=== PATIENT | female | born 1945 | race Caucasian/White ===

== ENCOUNTER 2019-05-04 02:19 | Emergency (ER) | payer MEDICARE, SELFPAY ==
[2019-05-04 02:27] VITALS: BP 152/107; PULSE 109; RESP 20; TEMP 37.1; O2SAT 100
[2019-05-04 02:34] VITALS: PULSE 120; RESP 15
--- NOTE | 2019-05-04 02:38 | ED.GENADULT ---
HPI - General Adult General Chief complaint: Unspecified Stated complaint: keep getting shocked on the top of my body Time Seen by Provider: 05/04/19 02:35 Source: patient and RN notes reviewed Mode of arrival: ambulatory Limitations: no limitations History of Present Illness HPI narrative: Pt is a 74 y/o female who presents to the ED with c/o worsening shakiness starting 3 days ago. She notes that she was recently placed on a new medication(reglan) for her acid reflux 4 days ago. Pt states that she has had shakiness in her neck and bilateral arms for the past 3 days. She notes that laying down aggravates her symptoms, and states that she has almost fallen several times while walking due to her symptoms. Pt describes her shaking as jerking. She also reports intermittent dizziness, but denies any fever or chills. Pt notes that she has a Hx of DM, but states that her BS has been running low recently. complaint: Shakiness Onset (ago): day(s) (3) Location: neck and upper extremity (bilateral arms) Exacerbating factors: other (laying down) Associated symptoms: other (dizziness) Related Data Home Medications Medication Instructions Recorded Confirmed amitriptyline 05/04/19 Allergies Allergy/AdvReac Type Severity Reaction Status Date / Time aspirin Allergy Unknown Verified 08/08/10 09:45 NSAIDS (Non-Steroidal Allergy Unknown X Verified 07/31/17 10:52 Anti-Inflamma NKFA Allergy Unknown Uncoded 09/07/02 15:18 Review of Systems Review of Systems: All systems reviewed & are unremarkable except as noted in HPI and below Constitutional: Constitutional: Denies chills, Denies fever(s) and Reports other (shakiness in neck and bilateral arms) Neurologic: Reports dizziness PMFSH Past Medical History Medical History Arthritis CHF (congestive heart failure) Diabetes Gallbladder disease Gastric ulcer GERD (gastroesophageal reflux disease) HTN (hypertension) Kidney tumor (benign) Pneumonia Sleep apnea Squamous cell carcinoma Surgical History Surgical History H/O squamous cell carcinoma excision History of kidney surgery removal of benign tumor Hx of appendectomy Hx of cholecystectomy Hx of fusion of cervical spine Hx of hysterectomy Hx of repair of rotator cuff bilateral shoulders Family History Family History Sibling Hypertension Father Family history of chronic obstructive pulmonary disease Mother Acute myocardial infarction Other Diabetes mellitus Social History Social History Smoking status: Never smoker Alcohol intake: current Gender identity (if verbalized by the patient): Female Comments PCP is Dr. Mann. Exam Const: General: healthy appearing and no acute distress Nutritional Appearance: well nourished Resp: Effort & Inspection: normal respiratory effort Auscultation: clear to auscultation bilaterally Cardio: Rate: regular rate Rhythm: regular rhythm Heart sounds: no murmurs GI: GI Palp: Yes Soft to palpation and No Tenderness to palpation present (GI) Auscultation: normal bowel sounds Back/Spine/Pelvis: Back: other (Full ROM) Skin: General skin exam: normal color, dry skin and other (warm) Neuro: General: patient oriented x3 (alert) Speech: normal speech Motor exam (neuro): Tremors during motor activity present (resting) and Other motor observations present (normal coordination) Extrem: General: full ROM Psych: Mental Status: mental status grossly normal Affect: normal affect Course Vital Signs Vital signs: Vital Signs Temperature 37.1 C 05/04/19 02:27 Pulse Rate 109 H 05/04/19 02:27 Respiratory Rate 20 05/04/19 02:27 Blood Pressure 152/107 H 05/04/19 02:27 Pulse Oximetry 100 05/04/19 02:27 Temperature 37.1 C 02
[2019-05-04 03:13] LABS: Basophils Percent Auto 0.2 % (0.2-1.2); Eosinophils Absolute Auto 0.1 K/mm3 (0-0.3); Eosinophils Percent Auto 1.5 % (0-4.4); Hematocrit 35.6 % (37.0-47.0); Hemoglobin 11.7 g/dL (12.0-15.0); Immature Granulocyte Absolute 0.01 K/mm3 (0.00-0.031); Immature Granulocyte Percent A 0.2 % (0-0.5); Lymphocytes Absolute Auto 0.76 K/mm3 (0.9-3.2); Lymphocytes Percent Auto 16.8 % (18.3-44.2); Mean Corpuscular HGB Conc 32.9 g/dl (32-36); Mean Corpuscular Hemoglobin 31.2 pg (26-34); Mean Corpuscular Volume 94.9 fl (80-100); Monocytes Absolute Auto 0.5 K/mm3 (0.1-0.6); Monocytes Percent Auto 10.4 % (2.6-8.5); Neutrophils Absolute Auto 3.2 K/mm3 (1.3-6.7); Neutrophils Percent Auto 70.9 % (45.5-73.1); Platelet Count Result 159 k/mm3 (150-375); Red Blood Count 3.75 M/mm3 (4.2-5.4); Red Cell Distribution Width 13.2 % (11.5-14.5); White Blood Count 4.5 K/mm3 (4.5-10.0)
[2019-05-04 03:31] LABS: Blood Urea Nitrogen 20 mg/dL (7-17); Calcium 9.2 mg/dL (8.4-10.2); Carbon Dioxide 27 mmol/L (22-30); Chloride 94 mmol/L (98-107); Estimated Glomerular Filt Rate 49; Glucose 122 mg/dL (65-105); Potassium 4.6 mmol/L (3.4-5.0); Sodium 136 mmol/L (137-145)
[2019-05-04 03:56] LABS: Add Urine Microscopic? YES; Appearance Urine Clear (Clear); Bilirubin Urine Negative (Negative); Blood Urine Negative (Negative); Color Urine Yellow (Yellow); Glucose Urine UA Negative (Negative); Ketones Urine Negative (Negative); Leukocyte Esterase Ur Trace LEU/UL (Negative); Mucus Urine Rare /lpf; Nitrate Urine Negative (Negative); Protein Urine Negative (Negative); Specific Grav Ur 1.021 (1.001-1.035); Squamous Epithelial Cell Urine Few /hpf (Few); Urobilinogen Urine Negative mg/dL (<2.0); WBC Urine 21-30 /hpf
[2019-05-04 04:20] VITALS: BP 121/57; PULSE 77; RESP 12; O2SAT 95
== END 2019-05-04 04:20 | disposition home or self-care (01) ==
PROVIDERS: Emergency Provider Emergency Medicine; PCP Family Medicine Adolescent Medicine
DX: R20.2 Paresthesia of skin (principal); T50.995A Adverse effect of other drugs, medicaments and biological substances, initial encounter; M19.90 Unspecified osteoarthritis, unspecified site; I11.0 Hypertensive heart disease with heart failure; I50.9 Heart failure, unspecified; K21.9 Gastro-esophageal reflux disease without esophagitis; G47.30 Sleep apnea, unspecified; E11.9 Type 2 diabetes mellitus without complications; R82.998 Other abnormal findings in urine
CPT/HCPCS: 36415; 80048; 81001; 83735; 85025; 87077; 87086; 87088; 87186; 96374; 96376; 99284; J1200

== ENCOUNTER 2020-03-19 20:23 | Emergency (ER) | payer MEDICARE, SELFPAY ==
[2020-03-19] VITALS (7 sets, daily range): BP systolic 120–142; BP diastolic 58–89; PULSE 61–104; RESP 13–24; TEMP 36.1–36.7; O2SAT 98–100
--- NOTE | 2020-03-19 20:46 | ECG_ITS ---
Measurements Intervals [place] Rate: 78 P: 53 DE: 154 QRS: -21 QRSD: 85 T: 71 QT: 381 QTc: 434 Interpretive Statements SINUS RHYTHM DELAYED PRECORDIAL R/S TRANSITION BORDERLINE ST-T WAVE ABNORMALITY- HIGH LATERAL LEADS BASELINE ARTIFACT- I, II, III, AVR, AVL, AVF, V1-V5 BORDERLINE ECG Electronically Signed On 03-20-2020 7:09:05 INNOVATION ANALYST by Marcel Centeno D.O.
[2020-03-19 20:58] LABS: Basophils Percent Auto 0.5 % (0.2-1.2); Eosinophils Percent Auto 0.8 % (0-4.4); Hematocrit 34.8 % (37.0-47.0); Hemoglobin 11.4 g/dL (12.0-15.0); Immature Granulocyte Absolute 0.02 K/mm3 (0.00-0.031); Immature Granulocyte Percent A 0.5 % (0-0.5); Lymphocytes Absolute Auto 2.03 K/mm3 (0.9-3.2); Lymphocytes Percent Auto 55.8 % (18.3-44.2); Mean Corpuscular HGB Conc 32.8 g/dl (32-36); Mean Corpuscular Hemoglobin 31.3 pg (26-34); Mean Corpuscular Volume 95.6 fl (80-100); Mean Platelet Volume 10.1 fl (7.4-10.4); Monocytes Absolute Auto 0.4 K/mm3 (0.1-0.6); Monocytes Percent Auto 10.4 % (2.6-8.5); Neutrophils Absolute Auto 1.2 K/mm3 (1.3-6.7); Platelet Count Result 202 k/mm3 (150-375); Red Blood Count 3.64 M/mm3 (4.2-5.4); Red Cell Distribution Width 15.1 % (11.5-14.5); White Blood Count 3.6 K/mm3 (4.5-10.0)
[2020-03-19 21:11] LABS: Alanine Aminotransferase 37 U/L (4-35); Albumin Level 3.8 g/dL (3.5-5.1); Alkaline Phosphatase 233 U/L (38-126); Anion Gap 8 mmol/L (8-16); Aspartate Amino Transferase 68 U/L (14-36); Bilirubin,Total 0.7 mg/dL (0.2-1.3); Blood Urea Nitrogen 17 mg/dL (7-17); Calcium 9.1 mg/dL (8.4-10.2); Carbon Dioxide 26 mmol/L (22-30); Chloride 102 mmol/L (98-107); Estimated CRCL calculation 41 ml/min; Estimated Glomerular Filt Rate 55; Glucose 118 mg/dL (65-105); Potassium 3.6 mmol/L (3.4-5.0); Sodium 136 mmol/L (137-145)
[2020-03-19 22:48] LABS: Troponin I < 0.012 ng/mL (0.000-0.034)
[2020-03-19] MEDS: MECLIZINE HCL 25 MG TABLET PO (22:54)
[2020-03-19] MEDS: SODIUM CHLORIDE 0.9% IV 1,000 ML 999 ML IV CONT (22:56)
[2020-03-19] MEDS: diazePAM INJ (*CRX) 10 MG/2 ML SYRINGE 5 MG IV PUSH (22:58)
[2020-03-19 23:09] LABS: Add Urine Microscopic? NO; Appearance Urine Clear (Clear); Bilirubin Urine Negative (Negative); Blood Urine Negative (Negative); Color Urine Yellow (Yellow); Glucose Urine UA Negative (Negative); Ketones Urine Negative (Negative); Leukocyte Esterase Ur Negative LEU/UL (Negative); Nitrate Urine Negative (Negative); Protein Urine Negative (Negative); Specific Grav Ur 1.013 (1.001-1.035); Urobilinogen Urine Negative mg/dL (<2.0)
--- NOTE | 2020-03-19 23:34 | PC.NURSE ---
Patient care transferred to MERCEDEZ Arenas.
--- NOTE | 2020-03-19 23:45 | ED.GENADULT ---
HPI - General Adult General Chief complaint: Dizziness Stated complaint: Dizziness Time Seen by Provider: 03/19/20 21:51 History of Present Illness HPI narrative: Patient is a 74-year-old female presents emerged part with chief complaint of dizziness. Patient reports she has history of vertigo reports today she felt lightheaded whenever she stood up but also felt as though the room was spinning. Patient states she took her Antivert without relief and stated that she tried to rest and then took another dose. Patient states that there was still feeling symptomatic and was not improved by anything states it was worse whenever she would turn her head and when she would stand up. The patient denies vomiting does report that she has history of nausea with it particular whenever she is having the rotational symptoms. The patient denies chest pain denies shortness of breath denies abdominal pain. Related Data Home Medications Medication Instructions Recorded Confirmed amitriptyline 05/04/19 Allergies Allergy/AdvReac Type Severity Reaction Status Date / Time aspirin Allergy Unknown Other Verified 03/19/20 20:51 NSAIDS (Non-Steroidal Allergy Unknown Other Verified 03/19/20 20:51 Anti-Inflamma Review of Systems Review of Systems: Narrative: A 10 system review of systems was completed on the patient and is negative except for what is stated in the HPI. Nursing and ancillary documentation was reviewed. [facility] Past Medical History Medical History (Updated 03/19/20 @ 23:52 by Francisco Aceves MD) Arthritis CHF (congestive heart failure) Diabetes Gallbladder disease Gastric ulcer GERD (gastroesophageal reflux disease) HTN (hypertension) Kidney tumor (benign) Pneumonia Sleep apnea Squamous cell carcinoma Surgical History Surgical History H/O squamous cell carcinoma excision History of kidney surgery removal of benign tumor Hx of appendectomy Hx of cholecystectomy Hx of fusion of cervical spine Hx of hysterectomy Hx of repair of rotator cuff bilateral shoulders Family History Family History Sibling Hypertension Father Family history of chronic obstructive pulmonary disease Mother Acute myocardial infarction Other Diabetes mellitus Social History Social History Smoking status: Never smoker Alcohol intake: current Gender identity (if verbalized by the patient): Female Exam Narrative: Exam Narrative: GENERAL: Well-appearing, well-nourished, and in no acute distress. HEAD: Normocephalic, atraumatic. EYES: PERRLA and EOMI. ENT: Nares clear, no rhinorrhea or epistaxis. Mucous membranes moist. NECK: Supple. CHEST: Clear to auscultation. No respiratory distress. HEART: Regular rate and rhythm. No murmur heard. Normal peripheral pulses. ABDOMEN: Soft, nontender, nondistended, normal active bowel sounds. EXTREMITIES: Normal range of motion. No edema. SKIN: Warm, dry, no rash. NEURO: No focal deficits. Alert and oriented x3. PSYCH: Normal mood and affect. Course Course Emergency Course: Patient received IV Valium in the emergency department as well as p.o. Antivert and fluids. The patient is feeling much better at this time and the patient will be discharged home. Vital Signs Vital signs: Vital Signs Temperature 36.1 C L 03/19/20 20:26 Pulse Rate 78 03/19/20 20:26 Respiratory Rate 14 03/19/20 20:26 Blood Pressure 142/71 H 03/19/20 20:26 Pulse Oximetry 100 03/19/20 20:26 Temperature 36.3 C L 03/19/20 22:59 Pulse Rate 61 03/19/20 22:59 Respiratory Rate 13 03/19/20 22:59 Blood Pressure 123/62 03/19/20 22:59 Pulse Oximetry 98 03/19/20 22:59 Medical Decision Making Vital Signs Vital Signs: Vital Signs Temperature 36.1 C L 03/19/20 20:26 Pulse Rate 78
[2020-03-20 00:13] VITALS: BP 124/68; PULSE 68; RESP 18; O2SAT 100
== END 2020-03-20 00:14 | disposition home or self-care (01) ==
PROVIDERS: Emergency Medicine; Emergency Provider Emergency Medicine; PCP Family Medicine Adolescent Medicine
DX: R42 Dizziness and giddiness (principal); M19.90 Unspecified osteoarthritis, unspecified site; I50.9 Heart failure, unspecified; K21.9 Gastro-esophageal reflux disease without esophagitis; I11.0 Hypertensive heart disease with heart failure; G47.30 Sleep apnea, unspecified; Z85.828 Personal history of other malignant neoplasm of skin; R94.31 Abnormal electrocardiogram [ECG] [EKG]
CPT/HCPCS: 36415; 80053; 81003; 84484; 85025; 93005; 96361; 96374; 99284; A9270; J3360; J7030

== ENCOUNTER 2020-04-11 17:47 | Emergency (ER) | payer MEDICARE, SELFPAY ==
[2020-04-11] VITALS (27 sets, daily range): BP systolic 97–124; BP diastolic 47–60; PULSE 67–80; RESP 16–30; TEMP 36.3; O2SAT 88–100
--- NOTE | ~2020-04-11 | XR_ITS ---
XR chest 2V DATE: 04/11/2020 18:43 INDICATION: Left chest pain TECHNIQUE: PA and lateral views COMPARISON: 04/18/2017 two-view chest 04/19/2017 CT pulmonary scan FINDINGS: Normal heart size. No hilar or mediastinal enlargement. No pulmonary infiltrate or consolid ation, pleural effusion or pulmonary vascular congestion or pneumothorax. Minimal bilateral apical capping. Postoperative changes at the right upper quadrant consistent with cholecystectomy. IMPRESSION: No active cardiopulmonary disease Reviewed, dictated and finalized at location A. RAM CONTROL ANALYST
--- NOTE | ~2020-04-11 | NM_ITS ---
NM pulmonary perfusion DATE: 04/11/2020 22:42 INDICATION: Chest pain TECHNIQUE: 8 standard perfusion views following intravenous injection of 3.68 mCi 99m technetium MAA. COMPARISON: 04/11/2020 PA and lateral chest FINDINGS: There is normal distribution of the MAA particles throughout both lungs without any segment al or lobar perfusion abnormalities. IMPRESSION: Negative pulmonary perfusion scan; no evidence of clinically significant pulmonary emboli Reviewed, dictated and finalized at Location A. Reviewed, dictated and finalized at location A. CHER LARD IMPRESSION: Negative pulmonary perfusion scan; no evidence of clinically signif icant pulmonary emboli
--- NOTE | 2020-04-11 17:48 | ECG_ITS ---
Measurements Intervals [place] Rate: 80 P: 57 MS: 160 QRS: -8 QRSD: 85 T: 101 QT: 384 QTc: 444 Interpretive Statements SINUS RHYTHM BORDERLINE ST-T WAVE ABNORMALITY- ANT/HIGH LAT LEADS BORDERLINE ECG Electronically Signed On 04-11-2020 19:21:20 [employer] ROUTEMAN by Marcel Centeno D.O.
[2020-04-11 18:04] LABS: Basophils Percent Auto 0.1 % (0.2-1.2); Eosinophils Absolute Auto 0.1 K/mm3 (0-0.3); Eosinophils Percent Auto 0.8 % (0-4.4); Hematocrit 26.6 % (37.0-47.0); Hemoglobin 8.7 g/dL (12.0-15.0); Immature Granulocyte Absolute 0.02 K/mm3 (0.00-0.031); Immature Granulocyte Percent A 0.3 % (0-0.5); Lymphocytes Absolute Auto 1.48 K/mm3 (0.9-3.2); Mean Corpuscular HGB Conc 32.7 g/dl (32-36); Mean Corpuscular Hemoglobin 30.9 pg (26-34); Mean Corpuscular Volume 94.3 fl (80-100); Mean Platelet Volume 9.7 fl (7.4-10.4); Monocytes Absolute Auto 0.4 K/mm3 (0.1-0.6); Monocytes Percent Auto 5.8 % (2.6-8.5); Neutrophils Absolute Auto 5.1 K/mm3 (1.3-6.7); Platelet Count Result 200 k/mm3 (150-375); Red Blood Count 2.82 M/mm3 (4.2-5.4); Red Cell Distribution Width 14.8 % (11.5-14.5); White Blood Count 7.1 K/mm3 (4.5-10.0)
[2020-04-11 18:14] LABS: Prothrombin Time 13.5 Seconds (11.1-14.7)
[2020-04-11 18:15] LABS: Partial Thromboplastin Time 33.8 SECONDS (22.3-36.8)
[2020-04-11 18:18] LABS: Anion Gap 10 mmol/L (8-16); Blood Urea Nitrogen 32 mg/dL (7-17); Carbon Dioxide 26 mmol/L (22-30); Chloride 97 mmol/L (98-107); Estimated CRCL calculation 19 ml/min; Estimated Glomerular Filt Rate 26; Glucose 175 mg/dL (65-105); Potassium 3.8 mmol/L (3.4-5.0); Sodium 133 mmol/L (137-145)
[2020-04-11 18:30] LABS: Troponin I < 0.012 ng/mL (0.000-0.034)
--- NOTE | 2020-04-11 19:33 | ED.GENADULT ---
HPI - General Adult General Chief complaint: Chest Pain Stated complaint: chest pain Time Seen by Provider: 04/11/20 18:20 Source: patient History of Present Illness HPI narrative: Patient is a 74 y/o female complaining of left sided chest pain starting about 1:00 PM. She states that her pain is sharp and rates it as 9/10. She states that her pain stopped around 2:00 PM about recurred at 5:00 PM. There is no pain radiation. She has no SOB, cough or fever. Related Data Home Medications Medication Instructions Recorded Confirmed amitriptyline 05/04/19 Allergies Allergy/AdvReac Type Severity Reaction Status Date / Time aspirin Allergy Unknown Other Verified 03/19/20 20:51 NSAIDS (Non-Steroidal Allergy Unknown Other Verified 03/19/20 20:51 Anti-Inflamma Review of Systems Constitutional: Constitutional: Denies chills, Denies fever(s), Denies headache(s) and Denies weakness Eyes: Eyes: Denies blurry vision ENT: Denies headache(s) and Denies neck pain Cardiovascular: Cardiovascular: Reports chest pain and Denies dyspnea Respiratory: Respiratory: Denies cough and Denies dyspnea Gastrointestinal: Gastrointestinal: Denies abdominal pain, Denies diarrhea, Denies nausea and Denies vomiting Genitourinary: Genitourinary: Denies hematuria and Denies dysuria Musculoskeletal: Musculoskeletal: Denies back pain and Denies neck pain Neurologic: Denies headache(s) and Denies weakness [facility] Past Medical History Medical History (Updated 04/12/20 @ 01:09 by Paola Uriostegui MD) Arthritis CHF (congestive heart failure) Diabetes Gallbladder disease Gastric ulcer GERD (gastroesophageal reflux disease) HTN (hypertension) Kidney tumor (benign) Pneumonia Sleep apnea Squamous cell carcinoma Surgical History Surgical History H/O squamous cell carcinoma excision History of kidney surgery removal of benign tumor Hx of appendectomy Hx of cholecystectomy Hx of fusion of cervical spine Hx of hysterectomy Hx of repair of rotator cuff bilateral shoulders Family History Family History Sibling Hypertension Father Family history of chronic obstructive pulmonary disease Mother Acute myocardial infarction Other Diabetes mellitus Social History Social History Smoking status: Never smoker Alcohol intake: current Gender identity (if verbalized by the patient): Female Exam Const: General: no acute distress and well developed Orientation/consciousness: oriented to person, oriented to place, oriented to time and patient oriented x3 HENMT: Head: normocephalic Ears: external ears normal General nose exam: Normal external nose present Eyes: General: appearance normal, both eyes and all related structures Conjunctivae: conjunctivae normal Neck: Neck: normal visual inspection and full ROM Chest: Chest palpation & inspection: normal inspection of the chest and no tenderness Resp: Effort & Inspection: normal respiratory effort Auscultation: clear to auscultation bilaterally Cardio: Rate: regular rate Rhythm: regular rhythm GI: GI Palp: No abdominal tenderness and Yes Soft to palpation Skin: General skin exam: normal color and turgor normal Neuro: General: oriented to person, oriented to place, oriented to time and patient oriented x3 Cognition (Neuro): normal cognition Extrem: General: normal to inspection, full ROM and no pedal edema Psych: Appearance: grossly normal Mental Status: mental status grossly normal Affect: normal affect Course Vital Signs Vital signs: Vital Signs Temperature 36.3 C L 04/11/20 17:54 Pulse Rate 80 04/11/20 17:54 Respiratory Rate 16 04/11/20 17:54 Blood Pressure 124/47 L 04/11/20 17:54 Pulse Oximetry 96 04/11/20 17:54 Temperature 36.3 C L 04/11/20 17:54 Pulse Rate 73 04/12/20 00:05
[2020-04-11] MEDS: CYCLOBENZAPRINE HCL 10 MG TABLET PO (20:00)
[2020-04-11 20:08] LABS: D Dimer 1.28 ug/mL (<0.48)
--- NOTE | 2020-04-11 20:37 | PC.NURSE ---
received report from Jelena RN and Rony RN. patient here with CP. waiting for 2nd trop due at 2029. patient resting on stretcher. on radiographer cardiac catheterization. states that medication given for chest pain did not help at all . wants more medication. family member in room.
--- NOTE | 2020-04-11 21:15 | PC.NURSE ---
patient back on stretcher after ambulating to restroom. ultram given for continued chest pain. patient aware we are waiting for result of 2nd trop level. family member in room. call light in reach.
[2020-04-11 21:19] LABS: Troponin I < 0.012 ng/mL (0.000-0.034)
[2020-04-11] MEDS: traMADol HCL (*CRX) 50 MG TABLET PO (21:24)
--- NOTE | 2020-04-11 21:26 | PC.NURSE ---
ordered CT chest for PE. spoke with tech ed teacher. patient's GFR is 26. Dr. Uriostegui aware. will change to VQ scan. will ask record filing clerk to call for tech.
--- NOTE | 2020-04-11 22:54 | PC.NURSE ---
all tests resulted. waiting for further orders from provider vs disposition.
[2020-04-12 00:05] VITALS: PULSE 73; RESP 16
[2020-04-12 00:26] LABS: Troponin I < 0.012 ng/mL (0.000-0.034)
== END 2020-04-12 00:58 | disposition home or self-care (01) ==
PROVIDERS: Emergency Provider Emergency Medicine; Family Provider Family Medicine Adolescent Medicine; PCP Family Medicine Adolescent Medicine
DX: R07.9 Chest pain, unspecified (principal); E11.22 Type 2 diabetes mellitus with diabetic chronic kidney disease; I13.0 Hypertensive heart and chronic kidney disease with heart failure and stage 1 through stage 4 chronic kidney disease, or unspecified chronic kidney disease; N18.9 Chronic kidney disease, unspecified; I50.9 Heart failure, unspecified; G47.30 Sleep apnea, unspecified; Z98.1 Arthrodesis status; Z85.828 Personal history of other malignant neoplasm of skin; M19.90 Unspecified osteoarthritis, unspecified site
CPT/HCPCS: 36415; 71046; 78580; 80048; 84484; 85025; 85380; 85610; 85730; 93005; 99284; A9270; A9540

== ENCOUNTER 2021-06-04 14:18 | Outpatient (CLI) | payer MEDICARE, SELFPAY ==
--- NOTE | ~2021-06-04 | CT_ITS ---
EXAMINATION: CT brain & sinus wo con DATE: 06/04/2021 14:39 INDICATION: Recent onset of right-sided headache TECHNIQUE: Computed tomography (CT) of the brain and sinuses was performed without intravenous contra st. The dose-length product was 681.00 mGy-cm. Automated exposure control and iterative reconstructio n technique were employed. COMPARISON: No prior studies for comparison. FINDINGS: Brain parenchymal volume is normal for age. There are scattered mild periventricular and moffett bcortical white matter changes, most likely related to small vessel ischemic disease (microangiopathy ). There is intracranial atherosclerosis. No acute intracranial hemorrhage, infarction, mass or mass effect. No ventriculomegaly or midline shift. No depressed skull fractures. Mastoids are pneumatized. Paranasal sinuses are pneumatized without mucosal thickening or air-fluid level. No significant nasa l septal deviation. Ostiomeatal units are patent. IMPRESSION: 1. No acute abnormality of the brain. 2: No significant paranasal sinus disease. 3: Chronic age-related findings. Reviewed, dictated and finalized at location A.
== END 2021-06-04 14:19 | disposition home or self-care (01) ==
PROVIDERS: PCP Family Medicine Adolescent Medicine; Visit Provider Family Medicine Adolescent Medicine
DX: R51.9 Headache, unspecified (principal)
CPT/HCPCS: 70450; 70486

== ENCOUNTER 2021-11-23 14:26 | Emergency (ER) | payer MEDICARE, SELFPAY ==
--- NOTE | ~2021-11-23 | XR_ITS ---
EXAMINATION: [id number] DATE: 11/23/2021 14:49 INDICATION: Right rib pain post lots of cough TECHNIQUE: A frontal inspiratory view of the chest and 2 views of the right ribs were obtained. COMPARISON: 04/11/2020 FINDINGS: No rib fractures identified. The lungs are clear with no focal airspace opacities, pulmonary edema, p leural effusion or pneumothorax. Cardiomediastinal silhouette is normal. Cholecystectomy clips in rig ht upper quadrant. Additional surgical clips more posteriorly in the right upper quadrant likely rela madhuri to prior partial right nephrectomy. IMPRESSION: 1. No rib fracture or acute cardiopulmonary disease. Reviewed, dictated and finalized at location A.
[2021-11-23 14:35] VITALS: BP 135/58; PULSE 69; RESP 18; TEMP 36.3; O2SAT 100
--- NOTE | 2021-11-23 14:35 | ED.GENADULT ---
HPI - General Adult General Chief complaint: Upper Respiratory Infection Stated complaint: Bilateral Side and Back Pain History of Present Illness HPI narrative: 76 y/o female. PMHx Hypothyroid, HTN, Dyslipidemia, CHF, DM II, CKD, OA. Presents to local [facility] today with acute complaints of bilateral lower rib pain, in the setting of recent URI and cough. Client describes a 'sharp' and intermittent lower chest wall and rib pain, worse with quick movement or cough. She tells me that she had a URI 2 weeks ago, with continued cough prior to manifestation onset. Denies falls or acute chest wall trauma. No rash or lesions. Denies dyspnea, palpitations, edema. No dizziness, weakness, diaphoresis, N/V. She reports to now feel 'much better' in regard to her URI. However, has had continued dry cough, further irritating her chest wall. She is without additional acute c/o upon PE. Related Data Home Medications Medication Instructions Recorded Confirmed isosorbide mononitrate 30 mg 30 mg PO DAILY 03/19/21 11/23/21 tablet,extended release 24 hr ondansetron 4 mg disintegrating 4 mg PO Q8H 03/19/21 11/23/21 tablet ranolazine 500 mg tablet,extended 500 mg PO Q12H 03/19/21 11/23/21 release,12 hr sulindac 200 mg tablet 200 mg PO BID 03/19/21 11/23/21 Allergies Allergy/AdvReac Type Severity Reaction Status Date / Time aspirin Allergy Unknown Other Verified 11/23/21 14:43 NSAIDS (Non-Steroidal Allergy Unknown Other Verified 11/23/21 14:43 Anti-Inflamma lisinopril AdvReac Intermediate Cough Verified 11/23/21 14:43 metformin AdvReac Mild diarrhea Verified 11/23/21 14:43 propranolol AdvReac Mild Unknown Verified 11/23/21 14:43 metoclopramide AdvReac Unknown UNknown Verified 11/23/21 14:43 Review of Systems Review of Systems: CONSTITUTIONAL: Denies fever, chills, sweats. EYES: Denies visual changes, redness, discharge. ENT: Denies rhinorrhea, congestion, sore throat, otalgia. CARDIOVASCULAR: Chest wall pain w/cough. Denies palpitations, edema. RESPIRATORY: Denies dyspnea, wheezing. + cough. GASTROINTESTINAL: Denies abdominal pain, nausea, vomiting, diarrhea. GENITOURINARY: Denies dysuria, hematuria, abnormal discharge SKIN: Denies rash or itching. MUSCULOSKELETAL: Denies acute back pain, joint pain, or myalgia. NEUROLOGIC: Denies numbness, or focal weakness. No dizziness. PSYCHIATRIC: Denies anxiety or depression. [facility] Past Medical History Medical History Arthritis CHF (congestive heart failure) Diabetes Gastric ulcer GERD (gastroesophageal reflux disease) HTN (hypertension) Kidney tumor (benign) Pneumonia Sleep apnea Squamous cell carcinoma Surgical History Surgical History H/O squamous cell carcinoma excision History of hysterectomy with bilateral oophorectomy 1992 History of kidney surgery removal of benign tumor Hx of appendectomy Hx of cholecystectomy 2002 Hx of fusion of cervical spine Hx of repair of rotator cuff bilateral shoulders Family History Family History Sibling Hypertension Father Family history of chronic obstructive pulmonary disease Mother Acute myocardial infarction Other Diabetes mellitus Social History Social History Smoking status: Never smoker Alcohol intake: never Substance use: never Substance use type: does not use Gender identity (if verbalized by the patient): Female Sexual Orientation (if Verbalized by the Patient): Straight or Heterosexual Spiritual care concerns: No Agree to blood products: Yes Exam Narrative: GENERAL: This is a well-nourished, well-developed adult, in no apparent distress. HEAD: normocephalic. EYES: Sclera clear/white. EARS: External ears normal. NOSE: Externa
== END 2021-11-23 15:22 | disposition home or self-care (01) ==
PROVIDERS: Emergency Provider Nurse Practitioner Adult Health; PCP Family Medicine Adolescent Medicine
DX: M94.0 Chondrocostal junction syndrome [Tietze] (principal); R05.9 Cough, unspecified; E03.9 Hypothyroidism, unspecified; I50.9 Heart failure, unspecified; E11.22 Type 2 diabetes mellitus with diabetic chronic kidney disease; N18.9 Chronic kidney disease, unspecified; I13.0 Hypertensive heart and chronic kidney disease with heart failure and stage 1 through stage 4 chronic kidney disease, or unspecified chronic kidney disease
CPT/HCPCS: 71101; 99213; G0463

== ENCOUNTER 2022-08-21 13:56 | Outpatient (CLI) | payer MEDICARE, SELFPAY ==
[2022-08-21 14:18] LABS: Basophils Percent Auto 0.5 % (0.2-1.2); Eosinophils Absolute Auto 0.1 K/mm3 (0-0.3); Eosinophils Percent Auto 2.2 % (0-4.4); Hematocrit 32.7 % (37.0-47.0); Hemoglobin 10.8 g/dL (12.0-15.0); Immature Granulocyte Absolute 0.02 K/mm3 (0.00-0.031); Immature Granulocyte Percent A 0.5 % (0-0.5); Lymphocytes Absolute Auto 1.77 K/mm3 (0.9-3.2); Lymphocytes Percent Auto 42.8 % (18.3-44.2); Mean Corpuscular Hemoglobin 30.9 pg (26-34); Mean Corpuscular Volume 93.4 fl (80-100); Monocytes Absolute Auto 0.4 K/mm3 (0.1-0.6); Monocytes Percent Auto 9.4 % (2.6-8.5); Neutrophils Absolute Auto 1.9 K/mm3 (1.3-6.7); Neutrophils Percent Auto 44.6 % (45.5-73.1); Platelet Count Result 174 k/mm3 (150-375); Red Cell Distribution Width 14.9 % (11.5-14.5); White Blood Count 4.1 K/mm3 (4.5-10.0)
[2022-08-21 16:25] LABS: Iron 82 ug/dL (37-170)
[2022-08-21 16:33] LABS: Alanine Aminotransferase 24 U/L (6-35); Albumin Level 4.4 g/dL (3.5-5.1); Alkaline Phosphatase 113 U/L (38-126); Anion Gap 8 mmol/L (8-16); Aspartate Amino Transferase 34 U/L (14-36); Bilirubin,Total 0.6 mg/dL (0.2-1.3); Blood Urea Nitrogen 23 mg/dL (7-17); Calcium 9.1 mg/dL (8.4-10.2); Carbon Dioxide 30 mmol/L (22-30); Chloride 99 mmol/L (98-107); Estimated Glomerular Filt Rate 40; Glucose 96 mg/dL (65-110); Lactate Dehydrogenase 135 U/L (120-246); Potassium 3.9 mmol/L (3.4-5.0); Sodium 137 mmol/L (137-145)
[2022-08-21 16:34] LABS: Percent Iron Saturation 17 % (20-50)
[2022-08-21 17:44] LABS: Folic Acid 12.8 ng/mL (2.76->20)
[2022-08-25 02:49] LABS: Methylmalonic Acid 531 nmol/L (87-318)
== END 2022-08-21 13:57 | disposition home or self-care (01) ==
LOC: ANHLAB 14:06
PROVIDERS: PCP Family Medicine Adolescent Medicine; Visit Provider Internal Medicine Hematology & Oncology
DX: D61.818 Other pancytopenia (principal); D64.9 Anemia, unspecified
CPT/HCPCS: 36415; 80053; 82607; 82728; 82746; 83540; 83550; 83615; 83921; 85025; 86038; 86039

== ENCOUNTER 2022-08-28 09:30 | Outpatient (CLI) | payer MEDICARE, SELFPAY ==
--- NOTE | ~2022-08-28 | US_ITS ---
US abdomen complete EXAMINATION: US Abdomen Complete INDICATION: Pancytopenia PROCEDURE: Realtime High Resolution abdomen ultrasound. COMPARISON: No prior studies for comparison FINDINGS: Gallbladder is surgically absent. Common bile duct measures 4 mm. Liver echotexture within normal limits without focal mass. Pancreas within normal limits. Pancreati c tail is obscured by bowel gas. Spleen is unremarkeable. Renal echotexture is within normal limits bilaterally without hydronephrosis, contour deforming mass or renal stone. Right kidney measures 9.7 cm. Left kidney measures 8.6 cm. Visualized aspects of the aorta and IVC are within normal limits. Portal vein is patent. IMPRESSION: 1: Normal abdominal ultrasound. Reviewed, dictated and finalized at location L.
== END 2022-08-28 09:31 | disposition home or self-care (01) ==
LOC: ANHIMG 17:56
PROVIDERS: PCP Family Medicine Adolescent Medicine; Visit Provider Internal Medicine Hematology & Oncology
DX: D61.818 Other pancytopenia (principal)
CPT/HCPCS: 36415; 76700; 80053; 82607; 82728; 82746; 83540; 83550; 83615; 83921; 85025

== ENCOUNTER 2022-08-28 09:45 | Outpatient (CLI) | payer MEDICARE, SELFPAY ==
[2022-08-29 12:31] LABS: Basophils Percent Auto 0.5 % (0.2-1.2); Eosinophils Absolute Auto 0.1 K/mm3 (0-0.3); Eosinophils Percent Auto 3.3 % (0-4.4); Hematocrit 35.9 % (37.0-47.0); Hemoglobin 12.1 g/dL (12.0-15.0); Immature Granulocyte Absolute 0.01 K/mm3 (0.00-0.031); Immature Granulocyte Percent A 0.2 % (0-0.5); Lymphocytes Absolute Auto 1.78 K/mm3 (0.9-3.2); Lymphocytes Percent Auto 42.1 % (18.3-44.2); Mean Corpuscular HGB Conc 33.7 g/dl (32-36); Mean Corpuscular Hemoglobin 31.3 pg (26-34); Mean Corpuscular Volume 92.8 fl (80-100); Mean Platelet Volume 10.1 fl (7.4-10.4); Monocytes Absolute Auto 0.4 K/mm3 (0.1-0.6); Monocytes Percent Auto 8.3 % (2.6-8.5); Neutrophils Absolute Auto 1.9 K/mm3 (1.3-6.7); Neutrophils Percent Auto 45.6 % (45.5-73.1); Platelet Count Result 208 k/mm3 (150-375); Red Blood Count 3.87 M/mm3 (4.2-5.4); Red Cell Distribution Width 14.4 % (11.5-14.5); White Blood Count 4.2 K/mm3 (4.5-10.0)
[2022-08-29 21:40] LABS: Iron 83 ug/dL (37-170)
[2022-08-29 21:49] LABS: Percent Iron Saturation 16 % (20-50)
[2022-08-29 21:54] LABS: Alanine Aminotransferase 25 U/L (6-35); Albumin Level 4.7 g/dL (3.5-5.1); Alkaline Phosphatase 121 U/L (38-126); Anion Gap 10 mmol/L (8-16); Aspartate Amino Transferase 36 U/L (14-36); Bilirubin,Total 0.5 mg/dL (0.2-1.3); Blood Urea Nitrogen 25 mg/dL (7-17); Calcium 9.7 mg/dL (8.4-10.2); Carbon Dioxide 26 mmol/L (22-30); Chloride 103 mmol/L (98-107); Estimated Glomerular Filt Rate 31; Glucose 96 mg/dL (65-110); Lactate Dehydrogenase 136 U/L (120-246); Potassium 4.9 mmol/L (3.4-5.0); Sodium 139 mmol/L (137-145)
[2022-08-29 23:03] LABS: Folic Acid 18.9 ng/mL (2.76->20)
[2022-09-02 07:18] LABS: Methylmalonic Acid 448 nmol/L (87-318)
== END 2022-08-28 09:46 | disposition home or self-care (01) ==
LOC: ANHLAB 08-29 11:05
PROVIDERS: PCP Family Medicine Adolescent Medicine; Visit Provider Internal Medicine Hematology & Oncology
DX: D61.818 Other pancytopenia (principal); I12.9 Hypertensive chronic kidney disease with stage 1 through stage 4 chronic kidney disease, or unspecified chronic kidney disease; N18.31 Chronic kidney disease, stage 3a; E11.22 Type 2 diabetes mellitus with diabetic chronic kidney disease
CPT/HCPCS: 36415; 80053; 82607; 82728; 82746; 83540; 83550; 83615; 83921; 85025

== ENCOUNTER 2022-11-29 01:16 | Day surgery (SDC) | payer MEDICARE, SELFPAY ==
[2022-11-25 12:02] VITALS: BMI 28.2
--- NOTE | 2022-11-28 15:48 | PM.HPGS ---
History of Present Illness History of Present Illness Consent: Risks, benefits, and alternatives have been discussed and questions answered. Patient agrees to proceed with procedure. Chief complaint: epigastric pain Narrative: Anuja Prasad is a 77 year old female with hx of chronic anemia (managed by Dr. Nguyen), ROSA (on CPAP), CAD, thrombocytopenia, CHF, DM, gastric ulcer, HTN, CKD, vertigo, GERD (on lansoprazole BID and famotidine BID) referred for evaluation of epigastric pain times one year. the pain comes on suddenly and only last for a few seconds and then resolves. Pain is so severe it can take her breath away. She can not identify any triggers that make her symptoms worse. Around June she developed intermittent nausea in the am. Pepcid BID was added to PPI regimen and nausea improved for several months. For the 6 weeks she develop tenderness in bilateral upper abdomen that is progressively getting worse. pain radiates down to her belly button. Pain is worse appr 10 minutes after eating regardless of what she eats. She reports occasional intermittent nausea, belching and gas. Pain radiates across upper abdomen with generalized tenderness to the touch, in it becomes worse if she rolls over. if she turns to her side she has pain primarily at the end of the rib cage laterally on the right side. she is nauseated cold all the time but has lost no weight.? Review of Systems Review of Systems: All systems reviewed & are unremarkable except as noted in HPI and below PMFSH Past Medical History Medical History Arthritis CHF (congestive heart failure) CKD (chronic kidney disease) Diabetes Gastric ulcer GERD (gastroesophageal reflux disease) HTN (hypertension) Kidney tumor (benign) Pneumonia Sleep apnea Squamous cell carcinoma Surgical History Surgical History H/O squamous cell carcinoma excision History of ERCP History of hysterectomy with bilateral oophorectomy 1992 History of kidney surgery removal of benign tumor Hx of appendectomy Hx of cholecystectomy 2002 Hx of fusion of cervical spine Hx of repair of rotator cuff bilateral shoulders Family History Family History Sibling Hypertension Father Family history of chronic obstructive pulmonary disease Mother Acute myocardial infarction Other Diabetes mellitus Social History Social History Smoking status: Never smoker Alcohol intake: never Substance use: never Substance use type: does not use Lack of Transportation: No Lack of Food: Never True Current Housing: I Have Housing Concerned About Future Housing: No Difficulty Paying Gas/Electric Bills: No Difficulty Paying for Meds: No Currently Unemployed: No Education: Trade/Vocational Certificate Living arrangements: with family Occupation/Education: retired Gender identity (if verbalized by the patient): Female Sexual Orientation (if Verbalized by the Patient): Straight or Heterosexual Spiritual care concerns: No Agree to blood products: Yes Meds Home Medications and Allergies Home Medications Medication Instructions Recorded Confirmed Type isosorbide mononitrate 30 mg 30 mg PO DAILY 03/19/21 11/29/22 History tablet,extended release 24 hr ranolazine 500 mg tablet,extended 500 mg PO Q12H 03/19/21 11/29/22 History release,12 hr bumetanide 1 mg tablet 1 mg PO DAILY #90 tabs 03/22/21 11/29/22 Rx fluticasone propionate 110 2 puff inhalation Q12H #36 grams 03/22/21 11/29/22 Rx mcg/actuation HFA aerosol inhaler (Flovent HFA) potassium chloride 10 mEq See Rx Instructions .Route 08/06/21 11/29/22 Rx tablet,extended release(part/cryst) .COMPLEX #100 tabs meclizine 25 mg tablet See Rx Instructions .Route 11/15/21 11/29/22 Rx .COMPLEX #30 ta
--- NOTE | 2022-11-29 08:01 | WPDANESEPPF ---
Anes - Initial Pre Proc Eval Procedure: Operation Date: 11/29/22 10:00 Proposed Procedures p Esophagogastroduodenoscopy - Andriy Akhtar MD Date/Time: 11/29/22 08:01 Surgeon: Andriy Akhtar MD Pre Op Diagnosis: epigastric pain Patient Data Age: 77 Gender: F Height: 1.57 m Weight: 70 kg Allergies Allergy/AdvReac Type Severity Reaction Status Date / Time metformin AdvReac Mild diarrhea Verified 11/29/22 08:59 propranolol AdvReac Mild Unknown Verified 11/29/22 08:59 metoclopramide AdvReac Unknown UNknown Verified 11/29/22 08:59 NSAIDS (Non-Steroidal AdvReac Unknown Other Verified 11/29/22 08:59 Anti-Inflamma Home Medications Medication Instructions Recorded Confirmed Type isosorbide mononitrate 30 mg 30 mg PO DAILY 03/19/21 11/29/22 History tablet,extended release 24 hr ranolazine 500 mg tablet,extended 500 mg PO Q12H 03/19/21 11/29/22 History release,12 hr bumetanide 1 mg tablet 1 mg PO DAILY #90 tabs 03/22/21 11/29/22 Rx fluticasone propionate 110 2 puff inhalation Q12H #36 grams 03/22/21 11/29/22 Rx mcg/actuation HFA aerosol inhaler (Flovent HFA) potassium chloride 10 mEq See Rx Instructions .Route 08/06/21 11/29/22 Rx tablet,extended release(part/cryst) .COMPLEX #100 tabs meclizine 25 mg tablet See Rx Instructions .Route 11/15/21 11/29/22 Rx .COMPLEX #30 tabs atorvastatin 20 mg tablet See Rx Instructions .Route 04/07/22 11/29/22 Rx .COMPLEX #100 tabs lansoprazole 30 mg capsule,delayed See Rx Instructions .Route 04/07/22 11/29/22 Rx release .COMPLEX #200 caps levothyroxine 25 mcg tablet See Rx Instructions .Route 04/07/22 11/29/22 Rx .COMPLEX #100 tabs metoprolol succinate 50 mg See Rx Instructions .Route 04/07/22 11/25/22 Rx tablet,extended release 24 hr .COMPLEX #100 tabs aspirin 81 mg tablet,delayed 81 mg PO DAILY 05/30/22 11/29/22 History release acyclovir 400 mg tablet 400 mg PO TID #15 tabs 07/09/22 11/29/22 Rx pioglitazone 30 mg tablet See Rx Instructions .Route 07/19/22 11/29/22 Rx .COMPLEX #100 tabs famotidine 40 mg tablet 40 mg PO BID #180 tabs 09/06/22 11/29/22 Rx ferrous sulfate 325 mg (65 mg 325 mg PO DAILY 10/31/22 11/29/22 History iron) tablet (Feosol) losartan 25 mg tablet 25 mg PO DAILY 10/31/22 11/29/22 History vitamin B complex (B 1 tablet PO DAILY 10/31/22 11/29/22 History Complex-Vitamin B12 tablet) diazepam 2 mg tablet 4 mg PO BID #360 tabs 11/04/22 11/29/22 Rx trazodone 100 mg tablet See Rx Instructions .Route 11/06/22 11/29/22 Rx .COMPLEX #135 tabs ropinirole 0.5 mg tablet 0.5 mg PO QHS #100 tabs 12/02/22 Rx Patient hx anesthesia problems: none Family hx anesthesia problems: none Results Review: All pre-operative results and documents have been reviewed as part of the pre-operative evaluation. [facility] Past Medical History Medical History Arthritis CHF (congestive heart failure) CKD (chronic kidney disease) Diabetes Gastric ulcer GERD (gastroesophageal reflux disease) HTN (hypertension) Kidney tumor (benign) Pneumonia Sleep apnea Squamous cell carcinoma Surgical History Surgical History H/O squamous cell carcinoma excision History of ERCP History of hysterectomy with bilateral oophorectomy 1992 History of kidney surgery removal of benign tumor Hx of appendectomy Hx of cholecystectomy 2002 Hx of fusion of cervical spine Hx of repair of rotator cuff bilateral shoulders Family History Family History Sibling Hypertension Father Family history of chronic obstructive pulmonary disease Mother Acute myocardial infarction Other Diabetes mellitus Social History Social History Smoking status: Never smoker Alcohol intake: never Substance use: never Substance use type: does no
[2022-11-29 09:01] VITALS: BP 150/63; PULSE 61; RESP 20; TEMP 36.1; O2SAT 100; BMI 27.9
[2022-11-29] MEDS: LACTATED RINGERS 1,000 ML 150 ML IV CONT (09:16)
[2022-11-29 09:18] LABS: Glucose Point of Care 93 mg/dl (65-105)
[2022-11-29 10:11] VITALS: BP 127/60; PULSE 62; RESP 19; O2SAT 99
[2022-11-29 10:21] VITALS: BP 126/60; PULSE 60; RESP 19; O2SAT 99
[2022-11-29 10:31] VITALS: BP 142/61; PULSE 60; RESP 20; O2SAT 99
== END 2022-11-29 10:33 | disposition home or self-care (01) ==
PROVIDERS: PCP Family Medicine Adolescent Medicine; Visit Provider Internal Medicine Gastroenterology
PROC: 0DJ08ZZ Inspection of Upper Intestinal Tract, Via Natural or Artificial Opening Endoscopic (ICD-10-PCS; CPT 43235; principal; 2022-11-29 10:00)
DX: K29.70 Gastritis, unspecified, without bleeding (principal); K21.9 Gastro-esophageal reflux disease without esophagitis; K31.89 Other diseases of stomach and duodenum; D64.9 Anemia, unspecified; I25.10 Atherosclerotic heart disease of native coronary artery without angina pectoris; I13.0 Hypertensive heart and chronic kidney disease with heart failure and stage 1 through stage 4 chronic kidney disease, or unspecified chronic kidney disease; I50.9 Heart failure, unspecified; E11.22 Type 2 diabetes mellitus with diabetic chronic kidney disease; N18.9 Chronic kidney disease, unspecified; G47.33 Obstructive sleep apnea (adult) (pediatric); D69.6 Thrombocytopenia, unspecified; Z98.1 Arthrodesis status; Z79.51 Long term (current) use of inhaled steroids; Z79.82 Long term (current) use of aspirin; Z79.84 Long term (current) use of oral hypoglycemic drugs
CPT/HCPCS: 43239; 82948; 88305; J2704; J7120

== ENCOUNTER 2022-12-02 09:48 | Outpatient (CLI) | payer MEDICARE, SELFPAY ==
[2022-12-02 10:03] LABS: Basophils Percent Auto 0.3 % (0.2-1.2); Eosinophils Absolute Auto 0.1 K/mm3 (0-0.3); Eosinophils Percent Auto 1.7 % (0-4.4); Hematocrit 35.1 % (37.0-47.0); Hemoglobin 11.6 g/dL (12.0-15.0); Lymphocytes Absolute Auto 1.62 K/mm3 (0.9-3.2); Lymphocytes Percent Auto 46.3 % (18.3-44.2); Mean Corpuscular Volume 96.7 fl (80-100); Monocytes Absolute Auto 0.3 K/mm3 (0.1-0.6); Neutrophils Absolute Auto 1.5 K/mm3 (1.3-6.7); Neutrophils Percent Auto 43.7 % (45.5-73.1); Platelet Count Result 147 k/mm3 (150-375); Red Blood Count 3.63 M/mm3 (4.2-5.4); Red Cell Distribution Width 14.1 % (11.5-14.5); White Blood Count 3.5 K/mm3 (4.5-10.0)
[2022-12-02 12:13] LABS: Iron 91 ug/dL (37-170)
[2022-12-02 12:14] LABS: Anion Gap 8 mmol/L (8-16); Blood Urea Nitrogen 27 mg/dL (7-17); Calcium 9.4 mg/dL (8.4-10.2); Carbon Dioxide 27 mmol/L (22-30); Chloride 103 mmol/L (98-107); Estimated Glomerular Filt Rate 34; Glucose 167 mg/dL (65-110); Potassium 4.8 mmol/L (3.4-5.0); Sodium 138 mmol/L (137-145)
[2022-12-02 12:22] LABS: Percent Iron Saturation 20 % (20-50)
[2022-12-02 13:21] LABS: Folic Acid > 20.0 ng/mL (2.76->20); Vitamin B12 > 1000.0 pg/mL (239-931)
[2022-12-06 09:08] LABS: Methylmalonic Acid 295 nmol/L (87-318)
== END 2022-12-02 09:49 | disposition home or self-care (01) ==
PROVIDERS: PCP Family Medicine Adolescent Medicine; Visit Provider Internal Medicine Hematology & Oncology
DX: D61.818 Other pancytopenia (principal); D64.9 Anemia, unspecified
CPT/HCPCS: 36415; 80048; 82607; 82728; 82746; 83540; 83550; 83921; 85025

== ENCOUNTER 2023-04-08 12:29 | Outpatient (CLI) | payer MEDICARE, SELFPAY ==
[2023-04-08 12:43] LABS: Basophils Percent Auto 0.3 % (0.2-1.2); Eosinophils Absolute Auto 0.1 K/mm3 (0-0.3); Eosinophils Percent Auto 1.4 % (0-4.4); Hematocrit 34.3 % (37.0-47.0); Hemoglobin 11.2 g/dL (12.0-15.0); Immature Granulocyte Absolute 0.01 K/mm3 (0.00-0.031); Immature Granulocyte Percent A 0.3 % (0-0.5); Lymphocytes Absolute Auto 1.68 K/mm3 (0.9-3.2); Lymphocytes Percent Auto 46.4 % (18.3-44.2); Mean Corpuscular HGB Conc 32.7 g/dl (32-36); Mean Corpuscular Hemoglobin 31.9 pg (26-34); Mean Corpuscular Volume 97.7 fl (80-100); Mean Platelet Volume 9.4 fl (7.4-10.4); Monocytes Absolute Auto 0.3 K/mm3 (0.1-0.6); Monocytes Percent Auto 8.6 % (2.6-8.5); Neutrophils Absolute Auto 1.6 K/mm3 (1.3-6.7); Platelet Count Result 146 k/mm3 (150-375); Red Blood Count 3.51 M/mm3 (4.2-5.4); White Blood Count 3.6 K/mm3 (4.5-10.0)
[2023-04-08 16:32] LABS: Iron 97 ug/dL (37-170)
[2023-04-08 16:34] LABS: Anion Gap 10 mmol/L (8-16); Blood Urea Nitrogen 37 mg/dL (7-17); Calcium 9.3 mg/dL (8.4-10.2); Carbon Dioxide 28 mmol/L (22-30); Chloride 99 mmol/L (98-107); Estimated Glomerular Filt Rate 34; Glucose 121 mg/dL (65-110); Potassium 4.1 mmol/L (3.4-5.0); Sodium 137 mmol/L (137-145)
[2023-04-08 16:45] LABS: Percent Iron Saturation 23 % (20-50)
[2023-04-08 17:54] LABS: Folic Acid 10.9 ng/mL (2.76->20)
== END 2023-04-08 12:30 | disposition home or self-care (01) ==
PROVIDERS: PCP Family Medicine Adolescent Medicine; Visit Provider Internal Medicine Hematology & Oncology
DX: D61.818 Other pancytopenia (principal); D64.9 Anemia, unspecified
CPT/HCPCS: 36415; 80048; 82607; 82728; 82746; 83540; 83550; 85025

== ENCOUNTER 2023-10-20 08:56 | Outpatient (CLI) | payer MEDICARE, SELFPAY ==
[2023-10-20 09:15] LABS: Basophils Percent Auto 0.3 % (0.2-1.2); Eosinophils Absolute Auto 0.1 K/mm3 (0-0.3); Eosinophils Percent Auto 3.6 % (0-4.4); Hemoglobin 12.3 g/dL (12.0-15.0); Immature Granulocyte Absolute 0.02 K/mm3 (0.00-0.031); Immature Granulocyte Percent A 0.6 % (0-0.5); Lymphocytes Absolute Auto 1.61 K/mm3 (0.9-3.2); Lymphocytes Percent Auto 48.2 % (18.3-44.2); Mean Corpuscular HGB Conc 33.2 g/dl (32-36); Mean Corpuscular Volume 96.4 fl (80-100); Mean Platelet Volume 9.1 fl (7.4-10.4); Monocytes Absolute Auto 0.3 K/mm3 (0.1-0.6); Neutrophils Absolute Auto 1.3 K/mm3 (1.3-6.7); Neutrophils Percent Auto 38.3 % (45.5-73.1); Platelet Count Result 140 k/mm3 (150-375); Red Blood Count 3.84 M/mm3 (4.2-5.4); Red Cell Distribution Width 14.1 % (11.5-14.5); White Blood Count 3.3 K/mm3 (4.5-10.0)
[2023-10-20 10:39] LABS: Anion Gap 11 mmol/L (4-12); Blood Urea Nitrogen 28 mg/dL (7-17); Calcium 9.5 mg/dL (8.4-10.2); Carbon Dioxide 32 mmol/L (22-30); Chloride 98 mmol/L (98-107); Estimated Glomerular Filt Rate 27; Glucose 107 mg/dL (65-110); Potassium 4.4 mmol/L (3.4-5.0); Sodium 141 mmol/L (137-145)
[2023-10-20 11:32] LABS: Vitamin B12 > 1000.0 pg/mL (239-931)
[2023-10-20 11:57] LABS: Folic Acid 12.9 ng/mL (2.76->20)
[2023-10-20 12:52] LABS: Iron 127 ug/dL (37-170)
[2023-10-20 13:02] LABS: Percent Iron Saturation 29 % (20-50)
== END 2023-10-20 08:57 | disposition home or self-care (01) ==
LOC: ANHLAB 09:00
PROVIDERS: PCP Family Medicine Adolescent Medicine; Visit Provider Internal Medicine Hematology & Oncology
DX: D64.9 Anemia, unspecified (principal)
CPT/HCPCS: 36415; 80048; 82607; 82728; 82746; 83540; 83550; 85025

== ENCOUNTER 2024-04-14 09:07 | Outpatient (CLI) | payer MEDICARE, SELFPAY ==
[2024-04-14 09:20] LABS: Basophils Percent Auto 0.3 % (0.2-1.2); Eosinophils Absolute Auto 0.1 K/mm3 (0-0.3); Eosinophils Percent Auto 2.6 % (0-4.4); Hematocrit 35.4 % (37.0-47.0); Hemoglobin 11.6 g/dL (12.0-15.0); Immature Granulocyte Absolute 0.01 K/mm3 (0.00-0.031); Immature Granulocyte Percent A 0.3 % (0-0.5); Lymphocytes Absolute Auto 1.65 K/mm3 (0.9-3.2); Lymphocytes Percent Auto 47.1 % (18.3-44.2); Mean Corpuscular HGB Conc 32.8 g/dl (32-36); Mean Corpuscular Hemoglobin 31.5 pg (26-34); Mean Corpuscular Volume 96.2 fl (80-100); Mean Platelet Volume 9.4 fl (7.4-10.4); Monocytes Absolute Auto 0.3 K/mm3 (0.1-0.6); Monocytes Percent Auto 9.1 % (2.6-8.5); Neutrophils Absolute Auto 1.4 K/mm3 (1.3-6.7); Neutrophils Percent Auto 40.6 % (45.5-73.1); Platelet Count Result 128 k/mm3 (150-375); Red Blood Count 3.68 M/mm3 (4.2-5.4); Red Cell Distribution Width 14.6 % (11.5-14.5); White Blood Count 3.5 K/mm3 (4.5-10.0)
--- OUTSIDE RECORDS SUMMARY | 2024-04-14 09:35 | XMS_ITS | Referral Summary ---
Author Organization [facility] Address [address] [place] [address] Care Team Providers Care Production Planning Manager Name Role Phone Odell Mann MD Primary Care Provider + Source Comments [facility],non-owned Affiliates and Associated Physician Practices is amultiple site organization consisting of ambulatory clinics and hospital sitesin [place] and [place]. This disclosure is being madepursuant to the Care Everywhere program and may not contain all information available regarding this patient. Last updated 17.[facility] Allergies No known active allergies Medications * Be aware that medications may not be up to date on this document. Alwaysverify current medications with the patient. Medication Sig Dispensed Refills Start Date End Date Status atorvastatin (Lipitor) 20 MG tablet Take 20 mg by mouth once daily Active baclofen (Lioresal) 10 MG tablet Take 10 mg by mouth 2 times daily 06/05/2021 Active benzonatate (Tessalon) 100 MG capsule Take 100 mg by mouth 3 times daily as needed for cough 11/23/2021 Active bumetanide (Bumex) 1 MG tablet bumetanide 1 mg tablet take 1 tablet by mouth once daily Active Cholecalciferol 1.25 MG (10488 UT) Take 50,000 Units by mouth once daily Active cholestyramine light (Questran Light) 4 GM/DOSE powder Take 4 g by mouth 2 times daily Active vitamin B-12 (Cyanocobalamin) 500 MCG tablet Active famotidine (Pepcid) 20 MG tablet Take 20 mg by mouth 2 times daily Active Flovent HFA 110 MCG/ACT inhaler 09/25/2021 Active fexofenadine (Jennifer) 180 MG tablet Take 180 mg by mouth as needed Active isosorbide mononitrate CR 24hr (Imdur) 30 MG tablet isosorbide mononitrate ER 30 mg tablet,extended release 24 hr take 1 tablet by mouth once daily Active lansoprazole (Prevacid) 30 MG capsule 11/28/2021 Active levothyroxine (Synthroid) 25 MCG tablet 11/28/2021 Active losartan (Cozaar) 50 MG tablet 04/02/2021 Active losartan (Cozaar) 100 MG tablet 11/28/2021 Active meclizine (Antivert) 25 MG tablet TAKE 1 TABLET BY MOUTH 4 TIMES DAILY NEEDED FOR DIZZINESS 11/15/2021 Active metoprolol succinate XL 24hr (Toprol XL) 50 MG tablet 11/28/2021 Active multivitamins (One A Day) capsule Take 1 capsule by mouth once daily Active nitroGLYCERIN (Nitrostat) 0.4 MG tablet nitroglycerin 0.4 mg sublingual tablet DISSOLVE ONE TABLET UNDER THE TONGUE EVERY 5 MINUTES NEEDED FOR CHEST PAIN. DO NOT EXCEED A TOTAL OF 3 DOSES IN 15 MINUTES NOW Active pioglitazone (Actos) 30 MG tablet pioglitazone 30 mg tablet Active pioglitazone (Actos) 15 MG tablet 03/22/2021 Active pantoprazole EC (Protonix) 40 MG tablet pantoprazole 40 mg tablet,delayed release Active potassium chloride ER (Micro-K) 10 MEQ capsule potassium chloride ER 10 mEq capsule,extended release TAKE 1 CAPSULE BY MOUTH TWICE DAILY Active predniSONE (Deltasone) 10 MG tablet TAKE 6 TABLETS BY MOUTH ONCE DAILY FOR 4 DAYS, THEN 4 TABS ONCE DAILY FOR 4 DAYS, THEN 2 TABS ONCE DAILY FOR 4 DAYS, THEN 1 TAB ONCE DAILY FOR 4 DAYS 11/29/2021 Active ranolazine ER 12hr (Ranexa) 500 MG tablet 03/22/2021 Active rOPINIRole (Requip) 0.5 MG tablet 12/20/2021 Active sulindac (Clinoril) 200 MG tablet Take 1 tablet by mouth 2 times daily Active traMADol (Ultram) 50 MG tablet TAKE 1 TO 2 TABLETS BY MOUTH 4 TIMES DAILY NEEDED FOR PAIN 10/29/2021 Active traZODone (Desyrel) 100 MG tablet 10/22/2021 Active vitamin E (Tocopheryl) 100 UNIT capsule Take 100 Units by mouth once daily Active losartan (Cozaar) 100 MG tablet losartan 100 mg tablet TAKE 1 TABLET BY MOUTH ONCE DAILY Active diclofenac sodium (Voltaren) 1 % gel Apply 4 (four) g to affected area 4 times daily 100 g 5 01/17/2022 Active Immunizations Name Administration Dates Next Due FLU VACCINE TRI IIV3 SPLIT PF IM (FLUVIRIN) 11/15 Pneumococcal Pcv13 Conj 06/22/2019 Social History Tobacco Use Types Packs/Day Years Used Date Smoking Tobacco: Former Smokeless Tobacco: Never Comments:50 years ago Alcohol Use Standard Drinks/Week Comments Not Currently 0 (1 standard drink = 0.6 oz pur e alcohol) PHQ-2 Answer Date Recorded PHQ2 TOTAL SCORE 0 01/03/2022 Sex and Gender Information Value Date Recorded Sex Assigned at Not on file Gender Identity Not on file Sexual Orientation Not on file Last Filed Vital Signs Vital Sign Reading Time Taken Comments Blood Pressure 124/74 01/03/2022 9:56 AM CDT Pulse - - Temperature 36.8 ??C (98.3 ??F) 01/03/2022 9:56 AM CD T Respiratory Rate - - Oxygen Saturation - - Inhaled Oxygen Concentration - - Weight 77.1 kg (170 lb) 01/03/2022 9:56 AM CDT Height 157.5 cm (5' 2 ) 01/03/2022 9:56 AM CDT Body Mass Index 31.09 01/03/2022 9:56 AM CDT Plan of Treatment Not on file Care Teams Production Planning Manager Relationship Specialty Start Date End Date Odell Mann MD [address] [place] [id number] PCP - General Family Medicine 01/03/22
--- OUTSIDE RECORDS SUMMARY | 2024-04-14 09:35 | XMS_ITS | Patient Health Record ---
Author Organization [facility] Address [address] [place] [address] Care Team Providers Care Operating Room Surgical Technologist Name Role Phone Mackenzie YOO, Odell Primary Care Provider Delphine abhishek DUNHAM COUNTER PERSON, CARROL Unavailable REASON FOR REFERRAL No Information PLAN OF TREATMENT Pending Test Test Name Order Date Endoscopic Retrograde Cholangiopancreato graphy (ERCP) 12/30/2019 Insurance Providers Payer Name Payer Address Payer Phone Subscriber Number Group Number Insured Name Patient Relationship to Insured Coverage Start Date Coverage End Date AARP-Medic are Complete [address] [address] [place] [address] [id number] Anuja Salas Self - patient is the insured
--- OUTSIDE RECORDS SUMMARY | 2024-04-14 09:35 | XMS_ITS | Encounter Summary ---
Author Organization [facility] Address [address] [place] [address] Care Team Providers Care Wafer Polisher Name Role Phone Odell Mann MD Primary Care Provider [phone] Encounter Details Date Type Department Care Team (Late Contact Info) Description 04/13/2024 External Device Data [facility] ABSTRACTION Provider, Abstract NO ADDRESS ON FILE Social History Tobacco Use Types Packs/Day Years Used Date Smoking Tobacco: Never Alcohol Use Standard Drinks/Week Comments Yes 0 (1 standard drink = 0.6 oz pur e alcohol) rare Comments Unknown Sex and Gender Information Value Date Recorded Sex Assigned at Not on file Legal Sex Female 3:21 PM CDT Gender Identity Not on file Sexual Orientation Not on file Occupation Industry Job Start Date Job End Date Not on file Not on file Not on file Not on file documented as of this encounter Plan of Treatment Upcoming Encounters Date Type Department Care Team (Late Contact Info) Description 04/29/2024 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
--- OUTSIDE RECORDS SUMMARY | 2024-04-14 09:35 | XMS_ITS | Encounter Summary ---
Author Organization [facility] Care Team Providers Care Accounting Director Name Role Phone Odell Mann MD Primary Care Prov ider Howard Herbert MD Unavailable [phone] Encounter Details Date Type Department Care Team (Latest Contact Info) Description 02/27/2016 Orders Only [facility] CLINCON[facility] ProviderJulio Cesar MD [address] [place] [id number] Social History Tobacco Use Types Packs/Day Years Used Date Smoking Tobacco: Never Assessed Comments Unknown Sex and Gender Information Value Date Recorded Sex Assigned at Not on file Legal Sex Female 4:21 PM OTOLARYNGOLOGY SURGEON Gender Identity Not on file Sexual Orientation Not on file documented as of this encounter Plan of Treatment Not on file documented as of this encounter Procedures Procedure Name Priority Date/Time Associated Diagnosis Comments PROCEDURE - RESULT 02/19/2016 12 :00 AM OTOLARYNGOLOGY SURGEON documented in this encounter Results * PROCEDURE - RESULT (02/19/2016 12:00 AM OTOLARYNGOLOGY SURGEON) Narrative 02/19/2016 12:00 AM OTOLARYNGOLOGY SURGEON Ordered by an unspecified provider. us Historical Provider Final Res ult documented in this encounter Visit Diagnoses Not on filedocumented in this encounter Care Teams Accounting Director Relationship Specialty Start Date End Date Odell Mann MD PCP - General 06/14/18 Howard Herbert MD Referring Physician Cardiology 04/15/19 documented as of this encounter
--- OUTSIDE RECORDS SUMMARY | 2024-04-14 09:35 | XMS_ITS | Encounter Summary ---
Author Organization [facility] Address [address] [place] [address] Care Team Providers Care Line Welder Name Role Phone Odell Mann MD Primary Care Provider [phone] Encounter Details Date Type Department Care Team [...] (Late Contact Info) Description 04/29/2024 11:00 AM SUEDING MACHINE OPERATOR Office Visit [facility] Oncology and Hematology - [place] [address] [facility] [address] [place] [address] Ruben Nguyen MD [address] [facility] [address] [place] [address] documented as of this encounter Visit Diagnoses Not on filedocumented in this encounter Care Teams Line Welder Relationship Specialty Start Date End Date Odell Mann MD [address] [address] PCP - General Family Practice 12/24/18 documented as of this encounter
--- OUTSIDE RECORDS SUMMARY | 2024-04-14 09:35 | XMS_ITS | Clinical Summary ---
Author Organization [facility] at the [facility] Address [address] [place] [address] Care Team Providers Care Frame Pulley Mortising Machine Operator Name Role Phone Odell Mann MD Primary Care Prov ider Howard Herbert MD Unavailable [phone] Allergies No known active allergies Medications fexofenadine (JEFF) 180 mg tablet Take 1 tablet (180 mg total) by mouth as needed Active metoprolol XL (TOPROL-XL) 50 mg 24 hr tablet Take 1 tablet (50 mg total) by mouth daily 0 Active aspirin 81 mg enteric coated tablet Take 1 tablet (81 mg total) by mouth daily Do not take for 10 days 0 Active multivitamin capsule Take 1 capsule by mouth daily Active rOPINIRole (REQUIP) 0.5 mg tablet TAKE 1 TABLET BY MOUTH AT NIGHT 30 tablet 3 2 Active lansoprazole (PREVACID) 30 mg capsule Take 1 capsule (30 mg total) by mouth every 12 hours Active levothyroxine (SYNTHROID) 25 mcg tablet Take 1 tablet (25 mcg total) by mouth daily 2 Active traZODone (DESYREL) 100 mg tablet Take 1 tablet (100 mg total) by mouth nightly 3 Active diazePAM (VALIUM) 2 mg tablet Take 1 tablet (2 mg total) by mouth nightly as needed 3 Active fluticasone propionate (FLONASE) 50 mcg/actuation nasal spray as needed Active Jardiance 25 mg tablet Take 1 tablet (25 mg total) by mouth daily 4 Active atorvastatin (LIPITOR) 40 mg tablet Take 1 tablet (40 mg total) by mouth nightly 90 tablet 3 4 Active potassium chloride ER 20 mEq CR tablet TAKE 1 TABLET BY MOUTH 3 TIMES DAILY 300 tablet 2 4 Active bumetanide (BUMEX) 1 mg tablet TAKE 1 TABLET BY MOUTH TWICE DAILY 200 tablet 2 4 Active losartan (COZAAR) 25 mg tablet TAKE 1 TABLET BY MOUTH DAILY 100 tablet 2 4 Active ranolazine ER (RANEXA) 500 mg 12 hr tablet TAKE 1 TABLET BY MOUTH TWICE DAILY 200 tablet 2 4 Active isosorbide mononitrate ER (IMDUR) 30 mg 24 hr tablet TAKE 1 TABLET BY MOUTH DAILY 100 tablet 2 4 Active magnesium oxide (MAG-OX) 400 mg (241.3 mg elemental magnesium) tablet Take 1 tablet by mouth once daily 90 tablet 5 Active magnesium oxide (MAG-OX) 400 mg (241.3 mg elemental magnesium) tablet Take 1 tablet by mouth once daily 90 tablet 4 025 Discontinued Active Problems Problem Noted Date Diagnosed Date Mixed hyperlipidemia 10/15/2023 Arthritis of carpometacarpal (CMC) joint of righ t thumb 09/05/2023 Trigger index finger of left hand 09/05/2023 Hand arthritis 09/05/2023 Coronary artery disease invo lving duckwater coronary artery of [place] heart without angina pectoris 06/02/2023 Chronic heart failure with p reserved ejection fraction (CMS/HCC) 06/02/2023 Intraventricular conduction delay 06/02/2023 Essential hypertension 06/02/2023 Pulmonary hypertension 06/02/2023 Obstructive sleep apnea 08/23/2020 Psychophysiological insomnia 08/23/2020 Parasomnia 08/23/2020 Anxiety 08/23/2020 Essential hypertension 08/23/2020 Diffusion capacity of lung (dl), decreased 08/23 Nonsmoker 08/23/2020 Teeth grinding 08/23/2020 Moderate malnutrition (CMS/HCC) 01/18/2020 Abdominal pain 01/12/2020 Overview (01/18/2020): Added automatically from request for surgery [id number] CRD (chronic renal disease), stage III 0 Benign hypertensive kidney d isease with chronic kidney disease stage I through stage IV, or unspecified(403.10) 04/15/2019 Type 2 DM with CKD and hypertension 04/15/2019 Trigger middle finger of right hand 04/12/2019 Intervertebral disc disorder s with radiculopathy, lumbosacral region 02/23/2019 Vertigo, benign paroxysmal 10/14/2018 Ascites 01/20/2018 Elevated serum creatinine 01/20/2018 CKD (chronic kidney disease) stage 3, GFR 30-59 ml/min 01/20/2018 Trigger middle finger of right hand 07/09/2017 Unilateral primary osteoarth ritis of first carpometacarpal joint, unspecified hand 01/22/2016 Hand pain 01/22/2016 History of cardiac cath 08/31/2015 Encounters Date Type Department Care Team Description 02/16/2024 Telephone [facility] Nephrology at [address] [place] [address] Mavis Aguilar 02/03/2024 Telephone [facility] Nephrology at [address] [place] [address] Derrek Ling MD from Last 3 Months Immunizations Name Administration Dates Next Due Influenza, Trivalent, Preservative Free, Intramu scular 11/30/2014 Pneumococcal Conjugate PCV 13 06/22/2019 Surgical History Surgery Date Site/Laterality Comments HYSTERECTOMY 03/17/1983 - 03/16/1984 ROTATOR CUFF REPAIR APPENDECTOMY 03/17/1959 - 03/16/1960 CHOLECYSTECTOMY COLONOSCOPY UPPER GASTROINTESTINAL ENDOSCOPY Medical History Medical History Date Comments GERD (gastroesophageal reflux disease) Diabetes mellitus (HCC) Hypothyroidism Hypertension Dyslipidemia Sciatica Abdominal pain Nausea Chronic constipation Chronic diarrhea CHF (congestive heart failure) (CMS/HCC) (HCC) Type 2 diabetes mellitus (HCC) CKD (chronic kidney disease), stage III (HCC) stage 2 Renal insufficiency Arthritis Family History Medical History Relation Name Comments Diabetes Father Jg buchanan Hypertension Father Jg buchanan Heart attack Mother Bobbi Hypertension Mother Bobbi Relation Name Status Comments Father Jg buchanan Mother Bobbi Social History Tobacco Use Types Packs/Day Years Used Date Smoking Tobacco: Never Cigarettes Smokeless Tobacco: Never Tobacco Cessation:Counseling Given: Not Answered Alcohol Use Standard Drinks/Week Comments Yes 0 (1 standard drink = 0.6 oz pur e alcohol) rarely AUDIT-C Answer Date Recorded Q1: How often do you have a drink containing alc ohol? Monthly or less 08/13/2023 Average Number of Drinks Not on file 024 Frequency of Binge Drinking Not on file 07/16 Personal Safety Answer Date Recorded Getting School Help Needed Not on file 03/02 Comments No Sex and Gender Information Value Date Recorded Sex Assigned at Not on file Legal Sex Female 4:21 PM FACILITY ENGINEER Gender Identity Not on file Sexual Orientation Not on file Obstetrics History Last Filed Vital Signs Vital Sign Reading Time Taken Comments Blood Pressure 120/60 10/15/2023 10:34 AM CDT Pulse 53 10/15/2023 10:34 AM CDT Temperature 36.3 ??C (97.3 ??F) 08/13/2023 1:21 PM CD T Respiratory Rate 18 08/23/2020 9:55 AM CDT Oxygen Saturation 99% 10/15/2023 10:34 AM CDT Inhaled Oxygen Concentration - - Weight 75.8 kg (167 lb) 10/15/2023 10:34 AM CDT Height 157.5 cm (5' 2 ) 10/15/2023 10:34 AM CDT Body Mass Index 30.54 10/15/2023 10:34 AM CDT Plan of Treatment Health Maintenance Due Date Last Done Comments Albumin Creatinine Ratio, Urine 1945 Depression Screening 1945 Hepatitis C Screening 1945 Dilated Eye Exam 1945 Foot Exam 1945 DTaP/Tdap/Td Vaccine (1 - Tdap) 1958 Hepatitis B Screening 1965 Zoster Vaccine (1 of 2) 1997 Well Visit 65+ 2012 Osteoporosis Screening-Bone Density Scan 04/29/2014 04/29/2012, 04/29/2012 Hemoglobin A1C 01/03/2017 07/04/2016, 04/17, 02/09/2014 Pneumococcal vaccine 65+ (2 of 2 - PPSV23 or PCV20) 08/17/2019 06/22/2019 eGFR 01/17/2021 01/18/2020 Fall Risk Assessment 01/18/2021 01/19/2020 Influenza Vaccine (#1) 2023 11/30/2014 Lipid Panel 10/09/2024 10/10/2023, 03/0 11/2022, 05/04/2021, Additional history exists Breast Cancer Screening-Mammogram Discontinued 09/25/2022, 10/22/2019, 06/20/2017, Additional history exists Medical Devices Explanted Type Area Conductor And Engineer Device Identifier Shelf Expiration Date Model / Serial / Lot TMS Inc 6572 Quiroz Flexi-Stent 7fr 5cm Small Pigtail Flexible .035in Stent - [id number] Implanted:Qty : 1 on 01/17/2020 by Ludwig Crespo MD at [facility] Explanted:Qty : 1 on 01/19/2020 by Ludwig Crespo MD at [facility] Stent N/A: Pancreas TMS Inc 10/14/2024 [id number] / / [id number] Conmed Fatuma [id number] [place] Viabil 10mm 8.5fr 6cm 200cm Fully Covered Self Expand Pull - [id number] - [id number] Implanted:Qty : 1 on 01/17/2020 by Ludwig Crespo MD at [facility] Explanted:Qty : 1 on 01/19/2020 by Ludwig Crespo MD at [facility] Stent N/A: Bile Duct Conmed Fatuma 08/23/2022 [id number] / [id number] / Procedures Procedure Name Priority Date/Time Associated Diagnosis Comments IRON PROFILE W/ IBC Routine 02/03/2024 2 :19 PM FACILITY ENGINEER Stage 3a chronic kidney disease (HCC) Anemia in stage 3a chronic kidney disease (HCC) BASIC METABOLIC PANEL Routine 02/03/2024 2:18 PM FACILITY ENGINEER Stage 3a chronic kidney disease (HCC) Anemia in stage 3a chronic kidney disease (HCC) HEMOGLOBIN AND HEMATOCRIT Routine 02/03/2024 2:16 PM FACILITY ENGINEER Stage 3a chronic kidney disease (HCC) Anemia in stage 3a chronic kidney disease (HCC) EGFR Routine 01/18/2020 9:31 AM FACILITY ENGINEER DIAGNOSTIC MAMMOGRAM BILATERAL W KULDIP Routine 06/20/2017 8:48 AM CDT HEMOGLOBIN A1C Routine 07/04/2016 7:42 AM CDT DEXA AXIAL SKELETON BONE DENSITY 1 OR MORE SITES Routine 04/29/2012 12:20 PM FACILITY ENGINEER from Last 3 Months or Most Recently Relevant to Health Maintenance Results * [place] profile w/ IBC (02/03/2024 2:19 PM FACILITY ENGINEER) Blood us Derrek Ling MD LAB BLOOD ORDERABLES Final Re sult Performing Organization Address [facility] de Phone Number EXTERNAL LAB * Basic metabolic panel (02/03/2024 2:18 PM FACILITY ENGINEER) Blood Derrek Ling MD LAB BLOOD ORDERABLES Final Re sult Performing Organization Address [facility] de Phone Number EXTERNAL LAB * Hemoglobin and hematocrit (02/03/2024 2:16 PM FACILITY ENGINEER) Blood Derrek Ling MD LAB BLOOD ORDERABLES Final Re sult Performing Organization Address [facility] de Phone Number EXTERNAL LAB * eGFR (01/18/2020 9:31 AM FACILITY ENGINEER) Pathologist [facility] [place] eGFR 47 mL/min/1.7 3 m2 [facility] Comment: Interpretive Data Reference Interval Normal ?>/= 90 mL/min/1.73m2 Mildly decreased* ? 60 - 89 mL/min/1.73m2 Mildly to moderately decreased ?45 - 59 mL/min/1.73m2 Moderately to severely decreased ??30 - 44 mL/min/1.73m2 Severely decreased ?15 - 29 mL/min/1.73m2 Kidney Failure ?< 15 ??mL/min/1.73m2 *Relative to young adult level If -[place] multiply value by 1.16. Estimated glomerular filtration rate is determined by the CKD-EPI equation recommended by the National Kidney Foundation (KDIGO 2012 Clinical Practice Guideline for the Evaluation and Management of Chronic Kidney Disease. Kidney Intnl Suppl Mar 2012;3:1). The CKD-EPI equation should not be used for patients with unstable renal function and has not been validated in children and those over 70. Current interpretive data was last reviewed 2016. Blood specimen (specimen) 01/18/2020 9:31 AM FACILITY ENGINEER 01/18/2020 9:54 AM FACILITY ENGINEER us Ludwig Crespo MD LAB BLOOD ORDERABLES Final Result Performing Organization Address City/State/[facility] Co de Phone Number [facility] [address] [place] [address] * Diagnostic Mammogram Bilateral W Kuldip (06/20/2017 8:48 AM CDT) Anatomical Region Laterality Modality Breast Bilateral Mammography 06/20/2017 8:48 AM CDT Impressions 06/20/2017 10:37 AM CDT BI-RAD 2 ??BENIGN No evidence of malignancy. ??No abnormality to explain the bilateral pain. ??Base any further evaluation on clinical examination. A 1 year screening mammogram is recommended. ?? The patient was notified of the results and provided with a hand out on breast pain. ?? Electronically signed by: Dr. Pasquale Ang M.D. nh/:06/20/2017 10:36:27 ?? Bench Worker Hollow Handle: Amelia DUBON (R)(M), [facility] letter sent: Normal Exam Abnormal History ?? Reading location: [facility] BI-RADS: 2 Benign [EOD] Narrative 06/20/2017 10:37 AM CDT - MG BILATERAL DIGITAL DIAGNOSTIC MAMMOGRAM 3D/2D WITH MEDIOLATERAL OBLIQUE CRANIOCAUDAL: 06/20/2017 The study was acquired using full field digital technology and interpreted from soft copy. ?? 2D digital mammographic views, as well as 3D digital tomosynthesis were performed in the CC and MLO projections. CLINICAL: 72-year-old woman presents for evaluation of bilateral focal pain in the right axilla and superior left breast. ?? COMPARISONS: Comparison is made to exams dated: ??2014 mammogram and 04/29/2012 mammogram - [facility]. ?? BREAST TISSUE: There are scattered areas of fibroglandular density. ?? MAMMOGRAPHIC FINDINGS: Radiopaque BBs were placed over the site of pain in the right axilla and superior left breast. ??There is no mammographic abnormality at either site. ??Targeted ultrasound will be performed. ?? There has been no suspicious change. ??There is a stable benign mass in the lateral right breast. ??There is no new mass, suspicious calcification or architectural distortion in either breast. ULTRASOUND FINDINGS: Targeted right axillary ultrasound at the site of pain at 11 o'clock 12 cm from the nipple demonstrated normal tissue, inclusive of a normal axillary lymph node. ?? Targeted left breast ultrasound at the site of pain at 12:30 o'clock 11 cm from the nipple demonstrated normal-appearing tissue. Procedure Note Provider, MD Julio Cesar - 08/01/2020 - MG BILATERAL DIGITAL DIAGNOSTIC MAMMOGRAM 3D/2D WITH MEDIOLATERAL OBLIQUE CRANIOCAUDAL: 06/20/2017 The study was acquired using full field digital technology and interpretedfrom soft copy. 2D digital mammographic views, as well as 3D digital tomosynthesis were performed in the CC and MLO projections. CLINICAL: 72-year-old woman presents for evaluation of bilateral focalpain in the right axilla and superior left breast. COMPARISONS: Comparison is made to exams dated: 2014 mammogram and 04/29/2012 mammogram - [facility]. BREAST TISSUE: There are scattered areas of fibroglandular density. MAMMOGRAPHIC FINDINGS: Radiopaque BBs were placed over the site of pain in the right axilla and superior left breast. There is no mammographic abnormality at either site. Targeted ultrasound will be performed. There has been no suspicious change. There is a stable benign mass in the lateral right breast. There is no new mass, suspicious calcification or architectural distortion in either breast. ULTRASOUND FINDINGS: Targeted right axillary ultrasound at the site of pain at 11 o'clock 12 cm from the nipple demonstrated normal tissue, inclusiveof a normal axillary lymph node. Targeted left breast ultrasound at the site of pain at 12:30 o'clock 11 cmfrom the nipple demonstrated normal-appearing tissue. IMPRESSION: BI-RAD 2 BENIGN No evidence of malignancy. No abnormality to explain the bilateral pain.Base any further evaluation on clinical examination. A 1 year screening mammogram is recommended. The patient was notified of the results and provided with a hand out onbreast pain. Electronically signed by: Dr. Pasquale Ang M.D. nh/:06/20/2017 10:36:27 Bench Worker Hollow Handle: Amelia Pat RT (R)(Sharon), [facility] letter sent: Normal Exam Abnormal History Reading location: [facility] BI-RADS: 2 Benign [EOD] us Nico Andre MD IMG MAMMO PROCEDURES Final Result * (ABNORMAL) Hemoglobin A1c (07/04/2016 7:42 AM CDT) Hemoglobin A1c % 6.9(H) 4.8 - 5.9 % 07/04/2016 1:15 PM CDT [facility] HISTORICAL RESULTS Comment: [place] Diabetes Association recommends that the goal of therapy should be an A1C hemoglobin of <7%. Reevaluate the treatment regimen in patients with an A1C >8%. 07/04/2016 7:42 AM CDT 07/04/2016 10:05 AM CDT us Odell Mann MD LAB BLOOD ORDERABL ES Final Result [facility] HISTORICAL RESULTS * Dexa Axial Skeleton Bone Density 1 or 2 Site (04/29/2012 12:20 PM FACILITY ENGINEER) Anatomical Region Laterality Modality Body N/A Radiographic Adeline ging 04/29/2012 12:2 0 PM FACILITY ENGINEER Impressions 04/29/2012 2:31 PM FACILITY ENGINEER ?? Normal bone density. THIS IS AN ELECTRONICALLY VERIFIED REPORT 04/29/2012 2:26 PM: ??Sierra Warren M.D. Sierra Warren M.D. KL:saravanan 02:26 PM 02:26 PM [EOD] Narrative 04/29/2012 2:31 PM FACILITY ENGINEER EXAMINATION: Bone Density Study (DEXA) HISTORY: ??Post menopausal woman with clinical concern for low bone mineral density. COMPARISON: ??No prior DEXA. TECHNIQUE: Dual-energy X-ray absorptiometry of the lumbar spine and total left hip were performed. FINDINGS: Lumbar spine (from L1 through L4): The bone mineral density is 1.097 gm / cm sq. ?? The T score is 0.5. The percentage of young normal mean is 105%. Total Left Hip: The bone mineral density is 0.939 gm / cm sq. The T score is 0. The percentage of young normal mean is 100%. Procedure Note Provider, MD Julio Cesar - 08/01/2020 EXAMINATION: Bone Density Study (DEXA) HISTORY: Post menopausal woman with clinical concern for low bone mineral density. COMPARISON: No prior DEXA. TECHNIQUE: Dual-energy X-ray absorptiometry of the lumbar spine and totalleft hip were performed. FINDINGS: Lumbar spine (from L1 through L4): The bone mineral density is 1.097 gm / cm sq. The T score is 0.5. The percentage of young normal mean is 105%. Total Left Hip: The bone mineral density is 0.939 gm / cm sq. The T score is 0. The percentage of young normal mean is 100%. IMPRESSION: Normal bone density. THIS IS AN ELECTRONICALLY VERIFIED REPORT 04/29/2012 2:26 PM: Sierra Warren M.D. Sierra Warren M.D. KL:saravanan 02:26 PM 02:26 PM [EOD] Nico Andre MD IMG DXA PROCEDURES Final R esult from Last 3 Months or Most Recently Relevant to Health Maintenance Insurance MEDICARE SOLUTIONS MEDICARE SOLUTIONS Advance Directives For more information, please contact: [phone] * Full Code (Latest Code Status on File) Date Activated Date Inactivated Comments 01/17/2020 1:24 PM 01/19/2020 6:58 PM Care Teams Frame Pulley Mortising Machine Operator Relationship Specialty Start Date End Date Odell Mann MD PCP - General 06/14/18 Howard Herbert MD Referring Physician Cardiology 04/15/19
--- OUTSIDE RECORDS SUMMARY | 2024-04-14 09:35 | XMS_ITS | Encounter Summary ---
Author Organization [facility] Address [address] [place] [address]. [place] [address] [place] [address] Care Team Providers Care Hydraulic Jack Mechanic Name Role Phone Odell Mann MD Primary Care Provider [phone] Encounter Details Date Type Department Care Team (Late st Contact Info) Description 11/08/2019 Prep for Procedure [facility] [address] [place] [address] Christy Wang MD [address] [facility] [address] [place] [address] Social History Tobacco Use Types Packs/Day Years Used Date Smoking Tobacco: Never Smokeless Tobacco: Never Alcohol Use Standard Drinks/Week Comments No 0 (1 standard drink = 0.6 oz pur e alcohol) AUDIT-C Answer Date Recorded Frequency of Alcohol Consumption Never 09/06/2018 Average Number of Drinks Not on file 019 Frequency of Binge Drinking Not on file 08/16 Comments No Sex and Gender Information Value Date Recorded Sex Assigned at Not on file Legal Sex Female 7:45 PM CDT Gender Identity Not on file Sexual Orientation Not on file COVID-19 Exposure Response Date Recorded In the last month, have you been in contact with someone who was confirmed or suspected to have Coronavirus / COVID-19? No / Unsure 11/08/2019 3:04 PM CDT documented as of this encounter Plan of Treatment Not on file documented as of this encounter Results * PRE-SURGICAL/PRE-PROCEDURE CORONAVIRUS (COVID 19) (11/09/2019 7:43 AM CDT) CORONAVIRUS SARS COV 2 PCR (RESP) NOT DETECTED NOT DETECTED 11/10/2019 7:[address] [facility] Comment: A Not Detected (negative) test result for this test means that SARS- CoV-2 RNA was not present in the specimen above the limit of detection. A negative result does not rule out the possibility of COVID-19 and should not be used as the sole basis for treatment or patient management decisions. ??If COVID-19 is still suspected, based on exposure history together with other clinical findings, re-testing should be considered in consultation with public health authorities. Laboratory test results should always be considered in the context of clinical observations and epidemiological data in making a final diagnosis and patient management decisions. Please review the Fact Sheets and FDA authorized labeling available for health care providers and patients using the following websites: https://www.[employer]/home/Covid-19/HCP/NAAT/fact-sheet2 https://www.[employer]/home/Covid-19/Patients/NAAT/ fact-sheet2 This test has been authorized by the FDA under an Emergency Use Authorization (EUA) for use by authorized laboratories. Due to the current public health emergency, [facility] is receiving a high volume of samples from a wide variety of swabs and media for COVID-19 testing. In order to serve patients during this public health crisis, samples from appropriate clinical sources are being tested. Negative test results derived from specimens received in non-commercially manufactured viral collection and transport media, or in media and sample collection kits not yet authorized by FDA for COVID-19 testing should be cautiously evaluated and the patient potentially subjected to extra precautions such as additional clinical monitoring, including collection of an additional specimen. Methodology: ??Nucleic Acid Amplification Test (NAAT) includes PCR or TMA Additional information about COVID-19 can be found at the [facility] website: www.[email or web address]/Covid19. Test performed at [facility] [address] ??[id number] Director: LINDSEY FISHMAN DO,MPH NASOPHARYNGEAL SWAB / Unknown 11/09/2019 7:43 AM CDT us W Dagoberto Wang MD MICROBIOLOGY - GENERAL ORDERABLES Final Result [facility] [address] [place], [place] [address] documented in this encounter Visit Diagnoses Diagnosis Pre-op testing- Primary Preoperative examination, unspecified documented in this encounter Additional Health Concerns Infection Onset Date Last Indicated Resolved Time COVID-19 Rule Out 11/09/2019 11/09/2019 11/10/2019 7:05 PM CDT COVID-19 Rule Out 11/23/2019 11/23/2019 11/25/2019 2:26 AM CDT documented as of this encounter Care Teams Hydraulic Jack Mechanic Relationship Specialty Start Date End Date Odell Mann MD [address] [address] PCP - General FAMILY PRACTICE 09/06/18 documented as of this encounter
--- OUTSIDE RECORDS SUMMARY | 2024-04-14 09:35 | XMS_ITS | Encounter Summary ---
Author Organization [facility] Facility Care Team Providers Care Cigar Packing Examiner Name Role Phone Odell Mann MD Primary Care Prov ider Howard Herbert MD Unavailable [phone] Encounter Details Date Type Department Care Team (Latest Contact Info) Description 01/25/2016 Orders Only [facility] CLINCONV ProviderJulio Cesar MD [address] [place] [address] Social History Tobacco Use Types Packs/Day Years Used Date Smoking Tobacco: Never Assessed Comments Unknown Sex and Gender Information Value Date Recorded Sex Assigned at Not on file Legal Sex Female 4:21 PM KETTLE GIRL Gender Identity Not on file Sexual Orientation Not on file documented as of this encounter Plan of Treatment Not on file documented as of this encounter Procedures Procedure Name Priority Date/Time Associated Diagnosis Comments PROCEDURE - RESULT 01/25/2016 12 :00 AM KETTLE GIRL documented in this encounter Results * PROCEDURE - RESULT (01/25/2016 12:00 AM KETTLE GIRL) Narrative 01/25/2016 12:00 AM KETTLE GIRL Ordered by an unspecified provider. us Historical Provider Final Res ult documented in this encounter Visit Diagnoses Not on filedocumented in this encounter Care Teams Cigar Packing Examiner Relationship Specialty Start Date End Date Odell Mann MD PCP - General 06/14/18 Howard Herbert MD Referring Physician Cardiology 04/15/19 documented as of this encounter
--- OUTSIDE RECORDS SUMMARY | 2024-04-14 09:35 | XMS_ITS | Encounter Summary ---
Author Organization [facility] System Address [address] [place] [address]. [place] [address] [place] [address] Care Team Providers Care Route Driver Salesperson Name Role Phone Odell Mann MD Primary Care Provider [phone] Encounter Details Date Type Department Care Team (Late st Contact Info) Description 11/19/2019 Prep for Procedure [facility] [address] [place] [address] Christy Wang MD [address] [facility] [address] [place] [address] Social History Tobacco Use Types [...] have Coronavirus / COVID-19? No / Unsure 11/19/2019 2:58 PM CDT documented as of this encounter Plan of Treatment Not on file documented as of this encounter Visit Diagnoses Diagnosis Pre-op testing- Primary Preoperative examination, unspecified documented in this encounter Additional Health Concerns Infection Onset Date Last Indicated Resolved Time COVID-19 Rule Out 11/23/2019 11/23/2019 11/25/2019 2:26 AM CDT documented as of this encounter Care Teams Route Driver Salesperson Relationship Specialty Start Date End Date Odell Mann MD [address] [address] PCP - General FAMILY PRACTICE 09/06/18 documented as of this encounter
--- OUTSIDE RECORDS SUMMARY | 2024-04-14 09:35 | XMS_ITS | Encounter Summary ---
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 Historical Provider Final Res ult * CARDIOLOGY REPORT (08/31/2015 12:00 AM CDT) Anatomical Region Laterality Modality Other Narrative 08/31/2015 12:00 AM CDT Ordered by an unspecified provider. Historical Provider [facility] CARDIAC SERVICES PROCE DURES Final Result * CARDIOLOGY REPORT (08/31/2015 12:00 AM CDT) Anatomical Region Laterality Modality Other Narrative 08/31/2015 12:00 AM CDT Ordered by an unspecified provider. [facility] Provider CV CARDIAC SERVICES PROCE DURES Final Result * CARDIOLOGY REPORT (08/31/2015 12:00 AM CDT) Anatomical Region Laterality Modality Other Narrative 08/31/2015 12:00 AM CDT Ordered by an unspecified provider. [facility] Provider CV CARDIAC SERVICES PROCE DURES Final Result documented in this encounter Visit Diagnoses Not on filedocumented in this encounter Care Teams Copy Center Associate Relationship Specialty Start Date End Date Odell Mann MD PCP - General 06/14/18 Howard Herbert MD Referring Physician Cardiology 04/15/19 documented as of this encounter
--- OUTSIDE RECORDS SUMMARY | 2024-04-14 09:35 | XMS_ITS | Patient Health Summary ---
Author Organization [facility] Address [address] [place] [address] Care Team Providers Care Benzol Operator Name Role Phone Odell Mann MD Primary Care Provider + Note from [facility],non-owned Affiliates and Associated Physician Practices is amultiple site organization consisting of ambulatory clinics and hospital sitesin [place], [place], [place]. This disclosure is being madepursuant to the Care Everywhere program and may not contain all information available regarding this patient. Last updated 17.[facility] Allergies No known active allergies Medications * Be aware that medications may not be up to date on this document. Alwaysverify current medications with the patient. * atorvastatin (Lipitor) 20 MG tablet Take 20 mg by mouth once daily * baclofen (Lioresal) 10 MG tablet(Started 06/05/2021) Take 10 mg by mouth 2 times daily * benzonatate (Tessalon) 100 MG capsule(Started 11/23/2021) Take 100 mg by mouth 3 times daily as needed for cough * bumetanide (Bumex) 1 MG tablet bumetanide 1 mg tablet take 1 tablet by mouth once daily * Cholecalciferol 1.25 MG (01755 UT) Take 50,000 Units by mouth once daily * cholestyramine light (Questran Light) 4 GM/DOSE powder Take 4 g by mouth 2 times daily * vitamin B-12 (Cyanocobalamin) 500 MCG tablet * famotidine (Pepcid) 20 MG tablet Take 20 mg by mouth 2 times daily * Flovent HFA 110 MCG/ACT inhaler(Started 09/25/2021) * fexofenadine (Jennifer) 180 MG tablet Take 180 mg by mouth as needed * isosorbide mononitrate CR 24hr (Imdur) 30 MG tablet isosorbide mononitrate ER 30 mg tablet,extended release 24 hr take 1 tablet by mouth once daily * lansoprazole (Prevacid) 30 MG capsule(Started 11/28/2021) * levothyroxine (Synthroid) 25 MCG tablet(Started 11/28/2021) * losartan (Cozaar) 50 MG tablet(Started 04/02/2021) * losartan (Cozaar) 100 MG tablet(Started 11/28/2021) * meclizine (Antivert) 25 MG tablet(Started 11/15/2021) TAKE 1 TABLET BY MOUTH 4 TIMES DAILY NEEDED FOR DIZZINESS * metoprolol succinate XL 24hr (Toprol XL) 50 MG tablet(Started 11/28/2021) * multivitamins (One A Day) capsule Take 1 capsule by mouth once daily * nitroGLYCERIN (Nitrostat) 0.4 MG tablet nitroglycerin 0.4 mg sublingual tablet DISSOLVE ONE TABLET UNDER THE TONGUE EVERY 5 MINUTES NEEDED FOR CHEST PAIN. DO NOT EXCEED A TOTAL OF 3 DOSES IN 15 MINUTES NOW * pioglitazone (Actos) 30 MG tablet pioglitazone 30 mg tablet * pioglitazone (Actos) 15 MG tablet(Started 03/22/2021) * pantoprazole EC (Protonix) 40 MG tablet pantoprazole 40 mg tablet,delayed release * potassium chloride ER (Micro-K) 10 MEQ capsule potassium chloride ER 10 mEq capsule,extended release TAKE 1 CAPSULE BY MOUTH TWICE DAILY * predniSONE (Deltasone) 10 MG tablet(Started 11/29/2021) TAKE 6 TABLETS BY MOUTH ONCE DAILY FOR 4 DAYS, THEN 4 TABS ONCE DAILY FOR 4 DAYS, THEN 2 TABS ONCE DAILY FOR 4 DAYS, THEN 1 TAB ONCE DAILY FOR 4 DAYS * ranolazine ER 12hr (Ranexa) 500 MG tablet(Started 03/22/2021) * rOPINIRole (Requip) 0.5 MG tablet(Started 12/20/2021) * sulindac (Clinoril) 200 MG tablet Take 1 tablet by mouth 2 times daily * traMADol (Ultram) 50 MG tablet(Started 10/29/2021) TAKE 1 TO 2 TABLETS BY MOUTH 4 TIMES DAILY NEEDED FOR PAIN * traZODone (Desyrel) 100 MG tablet(Started 10/22/2021) * vitamin E (Tocopheryl) 100 UNIT capsule Take 100 Units by mouth once daily * losartan (Cozaar) 100 MG tablet losartan 100 mg tablet TAKE 1 TABLET BY MOUTH ONCE DAILY * diclofenac sodium (Voltaren) 1 % gel(Started 01/17/2022) Apply 4 (four) g to affected area 4 times daily 5 refills by 01/17/2023 Immunizations * FLU VACCINE TRI IIV3 SPLIT PF IM (FLUVIRIN)(Given 11/30/2014) * Pneumococcal Pcv13 Conj(Given 06/22/2019) Social History Tobacco Use Types Packs/Day Years [...] Mass Index 31.09 01/03/2022 9:56 AM CDT Procedures * EYE EXAM(Performed 01/17/2022) * EYE EXAM(Performed 01/04/2022) * BURDEN/SERVICES EXECUTIVE (TEGAN) ANTIBODY IGG(Performed 01/03/2022) Performed for GENA positive * SS-A (SJOGREN'S) 52+60 ANTIBODIES(Performed 01/03/2022) Performed for GENA positive * TSH REFLEX FREE T4(Performed 01/03/2022) Performed for GENA positive * CK BLOOD(Performed 01/03/2022) Performed for GENA positive * ALDOLASE(Performed 01/03/2022) Performed for GENA positive * RHEUMATOID FACTOR BLOOD QUANTITATIVE(Performed 01/03/2022) Performed for GENA positive * CYCLIC CITRULLINATED PEPTIDE(CCP) AB IGG(Performed 01/03/2022) Performed for GENA positive * CENTROMERE ANTIBODY(Performed 01/03/2022) Performed for GENA positive * SS-B (SJOGREN'S) ANTIBODY(Performed 01/03/2022) Performed for GENA positive * RNA POLYMERASE III ANTIBODY IGG(Performed 01/03/2022) Performed for GENA positive * SCLERODERMA 70 (SCL) ANTIBODY(Performed 01/03/2022) Performed for GENA positive * BURDEN (SM) ANTIBODY TEGAN(Performed 01/03/2022) Performed for GENA positive * DNA ANTIBODY DOUBLE STRANDED(Performed 01/03/2022) Performed for GENA positive * GENA BLOOD SCREEN W/REFLEX TITER(Performed 01/03/2022) Performed for GENA positive * COMPREHENSIVE METABOLIC PANEL(Performed 01/03/2022) Performed for GENA positive * ERYTHROCYTE SEDIMENTATION RATE(Performed 01/03/2022) Performed for GENA positive * C-REACTIVE PROTEIN(Performed 01/03/2022) Performed for GENA positive * CBC W AUTO DIFFERENTIAL(Performed 01/03/2022) Performed for GENA positive * XR FOOT RIGHT 3VW OR MORE(Performed 01/03/2022) Performed for GENA positive * XR FOOT LEFT 3VW OR MORE(Performed 01/03/2022) Performed for GENA positive * XR ANKLE RIGHT 2VW(Performed 01/03/2022) Performed for GENA positive * XR ANKLE LEFT 2VW(Performed 01/03/2022) Performed for GENA positive * XR LUMBAR SPINE 2 OR 3VW(Performed 01/03/2022) Performed for GENA positive * XR HIP RIGHT 2VW OR MORE(Performed 01/03/2022) Performed for GENA positive * XR HIP LEFT 2VW OR MORE(Performed 01/03/2022) Performed for GENA positive * XR KNEE RIGHT 3VW(Performed 01/03/2022) Performed for GENA positive * XR KNEE LEFT 3VW(Performed 01/03/2022) Performed for GENA positive * XR HAND LEFT 3VW OR MORE(Performed 01/03/2022) Performed for GENA positive * XR HAND RIGHT 3VW OR MORE(Performed 01/03/2022) Performed for GENA positive Results * EYE EXAM (01/17/2022) Anatomical Region Laterality Modality Other Narrative 01/17/2022 Ordered by an unspecified provider. Scanned Document SCANNING ONLY * EYE EXAM (01/04/2022) Anatomical Region Laterality Modality Other Narrative 01/04/2022 Ordered by an unspecified provider. Scanned Document SCANNING ONLY * SS-A (SJOGREN'S) 52+60 ANTIBODIES (01/03/2022 12:21 PM CDT) SS-A 52 Antibody 0 0 - 40 AU/mL 01/05/2022 2:24 PM CDT [facility] ([facility]) Comment: INTERPRETIVE INFORMATION: SSA-52 (Ro52) (TEGAN) Antibody, IgG ??29 AU/mL or Less ............. Negative ??30 - 40 AU/mL ................ Equivocal ??41 AU/mL or Greater .......... Positive SSA-52 (Ro52) and/or SSA-60 (Ro60) antibodies are associated with a diagnosis of Sjogren syndrome, systemic lupus erythematosus (SLE), and systemic sclerosis. SSA-52 antibody overlaps significantly with the major SSc-related antibodies. SSA-52 (Ro52) antibody occurs frequently in patients with inflammatory myopathies, often in the presence of interstitial lung disease. SS-A 60 Antibody 0 0 - 40 AU/mL 01/05/2022 2:24 PM CDT [facility] ([facility]) Comment: REFERENCE INTERVAL: SSA-60 (Ro60) (TEGAN) Antibody, IgG ??29 AU/mL or Less ............. Negative ??30 - 40 AU/mL ................ Equivocal ??41 AU/mL or Greater .......... Positive Performed By: [employer] [address] [place] [id number] [employer]: James Stephenson MD, PhD Blood BLOOD SPECIMEN / Unknown Lab Venipuncture / Unknown 01/03/2022 12:21 PM CDT 01/03/2022 12:35 PM CDT Forrest Puenet MD LAB - CHEMISTRY DEANN RAM [facility] [employer] [facility]) [address] * BURDEN/SERVICES EXECUTIVE (TEGAN) ANTIBODY IGG (01/03/2022 12:21 PM CDT) [facility] Burden/SERVICES EXECUTIVE (TEGAN) Antibody IgG 3 0 - 19 Units 01/05/2022 2:37 PM CDT [facility] ([facility]) Comment: INTERPRETIVE INFORMATION: Burden/SERVICES EXECUTIVE (TEGAN) Antibody, IgG ??19 Units or Less ............. Negative ??20 to 39 Units ............... Weak Positive ??40 to 80 Units ............... Moderate Positive ??81 Units or greater .......... Strong Positive Burden/SERVICES EXECUTIVE antibodies are frequently seen in patients with mixed connective tissue disease (MCTD) and are also associated with other systemic autoimmune rheumatic diseases (SARDs) such as systemic lupus erythematosus (SLE), systemic sclerosis, and myositis. Antibodies targeting the Burden/SERVICES EXECUTIVE antigenic complex also recognize Burden antigens, therefore, the Burden antibody response must be considered when interpreting these results. Performed By: [employer] [address] [place] [address] [employer]: James Stephenson MD, PhD Blood BLOOD SPECIMEN / Unknown Lab Venipuncture / Unknown 01/03/2022 12:21 PM CDT 01/03/2022 12:35 PM CDT Forrest Puente MD LAB - CHEMISTRY DEANN RAM [facility] [employer] [facility]) [address] * RNA POLYMERASE III ANTIBODY IGG (01/03/2022 12:21 PM CDT) [facility] RNA Polymerase 3 Antibody IgG 3 0 - 19 Units 01/06/2022 11:34 PM CDT [facility] ([facility]) Comment: INTERPRETIVE INFORMATION: RNA Polymerase III Antibody, IgG ??19 Units or less ......Negative ??20 - 39 Units .........Weak Positive ??40 - 80 Units .........Moderate Positive ??81 Units or greater ...Strong Positive The presence of RNA polymerase III IgG antibody, when considered in conjunction with other laboratory and clinical findings, is an aid in the diagnosis of systemic sclerosis (SSc) with increased incidence of skin involvement and renal crisis with the diffuse cutaneous form of SSc. RNA polymerase III IgG antibody occur in about 11-23 percent of SSc patients, and typically in the absence of anti-centromere and anti-Scl-70 antibodies. A negative result indicates no detectable IgG antibodies to the dominant antigen of RNA polymerase III and does not rule out the possibility of SSc. False-positive results may also occur due to non-specific binding of immune complexes. Strong clinical correlation is recommended. If clinical suspicion remains, consider additional testing for other antibodies associated with SSc, including centromere, Scl-70, U3-SERVICES EXECUTIVE, PM/Scl, or Th/To. Performed By: [employer] [address] [place] [address] [employer]: James Stephenson MD, PhD Blood BLOOD SPECIMEN / Unknown Lab Venipuncture / Unknown 01/03/2022 12:21 PM CDT 01/03/2022 12:36 PM CDT Forrest Puente MD LAB - SEROLOGY ORDER XIMENA [facility]) [address] [place] [address], [facility] * TSH REFLEX FREE T4 (01/03/2022 12:21 PM CDT) [facility] TSH 1.930 0.350 - 4.940 uIU/mL 01/03/2022 1:41 PM CDT [facility] Blood BLOOD SPECIMEN / Unknown Lab Venipuncture / Unknown 01/03/2022 12:21 PM CDT 01/03/2022 12:47 PM CDT Forrest Puente MD LAB - CHEMISTRY DEANN RAM Performing Organization Address City/[facility]/ZIP Co de Phone Number [address] [address], [facility] [phone] * BURDEN (SM) ANTIBODY TEGAN (01/03/2022 12:21 PM CDT) Burden (TEGAN) Antibody 0 0 - 40 AU/mL 01/05/2022 2:24 PM CDT [facility] ([facility]) Comment: INTERPRETIVE INFORMATION: Burden (TEGAN) Antibody, IgG ??29 AU/mL or Less ............. Negative ??30 - 40 AU/mL ................ Equivocal ??41 AU/mL or Greater .......... Positive Burden antibody is highly specific (greater than 90 percent) for systemic lupus erythematosus (SLE) but only occurs in 30-35 percent of SLE cases. The presence of antibodies to Burden has variable associations with SLE clinical manifestations. Performed By: [employer] [address] [place] [address] [employer]: James Stephenson MD, PhD Blood BLOOD SPECIMEN / Unknown Lab Venipuncture / Unknown 01/03/2022 12:21 PM CDT 01/03/2022 12:35 PM CDT Forrest Puente MD LAB - CHEMISTRY DEANN RAM Performing Organization Address City/[facility]/ZIP Co de Phone Number [facility]) [address] * RHEUMATOID FACTOR BLOOD QUANTITATIVE (01/03/2022 12:21 PM CDT) Pathologist [facility] Rheumatoid Factor <15 <30 IU/mL 01/03/2022 1:09 PM CDT [facility] Rheumatoid Factor Screen Negative Negative 01/03/2022 1:09 PM CDT [facility] Blood BLOOD SPECIMEN / Unknown Lab Venipuncture / Unknown 01/03/2022 12:21 PM CDT 01/03/2022 12:36 PM CDT Forrest Puente MD LAB - CHEMISTRY DEANN RAM [address] [address], [facility] [phone] * C-REACTIVE PROTEIN (01/03/2022 12:21 PM CDT) C-Reactive Protein <0.5 <=0.5 mg/dL 01/03/2022 1:09 PM CDT [facility] Blood BLOOD SPECIMEN / Unknown Lab Venipuncture / Unknown 01/03/2022 12:21 PM CDT 01/03/2022 12:36 PM CDT Forrest Puente MD LAB - CHEMISTRY DEANN RAM Performing Organization Address [facility]/ZIP Co de Phone Number [address] [address], [facility] [phone] * GENA BLOOD SCREEN W/REFLEX TITER (01/03/2022 12:21 PM CDT) GENA IgG None Detected None Detected 01/05/2022 8:22 AM CDT [facility] ([facility]) Comment: If suspicion of connective tissue disease is strong and GENA EIA is negative, consider testing for GENA by IFA ([id number]). INTERPRETIVE INFORMATION: Anti-Nuclear Antibodies (GENA), IgG by LEE Antinuclear Antibodies (GENA), IgG by LEE: GENA specimens are screened using enzyme-linked immunosorbent assay (LEE) methodology. All LEE results reported as Detected are further tested by indirect fluorescent assay (IFA) using HEp-2 substrate with an IgG-specific conjugate. The GENA LEE screen is designed to detect antibodies against dsDNA, histones, SS-A (Ro), SS-B (La), Burden, Burden/SERVICES EXECUTIVE, Scl-70, Andie-1, centromeric proteins, other antigens extracted from the HEp-2 cell nucleus. GENA LEE assays have been reported to have lower sensitivities than GENA IFA for systemic autoimmune rheumatic diseases (SARD). Negative results do not necessarily rule out SARD. Performed By: [employer] [address] [place] [id number] [employer]: James Stephenson MD, PhD Blood BLOOD SPECIMEN / Unknown Lab Venipuncture / Unknown 01/03/2022 12:21 PM CDT 01/03/2022 12:36 PM CDT Forrest Puente MD LAB - CHEMISTRY DEANN RAM [facility] Organization Address City/State/ZIP Co de Phone Number [facility] [employer] [facility]) [address] [place] [address] * CENTROMERE ANTIBODY (01/03/2022 12:21 PM CDT) Pathologist [facility] Centromere Antibody 0 0 - 40 AU/mL 01/08/2022 2:42 PM CDT [facility] ([facility]) Comment: INTERPRETIVE INFORMATION: Centromere Ab, IgG ??29 AU/mL or Less ............. Negative ??30 - 40 AU/mL ................ Equivocal ??41 AU/mL or Greater .......... Positive When detected by this multiplex bead assay, the presence of centromere antibodies is mainly associated with CREST syndrome, a variant of systemic sclerosis (SSc). These antibodies target the centromere B, a dominant antigen of the centromeric complex associated with the centromere pattern observed in antinuclear antibody (GENA) testing by IFA. Centromere antibodies may also be seen in a varying percentage of patients with other autoimmune diseases, including diffuse cutaneous SSc, Raynaud syndrome, interstitial pulmonary fibrosis, autoimmune liver disease, systemic lupus erythematosus (SLE) and rheumatoid arthritis (RA). A negative result indicates no detectable IgG antibodies to centromere B. If the result is negative but clinical suspicion for SSc is strong, consider testing for GENA by IFA along with other antibodies associated with SSc, including Scl-70, U3-SERVICES EXECUTIVE, PM/Scl, or Th/To. Performed By: [employer] [address] [place] [address] [employer]: James Stephenson MD, PhD Blood BLOOD SPECIMEN / Unknown Lab Venipuncture / Unknown 01/03/2022 12:21 PM CDT 01/03/2022 12:36 PM CDT Forrest Puente MD LAB - CHEMISTRY DEANN RAM Performing Organization Address [facility]/ZIP Co de Phone Number [facility] [employer] [facility]) [address] * SS-B (SJOGREN'S) ANTIBODY (01/03/2022 12:21 PM CDT) SS-B Antibody 0 0 - 40 AU/mL 01/05/2022 2:[address] [facility] [employer] ([facility]) Comment: INTERPRETIVE INFORMATION: SSB (La) (TEGAN) Ab, IgG ??29 AU/mL or Less ............. Negative ??30 - 40 AU/mL ................ Equivocal ??41 AU/mL or Greater .......... Positive SSB (La) antibody is seen in 50-60% of Sjogren syndrome cases and is specific if it is the only TEGAN antibody present. 15-25% of patients with systemic lupus erythematosus (SLE) and 5-10% of patients with progressive systemic sclerosis (PSS) also have this antibody. Performed By: [employer] [address] [place] [address] [employer]: James Stephenson MD, PhD Blood BLOOD SPECIMEN / Unknown Lab Venipuncture / Unknown 01/03/2022 12:21 PM CDT 01/03/2022 12:36 PM CDT Forrest Puente MD LAB - CHEMISTRY DEANN RAM Performing Organization Address City/[facility]/ZIP Co de Phone Number [facility] [employer] [facility]) [address] * SCLERODERMA 70 (SCL) ANTIBODY (01/03/2022 12:21 PM CDT) SCL-70 Antibody 0 0 - 40 AU/mL 01/05/2022 2:[address] [facility] [employer] ([facility]) Comment: INTERPRETIVE INFORMATION: Scleroderma (Scl-70) (TEGAN) Ab, IgG ??29 AU/mL or Less ............. Negative ??30 - 40 AU/mL ................ Equivocal ??41 AU/mL or Greater .......... Positive The presence of Scl-70 antibodies (also referred to as topoisomerase I, vlad-I or MADHAVI) is considered diagnostic for systemic sclerosis (SSc). Scl-70 antibodies alone are detected in about 20 percent of SSc patients and are associated with the diffuse form of the disease, which may include specific organ involvement and poor prognosis. Scl-70 antibodies have also been reported in a varying percentage of patients with systemic lupus erythematosus (SLE). Scl-70 (vlad-1) is a DNA binding protein and anti-DNA/DNA complexes in the sera of SLE patients may bind to vlad-I, leading to a false-positive result. The presence of Scl-70 antibody in sera may also be due to contamination of recombinant Scl-70 with DNA derived from cellular material used in immunoassays. Strong clinical correlation is recommended if both Scl-70 and dsDNA antibodies are detected. Negative results do not necessarily rule out the presence of SSc. If clinical suspicion remains, consider further testing for centromere, RNA polymerase III and U3-SERVICES EXECUTIVE, PM/Scl, or Th/To antibodies. Performed By: [employer] [address] [place] [address] [employer]: James Stephenson MD, PhD Blood BLOOD SPECIMEN / Unknown Lab Venipuncture / Unknown 01/03/2022 12:21 PM CDT 01/03/2022 12:35 PM CDT Forrest Puente MD LAB - CHEMISTRY DEANN RAM [facility]) [address] [place] [address], [facility] * DNA ANTIBODY DOUBLE STRANDED (01/03/2022 12:21 PM CDT) [facility] dsDNA Antibody 2 0 - 24 IU 01/05/2022 4:[address] [facility] [employer] ([facility]) Comment: INTERPRETIVE INFORMATION: Double-Stranded DNA (dsDNA) Ab IgG LEE ??24 IU or less........Negative ??25-30 IU.............Borderline Positive ??30-60 IU.............Low Positive ??60-200 IU............Positive ??201 IU or greater....Strong Positive Positivity for anti-double stranded DNA (anti-dsDNA) IgG antibody is a diagnostic criterion of systemic lupus erythematosus (SLE). Specimens are initially screened by enzyme-linked immunosorbent assay (LEE). If ordered as reflex ([id number]), positive LEE results (>24 IU) will be reflexed to a highly specific IFA titer (Crithidia luciliae indirect fluorescent test [RACHAEL]) for confirmation. Some patients with early or inactive SLE may be positive for anti-dsDNA IgG by LEE but negative by RACHAEL. If the patient is negative by RACHAEL but positive by LEE and clinical suspicion remains, consider antinuclear antibody (GENA) testing by IFA. Additional information and recommendations for testing may be found at [email or web address].[email or web address]/[email or web address]-[email or web address]-[email or web address]. Performed By: [employer] [address] [place] [address] [employer]: James Stephenson MD, PhD Blood BLOOD SPECIMEN / Unknown Lab Venipuncture / Unknown 01/03/2022 12:21 PM CDT 01/03/2022 12:36 PM CDT Forrset Puente MD LAB - HEMATOLOGY ORD ERABLES [facility] [employer] [facility]) [address] [place] [address], [facility] * ALDOLASE (01/03/2022 12:21 PM CDT) [facility] Aldolase 3.2 1.2 - 7.6 U/L 01/05/2022 3:[address] [facility] [employer] ([facility]) Comment: REFERENCE INTERVAL: Aldolase Access complete set of age- and/or gender-specific reference intervals for this test in the [facility] Laboratory Test Directory (Biottery). Performed By: [employer] [address] [place] [address] [employer]: James Stephenson MD, PhD Blood BLOOD SPECIMEN / Unknown Lab Venipuncture / Unknown 01/03/2022 12:21 PM CDT 01/03/2022 12:35 PM CDT Forrest Puente MD LAB - CHEMISTRY DEANN RAM [facility] ([facility]) [address] * CYCLIC CITRULLINATED PEPTIDE(CCP) AB IGG (01/03/2022 12:21 PM CDT) Pathologist [facility] CCP Antibody IgG <0.5 <5.0 U/mL 01/03/2022 1:36 PM CDT [facility] Blood BLOOD SPECIMEN / Unknown Lab Venipuncture / Unknown 01/03/2022 12:21 PM CDT 01/03/2022 12:36 PM CDT Forrest Puente MD LAB - CHEMISTRY DEANN RAM Performing Organization Address [facility]/ZIP Co de Phone Number [address] [address], [facility] [phone] * ERYTHROCYTE SEDIMENTATION RATE (01/03/2022 12:21 PM CDT) [facility] Erythrocyte Sedimentation Rate Westergren 25 0 - 30 MM/HR 01/03/2022 1:48 PM CDT [facility] Blood BLOOD SPECIMEN / Unknown Lab Venipuncture / Unknown 01/03/2022 12:21 PM CDT 01/03/2022 12:47 PM CDT Forrest Puente MD LAB - HEMATOLOGY ORD HEIDY Performing Organization Address City/[facility]/ZIP Co de Phone Number [address] [address], [facility] [phone] * (ABNORMAL) CBC WITH DIFFERENTIAL (01/03/2022 12:21 PM CDT) Pathologist [facility] WBC 3.8 3.5 - 10.5 10? 3 /uL 01/03/2022 1:10 PM CDT [facility] RBC 3.71(L) 3.80 - 5.20 10? 6 /uL 01/03/2022 1:10 PM [facility] Hemoglobin 11.2(L) 12.0 - 15.6 g/dL 01/03/2022 1:10 PM [facility] Hematocrit 34.3(L) 35.0 - 45.0 % 01/03/2022 1:10 PM [facility] MCV 92.5 80.7 - 98.3 fL 01/03/2022 1:10 PM [facility] MCH 30.2 26.7 - 34.0 pg 01/03/2022 1:10 PM [facility] MCHC 32.7 30.8 - 35.9 g/dL 01/03/2022 1:10 PM [facility] Platelet Count 190 150 - 400 10? 3 /uL 01/03/2022 1:10 PM [facility] RDW-SD 48.4 36.0 - 50.0 fL 01/03/2022 1:10 PM [facility] RDW-CV 14.3 11.2 - 14.8 % 01/03/2022 1:10 PM [facility] MPV 9.9 9.4 - 12.9 fL 01/03/2022 1:10 PM [facility] nRBC Absolute 0.00 0 10? 3 /uL 01/03/2022 1:10 PM [facility] nRBC Auto 0.0 0 /100 WBC 01/03/2022 1:10 PM [facility] Neutrophils % 45.2 35.0 - 70.0 % 01/03/2022 1:10 PM [facility] Lymphocytes % 44.6(H) 20.0 - 43.0 % 01/03/2022 1:10 PM [facility] Monocytes % 7.8 5.0 - 13.0 % 01/03/2022 1:10 PM [facility] Eosinophils % 1.8 0.0 - 6.0 % 01/03/2022 1:10 PM [facility] Basophil % 0.3 0.0 - 2.0 % 01/03/2022 1:10 PM [facility] Neutrophils Absolute 1.73 1.60 - 7.00 10? 3 /uL 01/03/2022 1:10 PM CDT [facility] Lymphocyte Absolute 1.71 1.10 - 3.90 10? 3 /uL 01/03/2022 1:10 PM CDT [facility] Monocytes Absolute 0.30 0.26 - 1.07 10? 3 /uL 01/03/2022 1:10 PM CDT [facility] Eosinophils Absolute 0.07 0.00 - 0.47 10? 3 /uL 01/03/2022 1:10 PM T [facility] Basophils Absolute 0.01 0.00 - 0.08 10? 3 /uL 01/03/2022 1:10 PM [facility] Immature Granulocytes % 0.3 0.0 - 1.0 % 01/03/2022 1:10 PM CDT [facility] Immature Granulocytes Absolute 0.01 01/03/2022 1:10 PM [facility] Blood BLOOD SPECIMEN / Unknown Lab Venipuncture / Unknown 01/03/2022 12:21 PM CDT 01/03/2022 12:47 PM CDT Forrest Puente MD LAB - HEMATOLOGY ORD ERABLES [facility] [address] [place] [address], [facility] [phone] * (ABNORMAL) COMPREHENSIVE METABOLIC PANEL (01/03/2022 12:21 PM CDT) BUN 14 7 - 26 mg/dL 01/03/2022 1:37 PM [facility] Creatinine 1.06(H) 0.56 - 0.96 mg/dL 01/03/2022 1:37 PM T [facility] Sodium 141 136 - 145 mmol/L 01/03/2022 1:37 PM [facility] Potassium 3.7 3.5 - 4.5 mmol/L 01/03/2022 1:37 PM [facility] Chloride 106 98 - 107 mmol/L 01/03/2022 1:37 PM T [facility] CO2 24 22 - 29 mmol/L 01/03/2022 1:37 PM [facility] Glucose 105 70 - 115 mg/dL 01/03/2022 1:37 PM [facility] Calcium 9.6 8.4 - 10.2 mg/dL 01/03/2022 1:37 PM [facility] Protein Total 7.4 6.0 - 8.3 g/dL 01/03/2022 1:37 PM [facility] Albumin 3.6 3.4 - 5.0 g/dL 01/03/2022 1:37 PM [facility] Bilirubin Total 0.5 0.2 - 1.2 mg/dL 01/03/2022 1:37 PM [facility] Alkaline Phosphatase 76 40 - 150 U/L 01/03/2022 1:37 PM [facility] ALT 17 5 - 55 U/L 01/03/2022 1:37 PM [facility] AST 21 5 - 34 U/L 01/03/2022 1:37 PM [facility] Anion Gap 15 8 - 18 01/03/2022 1:37 PM [facility] BUN/Creatinine Ratio 13 7 - 23 01/03/2022 1:37 PM [facility] Osmolality Calculated 293 270 - 300 mOsm/kg 01/03/2022 1:37 PM [facility] Albumin/Globulin Ratio 0.9(L) 1.1 - 2.3 01/03/2022 1:37 PM [facility] eGFR by CKD-EPI 55(L) >=90 mL/min/1.7 3 m2 01/03/2022 1:37 PM [facility] Blood BLOOD SPECIMEN / Unknown Lab Venipuncture / Unknown 01/03/2022 12:21 PM CDT 01/03/2022 12:47 PM T Forrest Puente MD LAB - CHEMISTRY DEANN RAM [facility] Organization Address City/State/ZIP Co de Phone Number [facility] [address] [place] [address], [facility] [phone] * CK BLOOD (01/03/2022 12:21 PM CDT) CK Total 80 30 - 200 U/L 01/03/2022 1:37 PM CDT [facility] Blood BLOOD SPECIMEN / Unknown Lab Venipuncture / Unknown 01/03/2022 12:21 PM CDT 01/03/2022 12:47 PM CDT Forrest Puente MD LAB - CHEMISTRY DEANN RAM [facility] Organization Address City/State/[facility] Co de Phone Number [facility] [address] [place] [address], [facility] [phone] * XR KNEE RIGHT 3VW (01/03/2022 12:14 PM CDT) Anatomical Region Laterality Modality Lower Extremity Radiographic Adeline ging 01/03/2022 1:37 PM CDT Impressions 01/03/2022 2:52 PM CDT 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 Left hand: Osteoarthritis of the interphalangeal joints. Status post trapeziectomy. Right foot: Cyst versus erosion at the head of the first metatarsal medially. Erosion at the first proximal phalanx medially near the IP joint. Left foot: Cyst versus erosion at the head of the first metatarsal medially. Knees: Mild joint space narrowing without other findings of arthritis. Hips: No evidence of arthritis. Ankles: No evidence of arthritis. Report dictated by Kobe Parker DO ([employer]). I, Margi Cotton MD have personally reviewed and interpreted this examination/study. > Interpreting Provider: Margi Cotton MD on 01/03/2022 2:52 PM Narrative 01/03/2022 2:52 PM CDT PROCEDURE: ??XR HIP RIGHT 2VW OR MORE, XR FOOT RIGHT 3VW OR MORE, XR FOOT LEFT 3VW OR MORE, XR ANKLE RIGHT 2VW, XR ANKLE LEFT 2VW, XR LUMBAR SPINE 2 OR 3VW, XR HIP LEFT 2VW OR MORE, XR KNEE RIGHT 3VW, XR KNEE LEFT 3VW, XR HAND LEFT 3VW OR MORE, XR HAND RIGHT 3VW OR MORE, DATE/TIME OF EXAM: 01/03/2022 12:16 PM, LOCATION ??[facility] INDICATION: R76.8: GENA positive ADDITIONAL CLINICAL INFORMATION: Ordering Provider Reason For Exam: ??Please evaluate for signs of inflammatory arthropathy. COMPARISON: None. FINDINGS: Right hip: No acute fracture. The joint spaces are maintained. No osseous erosions. Bone density is normal. Left hip: No acute fracture. The joint spaces are maintained. No osseous erosions. Bone density is normal. Right knee: No acute fracture. Mild narrowing of the medial and lateral compartments, more evident on the lateral view, without other findings of arthritis. No osseous erosions. Bone density is normal. No joint effusion. Left knee: No acute fracture. Mild narrowing of the medial and lateral compartments, more evident on the lateral view, without other findings of arthritis. No osseous erosions. Bone density is normal. No joint effusion. Right ankle: No acute fracture. The joint spaces are maintained. No osseous erosions. Bone density is normal. There is soft tissue swelling. Left ankle: No acute fracture. The joint spaces are maintained. No osseous erosions. Bone density is normal. There is soft tissue swelling. Right foot: No acute fracture. Mild degenerative change is seen at the first MTP joint. Lucency at the medial aspect of the first metatarsal head medially may be degenerative cyst versus erosion. A periarticular erosion is noted in the first digit proximal phalanx along the medial aspect of the interphalangeal joint. The bone density is normal. Left foot: No acute fracture. Lucency at the head of the first metatarsal medially may represent cyst or erosion. Bone density is normal. Right hand: No acute fracture. Mild/moderate interphalangeal degenerative change most prominent at the first interphalangeal and second distal interphalangeal joints; the second DIP joint has the appearance of erosive osteoarthritis. Degenerative changes are seen at the triscaphe joint. Bone density is decreased. Left hand: A suture anchor is noted in the base of the first metacarpal. The trapezium has been surgically removed. No acute fracture. Moderate degenerative change of the interphalangeal joints most prominent in the first interphalangeal and second distal interphalangeal joints. Bone density is decreased. Procedure Note Margi Cotton MD - 01/03/2022 PROCEDURE: XR HIP RIGHT 2VW OR MORE, XR FOOT RIGHT 3VW OR MORE, XR FOOT LEFT 3VW OR MORE, XR ANKLE RIGHT 2VW, XR ANKLE LEFT 2VW, XR LUMBAR SPINE2 OR 3VW, XR HIP LEFT 2VW OR MORE, XR KNEE RIGHT 3VW, XR KNEE LEFT 3VW, XR HAND LEFT 3VW OR MORE, XR HAND RIGHT 3VW OR MORE, DATE/TIME OF EXAM: 01/03/2022 12:16 PM, LOCATION [facility] INDICATION: R76.8: GENA positive ADDITIONAL CLINICAL INFORMATION: Ordering Provider Reason For Exam: Please evaluate for signs of inflammatory arthropathy. COMPARISON: None. FINDINGS: Right hip: No acute fracture. The joint spaces are maintained. No osseous erosions. Bone density is normal. Left hip: No acute fracture. The joint spaces are maintained. No osseous erosions. Bone density is normal. Right knee: No acute fracture. Mild narrowing of the medial and lateralcompartments, more evident on the lateral view, without other findings of arthritis.No osseous erosions. Bone density is normal. No joint effusion. Left knee: No acute fracture. Mild narrowing of the medial and lateralcompartments, more evident on the lateral view, without other findings of arthritis.No osseous erosions. Bone density is normal. No joint effusion. Right ankle: No acute fracture. The joint spaces are maintained. No osseous erosions. Bone density is normal. There is soft tissue swelling. Left ankle: No acute fracture. The joint spaces are maintained. No osseous erosions. Bone density is normal. There is soft tissue swelling. Right foot: No acute fracture. Mild degenerative change is seen at the first MTPjoint. Lucency at the medial aspect of the first metatarsal head medially maybe degenerative cyst versus erosion. A periarticular erosion is noted inthe first digit proximal phalanx along the medial aspect of theinterphalangeal joint. The bone density is normal. Left foot: No acute fracture. Lucency at the head of the first metatarsal mediallymay represent cyst or erosion. Bone density is normal. Right hand: No acute fracture. Mild/moderate interphalangeal degenerative changemost prominent at the first interphalangeal and second distal interphalangeal joints; the second DIP joint has the appearance of erosiveosteoarthritis. Degenerative changes are seen at the triscaphe joint. Bone density is decreased. Left hand: A suture anchor is noted in the base of the first metacarpal. Thetrapezium has been surgically removed. No acute fracture. Moderate degenerative change of the interphalangeal joints most prominent in the first interphalangeal and second distal interphalangeal joints. Bone density is decreased. 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 Left hand: Osteoarthritis of the interphalangeal joints. Status post trapeziectomy. Right foot: Cyst versus erosion at the head of the first metatarsal medially. Erosion at the first proximal phalanx medially near the IPjoint. Left foot: Cyst versus erosion at the head of the first metatarsal medially. Knees: Mild joint space narrowing without other findings of arthritis. Hips: No evidence of arthritis. Ankles: No evidence of arthritis. Report dictated by Kobe Parker DO ([employer]). Margi Rodrigues MD have personally reviewed and interpreted this examination/study. 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 Left hand: Osteoarthritis of the interphalangeal joints. Status post trapeziectomy. Right foot: Cyst versus erosion at the head of the first metatarsal medially. Erosion at the first proximal phalanx medially near the IP joint. Left foot: Cyst versus erosion at the head of the first metatarsal medially. Knees: Mild joint space narrowing without other findings of arthritis. Hips: No evidence of arthritis. Ankles: No evidence of arthritis. Report dictated by Kobe Parker DO ([employer]). Margi Rodrigues MD have personally reviewed and interpreted this examination/study. > Interpreting Provider: Margi Cotton MD on 01/03/2022 2:52 PM Narrative 01/03/2022 2:52 PM CDT PROCEDURE: ??XR HIP RIGHT 2VW OR MORE, XR FOOT RIGHT 3VW OR MORE, XR FOOT LEFT 3VW OR MORE, XR ANKLE RIGHT 2VW, XR ANKLE LEFT 2VW, XR LUMBAR SPINE 2 OR 3VW, XR HIP LEFT 2VW OR MORE, XR KNEE RIGHT 3VW, XR KNEE LEFT 3VW, XR HAND LEFT 3VW OR MORE, XR HAND RIGHT 3VW OR MORE, DATE/TIME OF EXAM: 01/03/2022 12:16 PM, LOCATION ??[facility] INDICATION: R76.8: GENA positive ADDITIONAL CLINICAL INFORMATION: Ordering Provider Reason For Exam: ??Please evaluate for signs of inflammatory arthropathy. COMPARISON: None. FINDINGS: Right hip: No acute fracture. The joint spaces are maintained. No osseous erosions. Bone density is normal. Left hip: No acute fracture. The joint spaces are maintained. No osseous erosions. Bone density is normal. Right knee: No acute fracture. Mild narrowing of the medial and lateral compartments, more evident on the lateral view, without other findings of arthritis. No osseous erosions. Bone density is normal. No joint effusion. Left knee: No acute fracture. Mild narrowing of the medial and lateral compartments, more evident on the lateral view, without other findings of arthritis. No osseous erosions. Bone density is normal. No joint effusion. Right ankle: No acute fracture. The joint spaces are maintained. No osseous erosions. Bone density is normal. There is soft tissue swelling. Left ankle: No acute fracture. The joint spaces are maintained. No osseous erosions. Bone density is normal. There is soft tissue swelling. Right foot: No acute fracture. Mild degenerative change is seen at the first MTP joint. Lucency at the medial aspect of the first metatarsal head medially may be degenerative cyst versus erosion. A periarticular erosion is noted in the first digit proximal phalanx along the medial aspect of the interphalangeal joint. The bone density is normal. Left foot: No acute fracture. Lucency at the head of the first metatarsal medially may represent cyst or erosion. Bone density is normal. Right hand: No acute fracture. Mild/moderate interphalangeal degenerative change most prominent at the first interphalangeal and second distal interphalangeal joints; the second DIP joint has the appearance of erosive osteoarthritis. Degenerative changes are seen at the triscaphe joint. Bone density is decreased. Left hand: A suture anchor is noted in the base of the first metacarpal. The trapezium has been surgically removed. No acute fracture. Moderate degenerative change of the interphalangeal joints most prominent in the first interphalangeal and second distal interphalangeal joints. Bone density is decreased. Procedure Note Margi Cotton MD - 01/03/2022 PROCEDURE: XR HIP RIGHT 2VW OR MORE, XR FOOT RIGHT 3VW OR MORE, XR FOOT LEFT 3VW OR MORE, XR ANKLE RIGHT 2VW, XR ANKLE LEFT 2VW, XR LUMBAR SPINE2 OR 3VW, XR HIP LEFT 2VW OR MORE, XR KNEE RIGHT 3VW, XR KNEE LEFT 3VW, XR HAND LEFT 3VW OR MORE, XR HAND RIGHT 3VW OR MORE, DATE/TIME OF EXAM: 01/03/2022 12:16 PM, LOCATION [facility] INDICATION: R76.8: GENA positive ADDITIONAL CLINICAL INFORMATION: Ordering Provider Reason For Exam: Please evaluate for signs of inflammatory arthropathy. COMPARISON: None. FINDINGS: Right hip: No acute fracture. The joint spaces are maintained. No osseous erosions. Bone density is normal. Left hip: No acute fracture. The joint spaces are maintained. No osseous erosions. Bone density is normal. Right knee: No acute fracture. Mild narrowing of the medial and lateralcompartments, more evident on the lateral view, without other findings of arthritis.No osseous erosions. Bone density is normal. No joint effusion. Left knee: No acute fracture. Mild narrowing of the medial and lateralcompartments, more evident on the lateral view, without other findings of arthritis.No osseous erosions. Bone density is normal. No joint effusion. Right ankle: No acute fracture. The joint spaces are maintained. No osseous erosions. Bone density is normal. There is soft tissue swelling. Left ankle: No acute fracture. The joint spaces are maintained. No osseous erosions. Bone density is normal. There is soft tissue swelling. Right foot: No acute fracture. Mild degenerative change is seen at the first MTPjoint. Lucency at the medial aspect of the first metatarsal head medially maybe degenerative cyst versus erosion. A periarticular erosion is noted inthe first digit proximal phalanx along the medial aspect of theinterphalangeal joint. The bone density is normal. Left foot: No acute fracture. Lucency at the head of the first metatarsal mediallymay represent cyst or erosion. Bone density is normal. Right hand: No acute fracture. Mild/moderate interphalangeal degenerative changemost prominent at the first interphalangeal and second distal interphalangeal joints; the second DIP joint has the appearance of erosiveosteoarthritis. Degenerative changes are seen at the triscaphe joint. Bone density is decreased. Left hand: A suture anchor is noted in the base of the first metacarpal. Thetrapezium has been surgically removed. No acute fracture. Moderate degenerative change of the interphalangeal joints most prominent in the first interphalangeal and second distal interphalangeal joints. Bone density is decreased. 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 Left hand: Osteoarthritis of the interphalangeal joints. Status post trapeziectomy. Right foot: Cyst versus erosion at the head of the first metatarsal medially. Erosion at the first proximal phalanx medially near the IPjoint. Left foot: Cyst versus erosion at the head of the first metatarsal medially. Knees: Mild joint space narrowing without other findings of arthritis. Hips: No evidence of arthritis. Ankles: No evidence of arthritis. Report dictated by Kobe Parker DO ([employer]). I, Margi Cotton MD have personally reviewed and interpreted this examination/study. 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 Left hand: Osteoarthritis of the interphalangeal joints. Status post trapeziectomy. Right foot: Cyst versus erosion at the head of the first metatarsal medially. Erosion at the first proximal phalanx medially near the IP joint. Left foot: Cyst versus erosion at the head of the first metatarsal medially. Knees: Mild joint space narrowing without other findings of arthritis. Hips: No evidence of arthritis. Ankles: No evidence of arthritis. Report dictated by Kobe Parker DO ([employer]). I, Margi Cotton MD have personally reviewed and interpreted this examination/study. > Interpreting Provider: Margi Cotton MD on 01/03/2022 2:52 PM Narrative 01/03/2022 2:52 PM CDT PROCEDURE: ??XR HIP RIGHT 2VW OR MORE, XR FOOT RIGHT 3VW OR MORE, XR FOOT LEFT 3VW OR MORE, XR ANKLE RIGHT 2VW, XR ANKLE LEFT 2VW, XR LUMBAR SPINE 2 OR 3VW, XR HIP LEFT 2VW OR MORE, XR KNEE RIGHT 3VW, XR KNEE LEFT 3VW, XR HAND LEFT 3VW OR MORE, XR HAND RIGHT 3VW OR MORE, DATE/TIME OF EXAM: 01/03/2022 12:16 PM, LOCATION ??[facility] INDICATION: R76.8: GENA positive ADDITIONAL CLINICAL INFORMATION: Ordering Provider Reason For Exam: ??Please evaluate for signs of inflammatory arthropathy. COMPARISON: None. FINDINGS: Right hip: No acute fracture. The joint spaces are maintained. No osseous erosions. Bone density is normal. Left hip: No acute fracture. The joint spaces are maintained. No osseous erosions. Bone density is normal. Right knee: No acute fracture. Mild narrowing of the medial and lateral compartments, more evident on the lateral view, without other findings of arthritis. No osseous erosions. Bone density is normal. No joint effusion. Left knee: No acute fracture. Mild narrowing of the medial and lateral compartments, more evident on the lateral view, without other findings of arthritis. No osseous erosions. Bone density is normal. No joint effusion. Right ankle: No acute fracture. The joint spaces are maintained. No osseous erosions. Bone density is normal. There is soft tissue swelling. Left ankle: No acute fracture. The joint spaces are maintained. No osseous erosions. Bone density is normal. There is soft tissue swelling. Right foot: No acute fracture. Mild degenerative change is seen at the first MTP joint. Lucency at the medial aspect of the first metatarsal head medially may be degenerative cyst versus erosion. A periarticular erosion is noted in the first digit proximal phalanx along the medial aspect of the interphalangeal joint. The bone density is normal. Left foot: No acute fracture. Lucency at the head of the first metatarsal medially may represent cyst or erosion. Bone density is normal. Right hand: No acute fracture. Mild/moderate interphalangeal degenerative change most prominent at the first interphalangeal and second distal interphalangeal joints; the second DIP joint has the appearance of erosive osteoarthritis. Degenerative changes are seen at the triscaphe joint. Bone density is decreased. Left hand: A suture anchor is noted in the base of the first metacarpal. The trapezium has been surgically removed. No acute fracture. Moderate degenerative change of the interphalangeal joints most prominent in the first interphalangeal and second distal interphalangeal joints. Bone density is decreased. Procedure Note Margi Cotton MD - 01/03/2022 PROCEDURE: XR HIP RIGHT 2VW OR MORE, XR FOOT RIGHT 3VW OR MORE, XR FOOT LEFT 3VW OR MORE, XR ANKLE RIGHT 2VW, XR ANKLE LEFT 2VW, XR LUMBAR SPINE2 OR 3VW, XR HIP LEFT 2VW OR MORE, XR KNEE RIGHT 3VW, XR KNEE LEFT 3VW, XR HAND LEFT 3VW OR MORE, XR HAND RIGHT 3VW OR MORE, DATE/TIME OF EXAM: 01/03/2022 12:16 PM, LOCATION [facility] INDICATION: R76.8: GENA positive ADDITIONAL CLINICAL INFORMATION: Ordering Provider Reason For Exam: Please evaluate for signs of inflammatory arthropathy. COMPARISON: None. FINDINGS: Right hip: No acute fracture. The joint spaces are maintained. No osseous erosions. Bone density is normal. Left hip: No acute fracture. The joint spaces are maintained. No osseous erosions. Bone density is normal. Right knee: No acute fracture. Mild narrowing of the medial and lateralcompartments, more evident on the lateral view, without other findings of arthritis.No osseous erosions. Bone density is normal. No joint effusion. Left knee: No acute fracture. Mild narrowing of the medial and lateralcompartments, more evident on the lateral view, without other findings of arthritis.No osseous erosions. Bone density is normal. No joint effusion. Right ankle: No acute fracture. The joint spaces are maintained. No osseous erosions. Bone density is normal. There is soft tissue swelling. Left ankle: No acute fracture. The joint spaces are maintained. No osseous erosions. Bone density is normal. There is soft tissue swelling. Right foot: No acute fracture. Mild degenerative change is seen at the first MTPjoint. Lucency at the medial aspect of the first metatarsal head medially maybe degenerative cyst versus erosion. A periarticular erosion is noted inthe first digit proximal phalanx along the medial aspect of theinterphalangeal joint. The bone density is normal. Left foot: No acute fracture. Lucency at the head of the first metatarsal mediallymay represent cyst or erosion. Bone density is normal. Right hand: No acute fracture. Mild/moderate interphalangeal degenerative changemost prominent at the first interphalangeal and second distal interphalangeal joints; the second DIP joint has the appearance of erosiveosteoarthritis. Degenerative changes are seen at the triscaphe joint. Bone density is decreased. Left hand: A suture anchor is noted in the base of the first metacarpal. Thetrapezium has been surgically removed. No acute fracture. Moderate degenerative change of the interphalangeal joints most prominent in the first interphalangeal and second distal interphalangeal joints. Bone density is decreased. 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 Left hand: Osteoarthritis of the interphalangeal joints. Status post trapeziectomy. Right foot: Cyst versus erosion at the head of the first metatarsal medially. Erosion at the first proximal phalanx medially near the IPjoint. Left foot: Cyst versus erosion at the head of the first metatarsal medially. Knees: Mild joint space narrowing without other findings of arthritis. Hips: No evidence of arthritis. Ankles: No evidence of arthritis. Report dictated by Kobe Parker DO ([employer]). Margi Rodrigues MD have personally reviewed and interpreted this examination/study. 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 Left hand: Osteoarthritis of the interphalangeal joints. Status post trapeziectomy. Right foot: Cyst versus erosion at the head of the first metatarsal medially. Erosion at the first proximal phalanx medially near the IP joint. Left foot: Cyst versus erosion at the head of the first metatarsal medially. Knees: Mild joint space narrowing without other findings of arthritis. Hips: No evidence of arthritis. Ankles: No evidence of arthritis. Report dictated by Kobe Parker DO ([employer]). I, Margi Cotton MD have personally reviewed and interpreted this examination/study. > Interpreting Provider: Margi Cotton MD on 01/03/2022 2:52 PM Narrative 01/03/2022 2:52 PM CDT PROCEDURE: ??XR HIP RIGHT 2VW OR MORE, XR FOOT RIGHT 3VW OR MORE, XR FOOT LEFT 3VW OR MORE, XR ANKLE RIGHT 2VW, XR ANKLE LEFT 2VW, XR LUMBAR SPINE 2 OR 3VW, XR HIP LEFT 2VW OR MORE, XR KNEE RIGHT 3VW, XR KNEE LEFT 3VW, XR HAND LEFT 3VW OR MORE, XR HAND RIGHT 3VW OR MORE, DATE/TIME OF EXAM: 01/03/2022 12:16 PM, LOCATION ??[facility] INDICATION: R76.8: GENA positive ADDITIONAL CLINICAL INFORMATION: Ordering Provider Reason For Exam: ??Please evaluate for signs of inflammatory arthropathy. COMPARISON: None. FINDINGS: Right hip: No acute fracture. The joint spaces are maintained. No osseous erosions. Bone density is normal. Left hip: No acute fracture. The joint spaces are maintained. No osseous erosions. Bone density is normal. Right knee: No acute fracture. Mild narrowing of the medial and lateral compartments, more evident on the lateral view, without other findings of arthritis. No osseous erosions. Bone density is normal. No joint effusion. Left knee: No acute fracture. Mild narrowing of the medial and lateral compartments, more evident on the lateral view, without other findings of arthritis. No osseous erosions. Bone density is normal. No joint effusion. Right ankle: No acute fracture. The joint spaces are maintained. No osseous erosions. Bone density is normal. There is soft tissue swelling. Left ankle: No acute fracture. The joint spaces are maintained. No osseous erosions. Bone density is normal. There is soft tissue swelling. Right foot: No acute fracture. Mild degenerative change is seen at the first MTP joint. Lucency at the medial aspect of the first metatarsal head medially may be degenerative cyst versus erosion. A periarticular erosion is noted in the first digit proximal phalanx along the medial aspect of the interphalangeal joint. The bone density is normal. Left foot: No acute fracture. Lucency at the head of the first metatarsal medially may represent cyst or erosion. Bone density is normal. Right hand: No acute fracture. Mild/moderate interphalangeal degenerative change most prominent at the first interphalangeal and second distal interphalangeal joints; the second DIP joint has the appearance of erosive osteoarthritis. Degenerative changes are seen at the triscaphe joint. Bone density is decreased. Left hand: A suture anchor is noted in the base of the first metacarpal. The trapezium has been surgically removed. No acute fracture. Moderate degenerative change of the interphalangeal joints most prominent in the first interphalangeal and second distal interphalangeal joints. Bone density is decreased. Procedure Note Margi Cotton MD - 01/03/2022 PROCEDURE: XR HIP RIGHT 2VW OR MORE, XR FOOT RIGHT 3VW OR MORE, XR FOOT LEFT 3VW OR MORE, XR ANKLE RIGHT 2VW, XR ANKLE LEFT 2VW, XR LUMBAR SPINE2 OR 3VW, XR HIP LEFT 2VW OR MORE, XR KNEE RIGHT 3VW, XR KNEE LEFT 3VW, XR HAND LEFT 3VW OR MORE, XR HAND RIGHT 3VW OR MORE, DATE/TIME OF EXAM: 01/03/2022 12:16 PM, LOCATION [facility] INDICATION: R76.8: GENA positive ADDITIONAL CLINICAL INFORMATION: Ordering Provider Reason For Exam: Please evaluate for signs of inflammatory arthropathy. COMPARISON: None. FINDINGS: Right hip: No acute fracture. The joint spaces are maintained. No osseous erosions. Bone density is normal. Left hip: No acute fracture. The joint spaces are maintained. No osseous erosions. Bone density is normal. Right knee: No acute fracture. Mild narrowing of the medial and lateralcompartments, more evident on the lateral view, without other findings of arthritis.No osseous erosions. Bone density is normal. No joint effusion. Left knee: No acute fracture. Mild narrowing of the medial and lateralcompartments, more evident on the lateral view, without other findings of arthritis.No osseous erosions. Bone density is normal. No joint effusion. Right ankle: No acute fracture. The joint spaces are maintained. No osseous erosions. Bone density is normal. There is soft tissue swelling. Left ankle: No acute fracture. The joint spaces are maintained. No osseous erosions. Bone density is normal. There is soft tissue swelling. Right foot: No acute fracture. Mild degenerative change is seen at the first MTPjoint. Lucency at the medial aspect of the first metatarsal head medially maybe degenerative cyst versus erosion. A periarticular erosion is noted inthe first digit proximal phalanx along the medial aspect of theinterphalangeal joint. The bone density is normal. Left foot: No acute fracture. Lucency at the head of the first metatarsal mediallymay represent cyst or erosion. Bone density is normal. Right hand: No acute fracture. Mild/moderate interphalangeal degenerative changemost prominent at the first interphalangeal and second distal interphalangeal joints; the second DIP joint has the appearance of erosiveosteoarthritis. Degenerative changes are seen at the triscaphe joint. Bone density is decreased. Left hand: A suture anchor is noted in the base of the first metacarpal. Thetrapezium has been surgically removed. No acute fracture. Moderate degenerative change of the interphalangeal joints most prominent in the first interphalangeal and second distal interphalangeal joints. Bone density is decreased. 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 Left hand: Osteoarthritis of the interphalangeal joints. Status post trapeziectomy. Right foot: Cyst versus erosion at the head of the first metatarsal medially. Erosion at the first proximal phalanx medially near the IPjoint. Left foot: Cyst versus erosion at the head of the first metatarsal medially. Knees: Mild joint space narrowing without other findings of arthritis. Hips: No evidence of arthritis. Ankles: No evidence of arthritis. Report dictated by Kobe Parker DO ([employer]). Margi Rodrigues MD have personally reviewed and interpreted this examination/study. 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 Left hand: Osteoarthritis of the interphalangeal joints. Status post trapeziectomy. Right foot: Cyst versus erosion at the head of the first metatarsal medially. Erosion at the first proximal phalanx medially near the IP joint. Left foot: Cyst versus erosion at the head of the first metatarsal medially. Knees: Mild joint space narrowing without other findings of arthritis. Hips: No evidence of arthritis. Ankles: No evidence of arthritis. Report dictated by Kobe Parker DO ([employer]). Margi Rodrigues MD have personally reviewed and interpreted this examination/study. > Interpreting Provider: Margi Cotton MD on 01/03/2022 2:52 PM Narrative 01/03/2022 2:52 PM CDT PROCEDURE: ??XR HIP RIGHT 2VW OR MORE, XR FOOT RIGHT 3VW OR MORE, XR FOOT LEFT 3VW OR MORE, XR ANKLE RIGHT 2VW, XR ANKLE LEFT 2VW, XR LUMBAR SPINE 2 OR 3VW, XR HIP LEFT 2VW OR MORE, XR KNEE RIGHT 3VW, XR KNEE LEFT 3VW, XR HAND LEFT 3VW OR MORE, XR HAND RIGHT 3VW OR MORE, DATE/TIME OF EXAM: 01/03/2022 12:16 PM, LOCATION ??[facility] INDICATION: R76.8: GENA positive ADDITIONAL CLINICAL INFORMATION: Ordering Provider Reason For Exam: ??Please evaluate for signs of inflammatory arthropathy. COMPARISON: None. FINDINGS: Right hip: No acute fracture. The joint spaces are maintained. No osseous erosions. Bone density is normal. Left hip: No acute fracture. The joint spaces are maintained. No osseous erosions. Bone density is normal. Right knee: No acute fracture. Mild narrowing of the medial and lateral compartments, more evident on the lateral view, without other findings of arthritis. No osseous erosions. Bone density is normal. No joint effusion. Left knee: No acute fracture. Mild narrowing of the medial and lateral compartments, more evident on the lateral view, without other findings of arthritis. No osseous erosions. Bone density is normal. No joint effusion. Right ankle: No acute fracture. The joint spaces are maintained. No osseous erosions. Bone density is normal. There is soft tissue swelling. Left ankle: No acute fracture. The joint spaces are maintained. No osseous erosions. Bone density is normal. There is soft tissue swelling. Right foot: No acute fracture. Mild degenerative change is seen at the first MTP joint. Lucency at the medial aspect of the first metatarsal head medially may be degenerative cyst versus erosion. A periarticular erosion is noted in the first digit proximal phalanx along the medial aspect of the interphalangeal joint. The bone density is normal. Left foot: No acute fracture. Lucency at the head of the first metatarsal medially may represent cyst or erosion. Bone density is normal. Right hand: No acute fracture. Mild/moderate interphalangeal degenerative change most prominent at the first interphalangeal and second distal interphalangeal joints; the second DIP joint has the appearance of erosive osteoarthritis. Degenerative changes are seen at the triscaphe joint. Bone density is decreased. Left hand: A suture anchor is noted in the base of the first metacarpal. The trapezium has been surgically removed. No acute fracture. Moderate degenerative change of the interphalangeal joints most prominent in the first interphalangeal and second distal interphalangeal joints. Bone density is decreased. Procedure Note Margi Cotton MD - 01/03/2022 PROCEDURE: XR HIP RIGHT 2VW OR MORE, XR FOOT RIGHT 3VW OR MORE, XR FOOT LEFT 3VW OR MORE, XR ANKLE RIGHT 2VW, XR ANKLE LEFT 2VW, XR LUMBAR SPINE2 OR 3VW, XR HIP LEFT 2VW OR MORE, XR KNEE RIGHT 3VW, XR KNEE LEFT 3VW, XR HAND LEFT 3VW OR MORE, XR HAND RIGHT 3VW OR MORE, DATE/TIME OF EXAM: 01/03/2022 12:16 PM, LOCATION [facility] INDICATION: R76.8: GENA positive ADDITIONAL CLINICAL INFORMATION: Ordering Provider Reason For Exam: Please evaluate for signs of inflammatory arthropathy. COMPARISON: None. FINDINGS: Right hip: No acute fracture. The joint spaces are maintained. No osseous erosions. Bone density is normal. Left hip: No acute fracture. The joint spaces are maintained. No osseous erosions. Bone density is normal. Right knee: No acute fracture. Mild narrowing of the medial and lateralcompartments, more evident on the lateral view, without other findings of arthritis.No osseous erosions. Bone density is normal. No joint effusion. Left knee: No acute fracture. Mild narrowing of the medial and lateralcompartments, more evident on the lateral view, without other findings of arthritis.No osseous erosions. Bone density is normal. No joint effusion. Right ankle: No acute fracture. The joint spaces are maintained. No osseous erosions. Bone density is normal. There is soft tissue swelling. Left ankle: No acute fracture. The joint spaces are maintained. No osseous erosions. Bone density is normal. There is soft tissue swelling. Right foot: No acute fracture. Mild degenerative change is seen at the first MTPjoint. Lucency at the medial aspect of the first metatarsal head medially maybe degenerative cyst versus erosion. A periarticular erosion is noted inthe first digit proximal phalanx along the medial aspect of theinterphalangeal joint. The bone density is normal. Left foot: No acute fracture. Lucency at the head of the first metatarsal mediallymay represent cyst or erosion. Bone density is normal. Right hand: No acute fracture. Mild/moderate interphalangeal degenerative changemost prominent at the first interphalangeal and second distal interphalangeal joints; the second DIP joint has the appearance of erosiveosteoarthritis. Degenerative changes are seen at the triscaphe joint. Bone density is decreased. Left hand: A suture anchor is noted in the base of the first metacarpal. Thetrapezium has been surgically removed. No acute fracture. Moderate degenerative change of the interphalangeal joints most prominent in the first interphalangeal and second distal interphalangeal joints. Bone density is decreased. 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 Left hand: Osteoarthritis of the interphalangeal joints. Status post trapeziectomy. Right foot: Cyst versus erosion at the head of the first metatarsal medially. Erosion at the first proximal phalanx medially near the IPjoint. Left foot: Cyst versus erosion at the head of the first metatarsal medially. Knees: Mild joint space narrowing without other findings of arthritis. Hips: No evidence of arthritis. Ankles: No evidence of arthritis. Report dictated by Kobe Parker DO ([employer]). I, Margi Cotton MD have personally reviewed and interpreted this examination/study. 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 Left hand: Osteoarthritis of the interphalangeal joints. Status post trapeziectomy. Right foot: Cyst versus erosion at the head of the first metatarsal medially. Erosion at the first proximal phalanx medially near the IP joint. Left foot: Cyst versus erosion at the head of the first metatarsal medially. Knees: Mild joint space narrowing without other findings of arthritis. Hips: No evidence of arthritis. Ankles: No evidence of arthritis. Report dictated by Kobe Parker DO ([employer]). I, Margi Cotton MD have personally reviewed and interpreted this examination/study. > Interpreting Provider: Margi Cotton MD on 01/03/2022 2:52 PM Narrative 01/03/2022 2:52 PM CDT PROCEDURE: ??XR HIP RIGHT 2VW OR MORE, XR FOOT RIGHT 3VW OR MORE, XR FOOT LEFT 3VW OR MORE, XR ANKLE RIGHT 2VW, XR ANKLE LEFT 2VW, XR LUMBAR SPINE 2 OR 3VW, XR HIP LEFT 2VW OR MORE, XR KNEE RIGHT 3VW, XR KNEE LEFT 3VW, XR HAND LEFT 3VW OR MORE, XR HAND RIGHT 3VW OR MORE, DATE/TIME OF EXAM: 01/03/2022 12:16 PM, LOCATION ??[facility] INDICATION: R76.8: GENA positive ADDITIONAL CLINICAL INFORMATION: Ordering Provider Reason For Exam: ??Please evaluate for signs of inflammatory arthropathy. COMPARISON: None. FINDINGS: Right hip: No acute fracture. The joint spaces are maintained. No osseous erosions. Bone density is normal. Left hip: No acute fracture. The joint spaces are maintained. No osseous erosions. Bone density is normal. Right knee: No acute fracture. Mild narrowing of the medial and lateral compartments, more evident on the lateral view, without other findings of arthritis. No osseous erosions. Bone density is normal. No joint effusion. Left knee: No acute fracture. Mild narrowing of the medial and lateral compartments, more evident on the lateral view, without other findings of arthritis. No osseous erosions. Bone density is normal. No joint effusion. Right ankle: No acute fracture. The joint spaces are maintained. No osseous erosions. Bone density is normal. There is soft tissue swelling. Left ankle: No acute fracture. The joint spaces are maintained. No osseous erosions. Bone density is normal. There is soft tissue swelling. Right foot: No acute fracture. Mild degenerative change is seen at the first MTP joint. Lucency at the medial aspect of the first metatarsal head medially may be degenerative cyst versus erosion. A periarticular erosion is noted in the first digit proximal phalanx along the medial aspect of the interphalangeal joint. The bone density is normal. Left foot: No acute fracture. Lucency at the head of the first metatarsal medially may represent cyst or erosion. Bone density is normal. Right hand: No acute fracture. Mild/moderate interphalangeal degenerative change most prominent at the first interphalangeal and second distal interphalangeal joints; the second DIP joint has the appearance of erosive osteoarthritis. Degenerative changes are seen at the triscaphe joint. Bone density is decreased. Left hand: A suture anchor is noted in the base of the first metacarpal. The trapezium has been surgically removed. No acute fracture. Moderate degenerative change of the interphalangeal joints most prominent in the first interphalangeal and second distal interphalangeal joints. Bone density is decreased. Procedure Note Margi Cotton MD - 01/03/2022 PROCEDURE: XR HIP RIGHT 2VW OR MORE, XR FOOT RIGHT 3VW OR MORE, XR FOOT LEFT 3VW OR MORE, XR ANKLE RIGHT 2VW, XR ANKLE LEFT 2VW, XR LUMBAR SPINE2 OR 3VW, XR HIP LEFT 2VW OR MORE, XR KNEE RIGHT 3VW, XR KNEE LEFT 3VW, XR HAND LEFT 3VW OR MORE, XR HAND RIGHT 3VW OR MORE, DATE/TIME OF EXAM: 01/03/2022 12:16 PM, LOCATION [facility] INDICATION: R76.8: GENA positive ADDITIONAL CLINICAL INFORMATION: Ordering Provider Reason For Exam: Please evaluate for signs of inflammatory arthropathy. COMPARISON: None. FINDINGS: Right hip: No acute fracture. The joint spaces are maintained. No osseous erosions. Bone density is normal. Left hip: No acute fracture. The joint spaces are maintained. No osseous erosions. Bone density is normal. Right knee: No acute fracture. Mild narrowing of the medial and lateralcompartments, more evident on the lateral view, without other findings of arthritis.No osseous erosions. Bone density is normal. No joint effusion. Left knee: No acute fracture. Mild narrowing of the medial and lateralcompartments, more evident on the lateral view, without other findings of arthritis.No osseous erosions. Bone density is normal. No joint effusion. Right ankle: No acute fracture. The joint spaces are maintained. No osseous erosions. Bone density is normal. There is soft tissue swelling. Left ankle: No acute fracture. The joint spaces are maintained. No osseous erosions. Bone density is normal. There is soft tissue swelling. Right foot: No acute fracture. Mild degenerative change is seen at the first MTPjoint. Lucency at the medial aspect of the first metatarsal head medially maybe degenerative cyst versus erosion. A periarticular erosion is noted inthe first digit proximal phalanx along the medial aspect of theinterphalangeal joint. The bone density is normal. Left foot: No acute fracture. Lucency at the head of the first metatarsal mediallymay represent cyst or erosion. Bone density is normal. Right hand: No acute fracture. Mild/moderate interphalangeal degenerative changemost prominent at the first interphalangeal and second distal interphalangeal joints; the second DIP joint has the appearance of erosiveosteoarthritis. Degenerative changes are seen at the triscaphe joint. Bone density is decreased. Left hand: A suture anchor is noted in the base of the first metacarpal. Thetrapezium has been surgically removed. No acute fracture. Moderate degenerative change of the interphalangeal joints most prominent in the first interphalangeal and second distal interphalangeal joints. Bone density is decreased. 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 Left hand: Osteoarthritis of the interphalangeal joints. Status post trapeziectomy. Right foot: Cyst versus erosion at the head of the first metatarsal medially. Erosion at the first proximal phalanx medially near the IPjoint. Left foot: Cyst versus erosion at the head of the first metatarsal medially. Knees: Mild joint space narrowing without other findings of arthritis. Hips: No evidence of arthritis. Ankles: No evidence of arthritis. Report dictated by Kobe Parker DO ([employer]). I, Margi Cotton MD have personally reviewed and interpreted this examination/study. 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 Left hand: Osteoarthritis of the interphalangeal joints. Status post trapeziectomy. Right foot: Cyst versus erosion at the head of the first metatarsal medially. Erosion at the first proximal phalanx medially near the IP joint. Left foot: Cyst versus erosion at the head of the first metatarsal medially. Knees: Mild joint space narrowing without other findings of arthritis. Hips: No evidence of arthritis. Ankles: No evidence of arthritis. Report dictated by Kobe Parker DO ([employer]). I, Margi Cotton MD have personally reviewed and interpreted this examination/study. > Interpreting Provider: Margi Cotton MD on 01/03/2022 2:52 PM Narrative 01/03/2022 2:52 PM CDT PROCEDURE: ??XR HIP RIGHT 2VW OR MORE, XR FOOT RIGHT 3VW OR MORE, XR FOOT LEFT 3VW OR MORE, XR ANKLE RIGHT 2VW, XR ANKLE LEFT 2VW, XR LUMBAR SPINE 2 OR 3VW, XR HIP LEFT 2VW OR MORE, XR KNEE RIGHT 3VW, XR KNEE LEFT 3VW, XR HAND LEFT 3VW OR MORE, XR HAND RIGHT 3VW OR MORE, DATE/TIME OF EXAM: 01/03/2022 12:16 PM, LOCATION ??[facility] INDICATION: R76.8: GENA positive ADDITIONAL CLINICAL INFORMATION: Ordering Provider Reason For Exam: ??Please evaluate for signs of inflammatory arthropathy. COMPARISON: None. FINDINGS: Right hip: No acute fracture. The joint spaces are maintained. No osseous erosions. Bone density is normal. Left hip: No acute fracture. The joint spaces are maintained. No osseous erosions. Bone density is normal. Right knee: No acute fracture. Mild narrowing of the medial and lateral compartments, more evident on the lateral view, without other findings of arthritis. No osseous erosions. Bone density is normal. No joint effusion. Left knee: No acute fracture. Mild narrowing of the medial and lateral compartments, more evident on the lateral view, without other findings of arthritis. No osseous erosions. Bone density is normal. No joint effusion. Right ankle: No acute fracture. The joint spaces are maintained. No osseous erosions. Bone density is normal. There is soft tissue swelling. Left ankle: No acute fracture. The joint spaces are maintained. No osseous erosions. Bone density is normal. There is soft tissue swelling. Right foot: No acute fracture. Mild degenerative change is seen at the first MTP joint. Lucency at the medial aspect of the first metatarsal head medially may be degenerative cyst versus erosion. A periarticular erosion is noted in the first digit proximal phalanx along the medial aspect of the interphalangeal joint. The bone density is normal. Left foot: No acute fracture. Lucency at the head of the first metatarsal medially may represent cyst or erosion. Bone density is normal. Right hand: No acute fracture. Mild/moderate interphalangeal degenerative change most prominent at the first interphalangeal and second distal interphalangeal joints; the second DIP joint has the appearance of erosive osteoarthritis. Degenerative changes are seen at the triscaphe joint. Bone density is decreased. Left hand: A suture anchor is noted in the base of the first metacarpal. The trapezium has been surgically removed. No acute fracture. Moderate degenerative change of the interphalangeal joints most prominent in the first interphalangeal and second distal interphalangeal joints. Bone density is decreased. Procedure Note Margi Cotton MD - 01/03/2022 PROCEDURE: XR HIP RIGHT 2VW OR MORE, XR FOOT RIGHT 3VW OR MORE, XR FOOT LEFT 3VW OR MORE, XR ANKLE RIGHT 2VW, XR ANKLE LEFT 2VW, XR LUMBAR SPINE2 OR 3VW, XR HIP LEFT 2VW OR MORE, XR KNEE RIGHT 3VW, XR KNEE LEFT 3VW, XR HAND LEFT 3VW OR MORE, XR HAND RIGHT 3VW OR MORE, DATE/TIME OF EXAM: 01/03/2022 12:16 PM, LOCATION [facility] INDICATION: R76.8: GENA positive ADDITIONAL CLINICAL INFORMATION: Ordering Provider Reason For Exam: Please evaluate for signs of inflammatory arthropathy. COMPARISON: None. FINDINGS: Right hip: No acute fracture. The joint spaces are maintained. No osseous erosions. Bone density is normal. Left hip: No acute fracture. The joint spaces are maintained. No osseous erosions. Bone density is normal. Right knee: No acute fracture. Mild narrowing of the medial and lateralcompartments, more evident on the lateral view, without other findings of arthritis.No osseous erosions. Bone density is normal. No joint effusion. Left knee: No acute fracture. Mild narrowing of the medial and lateralcompartments, more evident on the lateral view, without other findings of arthritis.No osseous erosions. Bone density is normal. No joint effusion. Right ankle: No acute fracture. The joint spaces are maintained. No osseous erosions. Bone density is normal. There is soft tissue swelling. Left ankle: No acute fracture. The joint spaces are maintained. No osseous erosions. Bone density is normal. There is soft tissue swelling. Right foot: No acute fracture. Mild degenerative change is seen at the first MTPjoint. Lucency at the medial aspect of the first metatarsal head medially maybe degenerative cyst versus erosion. A periarticular erosion is noted inthe first digit proximal phalanx along the medial aspect of theinterphalangeal joint. The bone density is normal. Left foot: No acute fracture. Lucency at the head of the first metatarsal mediallymay represent cyst or erosion. Bone density is normal. Right hand: No acute fracture. Mild/moderate interphalangeal degenerative changemost prominent at the first interphalangeal and second distal interphalangeal joints; the second DIP joint has the appearance of erosiveosteoarthritis. Degenerative changes are seen at the triscaphe joint. Bone density is decreased. Left hand: A suture anchor is noted in the base of the first metacarpal. Thetrapezium has been surgically removed. No acute fracture. Moderate degenerative change of the interphalangeal joints most prominent in the first interphalangeal and second distal interphalangeal joints. Bone density is decreased. 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 Left hand: Osteoarthritis of the interphalangeal joints. Status post trapeziectomy. Right foot: Cyst versus erosion at the head of the first metatarsal medially. Erosion at the first proximal phalanx medially near the IPjoint. Left foot: Cyst versus erosion at the head of the first metatarsal medially. Knees: Mild joint space narrowing without other findings of arthritis. Hips: No evidence of arthritis. Ankles: No evidence of arthritis. Report dictated by Kobe Parker DO ([employer]). Margi Rodrigues MD have personally reviewed and interpreted this examination/study. 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 Left hand: Osteoarthritis of the interphalangeal joints. Status post trapeziectomy. Right foot: Cyst versus erosion at the head of the first metatarsal medially. Erosion at the first proximal phalanx medially near the IP joint. Left foot: Cyst versus erosion at the head of the first metatarsal medially. Knees: Mild joint space narrowing without other findings of arthritis. Hips: No evidence of arthritis. Ankles: No evidence of arthritis. Report dictated by Kobe Parker DO ([employer]). Margi Rodrigues MD have personally reviewed and interpreted this examination/study. > Interpreting Provider: Margi Cotton MD on 01/03/2022 2:52 PM Narrative 01/03/2022 2:52 PM CDT PROCEDURE: ??XR HIP RIGHT 2VW OR MORE, XR FOOT RIGHT 3VW OR MORE, XR FOOT LEFT 3VW OR MORE, XR ANKLE RIGHT 2VW, XR ANKLE LEFT 2VW, XR LUMBAR SPINE 2 OR 3VW, XR HIP LEFT 2VW OR MORE, XR KNEE RIGHT 3VW, XR KNEE LEFT 3VW, XR HAND LEFT 3VW OR MORE, XR HAND RIGHT 3VW OR MORE, DATE/TIME OF EXAM: 01/03/2022 12:16 PM, LOCATION ??[facility] INDICATION: R76.8: GENA positive ADDITIONAL CLINICAL INFORMATION: Ordering Provider Reason For Exam: ??Please evaluate for signs of inflammatory arthropathy. COMPARISON: None. FINDINGS: Right hip: No acute fracture. The joint spaces are maintained. No osseous erosions. Bone density is normal. Left hip: No acute fracture. The joint spaces are maintained. No osseous erosions. Bone density is normal. Right knee: No acute fracture. Mild narrowing of the medial and lateral compartments, more evident on the lateral view, without other findings of arthritis. No osseous erosions. Bone density is normal. No joint effusion. Left knee: No acute fracture. Mild narrowing of the medial and lateral compartments, more evident on the lateral view, without other findings of arthritis. No osseous erosions. Bone density is normal. No joint effusion. Right ankle: No acute fracture. The joint spaces are maintained. No osseous erosions. Bone density is normal. There is soft tissue swelling. Left ankle: No acute fracture. The joint spaces are maintained. No osseous erosions. Bone density is normal. There is soft tissue swelling. Right foot: No acute fracture. Mild degenerative change is seen at the first MTP joint. Lucency at the medial aspect of the first metatarsal head medially may be degenerative cyst versus erosion. A periarticular erosion is noted in the first digit proximal phalanx along the medial aspect of the interphalangeal joint. The bone density is normal. Left foot: No acute fracture. Lucency at the head of the first metatarsal medially may represent cyst or erosion. Bone density is normal. Right hand: No acute fracture. Mild/moderate interphalangeal degenerative change most prominent at the first interphalangeal and second distal interphalangeal joints; the second DIP joint has the appearance of erosive osteoarthritis. Degenerative changes are seen at the triscaphe joint. Bone density is decreased. Left hand: A suture anchor is noted in the base of the first metacarpal. The trapezium has been surgically removed. No acute fracture. Moderate degenerative change of the interphalangeal joints most prominent in the first interphalangeal and second distal interphalangeal joints. Bone density is decreased. Procedure Note Margi Cotton MD - 01/03/2022 PROCEDURE: XR HIP RIGHT 2VW OR MORE, XR FOOT RIGHT 3VW OR MORE, XR FOOT LEFT 3VW OR MORE, XR ANKLE RIGHT 2VW, XR ANKLE LEFT 2VW, XR LUMBAR SPINE2 OR 3VW, XR HIP LEFT 2VW OR MORE, XR KNEE RIGHT 3VW, XR KNEE LEFT 3VW, XR HAND LEFT 3VW OR MORE, XR HAND RIGHT 3VW OR MORE, DATE/TIME OF EXAM: 01/03/2022 12:16 PM, LOCATION [facility] INDICATION: R76.8: GENA positive ADDITIONAL CLINICAL INFORMATION: Ordering Provider Reason For Exam: Please evaluate for signs of inflammatory arthropathy. COMPARISON: None. FINDINGS: Right hip: No acute fracture. The joint spaces are maintained. No osseous erosions. Bone density is normal. Left hip: No acute fracture. The joint spaces are maintained. No osseous erosions. Bone density is normal. Right knee: No acute fracture. Mild narrowing of the medial and lateralcompartments, more evident on the lateral view, without other findings of arthritis.No osseous erosions. Bone density is normal. No joint effusion. Left knee: No acute fracture. Mild narrowing of the medial and lateralcompartments, more evident on the lateral view, without other findings of arthritis.No osseous erosions. Bone density is normal. No joint effusion. Right ankle: No acute fracture. The joint spaces are maintained. No osseous erosions. Bone density is normal. There is soft tissue swelling. Left ankle: No acute fracture. The joint spaces are maintained. No osseous erosions. Bone density is normal. There is soft tissue swelling. Right foot: No acute fracture. Mild degenerative change is seen at the first MTPjoint. Lucency at the medial aspect of the first metatarsal head medially maybe degenerative cyst versus erosion. A periarticular erosion is noted inthe first digit proximal phalanx along the medial aspect of theinterphalangeal joint. The bone density is normal. Left foot: No acute fracture. Lucency at the head of the first metatarsal mediallymay represent cyst or erosion. Bone density is normal. Right hand: No acute fracture. Mild/moderate interphalangeal degenerative changemost prominent at the first interphalangeal and second distal interphalangeal joints; the second DIP joint has the appearance of erosiveosteoarthritis. Degenerative changes are seen at the triscaphe joint. Bone density is decreased. Left hand: A suture anchor is noted in the base of the first metacarpal. Thetrapezium has been surgically removed. No acute fracture. Moderate degenerative change of the interphalangeal joints most prominent in the first interphalangeal and second distal interphalangeal joints. Bone density is decreased. 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 Left hand: Osteoarthritis of the interphalangeal joints. Status post trapeziectomy. Right foot: Cyst versus erosion at the head of the first metatarsal medially. Erosion at the first proximal phalanx medially near the IPjoint. Left foot: Cyst versus erosion at the head of the first metatarsal medially. Knees: Mild joint space narrowing without other findings of arthritis. Hips: No evidence of arthritis. Ankles: No evidence of arthritis. Report dictated by Kobe Parker DO ([employer]). Margi Rodrigues MD have personally reviewed and interpreted this examination/study. 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 Left hand: Osteoarthritis of the interphalangeal joints. Status post trapeziectomy. Right foot: Cyst versus erosion at the head of the first metatarsal medially. Erosion at the first proximal phalanx medially near the IP joint. Left foot: Cyst versus erosion at the head of the first metatarsal medially. Knees: Mild joint space narrowing without other findings of arthritis. Hips: No evidence of arthritis. Ankles: No evidence of arthritis. Report dictated by Kobe Parker DO ([employer]). Margi Rodrigues MD have personally reviewed and interpreted this examination/study. > Interpreting Provider: Margi Cotton MD on 01/03/2022 2:52 PM Narrative 01/03/2022 2:52 PM CDT PROCEDURE: ??XR HIP RIGHT 2VW OR MORE, XR FOOT RIGHT 3VW OR MORE, XR FOOT LEFT 3VW OR MORE, XR ANKLE RIGHT 2VW, XR ANKLE LEFT 2VW, XR LUMBAR SPINE 2 OR 3VW, XR HIP LEFT 2VW OR MORE, XR KNEE RIGHT 3VW, XR KNEE LEFT 3VW, XR HAND LEFT 3VW OR MORE, XR HAND RIGHT 3VW OR MORE, DATE/TIME OF EXAM: 01/03/2022 12:16 PM, LOCATION ??[facility] INDICATION: [id number]: GENA positive ADDITIONAL CLINICAL INFORMATION: Ordering Provider Reason For Exam: ??Please evaluate for signs of inflammatory arthropathy. COMPARISON: None. FINDINGS: Right hip: No acute fracture. The joint spaces are maintained. No osseous erosions. Bone density is normal. Left hip: No acute fracture. The joint spaces are maintained. No osseous erosions. Bone density is normal. Right knee: No acute fracture. Mild narrowing of the medial and lateral compartments, more evident on the lateral view, without other findings of arthritis. No osseous erosions. Bone density is normal. No joint effusion. Left knee: No acute fracture. Mild narrowing of the medial and lateral compartments, more evident on the lateral view, without other findings of arthritis. No osseous erosions. Bone density is normal. No joint effusion. Right ankle: No acute fracture. The joint spaces are maintained. No osseous erosions. Bone density is normal. There is soft tissue swelling. Left ankle: No acute fracture. The joint spaces are maintained. No osseous erosions. Bone density is normal. There is soft tissue swelling. Right foot: No acute fracture. Mild degenerative change is seen at the first MTP joint. Lucency at the medial aspect of the first metatarsal head medially may be degenerative cyst versus erosion. A periarticular erosion is noted in the first digit proximal phalanx along the medial aspect of the interphalangeal joint. The bone density is normal. Left foot: No acute fracture. Lucency at the head of the first metatarsal medially may represent cyst or erosion. Bone density is normal. Right hand: No acute fracture. Mild/moderate interphalangeal degenerative change most prominent at the first interphalangeal and second distal interphalangeal joints; the second DIP joint has the appearance of erosive osteoarthritis. Degenerative changes are seen at the triscaphe joint. Bone density is decreased. Left hand: A suture anchor is noted in the base of the first metacarpal. The trapezium has been surgically removed. No acute fracture. Moderate degenerative change of the interphalangeal joints most prominent in the first interphalangeal and second distal interphalangeal joints. Bone density is decreased. Procedure Note Margi Cotton MD - 01/03/2022 PROCEDURE: XR HIP RIGHT 2VW OR MORE, XR FOOT RIGHT 3VW OR MORE, XR FOOT LEFT 3VW OR MORE, XR ANKLE RIGHT 2VW, XR ANKLE LEFT 2VW, XR LUMBAR SPINE2 OR 3VW, XR HIP LEFT 2VW OR MORE, XR KNEE RIGHT 3VW, XR KNEE LEFT 3VW, XR HAND LEFT 3VW OR MORE, XR HAND RIGHT 3VW OR MORE, DATE/TIME OF EXAM: 01/03/2022 12:16 PM, LOCATION [facility] INDICATION: [id number]: GENA positive ADDITIONAL CLINICAL INFORMATION: Ordering Provider Reason For Exam: Please evaluate for signs of inflammatory arthropathy. COMPARISON: None. FINDINGS: Right hip: No acute fracture. The joint spaces are maintained. No osseous erosions. Bone density is normal. Left hip: No acute fracture. The joint spaces are maintained. No osseous erosions. Bone density is normal. Right knee: No acute fracture. Mild narrowing of the medial and lateralcompartments, more evident on the lateral view, without other findings of arthritis.No osseous erosions. Bone density is normal. No joint effusion. Left knee: No acute fracture. Mild narrowing of the medial and lateralcompartments, more evident on the lateral view, without other findings of arthritis.No osseous erosions. Bone density is normal. No joint effusion. Right ankle: No acute fracture. The joint spaces are maintained. No osseous erosions. Bone density is normal. There is soft tissue swelling. Left ankle: No acute fracture. The joint spaces are maintained. No osseous erosions. Bone density is normal. There is soft tissue swelling. Right foot: No acute fracture. Mild degenerative change is seen at the first MTPjoint. Lucency at the medial aspect of the first metatarsal head medially maybe degenerative cyst versus erosion. A periarticular erosion is noted inthe first digit proximal phalanx along the medial aspect of theinterphalangeal joint. The bone density is normal. Left foot: No acute fracture. Lucency at the head of the first metatarsal mediallymay represent cyst or erosion. Bone density is normal. Right hand: No acute fracture. Mild/moderate interphalangeal degenerative changemost prominent at the first interphalangeal and second distal interphalangeal joints; the second DIP joint has the appearance of erosiveosteoarthritis. Degenerative changes are seen at the triscaphe joint. Bone density is decreased. Left hand: A suture anchor is noted in the base of the first metacarpal. Thetrapezium has been surgically removed. No acute fracture. Moderate degenerative change of the interphalangeal joints most prominent in the first interphalangeal and second distal interphalangeal joints. Bone density is decreased. 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 Left hand: Osteoarthritis of the interphalangeal joints. Status post trapeziectomy. Right foot: Cyst versus erosion at the head of the first metatarsal medially. Erosion at the first proximal phalanx medially near the IPjoint. Left foot: Cyst versus erosion at the head of the first metatarsal medially. Knees: Mild joint space narrowing without other findings of arthritis. Hips: No evidence of arthritis. Ankles: No evidence of arthritis. Report dictated by Kobe Parker DO ([employer]). I, Margi Cotton MD have personally reviewed and interpreted this examination/study. 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 Left hand: Osteoarthritis of the interphalangeal joints. Status post trapeziectomy. Right foot: Cyst versus erosion at the head of the first metatarsal medially. Erosion at the first proximal phalanx medially near the IP joint. Left foot: Cyst versus erosion at the head of the first metatarsal medially. Knees: Mild joint space narrowing without other findings of arthritis. Hips: No evidence of arthritis. Ankles: No evidence of arthritis. Report dictated by Kobe Parker DO ([employer]). I, Margi Cotton MD have personally reviewed and interpreted this examination/study. > Interpreting Provider: Margi Cotton MD on 01/03/2022 2:52 PM Narrative 01/03/2022 2:52 PM CDT PROCEDURE: ??XR HIP RIGHT 2VW OR MORE, XR FOOT RIGHT 3VW OR MORE, XR FOOT LEFT 3VW OR MORE, XR ANKLE RIGHT 2VW, XR ANKLE LEFT 2VW, XR LUMBAR SPINE 2 OR 3VW, XR HIP LEFT 2VW OR MORE, XR KNEE RIGHT 3VW, XR KNEE LEFT 3VW, XR HAND LEFT 3VW OR MORE, XR HAND RIGHT 3VW OR MORE, DATE/TIME OF EXAM: 01/03/2022 12:16 PM, LOCATION ??[facility] INDICATION: [id number]: GENA positive ADDITIONAL CLINICAL INFORMATION: Ordering Provider Reason For Exam: ??Please evaluate for signs of inflammatory arthropathy. COMPARISON: None. FINDINGS: Right hip: No acute fracture. The joint spaces are maintained. No osseous erosions. Bone density is normal. Left hip: No acute fracture. The joint spaces are maintained. No osseous erosions. Bone density is normal. Right knee: No acute fracture. Mild narrowing of the medial and lateral compartments, more evident on the lateral view, without other findings of arthritis. No osseous erosions. Bone density is normal. No joint effusion. Left knee: No acute fracture. Mild narrowing of the medial and lateral compartments, more evident on the lateral view, without other findings of arthritis. No osseous erosions. Bone density is normal. No joint effusion. Right ankle: No acute fracture. The joint spaces are maintained. No osseous erosions. Bone density is normal. There is soft tissue swelling. Left ankle: No acute fracture. The joint spaces are maintained. No osseous erosions. Bone density is normal. There is soft tissue swelling. Right foot: No acute fracture. Mild degenerative change is seen at the first MTP joint. Lucency at the medial aspect of the first metatarsal head medially may be degenerative cyst versus erosion. A periarticular erosion is noted in the first digit proximal phalanx along the medial aspect of the interphalangeal joint. The bone density is normal. Left foot: No acute fracture. Lucency at the head of the first metatarsal medially may represent cyst or erosion. Bone density is normal. Right hand: No acute fracture. Mild/moderate interphalangeal degenerative change most prominent at the first interphalangeal and second distal interphalangeal joints; the second DIP joint has the appearance of erosive osteoarthritis. Degenerative changes are seen at the triscaphe joint. Bone density is decreased. Left hand: A suture anchor is noted in the base of the first metacarpal. The trapezium has been surgically removed. No acute fracture. Moderate degenerative change of the interphalangeal joints most prominent in the first interphalangeal and second distal interphalangeal joints. Bone density is decreased. Procedure Note Margi Cotton MD - 01/03/2022 PROCEDURE: XR HIP RIGHT 2VW OR MORE, XR FOOT RIGHT 3VW OR MORE, XR FOOT LEFT 3VW OR MORE, XR ANKLE RIGHT 2VW, XR ANKLE LEFT 2VW, XR LUMBAR SPINE2 OR 3VW, XR HIP LEFT 2VW OR MORE, XR KNEE RIGHT 3VW, XR KNEE LEFT 3VW, XR HAND LEFT 3VW OR MORE, XR HAND RIGHT 3VW OR MORE, DATE/TIME OF EXAM: 01/03/2022 12:16 PM, LOCATION [facility] INDICATION: R76.8: GENA positive ADDITIONAL CLINICAL INFORMATION: Ordering Provider Reason For Exam: Please evaluate for signs of inflammatory arthropathy. COMPARISON: None. FINDINGS: Right hip: No acute fracture. The joint spaces are maintained. No osseous erosions. Bone density is normal. Left hip: No acute fracture. The joint spaces are maintained. No osseous erosions. Bone density is normal. Right knee: No acute fracture. Mild narrowing of the medial and lateralcompartments, more evident on the lateral view, without other findings of arthritis.No osseous erosions. Bone density is normal. No joint effusion. Left knee: No acute fracture. Mild narrowing of the medial and lateralcompartments, more evident on the lateral view, without other findings of arthritis.No osseous erosions. Bone density is normal. No joint effusion. Right ankle: No acute fracture. The joint spaces are maintained. No osseous erosions. Bone density is normal. There is soft tissue swelling. Left ankle: No acute fracture. The joint spaces are maintained. No osseous erosions. Bone density is normal. There is soft tissue swelling. Right foot: No acute fracture. Mild degenerative change is seen at the first MTPjoint. Lucency at the medial aspect of the first metatarsal head medially maybe degenerative cyst versus erosion. A periarticular erosion is noted inthe first digit proximal phalanx along the medial aspect of theinterphalangeal joint. The bone density is normal. Left foot: No acute fracture. Lucency at the head of the first metatarsal mediallymay represent cyst or erosion. Bone density is normal. Right hand: No acute fracture. Mild/moderate interphalangeal degenerative changemost prominent at the first interphalangeal and second distal interphalangeal joints; the second DIP joint has the appearance of erosiveosteoarthritis. Degenerative changes are seen at the triscaphe joint. Bone density is decreased. Left hand: A suture anchor is noted in the base of the first metacarpal. Thetrapezium has been surgically removed. No acute fracture. Moderate degenerative change of the interphalangeal joints most prominent in the first interphalangeal and second distal interphalangeal joints. Bone density is decreased. 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 Left hand: Osteoarthritis of the interphalangeal joints. Status post trapeziectomy. Right foot: Cyst versus erosion at the head of the first metatarsal medially. Erosion at the first proximal phalanx medially near the IPjoint. Left foot: Cyst versus erosion at the head of the first metatarsal medially. Knees: Mild joint space narrowing without other findings of arthritis. Hips: No evidence of arthritis. Ankles: No evidence of arthritis. Report dictated by Kobe Parker DO (president college or [employer]). I, Margi Cotton MD have personally reviewed and interpreted this examination/study. > Interpreting Provider: Margi Cotton MD on 01/03/2022 2:52 PM Forrest Puente MD DIAGNOSTIC IMAGING O RDERABLES * XR LUMBAR SPINE 2 OR 3VW (01/03/2022 12:14 PM CDT) Anatomical Region Laterality Modality Spine Radiographic Adeline ging 01/03/2022 1:37 PM CDT Impressions 01/03/2022 2:52 PM CDT 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 Left hand: Osteoarthritis of the interphalangeal joints. Status post trapeziectomy. Right foot: Cyst versus erosion at the head of the first metatarsal medially. Erosion at the first proximal phalanx medially near the IP joint. Left foot: Cyst versus erosion at the head of the first metatarsal medially. Knees: Mild joint space narrowing without other findings of arthritis. Hips: No evidence of arthritis. Ankles: No evidence of arthritis. Report dictated by Kobe Parker DO (president college or [employer]). I, Margi Cotton MD have personally reviewed and interpreted this examination/study. > Interpreting Provider: Margi Cotton MD on 01/03/2022 2:52 PM Narrative 01/03/2022 2:52 PM CDT PROCEDURE: ??XR HIP RIGHT 2VW OR MORE, XR FOOT RIGHT 3VW OR MORE, XR FOOT LEFT 3VW OR MORE, XR ANKLE RIGHT 2VW, XR ANKLE LEFT 2VW, XR LUMBAR SPINE 2 OR 3VW, XR HIP LEFT 2VW OR MORE, XR KNEE RIGHT 3VW, XR KNEE LEFT 3VW, XR HAND LEFT 3VW OR MORE, XR HAND RIGHT 3VW OR MORE, DATE/TIME OF EXAM: 01/03/2022 12:16 PM, LOCATION ??[facility] INDICATION: R76.8: GENA positive ADDITIONAL CLINICAL INFORMATION: Ordering Provider Reason For Exam: ??Please evaluate for signs of inflammatory arthropathy. COMPARISON: None. FINDINGS: Right hip: No acute fracture. The joint spaces are maintained. No osseous erosions. Bone density is normal. Left hip: No acute fracture. The joint spaces are maintained. No osseous erosions. Bone density is normal. Right knee: No acute fracture. Mild narrowing of the medial and lateral compartments, more evident on the lateral view, without other findings of arthritis. No osseous erosions. Bone density is normal. No joint effusion. Left knee: No acute fracture. Mild narrowing of the medial and lateral compartments, more evident on the lateral view, without other findings of arthritis. No osseous erosions. Bone density is normal. No joint effusion. Right ankle: No acute fracture. The joint spaces are maintained. No osseous erosions. Bone density is normal. There is soft tissue swelling. Left ankle: No acute fracture. The joint spaces are maintained. No osseous erosions. Bone density is normal. There is soft tissue swelling. Right foot: No acute fracture. Mild degenerative change is seen at the first MTP joint. Lucency at the medial aspect of the first metatarsal head medially may be degenerative cyst versus erosion. A periarticular erosion is noted in the first digit proximal phalanx along the medial aspect of the interphalangeal joint. The bone density is normal. Left foot: No acute fracture. Lucency at the head of the first metatarsal medially may represent cyst or erosion. Bone density is normal. Right hand: No acute fracture. Mild/moderate interphalangeal degenerative change most prominent at the first interphalangeal and second distal interphalangeal joints; the second DIP joint has the appearance of erosive osteoarthritis. Degenerative changes are seen at the triscaphe joint. Bone density is decreased. Left hand: A suture anchor is noted in the base of the first metacarpal. The trapezium has been surgically removed. No acute fracture. Moderate degenerative change of the interphalangeal joints most prominent in the first interphalangeal and second distal interphalangeal joints. Bone density is decreased. Procedure Note Margi Cotton MD - 01/03/2022 PROCEDURE: XR HIP RIGHT 2VW OR MORE, XR FOOT RIGHT 3VW OR MORE, XR FOOT LEFT 3VW OR MORE, XR ANKLE RIGHT 2VW, XR ANKLE LEFT 2VW, XR LUMBAR SPINE2 OR 3VW, XR HIP LEFT 2VW OR MORE, XR KNEE RIGHT 3VW, XR KNEE LEFT 3VW, XR HAND LEFT 3VW OR MORE, XR HAND RIGHT 3VW OR MORE, DATE/TIME OF EXAM: 01/03/2022 12:16 PM, LOCATION [facility] INDICATION: R76.8: GENA positive ADDITIONAL CLINICAL INFORMATION: Ordering Provider Reason For Exam: Please evaluate for signs of inflammatory arthropathy. COMPARISON: None. FINDINGS: Right hip: No acute fracture. The joint spaces are maintained. No osseous erosions. Bone density is normal. Left hip: No acute fracture. The joint spaces are maintained. No osseous erosions. Bone density is normal. Right knee: No acute fracture. Mild narrowing of the medial and lateralcompartments, more evident on the lateral view, without other findings of arthritis.No osseous erosions. Bone density is normal. No joint effusion. Left knee: No acute fracture. Mild narrowing of the medial and lateralcompartments, more evident on the lateral view, without other findings of arthritis.No osseous erosions. Bone density is normal. No joint effusion. Right ankle: No acute fracture. The joint spaces are maintained. No osseous erosions. Bone density is normal. There is soft tissue swelling. Left ankle: No acute fracture. The joint spaces are maintained. No osseous erosions. Bone density is normal. There is soft tissue swelling. Right foot: No acute fracture. Mild degenerative change is seen at the first MTPjoint. Lucency at the medial aspect of the first metatarsal head medially maybe degenerative cyst versus erosion. A periarticular erosion is noted inthe first digit proximal phalanx along the medial aspect of theinterphalangeal joint. The bone density is normal. Left foot: No acute fracture. Lucency at the head of the first metatarsal mediallymay represent cyst or erosion. Bone density is normal. Right hand: No acute fracture. Mild/moderate interphalangeal degenerative changemost prominent at the first interphalangeal and second distal interphalangeal joints; the second DIP joint has the appearance of erosiveosteoarthritis. Degenerative changes are seen at the triscaphe joint. Bone density is decreased. Left hand: A suture anchor is noted in the base of the first metacarpal. Thetrapezium has been surgically removed. No acute fracture. Moderate degenerative change of the interphalangeal joints most prominent in the first interphalangeal and second distal interphalangeal joints. Bone density is decreased. 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 Left hand: Osteoarthritis of the interphalangeal joints. Status post trapeziectomy. Right foot: Cyst versus erosion at the head of the first metatarsal medially. Erosion at the first proximal phalanx medially near the IPjoint. Left foot: Cyst versus erosion at the head of the first metatarsal medially. Knees: Mild joint space narrowing without other findings of arthritis. Hips: No evidence of arthritis. Ankles: No evidence of arthritis. Report dictated by Kobe Parker DO ([employer]). I, Margi Cotton MD have personally reviewed and interpreted this examination/study. > Interpreting Provider: Margi Cotton MD on 01/03/2022 2:52 PM Forrest Puente MD DIAGNOSTIC IMAGING O [facility] Care Teams Benzol Operator Relationship Specialty Start Date End Date Odell Mann MD [address] [address] PCP - General Family Medicine 01/03/22
--- OUTSIDE RECORDS SUMMARY | 2024-04-14 09:35 | XMS_ITS | Encounter Summary ---
Author Organization [facility] Address [address] [place] [address]. [place] [address] [place] [address] Care Team Providers Care Loss Prevention Research Engineer Name Role Phone Odell Mann MD Primary Care Provider [phone] Encounter Details Date Type Department Care Team (Late st Contact Info) Description 11/08/2019 Prep for Procedure [facility] [address] [place] [address] Christy Wang MD [address] [facility] [address] [place] [address] Social History Tobacco Use Types [...] Diagnoses Not on filedocumented in this encounter Additional Health Concerns Infection Onset Date Last Indicated Resolved Time COVID-19 Rule Out 11/09/2019 11/09/2019 11/10/2019 7:05 PM CDT COVID-19 Rule Out 11/23/2019 11/23/2019 11/25/2019 2:26 AM CDT documented as of this encounter Care Teams Loss Prevention Research Engineer Relationship Specialty Start Date End Date Odell Mann MD [address] [address] PCP - General FAMILY PRACTICE 09/06/18 documented as of this encounter
--- OUTSIDE RECORDS SUMMARY | 2024-04-14 09:35 | XMS_ITS | Referral Summary ---
Author Organization [facility] Address [address] [place] [address] Care Team Providers Care Ice Skater Name Role Phone Odell Mann MD Primary Care Prov ider Howard Herbert MD Unavailable [phone] Encounters Date Type Department Care Team Description 02/16/2024 Telephone [facility] Nephrology at [address] [place] [address] Mavis Aguilar 02/03/2024 Telephone [facility] Neph[facility] at [address] [place] [address] Derrek Ling MD from Last 3 Months Allergies No known active allergies Medications fexofenadine [...] arthritis 09/05/2023 Coronary artery disease invo lving [place] coronary artery of [place] heart without angina pectoris 06/02/2023 Chronic heart [...] (01/18/2020): Added automatically from request for surgery [id number] CRD (chronic renal disease), stage III 0 [...] pain 01/22/2016 History of cardiac cath 08/31/2015 Immunizations Name Administration Dates Next Due Influenza, Trivalent, Preservative Free, Intramu scular 11/30/2014 Pneumococcal Conjugate PCV 13 06/22/2019 Social History Tobacco Use Types Packs/Day [...] on file Legal Sex Female 4:21 PM RESIDENT PROGRAM SPECIALIST Gender Identity Not on file Sexual Orientation [...] 10/15/2023 10:34 AM CDT Plan of Treatment Not on file Medical Devices Explanted Type Area Manager Office Services Device Identifier Shelf Expiration Date Model / Serial / Lot [employer] 6572 Quiroz Flexi-Stent 7fr 5cm Small Pigtail Flexible .035in Stent - [id number] Implanted:Qty : 1 on 01/17/2020 by Ludwig Crespo MD at [facility] Explanted:Qty : 1 on 01/19/2020 by Ludwig Crespo MD at [facility] Stent N/A: Pancreas [employer] 10/14/2024 [id number] / / [id number] Conmed Fatuma [id number] [place] Viabil 10mm 8.5fr 6cm 200cm Fully Covered Self Expand Pull - [id number] - [id number] Implanted:Qty : 1 on 01/17/2020 by Ludwig Crespo MD at [facility] Explanted:Qty : 1 on 01/19/2020 by Ludwig Crespo MD at [facility] Stent N/A: Bile Duct Conmed Fatuma 08/23/2022 [id number] / [id number] / Procedures Procedure Name Priority Date/Time Associated Diagnosis Comments IRON PROFILE W/ IBC Routine 02/03/2024 2 :19 PM RESIDENT PROGRAM SPECIALIST Stage 3a chronic kidney disease (HCC) Anemia in stage 3a chronic kidney disease (HCC) BASIC METABOLIC PANEL Routine 02/03/2024 2:18 PM RESIDENT PROGRAM SPECIALIST Stage 3a chronic kidney disease (HCC) Anemia in stage 3a chronic kidney disease (HCC) HEMOGLOBIN AND HEMATOCRIT Routine 02/03/2024 2:16 PM RESIDENT PROGRAM SPECIALIST Stage 3a chronic kidney disease (HCC) Anemia in stage 3a chronic kidney disease (HCC) EGFR Routine 01/18/2020 9:31 AM RESIDENT PROGRAM SPECIALIST DIAGNOSTIC MAMMOGRAM BILATERAL W KULDIP Routine 06/20/2017 8:48 AM CDT HEMOGLOBIN A1C Routine 07/04/2016 7:42 AM CDT DEXA AXIAL SKELETON BONE DENSITY 1 OR MORE SITES Routine 04/29/2012 12:20 PM RESIDENT PROGRAM SPECIALIST from Last 3 Months or Most Recently Relevant to Health Maintenance Results * Iron profile w/ IBC (02/03/2024 2:19 PM RESIDENT PROGRAM SPECIALIST) Blood Derrek Ling MD LAB BLOOD ORDERABLES Final Re sult Performing Organization Address [facility] Co de Phone Number EXTERNAL LAB * Basic metabolic panel (02/03/2024 2:18 PM RESIDENT PROGRAM SPECIALIST) Blood Derrek Ling MD LAB BLOOD ORDERABLES Final Re sult Performing Organization Address [facility] Co de Phone Number EXTERNAL LAB * Hemoglobin and hematocrit (02/03/2024 2:16 PM RESIDENT PROGRAM SPECIALIST) Blood Derrek Ling MD LAB BLOOD ORDERABLES Final Re sult Performing Organization Address [facility] Co de Phone Number EXTERNAL LAB * eGFR (01/18/2020 9:31 AM RESIDENT PROGRAM SPECIALIST) eGFR 47 mL/min/1.[address] [facility] Comment: Interpretive Data Reference Interval Normal ?>/= 90 mL/min/1.73m2 Mildly decreased* ? 60 - 89 mL/min/1.73m2 Mildly to moderately decreased ?45 - 59 mL/min/1.73m2 Moderately to severely decreased ??30 - 44 mL/min/1.73m2 Severely decreased ?15 - 29 mL/min/1.73m2 Kidney Failure ?< 15 ??mL/min/1.73m2 *Relative to young adult level If -Scottish multiply value by 1.16. Estimated glomerular filtration [...] 2016. Blood specimen (specimen) 01/18/2020 9:31 AM RESIDENT PROGRAM SPECIALIST 01/18/2020 9:54 AM RESIDENT PROGRAM SPECIALIST us Ludwig Crespo MD LAB BLOOD ORDERABLES Final Result Performing Organization Address City/State/[facility] Co de Phone Number [facility] [address] [place] [address] * Diagnostic Mammogram Bilateral W [...] Dr. Pasquale Ang M.D. nh/:06/20/2017 10:36:27 ?? Ui Programmer: Amelia Pat RT (Eleni)(Sharon), [facility] letter sent: Normal Exam Abnormal History ?? Reading location: [facility] BI-RADS: 2 Benign [EOD] Narrative 06/20/2017 [...] dated: ??2014 mammogram and 04/29/2012 mammogram - [facility]. ?? BREAST TISSUE: There are scattered areas [...] dated: 2014 mammogram and 04/29/2012 mammogram - [facility]. BREAST TISSUE: There are scattered areas of [...] by: Dr. Pasquale Ang M.D. nh/:06/20/2017 10:36:27 Ui Programmer: Amelia Pat RT (R)(M), [facility] letter sent: Normal Exam Abnormal History Reading location: [facility] BI-RADS: 2 Benign [EOD] Nico Andre MD IM MAMMO PROCEDURES Final Result * (ABNORMAL) Hemoglobin A1c (07/04/2016 7:42 AM CDT) Hemoglobin A1c % 6.9(H) 4.8 - 5.9 % Comment: [place] [employer] recommends that the goal of therapy should be an A1C hemoglobin of <7%. Reevaluate the treatment regimen in patients with an A1C >8%. 07/04/2016 7:42 AM CDT 07/04/2016 10:05 AM CDT us Odell Mann MD LAB BLOOD ORDERABL ES Final Result JACKELINE TIDWELL HISTORICAL RESULTS * Dexa Axial Skeleton Bone Density 1 or 2 Site (04/29/2012 12:20 PM RESIDENT PROGRAM SPECIALIST) Anatomical Region Laterality Modality Body N/A Radiographic Adeline ging 04/29/2012 12:2 0 PM RESIDENT PROGRAM SPECIALIST Impressions 04/29/2012 2:31 PM RESIDENT PROGRAM SPECIALIST ?? Normal bone density. THIS IS AN ELECTRONICALLY VERIFIED REPORT 04/29/2012 2:26 PM: ??Sierra Warren M.D. Sierra Warren M.D. KL:saravanan 02:26 PM 02:26 PM [EOD] Narrative 04/29/2012 2:31 PM RESIDENT PROGRAM SPECIALIST EXAMINATION: Bone Density Study (DEXA) HISTORY: ??Post [...] normal mean is 100%. Procedure Note Provider, Julio Cesar, - 08/01/2020 EXAMINATION: Bone Density Study (DEXA) [...] KL:saravanan 02:26 PM 02:26 PM [EOD] Nico Donato Andre MD IMG DXA PROCEDURES Final R esult from Last 3 Months or Most Recently Relevant to Health Maintenance Insurance [employer] [facility] MEDIC[facility] Address: [address] [address] [place] [address] [employer] [facility] MEDICARE Address: [facility] [address] [place] [address] Advance Directives For more information, please contact: [phone] * Full Code (Latest Code Status on File) Date Activated Date Inactivated Comments 01/17/2020 1:24 PM 01/19/2020 6:58 PM Care Teams Ice Skater Relationship Specialty Start Date End Date Odell Mann MD PCP - General 06/14/18 Howard Herbert MD Referring Physician Cardiology 04/15/19
--- OUTSIDE RECORDS SUMMARY | 2024-04-14 09:35 | XMS_ITS | Clinical Summary ---
Author Organization [employer] [id number] [facility] Address [address] [place] [address] Care Team Providers Care Sports Statistician Name Role Phone Odell Mann MD Primary Care Provider [phone] Allergies No known active allergies Medications atorvastatin (LIPITOR) 20 mg tablet atorvastatin 20 mg tablet TAKE 1 TABLET BY MOUTH ONCE DAILY AT BEDTIME Active bumetanide (BUMEX) 1 mg tablet bumetanide 1 mg tablet TAKE 1 TABLET BY MOUTH TWICE DAILY Active isosorbide mononitrate (IMDUR) 30 mg Extended Release 24 hour tablet isosorbide mononitrate ER 30 mg tablet,extended release 24 hr Active levothyroxine 25 mcg tablet levothyroxine 25 mcg tablet Active losartan (COZAAR) 100 mg tablet TAKE 1 TABLET BY MOUTH ONCE DAILY 1 9 Active metoprolol succinate (TOPROL XL) 50 mg Extended Release 24 hour tablet metoprolol succinate ER 50 mg tablet,extended release 24 hr Active potassium chloride (MICRO-K EXTENCAPS) 10 mEq Extended Release capsule potassium chloride ER 10 mEq capsule,extended release TAKE 1 CAPSULE BY MOUTH TWICE DAILY Active raNITIdine (ZANTAC) 300 mg tablet ranitidine 300 mg tablet Active ranolazine ER (RANEXA) 500 mg Extended Release 12 hour tablet ranolazine ER 500 mg tablet,extended release,12 hr TAKE 1 TABLET BY MOUTH TWICE DAILY Active rOPINIRole (REQUIP) 0.5 mg tablet Take 0.5 mg by mouth daily at bedtime. 3 9 Active cholecalciferol , vitamin D3, (VITAMIN D3 ORAL) Take by mouth. Activ e cyanocobalamin (VITAMIN B-12) 500 mcg tablet Take 2 Tablets by mouth daily. Active diazePAM (VALIUM) 2 mg tablet Take 2 mg by mouth. 3 Active Jardiance 25 mg tablet Take 25 mg by mouth daily. 4 Active fexofenadine (JEFF) 180 mg tablet Take 180 mg by mouth. Active lansoprazole (PREVACID) 30 mg Capsule, Delayed Release(E.C.) Take 30 mg by mouth 2 times daily. 2 Active magnesium oxide (MAG-OX) 400 mg (241.3 mg magnesium) tablet Take 400 mg by mouth daily. 3 Active traZODone (DESYREL) 100 mg tablet Take 100 mg by mouth daily at bedtime. 2 Active Active Problems Problem Noted Date Diagnosed Date Intervertebral disc disorder s with radiculopathy, lumbosacral region 02/23/2019 Encounters Date Type Department Care Team Description 04/14/2024 Orders Only [facility] Oncology and H[facility]ology - [place] [address] [place] [address] Ruben Nguyen MD Chronic anemia (Primary Dx) 04/13/2024 External Device Data STL ABSTRACTION Provider, Abstract 04/13/2024 External Device Data STL ABSTRACTION Provider, Abstract 04/08/2024 External Device Data STL ABSTRACTION Provider, Abstract 01/20/2024 External Device Data STL ABSTRACTION Provider, Abstract from Last 3 Months Family History Medical History Relation Name Comments No Known Problems Brother No Known Problems Father Heart Disease Mother Relation Name Status Comments Brother Alive Father Mother Social History Tobacco Use Types Packs/Day Years Used Date Smoking Tobacco: Never Tobacco Cessation:Counseling Given: Not Answered [...] file Not on file Not on file Last Filed Vital Signs Vital Sign Reading Time Taken Comments Blood Pressure 118/66 10/23/2023 11:11 AM CDT Pulse 59 10/23/2023 11:11 AM CDT Temperature 36.5 ??C (97.7 ??F) 10/23/2023 11:11 AM C DT Respiratory Rate 18 10/23/2023 11:11 AM CDT Oxygen Saturation 97% 10/23/2023 11:11 AM CDT Inhaled Oxygen Concentration - - Weight 71.7 kg (158 lb) 10/23/2023 11:11 AM CDT Height 157.5 cm (5' 2 ) 02/26/2019 8:22 AM SANDING LINE OPERATOR Body Mass Index 28.9 02/26/2019 8:22 AM SANDING LINE OPERATOR Plan of Treatment Upcoming Encounters Date Type Department Care Team (Late st Contact Info) Description 04/29/2024 11:00 AM SANDING LINE OPERATOR Office Visit [facility] Oncology and Hematology [facility] [address] [facility] [address] [place] [address] Ruben Nguyen MD [address] [facility] [address] [place] [address] Health Maintenance Due Date Last Done Comments DIABETES ANNUAL FOOT EXAM 1965 DIABETES ANNUAL RETINAL EXAM 1965 DIABETES MICROALBUMIN ANNUAL SCREEN 1965 LDL CHOLESTEROL ANNUAL 1965 DTAP/TDAP/TD VACCINES (1 - Tdap) 1966 ZOSTER VACCINE (1 of 2) 1966 DIABETES HBA1C Q 6 MONTHS 09/11/2018 03/13/2018, PNEUMOCOCCAL VACCINE 65+ YEA RS (2 of 2 - PPSV23) 08/17/2019 06/22/2019 RSV VACCINE (60+ or ) (1 - 1-dose 75+ series) 2022 INFLUENZA VACCINE (#1) 2023 11/30/2014 [place] Prev entative Visit/Annual Wellness Visit 03/17/2024 OSTEOPOROSIS SCREENING Completed 04/29/2012 COLORECTAL SCREENING Discontinued 11/12/2019 Colorectal Cancer Screening Discontinued FIT-DNA Q 3 years Discontinued FIT/FOBT Q 1 year Discontinued Flex Sig/CT Colonography Q 5 years Discontinued Insurance [facility] [id number] Care Teams Sports Statistician Relationship Specialty Start Date End Date Odell Mann MD [address] [id number] PCP - General Family Practice 12/24/18
--- OUTSIDE RECORDS SUMMARY | 2024-04-14 09:35 | XMS_ITS | Encounter Summary ---
Author Organization [facility] Facility Care Team Providers Care Curb Hop Name Role Phone Odell Mann MD Primary Care Prov ider Howard Herbert MD Unavailable [phone] Encounter Details Date Type Department Care Team (Latest Contact Info) Description 01/09/2018 Orders Only [facility] Provider, MD Julio Cesar [address] [place] [address] Social History Tobacco Use Types Packs/Day Years Used Date Smoking Tobacco: Never Assessed Comments Unknown Sex and Gender Information Value Date Recorded Sex Assigned at Not on file Legal Sex Female 4:21 PM BONE CRUSHER Gender Identity Not on file Sexual Orientation Not on file documented as of this encounter Plan of Treatment Not on file documented as of this encounter Procedures Procedure Name Priority Date/Time Associated Diagnosis Comments SCAN - LABS 01/12/2018 12:00 AM CDT SCAN - LABS 01/12/2018 12:00 AM CDT documented in this encounter Results * SCAN - LABS (01/12/2018 12:00 AM CDT) Narrative 01/12/2018 12:00 AM CDT Ordered by an unspecified provider. Historical Provider Final Res ult * SCAN - LABS (01/12/2018 12:00 AM CDT) Narrative 01/12/2018 12:00 AM CDT Ordered by an unspecified provider. us Historical Provider Final Res ult documented in this encounter Visit Diagnoses Not on filedocumented in this encounter Care Teams Curb Hop Relationship Specialty Start Date End Date Odell Mann MD PCP - General 06/14/18 Howard Herbert MD Referring Physician Cardiology 04/15/19 documented as of this encounter
--- OUTSIDE RECORDS SUMMARY | 2024-04-14 09:35 | XMS_ITS | Continuity of Care Document ---
Author Organization [facility] Address [address] [place] [address] [address] [place] [address] Phone Care Team Providers Care Etcher Machine Name Role Phone Mali Fernandez Unavailable Unavailable Procedures Procedure Date Optic Nerve Topography Optic Nerve Topography Office/outpatient Visit, Est Advance Directives Directive Yes / No Effective Date File Name No Information Encounters Encounter Description Practice Location Reason(s) For Visit Diagnoses Date Provider Providers Copied on Encounter [facility], [address] [place] [address] [address], [place], [place], [id number], tel:[phone] [facility] No Information [address] , [address], [place], [address], [place]. tel:[phone] Referring Provider: [facility] [address], [place], [place], [facility]. tel:[phone] Office/outpat ient Visit, Est [facility], [address] [place] [address] [address], [place], [place], [id number], tel:[phone] [facility] No Information [address] , [address], [place], [address], . tel:[phone] Family History Family Member Type Diagnosis Age [...]
--- OUTSIDE RECORDS SUMMARY | 2024-04-14 09:35 | XMS_ITS | Encounter Summary ---
Author Organization [facility] Facility Care Team Providers Care Surveillance Officer Name Role Phone Odell Mann MD Primary Care Prov ider Howard Herbert MD Unavailable [phone] Encounter Details Date Type Department Care Team (Latest Contact Info) Description 01/20/2018 Orders Only [facility] CLINCONV Provider, MD Julio Cesar [address] [place] [address] Social History Tobacco Use Types Packs/Day Years Used Date Smoking Tobacco: Never Assessed Comments Unknown Sex and Gender Information Value Date Recorded Sex Assigned at Not on file Legal Sex Female 4:21 PM TUBE COATER Gender Identity Not on file Sexual Orientation Not on file documented as of this encounter Plan of Treatment Not on file documented as of this encounter Procedures Procedure Name Priority Date/Time Associated Diagnosis Comments SCAN - LABS 02/02/2018 12:00 AM TUBE COATER documented in this encounter Results * SCAN - LABS (02/02/2018 12:00 AM TUBE COATER) Narrative 02/02/2018 12:00 AM TUBE COATER Ordered by an unspecified provider. us Historical Provider Final Res ult documented in this encounter Visit Diagnoses Not on filedocumented in this encounter Care Teams Surveillance Officer Relationship Specialty Start Date End Date Odell Mnan MD PCP - General 06/14/18 Howard Herbert MD Referring Physician Cardiology 04/15/19 documented as of this encounter
--- OUTSIDE RECORDS SUMMARY | 2024-04-14 09:35 | XMS_ITS | Clinical Summary ---
Author Organization [facility] Address [address] [place] [address] Care Team Providers Care History Teacher Name Role Phone Odell Mann MD Primary Care Provider + Source Comments [facility],non-owned Affiliates and Associated Physician Practices is amultiple site organization consisting of ambulatory clinics and hospital sitesin [place], [place], [place] and [place]. This disclosure is being madepursuant to the Care Everywhere program and may not contain all information available regarding this patient. Last updated 17.[facility] Allergies No known active allergies Medications * [...] mouth once daily Active Cholecalciferol 1.25 MG (79469 UT) Take 50,000 Units by mouth once [...] 01/03/2022 9:56 AM CDT Plan of Treatment Health Maintenance Due Date Last Done Comments BONE DENSITY TESTING 1945 HEPATITIS C SCREENING 04/23/1965 DTAP/TDAP/TD VACCINES (1 - Tdap) 1966 ZOSTER VACCINE (1 of 2) 1997 PNEUMOCOCCAL VACCINE 50+ (2 of 2 - PPSV23) 06/21/2020 06/22/2019 Respiratory Syncytial Virus (RSV) Vaccine Pt: or over 60 yrs (1 - 1-dose 75+ series) 2022 COVID-19 VACCINE ( - 2023-2 5 season) 2023 INFLUENZA VACCINE (#1) 2023 11/30/2014 DEPRESSION SCREENING 03/17/2024 01/03/2022 MEDICARE AWV ? CALENDAR YEAR 2024 HEPATITIS B VACCINE Aged Out No longe r eligible based on patient's age to complete this topic HIB VACCINE Aged Out No longer eligi ble based on patient's age to complete this topic HPV VACCINE Aged Out No longer eligi ble based on patient's age to complete this topic MENINGOCOCCAL (Group B) VACCINE Aged Out No longer eligible based on patient's age to complete this topic MENINGOCOCCAL VACCINE Aged Out No aria sapna eligible based on patient's age to complete this topic Care Teams History Teacher Relationship Specialty Start Date End Date Odell Mann MD [address] [place] [address] PCP - General Family Medicine 01/03/22
--- OUTSIDE RECORDS SUMMARY | 2024-04-14 09:35 | XMS_ITS | Encounter Summary ---
Author Organization [facility] [employer] Address [address] [place] [address] Care Team Providers Care Draw Operator Name Role Phone Odell Mann MD Primary Care Provider [phone] Encounter Details Date Type Department Care Team (Late Contact Info) Description 04/14/2024 Orders Only [facility] Oncology and Hematology - [place] [address] [place] [address] Ruben Nguyen MD [facility] [employer] [address] [place] [phone] Chronic anemia (Primary Dx) Social History Tobacco Use Types Packs/Day Years [...] (Late Contact Info) Description 04/29/2024 11:00 AM FLAG MAKER Office Visit [facility] Oncology and Hematology - [place] [address] [place] [address] Ruben Nguyen MD [facility] [employer] [address] [place] [address] Scheduled Orders Name Type Priority Associated Diagnoses Orde r Schedule CBC WITH DIFFERENTIAL Lab Routine Chronic anemia Expected: 04/14/2024, Expires: 04/14/2025 documented as of this encounter Visit Diagnoses Diagnosis Chronic anemia- Primary Anemia, unspecified documented in this encounter Care Teams Draw Operator Relationship Specialty Start Date End Date Odell Mann MD 1 [facility] [address] [place] [phone] PCP - General Family Practice 12/24/18 documented as of this encounter
--- OUTSIDE RECORDS SUMMARY | 2024-04-14 09:35 | XMS_ITS | Clinical Summary ---
Author Organization [facility] Address [address] [place] [address]. [place] [address] [place] [address] Care Team Providers Care Commissioned Defence [employer] Officer Name Role Phone Odell Mann MD Primary Care Provider [phone] Allergies Active Allergy Reactions Criticality Noted Date Comments Amitriptyline Hallucinations 12/18/2022 Medications RANEXA 500 MG 12 hr tablet Take 1 tablet (500 mg total) by mouth 2 (two) times daily. 3 9 Active potassium chloride CR 10 MEQ CR capsule Take 3 capsules (30 mEq total) by mouth 2 (two) times daily. 5 9 Active metoprolol succinate ER 50 MG 24 hr tablet Take 1 tablet (50 mg total) by mouth daily. 5 9 Active atorvastatin (LIPITOR) 40 MG tablet Take 1 tablet (40 mg total) by mouth nightly at bedtime. 3 9 Active isosorbide mononitrate ER 30 MG 24 hr tablet Take 1 tablet (30 mg total) by mouth daily. 5 9 Active levothyroxine 25 MCG tablet Take 1 tablet (25 mcg total) by mouth daily. 5 9 Active losartan (COZAAR) 25 MG tablet Take 1 tablet (25 mg total) by mouth daily. 3 9 Active meclizine 25 MG tablet Take 1 tablet (25 mg total) by mouth as needed. 1 9 Active rOPINIRole 0.5 MG tablet Take 1 tablet (0.5 mg total) by mouth nightly. Active Cyanocobalamin (VITAMIN B 12) 500 MCG Tab Take 2 tablets by mouth daily. Active lansoprazole 30 MG capsule Take 1 capsule (30 mg total) by mouth 2 (two) times a day. Active traZODone (DESYREL) 100 MG tablet Take 1.5 tablets (150 mg total) by mouth nightly at bedtime. Active fexofenadine (JEFF) 180 MG tablet Take 1 tablet (180 mg total) by mouth daily. Active aspirin 81 MG chewable tablet Chew 1 tablet (81 mg total) by mouth daily. Active fluticasone (FLOVENT HFA) 110 MCG/ACT inhaler Inhale 2 puffs into the lungs daily as needed. Active diazePAM (VALIUM) 2 MG tablet Take 1 tablet (2 mg total) by mouth 2 (two) times a day. Active ferrous sulfate, 65 mg elemental, 325 (65 FE) MG tablet Take 1 tablet (325 mg total) by mouth daily with breakfast. Active docusate sodium (COLACE) 100 MG capsule Take 1 capsule (100 mg total) by mouth daily. Active Magnesium 400 MG Tab Take 1 tablet by mouth daily. Active PIOGLITAZONE HCL OR Take 20 mg by mouth daily. Active bumetanide (BUMEX) 1 MG tablet Take 1 tablet (1 mg total) by mouth 2 (two) times daily. 3 Active Blood Glucose Calibration (ACCU-CHEK GUIDE CONTROL) Liquid 4 Active Blood Glucose Monitoring Suppl (ACCU-CHEK GUIDE) w/Device Kit 4 Active JARDIANCE 25 MG tablet Take 1 tablet (25 mg total) by mouth daily. Active Pharmacist Choice Lancets Misc 4 Active dicyclomine (BENTYL) 20 MG tabletIndication s:Upper abdominal pain Take 1 tablet (20 mg total) by mouth 4 (four) times daily as needed. 120 tablet 3 4 Active Active Problems Problem Noted Date Diagnosed Date Vertigo, benign paroxysmal 10/14/2018 Encounters Date Type Department Care Team Description 02/04/2024 10:40 AM PARTS LISTER Office Visit [facility] General Surgery [facility] [address], [address] [place] [address] Sarahy Carter, DETENTION ATTENDANT-C Nausea (Constant nausea, abdominal pain, constipation, and belching at night) 02/04/2024 Travel 02/03/2024 7:40 AM PARTS LISTER - 02/03/2024 11:59 PM PARTS LISTER Hospital Encounter [facility] [address] [place] [address] None, Provider, Derrek Rushing MD Discharge Disposition: Home or Self Care (Routine Discharge) 02/03/2024 Orders Only [facility] [address] [place] [address] Derrek Ling MD 02/03/2024 Travel from Last 3 Months Family History Medical History Relation Comments Diabetes Father Hypertension Father Diabetes Paternal Grandmother Breast Cancer Neg Hx Relation Status Comments Father Paternal Grandmother Social History Tobacco Use Types Packs/Day Years Used Date Smoking Tobacco: Never Smokeless Tobacco: Never Tobacco Cessation:Counseling Given: Not Answered Alcohol Use Standard Drinks/Week Comments Never 0 (1 standard drink = 0.6 oz pur e alcohol) AUDIT-C Answer Date Recorded Frequency of Alcohol Consumption Never 09/06/2018 Average Number of Drinks Not on file 019 Frequency of Binge Drinking Not on file 08/16 PHQ-2 Answer Date Recorded Patient Health Questionnaire-2 Score 0 02/04/2024 Comments No Sex and Gender Information Value Date Recorded Sex Assigned at Not on file Legal Sex Female 7:45 PM CDT Gender Identity Not on file Sexual Orientation Not on file Last Filed Vital Signs Vital Sign Reading Time Taken Comments Blood Pressure 149/83 02/04/2024 10:43 AM PARTS LISTER Pulse 58 02/04/2024 10:43 AM PARTS LISTER Temperature 36.2 ??C (97.1 ??F) 02/04/2024 10:[address] Respiratory Rate 18 02/04/2024 10:43 AM PARTS LISTER Oxygen Saturation 97% 02/04/2024 10:43 AM PARTS LISTER Inhaled Oxygen Concentration - - Weight 73.1 kg (161 lb 1.6 oz) 02/04/2024 10:43 AM PARTS LISTER Height 157.5 cm (5' 2 ) 02/04/2024 10:43 AM PARTS LISTER Body Mass Index 29.47 02/04/2024 10:43 AM PARTS LISTER Plan of Treatment Health Maintenance Due Date Last Done Comments ASCVD Statin 1945 Hepatitis C 1965 DTaP, Tdap and Td Vaccines (1 - Tdap) 1966 Zoster Vaccines (1 of 2) 1997 Annual Medicare Wellness Visit 2012 Pneumococcal Vaccine: 65+ Years (2 of 2 - PPSV23 or PCV20) 08/17/2019 06/22/2019 RSV Immunization or 60+ Years (1 - 1-dose 75+ series) 2022 COVID-19 Vaccine (1 - season) 2023 Influenza Adult (#1) 2023 11/30/2014 PHQ-2 (Physician [place]) 03/17/2024 02/04/2024 PHQ-2 (Physician [place]) 02/03/2025 02/04/2024 Dexa Scan (General) Completed 04/29/2012, 3 Colorectal Cancer Screening Colonoscopy (10 Years) Discontinued 11/26/2019, 11/12/2019, 11/12/2019, Additional history exists Meningococcal B Vaccine Aged Out No l onger eligible based on patient's age to complete this topic Meningococcal Vaccine Aged Out No aria sapna eligible based on patient's age to complete this topic RSV Immunizations Under 20 Months Aged Out No longer eligible based on patient's age to complete this topic Procedures Procedure Name Priority Date/Time Associated Diagnosis Comments BASIC METABOLIC PANEL Routine 02/03/2024 8:14 AM PARTS LISTER Chronic kidney disease (CKD) stage G3a/A1, moderately decreased glomerular filtration rate (GFR) between 45-59 mL/min/1.73 square meter and albuminuria creatinine ratio less than 30* ([facility] HHS/HCC) Anemia of chronic renal failure HEMOGLOBIN AND HEMATOCRIT Routine 02/03/2024 8:14 AM PARTS LISTER Chronic kidney disease (CKD) stage G3a/A1, moderately decreased glomerular filtration rate (GFR) between 45-59 mL/min/1.73 square meter and albuminuria creatinine ratio less than 30* ([facility] HHS/HCC) Anemia of chronic renal failure IRON SAT PANEL (IRON,IBC,%SAT) Routine 02/03/2024 8:14 AM PARTS LISTER Chronic kidney disease (CKD) stage G3a/A1, moderately decreased glomerular filtration rate (GFR) between 45-59 mL/min/1.73 square meter and albuminuria creatinine ratio less than 30* ([facility] HHS/HCC) Anemia of chronic renal failure COLONOSCOPY Routine 11/12/2019 10:25 AM CDT from Last 3 Months or Most Recently Relevant to Health Maintenance Results * (ABNORMAL) HEMOGLOBIN AND HEMATOCRIT (02/03/2024 8:14 AM PARTS LISTER) HGB 10.9(L) 12.3 - 15.3 G/DL 02/03/2024 8:35 AM PARTS LISTER [facility] HCT 33.3(L) 35.9 - 44.6 % 02/03/2024 8:35 AM PARTS LISTER [facility] 02/03/2024 8:14 AM PARTS LISTER Derrek Ling MD LABORATORY Final Result [facility] [address] [place] [address], [place] [phone] * IRON SAT PANEL (IRON,IBC,%SAT) (02/03/2024 8:14 AM PARTS LISTER) IRON 74 50 - 170 MCG/DL 02/03/2024 8:57 AM PARTS LISTER [facility] IRON BINDING CAPACITY 364 250 - 450 MCG/DL 02/03/2024 8:57 AM PARTS LISTER [facility] IRON SATURATION 20 20 - 55 % 8:57 AM PARTS LISTER [facility] 02/03/2024 8:14 AM PARTS LISTER [place] Derrek Ling MD LABORATORY Final Result [facility] [address] [place] [address], * (ABNORMAL) BASIC METABOLIC PANEL (02/03/2024 8:14 AM [facility]) [facility] GLUCOSE 106(H) 70 - 99 MG/DL 02/03/2024 8:53 AM [facility] BUN 25(H) 7 - 18 MG/DL 02/03/2024 8:53 AM [facility] CREATININE S/P/B 1.51(H) 0.55 - 1.02 MG/DL 02/03/2024 8:53 AM [facility] SODIUM S/P/B 140 136 - 145 MMOL/L 02/03/2024 8:53 AM [facility] POTASSIUM S/P/B 4.6 3.5 - 5.1 MMOL/L 02/03/2024 8:53 AM [facility] CHLORIDE S/P/B 106 100 - 108 MMOL/L 02/03/2024 8:53 AM [facility] CO2 27.2 21 - 32 MMOL/L 02/03/2024 8:53 AM [facility] CALCIUM S/P/B 9.1 8.5 - 10.1 MG/DL 02/03/2024 8:53 AM [facility] ANION GAP 6.8 5 - 15 MMOL/L 02/03/2024 8:53 AM [facility] BUN CREATININE RATIO 16.6 6 - 26 02/03/2024 8:53 AM [facility] GFR ESTIMATE 36(L) >90 ML/MIN/1.7 3 M2 02/03/2024 8:53 AM [facility] Comment: NOTE: eGFR is not calculated for patients <18 years of age. This is an estimated GFR calculation using the new CKD EPI creatinine equation without race and so does not require a correction factor for race. This estimated GFR should not be used for calculating drug doses. 02/03/2024 8:14 AM PARTS LISTER Derrek Ling MD LABORATORY Final Result [facility] [address] [place] [address], * COLONOSCOPY/EGD GENERIC (08/19/2012) 08/19/2012 Narrative 08/19/2012 Ordered by an unspecified provider. Documents Scanned SCANNING Final Result from Last 3 Months or Most Recently Relevant to Health Maintenance Insurance [facility] Care Teams Commissioned Defence Force Officer Relationship Specialty Start Date End Date Odell Mann MD [address] [address] PCP - General FAMILY PRACTICE 09/06/18
[2024-04-14 10:47] LABS: Iron 118 ug/dL (37-170)
[2024-04-14 10:48] LABS: Anion Gap 9 mmol/L (4-12); Blood Urea Nitrogen 23 mg/dL (7-17); Calcium 9.5 mg/dL (8.4-10.2); Carbon Dioxide 31 mmol/L (22-30); Chloride 99 mmol/L (98-107); Estimated Glomerular Filt Rate 37; Glucose 97 mg/dL (65-110); Potassium 4.3 mmol/L (3.4-5.0); Sodium 139 mmol/L (137-145)
[2024-04-14 10:57] LABS: Percent Iron Saturation 31 % (20-50)
[2024-04-14 11:53] LABS: Folic Acid 8.2 ng/mL (2.76->20)
== END 2024-04-14 09:08 | disposition home or self-care (01) ==
LOC: ANHLAB 09:07
PROVIDERS: PCP Family Medicine Adolescent Medicine; Visit Provider Internal Medicine Hematology & Oncology
DX: D64.9 Anemia, unspecified (principal)
CPT/HCPCS: 36415; 80048; 82607; 82728; 82746; 83540; 83550; 85025

== ENCOUNTER 2024-10-13 15:09 | Outpatient (CLI) | payer MEDICARE, SELFPAY ==
--- NOTE | ~2024-10-13 | CT_ITS ---
Non-contrast CT scan of the Abdomen and Pelvis Clinical indication: Early satiety Technique: 2.5 mm axial scans were obtained through the abdomen and pelvis without intravenous or or al contrast. Dose reduction technique was used on this scan by utilizing automated exposure control a nd iterative reconstruction technique. The dose-length product (DLP) was 345.74 mGy-cm. Findings: Images through the lung bases reveal no abnormalities. There is no evidence of renal or ureteral calculi. The kidneys and the ureters are nondilated. The liver, spleen, pancreas, and adrenals appear normal. Cholecystectomy clips are present. There is no aortic aneurysm. There is no evidence of bowel obstruction. Images through the pelvis were performed. There is no evidence of ascites or lymphadenopathy. Urinary bladder unremarkable. No pelvic mass seen. Impression: No significant abnormality. Reviewed, dictated and finalized at [facility]. Impression: No significant abnormality.
--- OUTSIDE RECORDS SUMMARY | 2024-10-13 15:13 | XMS_ITS | Clinical Summary ---
Author Organization [facility] (formerly [facility]) at the [facility] Office [facility] Address [address] [place] [address] Care Team Providers Care Mothers Helper Name Role Phone Odell Mann MD Primary Care Prov ider Howard Herbert MD Unavailable [phone] Derrek Ling MD Unavailable [phone] Allergies Active Allergy Reactions Criticality Noted Date Comments Amitriptyline Hallucinations Medium 06/24/2024 Medications fexofenadine (JEFF) 180 mg tablet Take 1 tablet (180 mg total) by mouth as needed Active metoprolol XL (TOPROL-XL) 50 mg 24 hr tablet Take 1 tablet (50 mg total) by mouth daily 04/06/19 20 Active aspirin 81 mg enteric coated tablet Take 1 tablet (81 mg total) by mouth daily Do not take for 10 days 01/19/20 20 Active multivitamin capsule Take 1 capsule by mouth daily Active rOPINIRole (REQUIP) 0.5 mg tablet TAKE 1 TABLET BY MOUTH AT NIGHT 30 tablet 3 06/22/19 22 Active lansoprazole (PREVACID) 30 mg capsule Take 1 capsule (30 mg total) by mouth every 12 hours Active levothyroxine (SYNTHROID) 25 mcg tablet Take 1 tablet (25 mcg total) by mouth daily 02/29/20 22 Active traZODone (DESYREL) 100 mg tablet Take 1 tablet (100 mg total) by mouth nightly 04/08/19 23 Active diazePAM (VALIUM) 2 mg tablet Take 1 tablet (2 mg total) by mouth nightly as needed 04/29/19 23 Active fluticasone propionate (FLONASE) 50 mcg/actuation nasal spray as needed Active Jardiance 25 mg tablet Take 1 tablet (25 mg total) by mouth daily 10/15/19 24 Active ranolazine ER (RANEXA) 500 mg 12 hr tablet TAKE 1 TABLET BY MOUTH TWICE DAILY 200 tablet 2 02/20/20 24 Active isosorbide mononitrate ER (IMDUR) 30 mg 24 hr tablet TAKE 1 TABLET BY MOUTH DAILY 100 tablet 2 02/20/20 24 Active metOLazone (ZAROXOLYN) 2.5 mg tablet Take 1 tablet today and then 1 tablet Friday 2 tablet 05/07/19 25 Active Additional Information Patient not taking.Reported on 06/24/2024 metOLazone (ZAROXOLYN) 5 mg tablet Take 0.5 tablets (2.5 mg total) by mouth as needed (as directed) Take on dose today and take the second dose Friday 2 tablet 05/28/19 25 Active Additional Information Patient not taking.Reported on 06/24/2024 losartan (COZAAR) 25 mg tablet Take 1 tablet (25 mg total) by mouth daily 06/06/19 25 Active potassium chloride ER 20 mEq CR tablet TAKE 1 TABLET BY MOUTH 3 TIMES DAILY 300 tablet 2 07/14/19 25 Active bumetanide (BUMEX) 1 mg tablet TAKE 1 TABLET BY MOUTH TWICE DAILY 200 tablet 2 07/14/19 25 Active atorvastatin (LIPITOR) 40 mg tablet TAKE 2 TABLETS BY MOUTH EVERY NIGHT 200 tablet 2 08/31/19 25 Active magnesium oxide (MAG-OX) 400 mg (241.3 mg elemental magnesium) tablet Take 1 tablet by mouth once daily 90 tablet 10/05/19 25 Active magnesium oxide (MAG-OX) 400 mg (241.3 mg elemental magnesium) tablet Take 1 tablet by mouth once daily 90 tablet 06/24/19 25 025 Discontinued Active Problems Problem Noted Date Diagnosed Date Chest pain 06/04/2024 Chest pain, unspecified type 06/01/2024 Mixed hyperlipidemia 10/15/2023 Arthritis of carpometacarpal (CMC) joint of righ t thumb 09/05/2023 Trigger index finger of left hand 09/05/2023 Hand arthritis 09/05/2023 Coronary artery disease invo lving marshall coronary artery of marshall heart without angina pectoris 06/02/2023 Chronic heart failure with preserved ejection fr action 06/02/2023 Intraventricular conduction delay 06/02/2023 Essential hypertension 06/02/2023 Pulmonary hypertension 06/02/2023 Obstructive sleep apnea 08/23/2020 Psychophysiological insomnia 08/23/2020 Parasomnia 08/23/2020 Anxiety 08/23/2020 Essential hypertension 08/23/2020 Diffusion capacity of lung (dl), decreased 08/23 Nonsmoker 08/23/2020 Teeth grinding 08/23/2020 Moderate malnutrition 01/18/2020 Abdominal pain 01/12/2020 Overview (01/18/2020): Added automatically from request for surgery [id number] CRD (chronic renal disease), stage III 0 [...] Encounters Date Type Department Care Team Description 08/11/2024 9:00 AM CDT Office Visit [facility] Nephrology at [address] [place] [phone] Derrek Ling MD Stage 3a chronic kidney disease (HCC) (Primary Dx); Anemia in stage 3a chronic kidney disease (HCC); Benign hypertensive kidney disease with chronic kidney disease stage I through stage IV, or unspecified(403.10); Type 2 diabetes mellitus with stage 3a chronic kidney disease, without long-term current use of insulin (HCC) 08/06/2024 Orders Only [facility] Nephrology at [address] [place] [address] Provider, MD Julio Cesar from Last 3 Months Immunizations Immunization Administration Dates Next Due Influenza, Trivalent, Preservative [...] constipation Chronic diarrhea CHF (congestive heart failure) (HCC) Type 2 diabetes mellitus (HCC) CKD [...] = 0.6 oz pur e alcohol) rarely [facility] Utilities Answer Date Recorded In the past 12 months has [facility], gas, oil, or water IRI threatened to shut off services in your home? No 06/02/2024 Social Connection and Isolat ion Panel [NHANES] Answer Date Recorded In a typical week, how many times do you talk on the phone with family, friends, or neighbors? More than three times a week 06/02/2024 How often do you get togethe r with friends or relatives? More than three times a week 06/02/2024 How often do you attend chur ch or restoration services? Never 06/02/2024 Do you belong to any clubs o r organizations such as orthodoxy groups, unions, fraternal or athletic groups, or school groups? No 06/02/2024 How often do you attend meet ings of the clubs or organizations you belong to? 1 to 4 times per year 06/02/2024 Are you , , di vorced, , never , or living with a partner? 06/02/2024 AUDIT-C Answer Date Recorded Q1: How often do you have a drink containing alc ohol? Monthly or less 08/11/2024 Average Number of Drinks Not on file 025 Frequency of Binge Drinking Not on file 07/16 Overall Financial Resource Strain (CARDIA) Answe r Date Recorded How hard is it for you to pa y for the very basics like food, housing, medical care, and heating? Not hard at all 06/02/2024 Hunger Vital Sign Answer Date Recorded Within the past 12 months, y ou worried that your food would run out before you got the money to buy more. Never true 06/03/19 25 Within the past 12 months, t he food you bought just didn't last and you didn't have money to get more. Never true 06/02/2024 PRAPARE - Transportation Answer Date Re corded In the past 12 months, has l ack of transportation kept you from medical appointments or from getting medications? No 05/15 In the past 12 months, has l ack of transportation kept you from meetings, work, or from getting things needed for daily living? No 06/02/2024 Housing Stability Vital Sign Answer Volodymyr e Recorded In the last 12 months, was t here a time when you were not able to pay the mortgage or rent on time? No 06/02/2024 In the past 12 months, how m any times have you moved where you were living? 0 06/02/2024 At any time in the past 12 m [facility], were you homeless or living in a care home (including now)? No 06/02/2024 Personal Safety Answer Date Recorded Have you ever been in or are you currently in a harmful physical or emotional relationship or is someone making you feel afraid or unsafe? Denies 06/01/2024 Comments No Sex and Gender Information Value Date Recorded Sex Assigned at Not on file Legal Sex Female 4:21 PM INSTITUTIONAL AIDE Gender Identity Not on file Sexual Orientation Not on file Obstetrics History Last Filed Vital Signs Vital Sign Reading Time Taken Comments Blood Pressure 137/69 08/11/2024 8:59 AM CDT Pulse 63 08/11/2024 8:59 AM CDT Temperature 36.6 C (97.9 F) 06/02/2024 12:28 PM CDT Respiratory Rate 18 06/02/2024 12:28 PM CDT Oxygen Saturation 95% 06/24/2024 1:41 PM CDT Inhaled Oxygen Concentration - - Weight 70.8 kg (156 lb) 08/11/2024 8:59 AM CDT Height 157.5 cm (5' 2) 08/11/2024 8:59 AM CDT Body Mass Index 28.53 08/11/2024 8:59 AM CDT Plan of Treatment Health Maintenance Due Date Last Done Comments Albumin Creatinine Ratio, Urine 1945 Depression Screening 1945 Hepatitis C Screening 1945 Dilated Eye Exam 1945 Foot Exam 1945 DTaP/Tdap/Td Vaccine (1 - Tdap) 1958 Hepatitis B Screening 1965 Zoster Vaccine (1 of 2) 1997 Well Visit 65+ 2012 Osteoporosis Screening-Bone Density Scan 04/29/2014 04/29/2012, 04/29/2012 Pneumococcal vaccine 65+ (2 of 2 - PPSV23) 08/17/2019 06/22/2019 Influenza Vaccine (#1) 2024 11/30/2014 Hemoglobin A1C 12/02/2024 06/01/2024, 06/16, 2014, Additional history exists Lipid Panel 06/01/2025 06/01/2024, 10/16, 10/10/2023, Additional history exists Fall Risk Assessment 06/02/2025 06/02/2024 eGFR 06/02/2025 06/02/2024, 05/15, 06/01/2024, Additional history exists Breast Cancer Screening-Mammogram Discontinued 09/25/2022, 10/22/2019, 06/20/2017, Additional history exists Medical Devices Explanted Type Area Tie Buyer Device Identifier Shelf Expiration Date Model / Serial / Lot [employer] 6572 Quiroz Flexi-Stent 7fr 5cm Small Pigtail Flexible .035in Stent - [id number] Implanted:Qty : 1 on 01/17/2020 by Ludwig Crespo MD at [facility] Explanted:Qty : 1 on 01/19/2020 by Ludwig Crespo MD at [facility] Stent N/A: Pancreas [employer] 10/14/2024 [id number] / / [id number] Conmed Fatuma [id number] Odon Viabil 10mm 8.5fr 6cm 200cm Fully Covered Self Expand Pull - [id number] - [id number] Implanted:Qty : 1 on 01/17/2020 by Ludwig Crespo MD at [facility] Explanted:Qty : 1 on 01/19/2020 by Ludwig Crespo MD at [facility] Stent N/A: Bile Duct Conmed Fatuma 08/23/2022 [id number] / [id number] / Procedures Procedure Name Priority Date/Time Associated Diagnosis Comments BASIC METABOLIC PANEL Routine 08/06/2024 8:58 AM CDT EGFR Routine 06/02/2024 6:52 AM CDT LIPID PANEL Add-On 06/01/2024 7:11 PM CDT HEMOGLOBIN A1C STAT 06/01/2024 2:44 PM CDT DIAGNOSTIC MAMMOGRAM BILATERAL W KULDIP Routine 06/20/2017 8:48 AM CDT DEXA AXIAL SKELETON BONE DENSITY 1 OR MORE SITES Routine 04/29/2012 12:20 PM INSTITUTIONAL AIDE from Last 3 Months or Most Recently Relevant to Health Maintenance Results * Basic metabolic panel (08/06/2024 8:58 AM CDT) Blood us Historical Provider LAB BLOOD ORDERABLES Melia l Result EXTERNAL LAB * (ABNORMAL) eGFR (06/02/2024 6:52 AM CDT) eGFR 19(L) >=60 mL/min/1. 73 m2 Comment: Interpretive Data Reference Interval Normal >/= 90 mL/min/1.73m2 Mildly decreased* 60 - 89 mL/min/1.73m2 Mildly to moderately decreased 45 - 59 mL/min/1.73m2 Moderately to severely decreased 30 - 44 mL/min/1.73m2 Severely decreased 15 - 29 mL/min/1.73m2 Kidney Failure < 15 mL/min/1.73m2 *Relative to young adult level Estimated glomerular filtration rate is determined by the 2020 CKD-EPI equation recommended by the National Kidney Foundation (A Unifying Approach to GFR Estimation: Recommendations of the NKF-ASK Task Force on Reassessing the Inclusion of Race in Diagnosing Kidney Disease, JASN 2020). The CKD-EPI equation should not be used for patients with unstable renal function and has not been validated in children and those over 70. Current interpretive data was last reviewed 2021. Blood 06/02/2024 6:52 AM CDT 06/02/2024 7:34 AM CDT us Nelda Farmer CLINICAL SCIENCES PROFESSOR LAB BLOOD ORDERABLES Final Resu lt NATHANAEL CASE [address] [facility] Department [place] [address] * Lipid panel (06/01/2024 7:11 PM CDT) Cholesterol 189 30 - 199 mg/dL Comment: Interpretive Data Ages < or = 19 years Acceptable: <170 mg/dL Borderline high: 170-199 mg/dL High: >or= 200 mg/dL Ages > or = 20 years Desirable: <200 mg/dL Borderline high: 200-239 mg/dL High: >or= 240 mg/dL Literature References: 1. Expert Panel on Integrated Guidelines for Cardiovascular Health and Risk Reduction in Children and Adolescents. Pediatrics 2011;128:S213 2. NCEP Expert Panel. Circulation 2004;110:227 Current Interpretive Data was last revised on 2017. Triglycerides 110 <=149 mg/dL NATHANAEL CASE Comment: Interpretive Data Ages < or = 9 years Acceptable: <75 mg/dL Borderline high: 75-99 mg/dL High: >or= 100 mg/dL Ages 10 to 20 years Acceptable: <90 mg/dL Borderline high: 90-129 mg/dL High: >or= 130 mg/dL Ages > or = 20 years Desirable: <150 mg/dL Borderline high: 150-199 mg/dL High: 200-499 mg/dL Very high: >or= 499 mg/dL Literature References: 1. Expert Panel on Integrated Guidelines for Cardiovascular Health and Risk Reduction in Children and Adolescents. Pediatrics 2011;128:S213 2. NCEP Expert Panel. Circulation 2004;110:227 Current Interpretive Data was last revised on 2017. HDL 69 >=40 mg/dL NATHANAEL CASE Comment: Interpretive Data Ages < or = 19 years Acceptable: >45 mg/dL Borderline low: 40-45 mg/dL Low: <40 mg/dL Ages > or = 20 years Desirable: >or= 60 mg/dL Low: <40 mg/dL Literature References: 1. Expert Panel on Integrated Guidelines for Cardiovascular Health and Risk Reduction in Children and Adolescents. Pediatrics 2011;128:S213 2. NCEP Expert Panel. Circulation 2004;110:227 Current Interpretive Data was last revised on 2017. LDL, calculated 101 <=129 mg/dL NATHANAEL CASE Comment: Interpretive Data Ages < or = 19 years Acceptable: <110 mg/dL Borderline high: 110-129 mg/dL High: >or= 130 mg/dL Ages > or = 20 years Optimal: <100 mg/dL Near optimal: 100-129 mg/dL Borderline high: 130-159 mg/dL High: >160 mg/dL Calculated using the Ulices LDL-C estimating equation. This equation was implemented on 2023. Prior to this date LDL-C was estimated using the Friedewald equation. Literature References: 1. Expert Panel on Integrated Guidelines for Cardiovascular Health and Risk Reduction in Children and Adolescents. Pediatrics 2011;128:S213 2. NCEP Expert Panel. Circulation 2004;110:227 3. Ulices Stringer. IRASEMA Cardiol. 2020 July 15;5(5):540-548. doi: 10.1001/jamacardio.2020.0013 Current Interpretive Data was last revised on 2023. Non-HDL Cholesterol 120 mg/dL NATHANAEL CASE Comment: Interpretive Data Ages < or = 19 years Acceptable: <120 mg/dL Borderline high: 120-144 mg/dL High: >145 mg/dL Ages > or = 20 years When triglycerides are >200 mg/dL, Non-HDL cholesterol is a secondary target of therapy with treatment goals that are 30 mg/dL greater than the LDL cholesterol target. Literature References: 1. Expert Panel on Integrated Guidelines for Cardiovascular Health and Risk Reduction in Children and Adolescents. Pediatrics 2011;128:S213 2. NCEP Expert Panel. Circulation 2004;110:227 Current Interpretive Data was last revised on 2017. Chol/HDL ratio 3 NATHANAEL Blood 06/01/2024 7:11 PM CDT 06/01/2024 7:28 PM CDT us Nelda Farmer NP LAB BLOOD ORDERABLES Final Resu lt Performing Organization Address [facility] Co de Phone Number [address] [employer] [place] [address] * (ABNORMAL) Hemoglobin A1c (06/01/2024 2:44 PM CDT) Hgb A1C 5.7(H) 4.0 - 5.6 % Estimated Average Glucose 117 mg/dL NATHANAEL Comment: The ADA recommends reporting an estimated Average Glucose (eAG) with all Hemoglobin A1c results using the equation derived from a study of 507 normal and diabetic adults. Minority populations were underrepresented and children were not included. (Diabetes Care 31:0547-3422, 2008). The eAG is not equivalent to a fasting glucose. Blood 06/01/2024 2:44 PM CDT 06/01/2024 2:46 PM CDT us Colten Calderon MD LAB BLOOD ORDERABLES Final Result Performing Organization Address City/[facility]/ZIP Co de Phone Number [address] [employer] [place] [address] * Diagnostic Mammogram Bilateral W Kuldip (06/20/2017 8:48 AM CDT) Anatomical Region Laterality Modality Breast Bilateral Mammography 06/20/2017 8:48 AM CDT Impressions 06/20/2017 10:37 AM CDT BI-RAD 2 BENIGN No evidence of malignancy. No abnormality to explain the bilateral pain. Base any further evaluation on clinical examination. A 1 year screening mammogram is recommended. The patient was notified of the results and provided with a hand out on breast pain. Electronically signed by: Dr. Pasquale Ang M.D. nh/:06/20/2017 10:36:27 Manager Research: Amelia Pat RT Heidi)(Sharon), [facility] letter sent: Normal Exam Abnormal History Reading location: [facility] BI-RADS: 2 Benign [EOD] Narrative 06/20/2017 10:37 AM CDT - MG BILATERAL DIGITAL DIAGNOSTIC MAMMOGRAM 3D/2D WITH MEDIOLATERAL OBLIQUE CRANIOCAUDAL: 06/20/2017 The study was acquired using full field digital technology and interpreted from soft copy. 2D digital mammographic views, as well as 3D digital tomosynthesis were performed in the CC and MLO projections. CLINICAL: 72-year-old woman presents for evaluation of bilateral focal pain in the right axilla and superior left breast. COMPARISONS: Comparison is made to exams dated: 2014 mammogram and 04/29/2012 mammogram - [facility]. BREAST TISSUE: There are scattered areas of [...] inclusive of a normal axillary lymph node. Targeted left [...] dated: 2014 mammogram and 04/29/2012 mammogram - [facility]. BREAST TISSUE: There are scattered areas of [...] by: Dr. Pasquale Ang M.D. nh/:06/20/2017 10:36:27 Manager Research: Amelia Pat RT (R)(M), [facility] letter sent: Normal Exam Abnormal History Reading location: [facility] BI-RADS: 2 Benign [EOD] us Nico Andre MD IMG MAMMO PROCEDURES Final Result * Dexa Axial Skeleton Bone Density 1 or 2 Site (04/29/2012 12:20 PM INSTITUTIONAL AIDE) Anatomical Region Laterality Modality Body N/A Radiographic Adeline ging 04/29/2012 12:2 0 PM INSTITUTIONAL AIDE Impressions 04/29/2012 2:31 PM INSTITUTIONAL AIDE Normal bone density. THIS IS AN ELECTRONICALLY VERIFIED REPORT 04/29/2012 2:26 PM: Sierra Warren M.D. Piero Dutton:saravanan 02:26 PM 02:26 PM [EOD] Narrative 04/29/2012 2:31 PM INSTITUTIONAL AIDE EXAMINATION: Bone Density Study (DEXA) HISTORY: Post [...] REPORT 04/29/2012 2:26 PM: Sierra Warren M.D. Piero Dutton:saravanan 02:26 PM 02:26 PM [EOD] Nico Andre MD IMG DXA PROCEDURES Final R esult from Last 3 Months or Most Recently Relevant to Health Maintenance Insurance [facility] MEDICARE ADVANTAGE [employer] MEDICARE ADVANTAGE Advance Directives For more information, please contact: [phone] * Full Code (Latest Code Status on File) Date Activated Date Inactivated Comments 06/01/2024 7:09 PM 06/02/2024 8:03 PM * Full Code Date Activated Date Inactivated Comments 01/17/2020 1:24 PM 01/19/2020 6:58 PM Care Teams Mothers Helper Relationship Specialty Start Date End Date Odell Mann MD PCP - General 06/14/18 Howard Herbert MD Referring Physician Cardiology 04/15/19 Derrek Ling MD [address] [place] [address] [place] [id number] Consulting Physician Nephrology 06/02/24
--- OUTSIDE RECORDS SUMMARY | 2024-10-13 15:13 | XMS_ITS | Continuity of Care Document ---
Author Organization [facility] Address [address] [place] [address] [address] [place] [address] Phone Care Team Providers Care Director Of Institutional Research Name Role Phone Mali Fernandez Unavailable Unavailable Procedures Procedure Date Optic Nerve Topography Optic Nerve Topography Office/outpatient Visit, Est Advance Directives Directive Yes / No Effective Date File Name No Information Encounters Encounter Description Practice Location Reason(s) For Visit Diagnoses Date Provider Providers Copied on Encounter [facility], [address] [place] [address] [address], [place], [place], [id number], tel:[phone] [facility] No Information [address] [facility] , [address], [place], [address], [place]. tel:[phone] Referring Provider: J[facility]adra [facility] [address], [place], [place], [facility]. tel:[phone] Office/outpat ient Visit, Est [facility], [address] [place] [address] [address], [place], [place], [id number], tel:[phone] [facility] No Information [address] Swain [address] , [address], [place], [address], . tel:[phone] Family History Family Member Type Diagnosis Age At Onset No Information Payers Payer name Insurance type Covered green party ID Authoriza tion(s) No Information Social [...]
--- OUTSIDE RECORDS SUMMARY | 2024-10-13 15:13 | XMS_ITS | Referral Summary ---
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); Benign hypertensive kidney disease with chronic kidney disease stage I through stage IV, or unspecified(403.10); Type 2 diabetes mellitus with stage 3a chronic kidney disease, without long-term current use of insulin (HCC) 08/06/2024 Orders Only [facility] Nephrology at [place] [address] [facility] [address] [place] [address] Provider, MD Julio Cesar from Last 3 Months Allergies Active Allergy Reactions Criticality Noted Date [...] arthritis 09/05/2023 Coronary artery disease invo lving [place] coronary artery of [place] heart without angina pectoris 06/02/2023 Chronic heart [...] (01/18/2020): Added automatically from request for surgery [id number] CRD (chronic renal disease), stage III 0 [...] 01/22/2016 History of cardiac cath 08/31/2015 Immunizations Immunization Administration Dates Next Due Influenza, Trivalent, Preservative Free, Intramu scular 11/30/2014 Pneumococcal Conjugate PCV 13 06/22/2019 Social History Tobacco Use Types Packs/Day Years Used Date Smoking Tobacco: Never Cigarettes Smokeless Tobacco: Never Tobacco Cessation:Counseling Given: Not Answered Alcohol Use Standard Drinks/Week Comments Yes 0 (1 standard drink = 0.6 oz pur e alcohol) rarely [employer] Utilities Answer Date Recorded In the past 12 months has th e electric, gas, oil, or water company threatened to shut off services in your [...] often do you attend chur ch or mu-ism services? Never 06/02/2024 Do you belong to any clubs o r organizations such as faith groups, unions, fraternal or athletic groups, or [...] any time in the past [address] [facility], were you homeless or living in a fci (including now)? No 06/02/2024 Personal Safety Answer Date Recorded Have you ever been in or are you currently in a harmful physical or emotional relationship or is someone making you feel afraid or unsafe? Denies 06/01/2024 Comments No Sex and Gender Information Value Date Recorded Sex Assigned at Not on file Legal Sex Female 4:21 PM JUDGE CLERK Gender Identity Not on file Sexual Orientation [...] 08/11/2024 8:59 AM CDT Plan of Treatment Not on file Medical Devices Explanted Type Area Ceo Device Identifier Shelf Expiration Date Model / Serial / Lot [employer] 6572 Quiroz Flexi-Stent 7fr 5cm Small Pigtail Flexible .035in Stent - [id number] Implanted:Qty : 1 on 01/17/2020 by Ludwig Crespo MD at [facility] Explanted:Qty : 1 on 01/19/2020 by Ludwig Crespo MD at [facility] Stent N/A: Pancreas [employer] 10/14/2024 [id number] / / [id number] Conmed Fatuma [id number] [place] Viabil 10mm 8.5fr 6cm 200cm Fully Covered Self Expand Pull - [id number] - [id number] Implanted:Qty : 1 on 01/17/2020 by Ludwig Crespo MD at [facility] Explanted:Qty : 1 on 01/19/2020 by Ludwig Crespo MD at [facility] Stent N/A: Bile Duct Conmed Fatuma 08/23/2022 [id number] / [id number] / Procedures Procedure Name Priority Date/Time Associated Diagnosis Comments BASIC METABOLIC PANEL Routine 08/06/2024 8:58 AM CDT EGFR Routine 06/02/2024 6:52 AM CDT LIPID PANEL Add-On 06/01/2024 7:11 PM CDT HEMOGLOBIN A1C STAT 06/01/2024 2:44 PM CDT DIAGNOSTIC MAMMOGRAM BILATERAL W KULDIP Routine 06/20/2017 8:48 AM CDT DEXA AXIAL SKELETON BONE DENSITY 1 OR MORE SITES Routine 04/29/2012 12:20 PM JUDGE CLERK from Last 3 Months or Most Recently Relevant to Health Maintenance Results * Basic metabolic panel (08/06/2024 8:58 AM CDT) Blood us Historical Provider MD LAB BLOOD ORDERABLES Melia l Result EXTERNAL [...] 6:52 AM CDT 06/02/2024 7:34 AM CDT Nelda Farmer WEBSITE PROGRAMMER LAB BLOOD ORDERABLES Final Resu lt Performing Organization Address City/[facility]/ZIP Co de Phone Number NATHANAEL [facility] Department [place] [address] * Lipid panel (06/01/2024 7:11 PM CDT) [...] on 2017. Triglycerides 110 <=149 mg/dL NATHANAEL Comment: Interpretive Data Ages < or = [...] on 2017. HDL 69 >=40 mg/dL NATHANAEL Comment: Interpretive Data Ages < or = [...] 2017. LDL, calculated 101 <=129 mg/dL NATHANAEL Comment: Interpretive Data Ages < or = [...] 2. NCEP Expert Panel. Circulation 2004;110:227 3. Elena M et al. IRASEMA Cardiol. 2019July 15;5(5):540-548. doi: 10.1001/jamacardio.2020.0013 Current Interpretive Data was last revised on 2023. Non-HDL Cholesterol 120 mg/dL NATHANAEL Comment: Interpretive Data Ages < or = [...] ORDERABLES Final Resu lt Performing Organization Address City/[facility] Co de Phone Number [facility] [address] [facility] [facility] Department [place] [address] * (ABNORMAL) Hemoglobin A1c (06/01/2024 2:44 PM CDT) Hgb A1C 5.7(H) 4.0 - 5.6 % Estimated Average Glucose 117 mg/dL NATHANAEL Comment: The ADA recommends reporting an estimated Average Glucose (eAG) with all Hemoglobin A1c results using the equation derived from a study of 507 normal and diabetic adults. Minority populations were underrepresented and children were not included. (Diabetes Care 31:7210-1025, 2008). The eAG is not equivalent to a fasting glucose. Blood 06/01/2024 2:44 PM CDT 06/01/2024 2:46 PM CDT us Colten Calderon MD LAB BLOOD ORDERABLES Final Result Performing Organization Address City/[facility]/ZIP Co de Phone Number NATHANAEL CASE [address] [facility] Department [place] [address] * Diagnostic Mammogram Bilateral W Kuldip (06/20/2017 [...] by: Dr. Pasquale Ang M.D. nh/:06/20/2017 10:36:27 Telephone Coin Box Collector: Amelia Gordon)(Sharon), [facility] letter sent: Normal Exam Abnormal History [place] location: [facility] BI-RADS: 2 Benign [EOD] Narrative 06/20/2017 [...] dated: 2014 mammogram and 04/29/2012 mammogram - [facility]. BREAST TISSUE: There are scattered areas [...] dated: 2014 mammogram and 04/29/2012 mammogram - [facility]. BREAST TISSUE: There are scattered areas [...] by: Dr. Pasquale Ang M.D. nh/:06/20/2017 10:36:27 Telephone Coin Box Collector: Ameila Gordon)(Sharon), [facility] letter sent: Normal Exam Abnormal History [place] location: [facility] BI-RADS: 2 Benign [EOD] us Nico Andre MD IMG MAMMO PROCEDURES Final Result * Dexa Axial Skeleton Bone Density 1 or 2 Site (04/29/2012 12:20 PM JUDGE CLERK) Anatomical Region Laterality Modality Body N/A Radiographic Adeline ging 04/29/2012 12:2 0 PM JUDGE CLERK Impressions 04/29/2012 2:31 PM JUDGE CLERK Normal bone density. THIS IS AN ELECTRONICALLY VERIFIED REPORT 04/29/2012 2:26 PM: Sierra Warren M.D. Sierra Warren M.D. KL:saravanan 02:26 PM 02:26 PM [EOD] Narrative 04/29/2012 2:31 PM JUDGE CLERK EXAMINATION: Bone Density Study (DEXA) HISTORY: Post [...] Most Recently Relevant to Health Maintenance Insurance [facility] MEDICARE ADVANTAGE [facility] Address: [address] [address] [place] [address] [employer] MEDICARE ADVANTAGE [facility] Address: [address] [address] [place] [address] Advance Directives For more information, please contact: [phone] * Full Code (Latest Code Status on File) Date Activated Date Inactivated Comments 06/01/2024 7:09 PM 06/02/2024 8:03 PM * Full Code Date Activated Date Inactivated Comments 01/17/2020 1:24 PM 01/19/2020 6:58 PM Care Teams Dental Tech Relationship Specialty Start Date End Date Odell Mann MD PCP - General 06/14/18 Howard Herbert MD Referring Physician Cardiology 04/15/19 Derrek Ling MD [address] [facility] [address] [address] Consulting Physician Nephrology 06/02/24
--- OUTSIDE RECORDS SUMMARY | 2024-10-13 15:13 | XMS_ITS | Encounter Summary ---
Author Organization [facility] Address [address] [place] [address] Care Team Providers Care Operations Research Engineer Name Role Phone Odell Mann MD Primary Care Provider [phone] Encounter Details Date Type Department Care Team (Late st Contact Info) Description 11/08/2019 Prep for Procedure [facility] One Day Services [address] [place] [address] Christy Wang MD [address] [facility] [address] [place] [address] Social History Tobacco Use Types [...] documented as of this encounter Care Teams Operations Research Engineer Relationship Specialty Start Date End Date Odell Mann MD [address] [address] PCP - General FAMILY PRACTICE 09/06/18 documented as of this encounter
--- OUTSIDE RECORDS SUMMARY | 2024-10-13 15:13 | XMS_ITS | Encounter Summary ---
Author Organization [facility] Care Team Providers Care Regional Forester Name Role Phone Odell Mann MD Primary Care Prov ider Howard Herbert MD Unavailable [phone] Derrek Ling MD Unavailable [phone] Encounter Details Date Type Department Care Team (Latest Contact Info) Description 02/27/2016 Orders Only [facility] Provider, MD Julio Cesar [address] [place] [address] Social History Tobacco Use Types Packs/Day Years Used Date Smoking Tobacco: Never Assessed Comments Unknown Sex and Gender Information Value Date Recorded Sex Assigned at Not on file Legal Sex Female 4:21 PM ASSET PROTECTION LEAD Gender Identity Not on file Sexual Orientation Not on file documented as of this encounter Plan of Treatment Not on file documented as of this encounter Procedures Procedure Name Priority Date/Time Associated Diagnosis Comments PROCEDURE - RESULT 02/19/2016 12 :00 AM ASSET PROTECTION LEAD documented in this encounter Results * PROCEDURE - RESULT (02/19/2016 12:00 AM ASSET PROTECTION LEAD) Narrative 02/19/2016 12:00 AM ASSET PROTECTION LEAD Ordered by an unspecified provider. us Historical Provider Final Res ult documented in this encounter Visit Diagnoses Not on filedocumented in this encounter Additional Health Concerns Infection Onset Date Last Indicated Resolved Time COVID: Suspected 06/01/2024 06/01/2024 06/01/2024 5:27 PM CDT documented as of this encounter Care Teams Regional Forester Relationship Specialty Start Date End Date Odell Mann MD PCP - General 06/14/18 Howard Herbert MD Referring Physician Cardiology 04/15/19 Derrek Ling MD [address] [facility] [address] [address] Consulting Physician Nephrology 06/02/24 documented as of this encounter
--- OUTSIDE RECORDS SUMMARY | 2024-10-13 15:13 | XMS_ITS | Encounter Summary ---
Author Organization [facility] Care Team Providers Care Pathology Laboratory Technologist Name Role Phone Odell Mann MD Primary Care Prov ider Howard Herbert MD Unavailable Derrek Ling MD Unavailable [phone] Encounter Details Date Type Department Care Team (Latest Contact Info) Description 01/20/2018 Orders Only [facility] Provider, MD Julio Cesar [address] [place] [address] Social History Tobacco Use Types Packs/Day Years Used Date Smoking Tobacco: Never Assessed Comments Unknown Sex and Gender Information Value Date Recorded Sex Assigned at Not on file Legal Sex Female 4:21 PM FRONT END DEVELOPER Gender Identity Not on file Sexual Orientation Not on file documented as of this encounter Plan of Treatment Not on file documented as of this encounter Procedures Procedure Name Priority Date/Time Associated Diagnosis Comments SCAN - LABS 02/02/2018 12:00 AM FRONT END DEVELOPER documented in this encounter Results * SCAN - LABS (02/02/2018 12:00 AM FRONT END DEVELOPER) Narrative 02/02/2018 12:00 AM FRONT END DEVELOPER Ordered by an unspecified provider. us Historical Provider Final Res ult documented in this encounter Visit Diagnoses Not on filedocumented in this encounter Additional Health Concerns Infection Onset Date Last Indicated Resolved Time COVID: Suspected 06/01/2024 06/01/2024 06/01/2024 5:27 PM CDT documented as of this encounter Care Teams Pathology Laboratory Technologist Relationship Specialty Start Date End Date Odell Mann MD PCP - General 06/14/18 Howard Herbert MD Referring Physician Cardiology 04/15/19 Derrek Ling MD [address] [facility] [address] [address] Consulting Physician Nephrology 06/02/24 documented as of this encounter
--- OUTSIDE RECORDS SUMMARY | 2024-10-13 15:13 | XMS_ITS | Clinical Summary ---
Author Organization [facility] [employer] Address [address] [place] [address] Care Team Providers Care Field Staff Name Role Phone Odell Mann MD Primary Care Provider + Source Comments [facility] [employer],non-owned Affiliates and Associated Physician Practices is amultiple site organization consisting of ambulatory clinics and hospital sitesin [place], [place], [place] and [place]. This disclosure is being madepursuant to the Care Everywhere program and may not contain all information available regarding this patient. Last updated 17.[facility] [employer] Allergies No known active allergies Medications * Be aware that medications may not be up to date on this document. Alwaysverify current medications with the patient. atorvastatin (Lipitor) 20 MG tablet Take 20 mg by mouth once daily Active baclofen (Lioresal) 10 MG tablet Take 10 mg by mouth 2 times daily 2 Active benzonatate (Tessalon) 100 MG capsule Take 100 mg by mouth 3 times daily as needed for cough 2 Active bumetanide (Bumex) 1 MG tablet bumetanide 1 mg tablet take 1 tablet by mouth once daily Active Cholecalciferol 1.25 MG (48117 UT) Take 50,000 Units by mouth once daily Active cholestyramine light (Questran Light) 4 GM/DOSE powder Take 4 g by mouth 2 times daily Active vitamin B-12 (Cyanocobalamin ) 500 MCG tablet Active famotidine (Pepcid) 20 MG tablet Take 20 mg by mouth 2 times daily Active Flovent HFA 110 MCG/ACT inhaler 2 Active fexofenadine (Jennifer) 180 MG tablet Take 180 mg by mouth as needed Active isosorbide mononitrate CR 24hr (Imdur) 30 MG tablet isosorbide mononitrate ER 30 mg tablet,extended release 24 hr take 1 tablet by mouth once daily Active lansoprazole (Prevacid) 30 MG capsule 2 Active levothyroxine (Synthroid) 25 MCG tablet 2 Active losartan (Cozaar) 50 MG tablet 2 Active losartan (Cozaar) 100 MG tablet 2 Active meclizine (Antivert) 25 MG tablet TAKE 1 TABLET BY MOUTH 4 TIMES DAILY NEEDED FOR DIZZINESS 2 Active metoprolol succinate XL 24hr (Toprol XL) 50 MG tablet 2 Active multivitamins (One A Day) capsule Take [...] tablet Active pioglitazone (Actos) 15 MG tablet 2 Active pantoprazole EC (Protonix) 40 MG tablet [...] 1 TAB ONCE DAILY FOR 4 DAYS 2 Active ranolazine ER 12hr (Ranexa) 500 MG tablet 2 Active rOPINIRole (Requip) 0.5 MG tablet 2 Active sulindac (Clinoril) 200 MG tablet Take 1 tablet by mouth 2 times daily Active traMADol (Ultram) 50 MG tablet TAKE 1 TO 2 TABLETS BY MOUTH 4 TIMES DAILY NEEDED FOR PAIN 2 Active traZODone (Desyrel) 100 MG tablet 2 Active vitamin E (Tocopheryl) 100 UNIT capsule Take 100 Units by mouth once daily Active losartan (Cozaar) 100 MG tablet losartan 100 mg tablet TAKE 1 TABLET BY MOUTH ONCE DAILY Active diclofenac sodium (Voltaren) 1 % gel Apply 4 (four) g to affected area 4 times daily 100 g 5 2 Active Encounters Date Type Department Care Team Description 08/31/2024 Lab Requisition [facility] - DermPath Lab [address] [facility], [place] [address] Dwaine Prajapati MD from Last 3 Months Immunizations Immunization Administration Dates Next Due FLU VACCINE TRI IIV3 SPLIT PF IM (FLUVIRIN) 11/15 Pneumococcal Pcv13 Conj 06/22/2019 Social History Tobacco Use Types Packs/Day Years Used Date Smoking Tobacco: Former Smokeless Tobacco: Never Comments:50 years ago Alcohol Use Standard Drinks/Week Comments Not Currently 0 (1 standard drink = 0.6 oz pur e alcohol) PHQ-2 Answer Date Recorded PHQ2 TOTAL SCORE 0 01/03/2022 Comments Unknown Sex and Gender Information Value Date Recorded Sex Assigned at Not on file Legal Sex Female 6:18 AM NICKING MACHINE OPERATOR Gender Identity Not on file Sexual Orientation Not on file Last Filed Vital Signs Vital Sign Reading Time Taken Comments Blood Pressure 124/74 01/03/2022 9:56 AM CDT Pulse - - Temperature 36.8 C (98.3 F) 01/03/2022 9:56 AM CDT Respiratory Rate - - Oxygen Saturation - - Inhaled Oxygen Concentration - - Weight 77.1 kg (170 lb) 01/03/2022 9:56 AM CDT Height 157.5 cm (5' 2) 01/03/2022 9:56 AM CDT Body Mass Index 31.09 01/03/2022 9:56 AM CDT Plan of Treatment Health Maintenance Due Date Last Done Comments BONE DENSITY TESTING 1945 HEPATITIS C SCREENING 04/23/1965 DTAP/TDAP/TD VACCINES (1 - Tdap) 1966 ZOSTER VACCINE (1 of 2) 1997 PNEUMOCOCCAL VACCINE 50+ (2 of 2 - PCV20 or PCV21) 06/21/2020 06/22/2019 Respiratory Syncytial Virus (RSV) Vaccine Pt: or over 60 yrs (1 - 1-dose 75+ series) 2022 COVID-19 VACCINE (2023-2 5 season) 2023 DEPRESSION SCREENING 03/17/2024 01/03/2022 MEDICARE AWV CALENDAR YEAR 2024 INFLUENZA VACCINE (#1) 2024 11/30/2014 HEPATITIS B VACCINE Aged Out No longe r eligible based on patient's age to complete this topic HIB VACCINE Aged Out No longer eligi ble based on patient's age to complete this topic HPV VACCINE Aged Out No longer eligi ble based on patient's age to complete this topic MENINGOCOCCAL (Group B) VACC INE SHARED DECISION-MAKING Aged Out No longer eligibl e based on patient's age to complete this topic MENINGOCOCCAL GROUPS A/C/Y/W VACCINE Aged Out No longer eligible b ased on patient's age to complete this topic Procedures Procedure Name Priority Date/Time Associated Diagnosis Comments DERMATOPATHOLOGY Routine 08/30/2024 12:0 0 AM CDT from Last 3 Months Results * DERMATOPATHOLOGY (08/30/2024 12:00 AM CDT) Case Report Dermatopathology Report Case: [id number] Authorizing Provider: Dwaine Prajapati MD Collected: 08/30/2024 12:00 AM Ordering Location: [facility] - Received: 08/31/2024 09:11 AM DermPath Lab Pathologist: Yaquelin Calvin MD Specimen: Skin, right sup helix 4:59 PM CDT DERMATOPATHOLOGY LABORATORY Final Diagnosis Specimen A. SKIN, right sup helix: COMPOUND MELANOCYTIC NEVUS, ERODED (D22.21) 4:59 PM CDT DERMATOPATHOLOGY LABORATORY at 1659 CDT Clinical History R/O SCC; Chondrodermatitis 4:59 PM CDT DERMATOPATHOLOGY LABORATORY Gross Description Specimen A: Received is one formalin filled container labeled with the patient's name and designated right sup helix. The specimen consists of a shave biopsy measuring 2 pieces 6x4x2,4x3x1 mm. Jar 0. 5 4:59 PM CDT DERMATOPATHOLOGY LABORATORY Microscopic Description Specimen A. SKIN, right sup helix: The epidermis is eroded. There are nests of melanocytes at the dermal-epidermal junction and within the dermis. 5 4:59 PM CDT DERMATOPATHOLOGY LABORATORY Disclaimer An external and internal positive and negative controls are appropriate for the histochemical, immunohistochemical and immunofluorescence stain(s) in this case (if any), except where stated explicitly. The performance characteristics of the stain(s) cited in this report were developed and its performance characteristic determined by the Dermatopathology Laboratory at [facility], directed by Dr. Fernandez Hernandez. These tests need not be, and therefore are not, approved by the [place] Food and Drug Administration. The tests are used for clinical purposes. Billing Codes Specimen Charges Stain Charges 50847 1 5 4:59 PM CDT DERMATOPATHOLOGY LABORATORY Embedded Images 5 4:59 PM CDT DERMATOPATHOLOGY LABORATORY Pathology/Cytolog y TISSUE SPECIMEN FROM SKIN / Unknown 08/30/2024 08/31/2024 9:11 AM CDT Dwaine Prajapati MD LAB - PATHOLOGY/CYTOLOGY ORDERAB LES Final Result DERMATOPATHOLOGY LABORATORY [facility] - Department of Dermatology [facility] Medicine [address] [place] [address], [address] [phone] from Last [address] [facility] MANAGED MEDICARE ADV [facility] MANAGED MEDICARE ADV [facility] MANAGED MEDICARE ADV Care Teams Field Staff Relationship Specialty Start Date End Date Odell Mann MD [address] [place] [address] PCP - General Family Medicine 01/03/22
--- OUTSIDE RECORDS SUMMARY | 2024-10-13 15:13 | XMS_ITS | Encounter Summary ---
Author Organization [facility] Address [address] [place] [address] Care Team Providers Care Residential Property Consultant Name Role Phone Odell Mann MD Primary Care Provider [phone] Encounter Details Date Type Department Care Team (Late st Contact Info) Description 11/19/2019 Prep for Procedure [facility] One Day Services [address] [place], [place] [address] Christy Wang MD [address] [facility] [address] [place] [address] Social History Tobacco Use Types [...] documented as of this encounter Care Teams Residential Property Consultant Relationship Specialty Start Date End Date Odell Mann MD [address] [address] PCP - General FAMILY PRACTICE 09/06/18 documented as of this encounter
--- OUTSIDE RECORDS SUMMARY | 2024-10-13 15:13 | XMS_ITS | Encounter Summary ---
Author Organization [facility] Facility Care Team Providers Care Plant Operations Worker Name Role Phone Odell Mann MD Primary Care Prov ider Howard Herbert MD Unavailable [phone] Derrek Ling MD Unavailable [phone] Encounter Details Date Type Department Care Team (Latest Contact Info) Description 01/09/2018 Orders Only [facility]INCONV Provider, MD Julio Cesar [address] [place] [address] Social History Tobacco Use Types Packs/Day Years Used Date Smoking Tobacco: Never Assessed Comments Unknown Sex and Gender Information Value Date Recorded Sex Assigned at Not on file Legal Sex Female 4:21 PM BELT PICKER Gender Identity Not on file Sexual Orientation [...] provider. us Historical Provider Final Res ult * SCAN [...] documented as of this encounter Care Teams Plant Operations Worker Relationship Specialty Start Date End Date Odell Mann MD PCP - General 06/14/18 Howard Herbert MD Referring Physician Cardiology 04/15/19 Derrek Ling MD [address] [facility] [address] [address] Consulting Physician Nephrology 06/02/24 documented as of this encounter
--- OUTSIDE RECORDS SUMMARY | 2024-10-13 15:13 | XMS_ITS | Encounter Summary ---
Author Organization [facility] Facility Care Team Providers Care Quality Checker Name Role Phone Odell Mann MD Primary Care Prov ider Howard Herbert MD Unavailable [phone] Derrek Ling MD Unavailable [phone] Encounter Details Date Type Department Care Team (Latest Contact Info) Description 08/30/2015 Orders Only [facility] Provider, MD Julio Cesar [address] [place] [address] Social History Tobacco Use Types Packs/Day Years Used Date Smoking Tobacco: Never Assessed Comments Unknown Sex and Gender Information Value Date Recorded Sex Assigned at Not on file Legal Sex Female 4:21 PM PHARMACEUTICAL 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 [facility] Provider Final Res ult * CARDIOLOGY REPORT (08/31/2015 12:00 AM CDT) Anatomical Region Laterality Modality Other Narrative 08/31/2015 12:00 AM CDT Ordered by an unspecified provider. [facility] Provider CV CARDIAC SERVICES PROCE DURES Final Result * CARDIOLOGY REPORT (08/31/2015 12:00 AM CDT) Anatomical Region Laterality Modality Other Narrative 08/31/2015 12:00 AM CDT Ordered by an unspecified provider. [facility] Provider CV CARDIAC SERVICES PROCE DURES Final Result * CARDIOLOGY REPORT (08/31/2015 12:00 AM CDT) Anatomical Region Laterality Modality Other Narrative 08/31/2015 12:00 AM CDT Ordered by an unspecified provider. [facility] Provider CV CARDIAC SERVICES PROCE DURES Final Result documented in this encounter Visit Diagnoses Not on filedocumented in this encounter Additional Health Concerns Infection Onset Date Last Indicated Resolved Time COVID: Suspected 06/01/2024 06/01/2024 06/01/2024 5:27 PM CDT documented as of this encounter Care Teams Quality Checker Relationship Specialty Start Date End Date Odell Mann MD PCP - General 06/14/18 Howard Herbert MD Referring Physician Cardiology 04/15/19 Derrek Ling MD [address] [place] [address] Consulting Physician Nephrology 06/02/24 documented as of this encounter
--- OUTSIDE RECORDS SUMMARY | 2024-10-13 15:13 | XMS_ITS | Encounter Summary ---
Author Organization [facility] Address [address] [place] [address] Care Team Providers Care Date Pitter Name Role Phone Odell Mann MD Primary Care Provider [phone] Encounter Details Date Type Department Care Team (Late st Contact Info) Description 11/08/2019 Prep for Procedure [facility] [address] [place] [address] Christy Wang MD [address] [facility] [address] [place] [address] Social History Tobacco Use Types [...] DETECTED NOT DETECTED 11/10/2019 7:05 PM CDT [facility] Comment: A Not Detected (negative) test result for this test means that SARS- CoV-2 RNA was not present in the specimen above the limit of detection. A negative result does not rule out the possibility of COVID-19 and should not be used as the sole basis for treatment or patient management decisions. If COVID-19 is still suspected, based on exposure [...] providers and patients using the following websites: https://www.[employer]uble[employer].IPPLEX/home/Covid-19/HCP/NAAT/fact-sheet2 https://www.[employer].IPPLEX/home/Covid-19/Patients/NAAT/ fact-sheet2 This test has been authorized by the FDA under an Emergency Use Authorization (EUA) for use by authorized laboratories. Due to the current public health emergency, [facility] is receiving a high volume of samples [...] including collection of an additional specimen. Methodology: Nucleic Acid Amplification Test (NAAT) includes PCR or TMA Additional information about COVID-19 can be found at the [facility] website: www.CBIT A/S.IPPLEX/Covid19. Test performed at [facility] [address] [place] [address] Director: LINDSEY FISHMAN,DO,MPH NASOPHARYNGEAL SWAB / Unknown 11/09/2019 7:43 AM CDT us W Dagoberto Wang MD MICROBIOLOGY - GENERAL ORDERABLES Final Result [facility] [address] [place] [address], documented in this encounter Visit Diagnoses Diagnosis Pre-op testing- Primary Preoperative examination, unspecified documented in this encounter Additional Health Concerns Infection Onset Date Last Indicated Resolved Time COVID-19 Rule Out 11/09/2019 11/09/2019 11/10/2019 7:05 PM CDT COVID-19 Rule Out 11/23/2019 11/23/2019 11/25/2019 2:26 AM CDT documented as of this encounter Care Teams Date Pitter Relationship Specialty Start Date End Date Odell Mann MD [address] [address] PCP - General FAMILY PRACTICE 09/06/18 documented as of this encounter
--- OUTSIDE RECORDS SUMMARY | 2024-10-13 15:13 | XMS_ITS | Encounter Summary ---
Author Organization [facility] Facility Care Team Providers Care Company Miner Blasting Name Role Phone Odell Mann MD Primary Care Prov ider Howard Herbert MD Unavailable [phone] Derrek Ling MD Unavailable [phone] Encounter Details Date Type Department Care Team (Latest Contact Info) Description 01/25/2016 Orders Only [facility]INCONV Provider, MD Julio Cesar [address] [place] [address] Social History Tobacco Use Types Packs/Day Years Used Date Smoking Tobacco: Never Assessed Comments Unknown Sex and Gender Information Value Date Recorded Sex Assigned at Not on file Legal Sex Female 4:21 PM TIRE SPECIALIST Gender Identity Not on file Sexual Orientation Not on file documented as of this encounter Plan of Treatment Not on file documented as of this encounter Procedures Procedure Name Priority Date/Time Associated Diagnosis Comments PROCEDURE - RESULT 01/25/2016 12 :00 AM TIRE SPECIALIST documented in this encounter Results * PROCEDURE - RESULT (01/25/2016 12:00 AM TIRE SPECIALIST) Narrative 01/25/2016 12:00 AM TIRE SPECIALIST Ordered by an unspecified provider. us Historical Provider Final Res ult documented in this encounter Visit Diagnoses Not on filedocumented in this encounter Additional Health Concerns Infection Onset Date Last Indicated Resolved Time COVID: Suspected 06/01/2024 06/01/2024 06/01/2024 5:27 PM CDT documented as of this encounter Care Teams Company Miner Blasting Relationship Specialty Start Date End Date Odell Mann MD PCP - General 06/14/18 Howard Herbert MD Referring Physician Cardiology 04/15/19 Derrek Ling MD [address] [facility] [address] [address] Consulting Physician Nephrology 06/02/24 documented as of this encounter
--- OUTSIDE RECORDS SUMMARY | 2024-10-13 15:13 | XMS_ITS | Clinical Summary ---
Author Organization [facility] [address] [facility] Address [address] [place] [address] Care Team Providers Care Sales Representative [employer] Name Role Phone Odell Mann MD Primary Care Provider [phone] Allergies No known active allergies Medications atorvastatin [...] Encounters Date Type Department Care Team Description 09/29/2024 External Device Data [facility] Provider, Abstract 09/29/2024 External Device Data [facility] Provider, Abstract 09/29/2024 External Device Data [facility] Provider, Abstract 09/01/2024 External Device Data [facility] Provider, Abstract 08/31/2024 External Device Data [facility] Provider, Abstract 08/05/2024 External Device Data [facility] Provider, Abstract 08/04/2024 External Device Data [facility] Provider, Abstract 08/03/2024 External Device Data [facility] Provider, Abstract [...] Sign Reading Time Taken Comments Blood Pressure 114/55 04/29/2024 11:04 AM TOOL PROCUREMENT COORDINATOR Pulse 85 04/29/2024 11:04 AM TOOL PROCUREMENT COORDINATOR Temperature 35.8 C (96.5 F) 04/29/2024 11:04 AM TOOL PROCUREMENT COORDINATOR Respiratory Rate 15 04/29/2024 11:04 AM TOOL PROCUREMENT COORDINATOR Oxygen Saturation 97% 04/29/2024 11:04 AM TOOL PROCUREMENT COORDINATOR Inhaled Oxygen Concentration - - Weight 70.6 kg (155 lb 9.6 oz) 04/29/2024 11:04 AM TOOL PROCUREMENT COORDINATOR Height 157.5 cm (5' 2) 02/26/2019 8:22 AM TOOL PROCUREMENT COORDINATOR Body Mass Index 28.46 02/26/2019 8:22 AM TOOL PROCUREMENT COORDINATOR Plan of Treatment Upcoming Encounters Date Type Department Care Team (Late st Contact Info) Description 10/29/2024 9:15 AM CDT Office Visit [facility] - [place] [address] [facility] [address] [place] [address] Ruben Nguyen MD [address] [facility] [address] [place] [address] Health Maintenance Due Date Last Done Comments DTAP/TDAP/TD VACCINES (1 - Tdap) 1966 ZOSTER VACCINE (1 of 2) 1997 OSTEOPOROSIS SCREENING 04/29/2017 04/29/2012 PNEUMOCOCCAL VACCINE 50+ YEA RS (2 of 2 - PPSV23, PCV20, or PCV21) 08/17/2019 06/22/2019 RSV VACCINE (60+ or ) (1 - 1-dose 75+ series) 2022 INFLUENZA VACCINE (#1) 2024 11/30/2014 COLORECTAL SCREENING Discontinued 11/12/2019 Colorectal Cancer Screening Discontinued FIT-DNA Q 3 years Discontinued FIT/FOBT Q 1 year Discontinued Flex Sig/CT Colonography Q 5 years Discontinued Insurance [facility] [id number] Care Teams Sales Representative [employer] Relationship Specialty Start Date End Date Odell Mann MD PCP - General Family Practice 12/24/18
--- OUTSIDE RECORDS SUMMARY | 2024-10-13 15:13 | XMS_ITS | Encounter Summary ---
Author Organization [facility] Address [address] [facility] [place] [address] Care Team Providers Care Fitting Room Supervisor Name Role Phone Odell Mann MD Primary Care Provider + Encounter Details Date Type Department Care Team (Late st Contact Info) Description 08/31/2024 Lab Requisition [facility] - DermPath Lab [address] [facility] [place] [address] Dwaine Prajapati MD [address] [place] [address] Social History Tobacco Use Types Packs/Day Years [...] on file Legal Sex Female 6:18 AM AUTO JOB ESTIMATOR Gender Identity Not on file Sexual Orientation Not on file documented as of this encounter Plan of Treatment Not on file documented as of this encounter Procedures Procedure Name Priority Date/Time Associated Diagnosis Comments DERMATOPATHOLOGY Routine 08/30/2024 12:0 0 AM CDT documented in this encounter Results * DERMATOPATHOLOGY (08/30/2024 12:00 AM CDT) Case Report Dermatopathology Report Case: [id number] Authorizing Provider: Dwaine Prajapati MD Collected: 08/30/2024 12:00 AM Ordering Location: [facility] - Received: 08/31/2024 [...] measuring 2 pieces 6x4x2,4x3x1 mm. Jar 0. 4:59 PM CDT DERMATOPATHOLOGY LABORATORY Microscopic Description Specimen A. SKIN, right sup helix: The epidermis is eroded. There are nests of melanocytes at the dermal-epidermal junction and within the dermis. 4:59 PM CDT DERMATOPATHOLOGY LABORATORY Disclaimer An external and internal positive and negative controls are appropriate for the histochemical, immunohistochemical and immunofluorescence stain(s) in this case (if any), except where stated explicitly. The performance characteristics of the stain(s) cited in this report were developed and its performance characteristic determined by the Dermatopathology Laboratory at [facility], directed by Dr. Fernandez Hernandez. These tests need not be, and therefore are not, approved by the [place] Food and Drug Administration. The tests are used for clinical purposes. Billing Codes Specimen Charges Stain Charges 91895 1 4:59 PM CDT DERMATOPATHOLOGY LABORATORY Embedded Images 4:59 PM CDT DERMATOPATHOLOGY LABORATORY Pathology/Cytolog y TISSUE SPECIMEN FROM SKIN / Unknown 08/30/2024 08/31/2024 9:11 AM CDT us Dwaine Prajapati MD LAB - PATHOLOGY/CYTOLOGY ORDERAB LES Final Result DERMATOPATHOLOGY LABORATORY [facility] - Department of Dermatology [facility] Medicine [address] [place] [address], [address] [phone] documented in this encounter Visit Diagnoses Not on filedocumented in this encounter Care Teams Fitting Room Supervisor Relationship Specialty Start Date End Date Odell Mann MD [address] [address] PCP - General Family Medicine 01/03/22 documented as of this encounter
--- OUTSIDE RECORDS SUMMARY | 2024-10-13 15:13 | XMS_ITS | Clinical Summary ---
Author Organization [facility] Address [address] [place] [address] Care Team Providers Care Barrow Worker Helper Name Role Phone Odell Mann MD Primary Care Provider [phone] Allergies Active Allergy Reactions Criticality Noted Date [...] Encounters Date Type Department Care Team Description 08/06/2024 7:30 AM CDT - 08/06/2024 11:59 PM CDT Hospital Encounter [facility] [address] [place] [address] Derrek Ling MD Discharge Disposition: Home or Self Care (Routine Discharge) 08/06/2024 Orders Only [facility] [address] [place] [address] Derrek Ling MD 08/06/2024 Travel from Last 3 Months Family History [...] Comments Blood Pressure 149/83 02/04/2024 10:43 AM KINESEOLOGIST Pulse 58 02/04/2024 10:43 AM KINESEOLOGIST Temperature 36.2 C (97.1 F) 02/04/2024 10:43 AM KINESEOLOGIST Respiratory Rate 18 02/04/2024 10:43 AM KINESEOLOGIST Oxygen Saturation 97% 02/04/2024 10:43 AM KINESEOLOGIST Inhaled Oxygen Concentration - - Weight 73.1 kg (161 lb 1.6 oz) 02/04/2024 10:43 AM KINESEOLOGIST Height 157.5 cm (5' 2) 02/04/2024 10:43 AM KINESEOLOGIST Body Mass Index 29.47 02/04/2024 10:43 AM KINESEOLOGIST Plan of Treatment Health Maintenance Due Date Last Done Comments ASCVD Statin 1945 Hepatitis C 1965 DTaP, Tdap and Td Vaccines (1 - Tdap) 1966 Zoster Vaccines (1 of 2) 1997 Annual Medicare Wellness Visit 2012 Pneumococcal Vaccine: 50+ Years (2 of 2 - PPSV23) 08/17/2019 06/22/2019 RSV Immunization or 60+ Years (1 - 1-dose 75+ series) 2022 COVID-19 Vaccine ( - season) 2023 PHQ-2 (Physician [place]) 03/17/2024 02/04/2024 Dexa Scan (General) Completed 04/29/2012, 3 [...] Diagnosis Comments BASIC METABOLIC PANEL Routine 08/06/2024 7:42 AM CDT Chronic kidney disease (CKD) stage G3a/A1, moderately decreased glomerular filtration rate (GFR) between 45-59 mL/min/1.73 square meter and albuminuria creatinine ratio less than 30* ([facility]) COLONOSCOPY Routine 11/12/2019 10:25 AM CDT from Last 3 Months or Most Recently Relevant to Health Maintenance Results * (ABNORMAL) BASIC METABOLIC PANEL (08/06/2024 7:42 AM CDT) GLUCOSE 124(H) 70 - 99 MG/DL 08/06/2024 8:45 AM CDT [facility] BUN 17 7 - 18 MG/DL 08/06/2024 8:45 AM CDT [facility] CREATININE S/P/B 1.53(H) 0.55 - 1.02 MG/DL 08/06/2024 8:45 AM CDT [facility] SODIUM S/P/B 146(H) 136 - 145 MMOL/L 08/06/2024 8:45 AM CDT [facility] POTASSIUM S/P/B 4.3 3.5 - 5.1 MMOL/L 08/06/2024 8:45 AM CDT [facility] CHLORIDE S/P/B 108 100 - 108 MMOL/L 08/06/2024 8:45 AM CDT [facility] CO2 32.1(H) 21 - 32 MMOL/L 08/06/2024 8:45 AM T [facility] CALCIUM S/P/B 9.2 8.5 - 10.1 MG/DL 08/06/2024 8:45 AM T [facility] ANION GAP 5.9 5 - 15 MMOL/L 08/06/2024 8:45 AM T [facility] BUN CREATININE RATIO 11.1 6 - 26 08/06/2024 8:45 AM T [facility] GFR ESTIMATE 35(L) >90 ML/MIN/1.7 3 M2 08/06/2024 8:45 AM T [facility] Comment: NOTE: eGFR is not calculated for patients <18 years of age. This is an estimated GFR calculation using the new CKD EPI creatinine equation without race and so does not require a correction factor for race. This estimated GFR should not be used for calculating drug doses. 08/06/2024 7:42 AM CDT Derrek Ling MD LABORATORY Final Result [facility] [address] [place] [address], [place] [phone] * COLONOSCOPY/EGD GENERIC (08/19/2012) 08/19/2012 Narrative 08/19/2012 Ordered by an unspecified provider. us Documents Scanned SCANNING Final Result from Last 3 Months or Most Recently Relevant to Health Maintenance Insurance [facility] Care Teams Barrow Worker Helper Relationship Specialty Start Date End Date Odell Mann MD [address] [address] PCP - General FAMILY PRACTICE 09/06/18
[2024-10-13 15:33] LABS: Estimated Glomerular Filt Rate 29
== END 2024-10-13 15:10 | disposition home or self-care (01) ==
PROVIDERS: PCP Family Medicine Adolescent Medicine; Visit Provider Nurse Practitioner Family
DX: R68.81 Early satiety (principal); R19.5 Other fecal abnormalities; R10.13 Epigastric pain
CPT/HCPCS: 74176

== ENCOUNTER 2024-10-20 09:49 | Outpatient (CLI) | payer MEDICARE, SELFPAY ==
[2024-10-20 10:00] LABS: Hematocrit 38.6 % (37.0-47.0); Hemoglobin 12.8 g/dL (12.0-15.0); Immature Granulocyte Percent A 0.6 % (0-0.5); Lymphocytes Absolute Auto 2.27 K/mm3 (0.9-3.2); Mean Corpuscular HGB Conc 33.2 g/dl (32-36); Mean Corpuscular Hemoglobin 31.5 pg (26-34); Mean Corpuscular Volume 95.1 fl (80-100); Nucleated Red Blood Cells Absolute Auto 0.000 K/mm3 (0.0-0.012); Nucleated Red Blood Cells Perc 0.0 % (0.0-0.2); Platelet Count Result 174 k/mm3 (150-375); Red Blood Count 4.06 M/mm3 (4.2-5.4); White Blood Count 5.3 K/mm3 (4.5-10.0)
[2024-10-20 10:06] LABS: Schistocytes None Seen
--- OUTSIDE RECORDS SUMMARY | 2024-10-20 10:16 | XMS_ITS | Encounter Summary ---
Author Organization [facility] Facility Care Team Providers Care Mammography Technician Name Role Phone Odell Mann MD Primary Care Prov ider Howard Herbert MD Unavailable Derrek Ling MD Unavailable [phone] Encounter Details Date Type Department Care Team (Latest Contact Info) Description 01/25/2016 Orders Only [facility]INCON[facility] Provider, MD Julio Cesar [address] [place] [address] Social History Tobacco Use Types Packs/Day Years Used Date Smoking Tobacco: Never Assessed Comments Unknown Sex and Gender Information Value Date Recorded Sex Assigned at Not on file Legal Sex Female 4:21 PM PLUG CUTTING MACHINE OPERATOR Gender Identity Not on file Sexual Orientation Not on file documented as of this encounter Plan of Treatment Not on file documented as of this encounter Procedures Procedure Name Priority Date/Time Associated Diagnosis Comments PROCEDURE - RESULT 01/25/2016 12 :00 AM PLUG CUTTING MACHINE OPERATOR documented in this encounter Results * PROCEDURE - RESULT (01/25/2016 12:00 AM PLUG CUTTING MACHINE OPERATOR) Narrative 01/25/2016 12:00 AM PLUG CUTTING MACHINE OPERATOR Ordered by an unspecified provider. us Historical Provider Final Res ult documented in this encounter Visit Diagnoses Not on filedocumented in this encounter Additional Health Concerns Infection Onset Date Last Indicated Resolved Time COVID: Suspected 06/01/2024 06/01/2024 06/01/2024 5:27 PM CDT documented as of this encounter Care Teams Mammography Technician Relationship Specialty Start Date End Date Odell Mann MD PCP - General 06/14/18 Howard Herbert MD Referring Physician Cardiology 04/15/19 Derrek Ling MD [address] [facility] [address] [address] Consulting Physician Nephrology 06/02/24 documented as of this encounter
--- OUTSIDE RECORDS SUMMARY | 2024-10-20 10:16 | XMS_ITS | Encounter Summary ---
Author Organization [facility] Facility Care Team Providers Care Territory Development Manager Name Role Phone Odell Mann MD Primary Care Prov ider Howard Herbert MD Unavailable [phone] Derrek Ling MD Unavailable [phone] Encounter Details Date Type Department Care Team (Latest Contact Info) Description 02/27/2016 Orders Only [facility] CLINCONV Provider, MD Julio Cesar [address] [place] [address] Social History Tobacco Use Types Packs/Day Years Used Date Smoking Tobacco: Never Assessed Comments Unknown Sex and Gender Information Value Date Recorded Sex Assigned at Not on file Legal Sex Female 4:21 PM FAST FOOD WORKER Gender Identity Not on file Sexual Orientation Not on file documented as of this encounter Plan of Treatment Not on file documented as of this encounter Procedures Procedure Name Priority Date/Time Associated Diagnosis Comments PROCEDURE - RESULT 02/19/2016 12 :00 AM FAST FOOD WORKER documented in this encounter Results * PROCEDURE - RESULT (02/19/2016 12:00 AM FAST FOOD WORKER) Narrative 02/19/2016 12:00 AM FAST FOOD WORKER Ordered by an unspecified provider. us Historical Provider Final Res ult documented in this encounter Visit Diagnoses Not on filedocumented in this encounter Additional Health Concerns Infection Onset Date Last Indicated Resolved Time COVID: Suspected 06/01/2024 06/01/2024 06/01/2024 5:27 PM CDT documented as of this encounter Care Teams Territory Development Manager Relationship Specialty Start Date End Date Odell Mann MD PCP - General 06/14/18 Howard Herbert MD Referring Physician Cardiology 04/15/19 Derrek Ling MD [address] [facility] [address] [address] Consulting Physician Nephrology 06/02/24 documented as of this encounter
--- OUTSIDE RECORDS SUMMARY | 2024-10-20 10:16 | XMS_ITS | Encounter Summary ---
Author Organization [facility] Facility Care Team Providers Care Buoy Tender Name Role Phone Odell Mann MD Primary Care Prov ider Howard Herbert MD Unavailable [phone] Derrek Ling MD Unavailable [phone] Encounter Details Date Type Department Care Team (Latest Contact Info) Description 08/30/2015 Orders Only [facility]INCONV Provider, MD Julio Cesar [address] [place] [address] Social History Tobacco Use Types Packs/Day Years Used Date Smoking Tobacco: Never Assessed Comments Unknown Sex and Gender Information Value Date Recorded Sex Assigned at Not on file Legal Sex Female 4:21 PM PHOTOGRAPHY INTERN Gender Identity Not on file Sexual Orientation [...] AM CDT Ordered by an unspecified provider. [facility] Provider Final Res ult * CARDIOLOGY REPORT (08/31/2015 12:00 AM CDT) Anatomical Region Laterality Modality Other Narrative 08/31/2015 12:00 AM CDT Ordered by an unspecified provider. [facility] Provider CV CARDIAC SERVICES PROCE DURES Final Result * CARDIOLOGY REPORT (08/31/2015 12:00 AM CDT) Anatomical Region Laterality Modality Other Narrative 08/31/2015 12:00 AM CDT Ordered by an unspecified provider. [facility] Provider CV CARDIAC SERVICES PROCE DURES Final Result * CARDIOLOGY REPORT (08/31/2015 12:00 AM CDT) Anatomical Region Laterality Modality Other Narrative 08/31/2015 12:00 AM CDT Ordered by an unspecified provider. [facility] Provider CV CARDIAC SERVICES PROCE DURES Final Result documented in this encounter Visit Diagnoses Not on filedocumented in this encounter Additional Health Concerns Infection Onset Date Last Indicated Resolved Time COVID: Suspected 06/01/2024 06/01/2024 06/01/2024 5:27 PM CDT documented as of this encounter Care Teams Buoy Tender Relationship Specialty Start Date End Date Odell Mann MD PCP - General 06/14/18 Howard Herbert MD Referring Physician Cardiology 04/15/19 Derrek Ling MD [address] [facility] [place] [address] Consulting Physician Nephrology 06/02/24 documented as of this encounter
--- OUTSIDE RECORDS SUMMARY | 2024-10-20 10:16 | XMS_ITS | Encounter Summary ---
Author Organization [facility] Address [address] [facility] [place] [address] Care Team Providers Care Temple Meat Cutter Name Role Phone Odell Mann MD Primary Care Provider + Encounter Details Date Type Department Care Team (Late st Contact Info) Description 08/31/2024 Lab Requisition [facility] - DermPath Lab [address] [facility], [place] [address] Dwaine Prajapati MD [address] [place] [address] Social History Tobacco Use Types [...] on file Legal Sex Female 6:18 AM GIN FEEDER Gender Identity Not on file Sexual Orientation Not on file documented as of this encounter Plan of Treatment Not on file documented as of this encounter Procedures Procedure Name Priority Date/Time Associated Diagnosis Comments DERMATOPATHOLOGY Routine 08/30/2024 12:0 0 AM CDT documented in this encounter Results * DERMATOPATHOLOGY (08/30/2024 12:00 AM CDT) Case Report Dermatopathology Report Case: [id number] Authorizing Provider: Dwaine Prajapati MD Collected: 08/30/2024 12:00 AM Ordering Location: [facility] - Received: 08/31/2024 09:11 AM [...] characteristic determined by the Dermatopathology Laboratory at [facility], directed by Dr. Fernandez Hernandez. These tests need not be, and therefore are not, approved by the [place] Food and Drug Administration. The tests are used for clinical purposes. Billing Codes Specimen Charges Stain Charges 15137 1 4:59 PM CDT DERMATOPATHOLOGY LABORATORY Embedded Images 4:59 PM CDT DERMATOPATHOLOGY LABORATORY Pathology/Cytolog y TISSUE SPECIMEN FROM SKIN / Unknown 08/30/2024 08/31/2024 9:11 AM CDT us Dwaine Prajapati MD LAB - PATHOLOGY/CYTOLOGY ORDERAB LES Final Result DERMATOPATHOLOGY LABORATORY [facility] - Department of Dermatology [facility] Medicine [address] [place] [address], [address] [phone] documented in this encounter Visit Diagnoses Not on filedocumented in this encounter Care Teams Temple Meat Cutter Relationship Specialty Start Date End Date Odell Mann MD [address] [address] PCP - General Family Medicine 01/03/22 documented as of this encounter
--- OUTSIDE RECORDS SUMMARY | 2024-10-20 10:16 | XMS_ITS | Clinical Summary ---
Author Organization [facility] Address [address] [place] [address] Care Team Providers Care Financial Service Professional Name Role Phone Odell Mann MD Primary Care Prov ider Howard Herbert MD Unavailable [phone] Derrek Ling MD Unavailable [phone] Allergies Active Allergy Reactions Criticality Noted [...] total) by mouth daily 10/15/19 24 Active metOLazone (ZAROXOLYN) 2.5 mg tablet [...] Additional Information Patient not taking.Reported on 06/24/2024 potassium chloride ER 20 mEq CR tablet [...] once daily 90 tablet 10/05/19 25 Active losartan (COZAAR) 25 mg tablet TAKE 1 TABLET BY MOUTH DAILY 100 tablet 2 10/19/19 25 Active isosorbide mononitrate ER (IMDUR) 30 mg 24 hr tablet TAKE 1 TABLET BY MOUTH DAILY 100 tablet 2 10/20/19 25 Active ranolazine ER (RANEXA) 500 mg 12 hr tablet TAKE 1 TABLET BY MOUTH TWICE DAILY 200 tablet 2 10/20/19 25 Active ranolazine ER (RANEXA) 500 mg 12 hr tablet TAKE 1 TABLET BY MOUTH TWICE DAILY 200 tablet 2 02/20/20 24 025 Discontinued isosorbide mononitrate ER (IMDUR) 30 mg 24 hr tablet TAKE 1 TABLET BY MOUTH DAILY 100 tablet 2 02/20/20 24 025 Discontinued losartan (COZAAR) 25 mg tablet Take 1 tablet (25 mg total) by mouth daily 06/06/19 25 025 Discontinued magnesium oxide (MAG-OX) 400 mg (241.3 mg [...] arthritis 09/05/2023 Coronary artery disease invo lving rosebud coronary artery of rosebud heart without angina pectoris 06/02/2023 Chronic heart [...] (01/18/2020): Added automatically from request for surgery [id number] CRD (chronic renal disease), stage III 0 [...] Description 08/11/2024 9:00 AM CDT Office Visit [facility] Nephrology at [address] [place] [address] Derrek Ling MD Stage 3a chronic kidney disease (HCC) (Primary Dx); Anemia in stage 3a chronic kidney disease (HCC); Benign hypertensive kidney disease with chronic kidney disease stage I through stage IV, or unspecified(403.10); Type 2 diabetes mellitus with stage 3a chronic kidney disease, without long-term current use of insulin (HCC) 08/06/2024 Orders Only [facility] Nephrology at [address] [place] [address] Provider, MD Julio Cesar from [...] heart failure) (HCC) Type 2 diabetes mellitus CKD (chronic kidney disease), stage III (HCC) [...] = 0.6 oz pur e alcohol) rarely [facility] Utilities Answer Date Recorded In the past 12 months has e INDOM, gas, oil, or water Kiko threatened to shut off services in your [...] often do you attend chur ch or spiritism services? Never 06/02/2024 Do you belong to any clubs o r organizations such as mosque groups, unions, fraternal or athletic groups, or [...] any time in the past 12 m [facility], were you homeless or living in a senior living (including now)? No 06/02/2024 Personal Safety Answer Date Recorded Have you ever been in or are you currently in a harmful physical or emotional relationship or is someone making you feel afraid or unsafe? Denies 06/01/2024 Comments No Sex and Gender Information Value Date Recorded Sex Assigned at Not on file Legal Sex Female 4:21 PM RESTAURANT HOST Gender Identity Not on file Sexual Orientation [...] (#1) 2024 11/30/2014 Hemoglobin A1C 12/02/2024 06/01/2024, 04/, 2014, Additional history exists Lipid Panel 06/01/2025 06/01/2024, 08/03/2023, 10/10/2023, Additional history exists Fall Risk Assessment 06/02/2025 06/02/2024 eGFR 06/02/2025 06/02/2024, 05/15, 06/01/2024, Additional history exists Breast Cancer Screening-Mammogram Discontinued 09/25/2022, 10/22/2019, 06/20/2017, Additional history exists Medical Devices Explanted Type Area Tornado Chaser Device Identifier Shelf Expiration Date Model / Serial / Lot [employer] 6572 Quiroz Flexi-Stent 7fr 5cm Small Pigtail Flexible .035in Stent - [id number] Implanted:Qty : 1 on 01/17/2020 by Ludwig Crespo MD at [facility] Explanted:Qty : 1 on 01/19/2020 by Ludwig Crespo MD at [facility] Stent N/A: Pancreas [employer] 10/14/2024 [id number] / / [id number] Conmed Fatuma [id number] [place] Viabil 10mm 8.5fr 6cm 200cm Fully Covered Self Expand Pull - [id number] - [id number] Implanted:Qty : 1 on 01/17/2020 by Ludwig Crespo MD at [facility] Explanted:Qty : 1 on 01/19/2020 by Ludwig Crespo MD at [facility] Stent N/A: Bile Duct Conmed Fatuma 08/23/2022 [id number] / [id number] / Procedures Procedure Name Priority Date/Time Associated Diagnosis Comments BASIC METABOLIC PANEL Routine 08/06/2024 8:58 AM CDT EGFR Routine 06/02/2024 6:52 AM CDT LIPID PANEL Add-On 06/01/2024 7:11 PM CDT HEMOGLOBIN A1C STAT 06/01/2024 2:44 PM CDT DIAGNOSTIC MAMMOGRAM BILATERAL W KULDIP Routine 06/20/2017 8:48 AM CDT DEXA AXIAL SKELETON BONE DENSITY 1 OR MORE SITES Routine 04/29/2012 12:20 PM RESTAURANT HOST from Last 3 Months or Most Recently Relevant to Health Maintenance Results * Basic metabolic panel (08/06/2024 8:58 AM CDT) Blood Historical Provider LAB BLOOD ORDERABLES Melia l Result Performing Organization Address City/[facility]/ZIP Co de Phone Number EXTERNAL LAB * (ABNORMAL) eGFR (06/02/2024 6:52 [...] CDT 06/02/2024 7:34 AM CDT Nelda Farmer NP LAB BLOOD ORDERABLES Final Resu lt NATHANAEL [address] [facility] Department [place] [address] * Lipid panel (06/01/2024 7:11 [...] Pediatrics 2011;128:S213 2. NCEP Expert Panel. Circulation 2003;110:227 Current Interpretive Data was last revised on 2017. LDL, calculated 101 <=129 mg/dL NATHANAEL Comment: Interpretive Data Ages < or = 19 years Acceptable: <110 mg/dL Borderline high: 110-129 mg/dL High: >or= 130 mg/dL Ages > or = 20 years Optimal: <100 mg/dL Near optimal: 100-129 mg/dL Borderline high: 130-159 mg/dL High: >160 mg/dL Calculated using the Elena LDL-C estimating equation. This equation was implemented on 2023. Prior to this date LDL-C was estimated using the Friedewald equation. Literature References: 1. Expert Panel on Integrated Guidelines for Cardiovascular Health and Risk Reduction in Children and Adolescents. Pediatrics 2011;128:S213 2. NCEP Expert Panel. Circulation 2004;110:227 3. Ulices M et al. IRASEMA Cardiol. 2020 July 15;5(5):540-548. doi: 10.1001/jamacardio.2020.0013 [...] 7:11 PM CDT 06/01/2024 7:28 PM CDT Nelda Farmer SUPERVISOR [employer] LAB BLOOD ORDERABLES Final Resu lt NATHANAEL [address] [facility] Department [place] [address] * (ABNORMAL) Hemoglobin A1c (06/01/2024 2:44 PM CDT) Hgb A1C 5.7(H) 4.0 - 5.6 % Estimated Average Glucose 117 mg/dL NATHANAEL Comment: The ADA recommends reporting an estimated Average Glucose (eAG) with all Hemoglobin A1c results using the equation derived from a study of 507 normal and diabetic adults. Minority populations were underrepresented and children were not included. (Diabetes Care 31:7212-2174, 2008). The eAG is not equivalent to a fasting glucose. Blood 06/01/2024 2:44 PM CDT 06/01/2024 2:46 PM CDT us Colten Calderon MD LAB BLOOD ORDERABLES Final Result NATHANAEL [address] [facility] Department [place] [address] * Diagnostic Mammogram Bilateral W Kuldip (06/20/2017 [...] by: Dr. Pasquale Ang M.D. nh/:06/20/2017 10:36:27 Senior Training And Development Rep: Amelia Pat RT (R)(M), [facility] letter sent: Normal Exam Abnormal History Reading location: [facility] BI-RADS: 2 Benign [EOD] Narrative 06/20/2017 10:37 [...] dated: 2014 mammogram and 04/29/2012 mammogram - [facility]. BREAST TISSUE: There are scattered areas of [...] dated: 2014 mammogram and 04/29/2012 mammogram - [facility]. BREAST TISSUE: There are scattered areas of [...] Electronically signed by: Dr. Pasquale Ang M.D. nd/:06/20/2017 10:36:27 Senior Training And Development Rep: Amelia Gordon)(Sharon), [facility] letter sent: Normal Exam Abnormal History Reading location: [facility] BI-RADS: 2 Benign [EOD] Nico Donato Andre MD IMG MAMMO PROCEDURES Final Result * Dexa Axial Skeleton Bone Density 1 or 2 Site (04/29/2012 12:20 PM RESTAURANT HOST) Anatomical Region Laterality Modality Body N/A Radiographic Adeline ging 04/29/2012 12:2 0 PM RESTAURANT HOST Impressions 04/29/2012 2:31 PM RESTAURANT HOST Normal bone density. THIS IS AN ELECTRONICALLY VERIFIED REPORT 04/29/2012 2:26 PM: Sierra Warren M.D. Sierra Warren M.D. KL:saravanan 02:26 PM 02:26 PM [EOD] Narrative 04/29/2012 2:31 PM RESTAURANT HOST EXAMINATION: Bone Density Study (DEXA) HISTORY: Post [...] Most Recently Relevant to Health Maintenance Insurance UHC MEDICARE ADVANTAGE [facility] MEDICARE Address: [facility] [address] [place] [address] UHC MEDICARE ADVANTAGE [facility] MEDICARE Address: [address] [address] [place] [address] Advance Directives For more information, please contact: [phone] * Full Code (Latest Code Status on File) Date Activated Date Inactivated Comments 06/01/2024 7:09 PM 06/02/2024 8:03 PM * Full Code Date Activated Date Inactivated Comments 01/17/2020 1:24 PM 01/19/2020 6:58 PM Care Teams Financial Service Professional Relationship Specialty Start Date End Date Odell Mann MD PCP - General 06/14/18 Howard Herbert MD Referring Physician Cardiology 04/15/19 Derrek Ling MD [address] [facility] [address] [address] Consulting Physician Nephrology 06/02/24
--- OUTSIDE RECORDS SUMMARY | 2024-10-20 10:16 | XMS_ITS | Patient Health Record ---
Author Organization [facility] Address [address] [place] [address] Care Team Providers Care Jewelry Sales Associate Name Role Phone Mackenzie YOO, Odell Primary Care Provider Delphine abhishek DUNHAM OIL BURNER JOURNEYMAN, CARROL Unavailable Reason For Referral No Information Plan Of Treatment Pending Test Test Name Order Date Endoscopic Retrograde Cholangiopancreato graphy (ERCP) 12/30/2019 Insurance Providers Payer Name Payer Address Payer Phone Subscriber Number Group Number Insured Name Patient Relationship to Insured Coverage Start Date Coverage End Date AARP-Medic are Complete [address] [address] [place] [address] [id number] Anuja Salas Self - patient is the insured
--- OUTSIDE RECORDS SUMMARY | 2024-10-20 10:16 | XMS_ITS | Encounter Summary ---
Author Organization [facility] Care Team Providers Care Stripper And Taper Name Role Phone Odell Mann MD Primary Care Prov ider Howard Herbert MD Unavailable [phone] Derrek Ling MD Unavailable [phone] Encounter Details Date Type Department Care Team (Latest Contact Info) Description 01/20/2018 Orders Only [facility] Provider, MD Julio Cesar [address] [place] [address] Social History Tobacco Use Types Packs/Day Years Used Date Smoking Tobacco: Never Assessed Comments Unknown Sex and Gender Information Value Date Recorded Sex Assigned at Not on file Legal Sex Female 4:21 PM HARNESS MAKER Gender Identity Not on file Sexual Orientation Not on file documented as of this encounter Plan of Treatment Not on file documented as of this encounter Procedures Procedure Name Priority Date/Time Associated Diagnosis Comments SCAN - LABS 02/02/2018 12:00 AM HARNESS MAKER documented in this encounter Results * SCAN - LABS (02/02/2018 12:00 AM HARNESS MAKER) Narrative 02/02/2018 12:00 AM HARNESS MAKER Ordered by an unspecified provider. us Historical Provider Final Res ult documented in this encounter Visit Diagnoses Not on filedocumented in this encounter Additional Health Concerns Infection Onset Date Last Indicated Resolved Time COVID: Suspected 06/01/2024 06/01/2024 06/01/2024 5:27 PM CDT documented as of this encounter Care Teams Stripper And Taper Relationship Specialty Start Date End Date Odell Mann MD PCP - General 06/14/18 Howard Herbert MD Referring Physician Cardiology 04/15/19 Derrek Ling MD [address] [facility] [address] [address] Consulting Physician Nephrology 06/02/24 documented as of this encounter
--- OUTSIDE RECORDS SUMMARY | 2024-10-20 10:16 | XMS_ITS | Encounter Summary ---
Author Organization [facility] Care Team Providers Care Batter Mixer Name Role Phone Odell Mann MD Primary Care Prov ider Howard Herbert MD Unavailable [phone] Derrek Ling MD Unavailable [phone] Encounter Details Date Type Department Care Team (Latest Contact Info) Description 01/09/2018 Orders Only [facility] Provider, MD Julio Cesar [address] [place] [address] Social History Tobacco Use Types Packs/Day Years Used Date Smoking Tobacco: Never Assessed Comments Unknown Sex and Gender Information Value Date Recorded Sex Assigned at Not on file Legal Sex Female 4:21 PM OUTPATIENT THERAPIST Gender Identity Not on file Sexual Orientation [...] documented as of this encounter Care Teams Batter Mixer Relationship Specialty Start Date End Date Odell Mann MD PCP - General 06/14/18 Howard Herbert MD Referring Physician Cardiology 04/15/19 Derrek Ling MD [address] [facility] [address] [address] Consulting Physician Nephrology 06/02/24 documented as of this encounter
--- OUTSIDE RECORDS SUMMARY | 2024-10-20 10:16 | XMS_ITS ---
MOUTH ONCE DAILY Active diclofenac sodium (Voltaren) 1 % gel Apply 4 (four) g to affected area 4 times daily 100 g 5 Active Encounters Date Type Department Care Team Description 08/31/2024 Lab Requisition [facility] - DermPath Lab [address] [facility] [place] [address] Dwaine Prajapati MD from Last 3 Months [...] on file Legal Sex Female 6:18 AM INTERNET DEVELOPER Gender Identity Not on file Sexual [...] VACCINE ( - 2023-2 5 season) 2023 DEPRESSION SCREENING 03/17/2024 01/03/2022 [...] AM CDT) Case Report Dermatopathology Report Case: [id number] Authorizing Provider: Dwaine Prajapati MD Collected: 08/30/2024 12:00 AM Ordering Location: [facility] - Received: 08/31/2024 09:11 AM DermPath Lab Pathologist: Yaquelin Calvin MD Specimen: Skin, right sup helix 5 4:59 PM CDT DERMATOPATHOLOGY LABORATORY Final Diagnosis Specimen A. SKIN, right sup helix: COMPOUND MELANOCYTIC NEVUS, ERODED (D22.21) 5 4:59 PM CDT DERMATOPATHOLOGY LABORATORY at 1659 CDT Clinical History R/O SCC; Chondrodermatitis 5 4:59 PM CDT DERMATOPATHOLOGY LABORATORY Gross Description [...] characteristic determined by the Dermatopathology Laboratory at [facility], directed by Dr. Fernanedz Hernandez. These tests need not be, and therefore are not, approved by the [place] Food and Drug Administration. The tests are used for clinical purposes. Billing Codes Specimen Charges Stain Charges 43829 1 5 4:59 PM CDT DERMATOPATHOLOGY LABORATORY Embedded Images 5 4:59 PM CDT DERMATOPATHOLOGY LABORATORY Pathology/Cytolog y TISSUE SPECIMEN FROM SKIN / Unknown 08/30/2024 08/31/2024 9:11 AM CDT Dwaine Prajapati MD LAB - PATHOLOGY/CYTOLOGY ORDERAB LES Final Result Performing Organization Address City/State/[facility] Co de Phone Number DERMATOPATHOLOGY LABORATORY [facility] - Department of Dermatology [facility] Medicine [address] [place] [address], [address] [phone] from Last 3 Months Insurance [facility] MANAGED MEDICARE ADV [facility] MANAGED MEDICARE ADV [facility] MANAGED MEDICARE ADV Care Teams Sales Strategy Manager Relationship Specialty Start Date End Date Odell Mann MD [address] [place] [address] PCP - General Family Medicine 01/03/22
--- OUTSIDE RECORDS SUMMARY | 2024-10-20 10:16 | XMS_ITS | Clinical Summary ---
Author Organization [employer] [address] [facility] Address [address] [place] [address] Care Team Providers Care Printing Table Hand Name Role Phone Odell Mann MD Primary Care Provider [phone] Allergies No known active allergies Medications atorvastatin [...] Comments Blood Pressure 114/55 04/29/2024 11:04 AM JAVA SECURITY ARCHITECT Pulse 85 04/29/2024 11:04 AM JAVA SECURITY ARCHITECT Temperature 35.8 C (96.5 F) 04/29/2024 11:04 AM JAVA SECURITY ARCHITECT Respiratory Rate 15 04/29/2024 11:04 AM JAVA SECURITY ARCHITECT Oxygen Saturation 97% 04/29/2024 11:04 AM JAVA SECURITY ARCHITECT Inhaled Oxygen Concentration - - Weight 70.6 kg (155 lb 9.6 oz) 04/29/2024 11:04 AM JAVA SECURITY ARCHITECT Height 157.5 cm (5' 2) 02/26/2019 8:22 AM JAVA SECURITY ARCHITECT Body Mass Index 28.46 02/26/2019 8:22 AM JAVA SECURITY ARCHITECT Plan of Treatment Upcoming Encounters Date Type Department Care Team (Late st Contact Info) Description 10/29/2024 9:15 AM CDT Office Visit [facility] - [place] [address] [facility] [address] [place] [address] Ruben Nguyen MD [address] [facility] [address] [place] [address] Health Maintenance Due Date Last Done Comments DTAP/TDAP/TD VACCINES (1 - Tdap) 1966 ZOSTER VACCINE (1 of 2) 1997 OSTEOPOROSIS SCREENING 04/29/2017 04/29/2012 PNEUMOCOCCAL VACCINE 50+ YEA RS (2 of 2 - PPSV23, PCV20, or PCV21) 08/17/2019 06/22/2019 RSV VACCINE (60+ or ) (1 - 1-dose 75+ series) 2022 Medicare [place] ([place] Prev entative Visit/Annual Wellness Visit 03/17/2024 INFLUENZA VACCINE (#1) 2024 11/30/2014 COLORECTAL SCREENING Discontinued 11/12/2019 Colorectal Cancer Screening Discontinued FIT-DNA Q 3 years Discontinued FIT/FOBT Q 1 year Discontinued Flex Sig/CT Colonography Q 5 years Discontinued Insurance [facility] [id number] Care Teams Printing Table Hand Relationship Specialty Start Date End Date Odell Mann MD PCP - General Family Practice 12/24/18
[2024-10-20 10:32] LABS: Alanine Aminotransferase 26 U/L (6-35); Albumin Level 4.2 g/dL (3.5-5.1); Alkaline Phosphatase 104 U/L (38-126); Anion Gap 11 mmol/L (4-12); Aspartate Amino Transferase 41 U/L (14-36); Bilirubin,Total 0.6 mg/dL (0.2-1.3); Blood Urea Nitrogen 18 mg/dL (7-17); Calcium 9.3 mg/dL (8.4-10.2); Carbon Dioxide 29 mmol/L (22-30); Chloride 100 mmol/L (98-107); Estimated Glomerular Filt Rate 31; Glucose 131 mg/dL (65-110); Potassium 4.3 mmol/L (3.4-5.0); Sodium 140 mmol/L (137-145); Total Protein 7.5 g/dL (6.3-8.2)
[2024-10-20 10:39] LABS: Iron 95 ug/dL (37-170)
[2024-10-20 10:49] LABS: Percent Iron Saturation 30 % (20-50)
[2024-10-20 11:20] LABS: Ferritin 120.00 ng/mL (11.1-264)
[2024-10-20 11:43] LABS: Vitamin B12 817.0 pg/mL (239-931)
== END 2024-10-20 09:50 | disposition home or self-care (01) ==
LOC: ANHLAB 09:50
PROVIDERS: PCP Family Medicine Adolescent Medicine; Visit Provider Internal Medicine Hematology & Oncology
DX: D64.9 Anemia, unspecified (principal)
CPT/HCPCS: 36415; 80053; 82607; 82728; 82746; 83540; 83550; 85025

== ENCOUNTER 2024-12-16 15:14 | Outpatient (CLI) | payer MEDICARE, SELFPAY ==
--- OUTSIDE RECORDS SUMMARY | 2006-06-03 05:06 | XMS_ITS | Continuity of Care Document ---
Author Organization [facility] Address [address] [place] [address] [address] [place] [address] Phone Care Team Providers Care Baker Second Name Role Phone Mali Fernandez Unavailable Unavailable Procedures Procedure Date Optic Nerve Topography Optic Nerve Topography Office/outpatient Visit, Est Advance Directives Directive Yes / No Effective Date File Name No Information Encounters Encounter Description Practice Location Reason(s) For Visit Diagnoses Date Provider Providers Copied on Encounter [facility], [address] [place] [address] [address], [place], [place], [id number], tel:[phone] [facility] No Information [address]. [address] [facility] , [address], [place], [address], [place]. tel:[phone] Referring Provider: [facility] [address], [place], [place], [facility]. tel:[phone] Office/outpat ient Visit, Est [facility], [address] [place] [address] [address], [place], [place], [id number], tel:[phone] [facility] No Information [address] , [address], [place], [address], . tel:[phone] Family History Family Member Type Diagnosis Age At Onset No Information Payers Payer name Insurance type Covered alliance party ID Authoriza tion(s) No Information Social [...]
--- NOTE | ~2024-12-16 | US_ITS ---
EXAMINATION: US carotid duplex BI DATE: 12/16/2024 16:01 INDICATION: Dizziness and giddiness. Vertigo. TECHNIQUE: Grayscale, color Doppler, and pulsed Doppler images of the cervical carotid arteries were obtained. The degree of vessel stenosis is placed in one of the following categories: normal, <50%, 50-69%, >=70% but less than near- occlusion, near-occlusion, or total occlusion. Note that percent stenosis relative to normal distal artery lumen diameter is indirectly measured from velocity measurements as described by Arnaldo, et al. Radiology 2003; 229:340-346. COMPARISON: None. FINDINGS: RIGHT: The right common carotid artery (CCA) peak systolic velocity (PSV) is 66 cm/s. The right internal carotid artery (ICA) PSV is 87 cm/s. The right ICA end- diastolic velocity (EDV) is 22 cm/s. The right ICA/CCA PSV ratio is 1.3. Grayscale and color Doppler images yield an estimate of <50% diameter reduction from plaque in the ICA. The external carotid artery (ECA) PSV is 114 cm/s. There is antegrade flow in the right vertebral artery. LEFT: The left CCA PSV is 67 cm/s. The left ICA PSV is 82 cm/s. The left ICA EDV is 17 cm/s. The left ICA/CCA PSV ratio is 1.2. Grayscale and color Doppler images yield an estimate of <50% diameter reduction from plaque in the ICA. The ECA PSV is 79 cm/s. There is antegrade flow in the left vertebral artery. IMPRESSION: 1. <50% stenosis in the right internal carotid artery. 2. <50% stenosis in the left internal carotid artery. Reviewed, dictated and finalized at location A.
--- OUTSIDE RECORDS SUMMARY | 2024-12-16 15:18 | XMS_ITS | Clinical Summary ---
Author Organization [employer] [address] [facility] Address [address] [place] [address] Care Team Providers Care Appeals Specialist Name Role Phone Odell Mann MD Primary Care Provider [phone] Allergies Active Allergy Reactions Criticality Noted Date Comments Amitriptyline Hallucination Low 10/29/2024 Medications atorvastatin (LIPITOR) 20 mg tablet atorvastatin [...] by mouth daily at bedtime. 2 Active hyoscyamine sulfate 0.125 mg tablet TAKE 1 TABLET BY MOUTH 4 TIMES DAILY NEEDED FOR ABDOMINAL PAIN 5 Active Active Problems Problem Noted Date Diagnosed Date Intervertebral disc disorder s with radiculopathy, lumbosacral region 02/23/2019 Encounters Date Type Department Care Team Description 11/16/2024 External Device Data STL ABSTRACTION Provider, Abstract 11/03/2024 External Device Data STL ABSTRACTION Provider, Abstract 10/29/2024 9:15 AM CDT Office Visit [facility] Oncology and Hematology - [place] [address] [place] [address] Ruben Nguyen MD Chronic anemia (Primary Dx) 10/21/2024 Orders Only [facility] Oncology and Hematology - [place] [address] [place] [address] Ruben Nguyen MD 10/20/2024 External Device Data STL ABSTRACTION Provider, Abstract [...] Sign Reading Time Taken Comments Blood Pressure 113/65 10/29/2024 9:10 AM CDT Pulse 59 10/29/2024 9:10 AM CDT Temperature 36.3 C (97.4 F) 10/29/2024 9:10 AM CDT Respiratory Rate 12 10/29/2024 9:10 AM CDT Oxygen Saturation 97% 04/29/2024 11:04 AM TRACTOR EXPERT Inhaled Oxygen Concentration - - Weight 71.7 kg (158 lb) 10/29/2024 9:10 AM CDT Height 157.5 cm (5' 2) 02/26/2019 8:22 AM TRACTOR EXPERT Body Mass Index 28.9 02/26/2019 8:22 AM TRACTOR EXPERT Plan of Treatment Upcoming Encounters Date Type Department Care Team (Late st Contact Info) Description 11/02/2025 10:00 AM CDT Office Visit [facility] Oncology and Hematology - [place] [address] [facility] [address] [place] [address] Ruben Nguyen MD [address] [facility] [address] [place] [address] Health Maintenance Due Date Last [...] series) 2022 INFLUENZA VACCINE (#1) 2024 11/30/2014 DIABETES HBA1C Q 6 MONTHS 12/02/2024 06/01/2024, COLORECTAL SCREENING Discontinued 11/12/2019 Colorectal Cancer Screening Discontinued FIT-DNA Q 3 years Discontinued FIT/FOBT Q 1 year Discontinued Flex Sig/CT Colonography Q 5 years Discontinued Procedures Procedure Name Priority Date/Time Associated Diagnosis Comments COMPREHENSIVE METABOLIC PANEL Routine 10/20/2024 11:42 AM CDT from Last 3 Months Results * COMPREHENSIVE METABOLIC PANEL (10/20/2024 11:42 AM CDT) Blood us Ruben Nguyen MD CHEMISTRY ORDERABLES Final Resu lt from Last 3 Months Insurance Care Teams Appeals Specialist Relationship Specialty Start Date End Date Odell Mann MD PCP - General Family Practice 12/24/18
--- OUTSIDE RECORDS SUMMARY | 2024-12-16 15:18 | XMS_ITS | Encounter Summary ---
Author Organization [facility] Facility Care Team Providers Care Oil Changer Name Role Phone Odell Mann MD Primary Care Prov ider Howard Herbert MD Unavailable [phone] Derrek Ling MD Unavailable [phone] Encounter Details Date Type Department Care Team (Latest Contact Info) Description 01/25/2016 Orders Only [facility] CLINCONV ProviderJulio Cesar MD [address] [place] [address] Social History Tobacco Use Types Packs/Day Years Used Date Smoking Tobacco: Never Assessed Comments Unknown Sex and Gender Information Value Date Recorded Sex Assigned at Not on file Legal Sex Female 4:21 PM [employer] [facility] TECHNICIAN Gender Identity Female 12/16/2024 10:18 AM CDT Sexual Orientation Not on file documented as of this encounter Plan of Treatment Not on file documented as of this encounter Procedures Procedure Name Priority Date/Time Associated Diagnosis Comments PROCEDURE - RESULT 01/25/2016 12 :00 AM [facility]ENT[facility] LAB TECHNICIAN documented in this encounter Results * PROCEDURE - RESULT (01/25/2016 12:00 AM [facility] [employer] [facility]ENT[facility] LAB TECHNICIAN) Narrative 01/25/2016 12:00 AM [facility] [employer] [facility]ENT[facility] LAB TECHNICIAN Ordered by an unspecified provider. us Historical Provider Final Res ult documented in this encounter Visit Diagnoses Not on filedocumented in this encounter Additional Health Concerns Infection Onset Date Last Indicated Resolved Time COVID: Suspected 06/01/2024 06/01/2024 06/01/2024 5:27 PM CDT documented as of this encounter Care Teams Oil Changer Relationship Specialty Start Date End Date Odell Mann MD PCP - General 06/14/18 Hoawrd Herbert MD Referring Physician Cardiology 04/15/19 Derrek Ling MD [address] [place] [address] [place] [address] Consulting Physician Nephrology 06/02/24 documented as of this encounter
--- OUTSIDE RECORDS SUMMARY | 2024-12-16 15:18 | XMS_ITS | Encounter Summary ---
Author Organization [facility] Facility Care Team Providers Care Security Systems Administrator Name Role Phone Odell Mann MD Primary Care Prov ider Howard Herbert MD Unavailable [phone] Derrek Ling MD Unavailable [phone] Encounter Details Date Type Department Care Team (Latest Contact Info) Description 08/30/2015 Orders Only [facility] CLINCONV Provider, MD Julio Cesar [address] [place] [address] Social History Tobacco Use Types Packs/Day Years Used Date Smoking Tobacco: Never Assessed Comments Unknown Sex and Gender Information Value Date Recorded Sex Assigned at Not on file Legal Sex Female 4:21 PM BOARD SETTER Gender Identity Female 12/16/2024 10:18 AM CDT [...] AM CDT Ordered by an unspecified provider. [facility] Provider Final Res ult * CARDIOLOGY REPORT (08/31/2015 12:00 AM CDT) Anatomical Region Laterality Modality Other Narrative 08/31/2015 12:00 AM CDT Ordered by an unspecified provider. [facility] Provider CV CARDIAC SERVICES PROCE DURES Final Result * CARDIOLOGY REPORT (08/31/2015 12:00 AM CDT) Anatomical Region Laterality Modality Other Narrative 08/31/2015 12:00 AM CDT Ordered by an unspecified provider. [facility] Provider CV CARDIAC SERVICES PROCE DURES Final Result * CARDIOLOGY REPORT (08/31/2015 12:00 AM CDT) Anatomical Region Laterality Modality Other Narrative 08/31/2015 12:00 AM CDT Ordered by an unspecified provider. [facility] Provider CV CARDIAC SERVICES PROCE DURES Final Result documented in this encounter Visit Diagnoses Not on filedocumented in this encounter Additional Health Concerns Infection Onset Date Last Indicated Resolved Time COVID: Suspected 06/01/2024 06/01/2024 06/01/2024 5:27 PM CDT documented as of this encounter Care Teams Security Systems Administrator Relationship Specialty Start Date End Date Odell Mann MD PCP - General 06/14/18 Howard Herbert MD Referring Physician Cardiology 04/15/19 Derrek Ling MD [address] [place] [address] Consulting Physician Nephrology 06/02/24 documented as of this encounter
--- OUTSIDE RECORDS SUMMARY | 2024-12-16 15:18 | XMS_ITS | Clinical Summary ---
Author Organization [facility] [employer] Address [address] [place] [address] Care Team Providers Care Credit Collection Specialist Name Role Phone Odell Mann MD Primary Care Provider + Source Comments [facility] [employer],non-owned Affiliates and Associated Physician Practices is amultiple site organization consisting of ambulatory clinics and hospital sitesin [place], [place], [place] and [place]. This disclosure is being madepursuant to the Care Everywhere program and may not contain all information available regarding this patient. 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 Gender Identity Not on file Sexual Orientation [...] yrs (1 - 1-dose 75+ series) 2022 DEPRESSION SCREENING 03/17/2024 01/03/2022 MEDICARE AWV CALENDAR YEAR 2024 COVID-19 VACCINE (2023-2 5 season) 2024 INFLUENZA VACCINE (#1) 2024 11/30/2014 HEPATITIS [...] on patient's age to complete this topic Insurance [facility] MANAGED MEDICARE ADV [facility] MANAGED MEDICARE ADV [facility] MANAGED MEDICARE ADV Care Teams Credit Collection Specialist Relationship Specialty Start Date End Date Odell Mann MD [address] [address] PCP - General Family Medicine 01/03/22
--- OUTSIDE RECORDS SUMMARY | 2024-12-16 15:18 | XMS_ITS | Encounter Summary ---
Author Organization [facility] Facility Care Team Providers Care Adult Crossing Guard Name Role Phone Odell Mann MD Primary Care Prov ider Howard Herbert MD Unavailable [phone] Derrek Ling MD Unavailable Encounter Details Date Type Department Care Team (Latest Contact Info) Description 01/09/2018 Orders Only [facility] CLINCONV Provider, MD Julio Cesar [address] [place] [address] Social History Tobacco Use Types Packs/Day Years Used Date Smoking Tobacco: Never Assessed Comments Unknown Sex and Gender Information Value Date Recorded Sex Assigned at Not on file Legal 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
--- OUTSIDE RECORDS SUMMARY | 2024-12-16 15:18 | XMS_ITS | Encounter Summary ---
Author Organization [facility] Address [address] [place] [address] Care Team Providers Care Telesales Consultant Name Role Phone Odell Mann MD Primary Care Provider + Encounter Details Date Type Department Care Team (Late st Contact Info) Description 08/31/2024 Lab Requisition [facility] - DermPath Lab 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 Gender Identity Not on file Sexual Orientation Not on file documented as of this encounter Plan of Treatment Not on file documented as of this encounter Procedures Procedure Name Priority Date/Time Associated Diagnosis Comments DERMATOPATHOLOGY Routine 08/30/2024 12:0 0 AM CDT documented in this encounter Results * DERMATOPATHOLOGY (08/30/2024 12:00 AM CDT) Case Report Dermatopathology Report Case: [id number] Authorizing Provider: Dwaine Prajapati MD Collected: 08/30/2024 12:00 AM Ordering Location: [facility] - Received: 08/31/2024 09:11 AM [...] characteristic determined by the Dermatopathology Laboratory at [facility], directed by Dr. Fernandez Hernandez. These tests need not be, and therefore are not, approved by the [place] Food and Drug Administration. The tests are used for clinical purposes. Billing Codes Specimen Charges Stain Charges 78048 1 4:59 PM CDT DERMATOPATHOLOGY LABORATORY Embedded Images 4:59 PM CDT DERMATOPATHOLOGY LABORATORY Pathology/Cytolog y TISSUE SPECIMEN FROM SKIN / Unknown 08/30/2024 08/31/2024 9:11 AM CDT us Dwaine Prajapati MD LAB - PATHOLOGY/CYTOLOGY ORDERAB LES Final Result DERMATOPATHOLOGY LABORATORY [facility] - Department of Dermatology [facility] Medicine [address] [place] [address], [address] [phone] documented in this encounter Visit Diagnoses Not on filedocumented in this encounter Care Teams Telesales Consultant Relationship Specialty Start Date End Date Odell Mann MD [address] [address] PCP - General Family Medicine 01/03/22 documented as of this encounter
--- OUTSIDE RECORDS SUMMARY | 2024-12-16 15:18 | XMS_ITS | Encounter Summary ---
Author Organization [facility] Address [address] [place] [address] Care Team Providers Care Rn Hospital Name Role Phone Odell Mann MD Primary Care Provider [phone] Encounter Details Date Type Department Care Team (Late st Contact Info) Description 11/19/2019 Prep for Procedure [facility] [address] [place], [place] [address] Christy Wang MD [address] [facility] [address] [place] [address] Social History Tobacco Use Types [...] documented as of this encounter Care Teams Rn Hospital Relationship Specialty Start Date End Date Odell Mann MD [address] [address] PCP - General FAMILY PRACTICE 09/06/18 documented as of this encounter
--- OUTSIDE RECORDS SUMMARY | 2024-12-16 15:18 | XMS_ITS | Encounter Summary ---
Author Organization [facility] Facility Care Team Providers Care Estimator Printing Name Role Phone Odell Mann MD Primary Care Prov ider Howard Herbert MD Unavailable [phone] Derrek Ling MD Unavailable [phone] Encounter Details Date Type Department Care Team (Latest Contact Info) Description 02/27/2016 Orders Only [facility] CLINCONV ProviderJulio Cesar MD [address] [place] [address] Social History Tobacco Use Types Packs/Day Years Used Date Smoking Tobacco: Never Assessed Comments Unknown Sex and Gender Information Value Date Recorded Sex Assigned at Not on file Legal Sex Female 4:21 PM WAITER/WAITRESS TOURIST CLASS Gender Identity Female 12/16/2024 10:18 AM CDT Sexual Orientation Not on file documented as of this encounter Plan of Treatment Not on file documented as of this encounter Procedures Procedure Name Priority Date/Time Associated Diagnosis Comments PROCEDURE - RESULT 02/19/2016 12 :00 AM WAITER/WAITRESS TOURIST CLASS documented in this encounter Results * PROCEDURE - RESULT (02/19/2016 12:00 AM WAITER/WAITRESS TOURIST CLASS) Narrative 02/19/2016 12:00 AM WAITER/WAITRESS TOURIST CLASS Ordered by an unspecified provider. Historical Provider Final Res ult documented in this encounter Visit Diagnoses Not on filedocumented in this encounter Additional Health Concerns Infection Onset Date Last Indicated Resolved Time COVID: Suspected 06/01/2024 06/01/2024 06/01/2024 5:27 PM CDT documented as of this encounter Care Teams Estimator Printing Relationship Specialty Start Date End Date Odell Mann MD PCP - General 06/14/18 Howard Herbert MD Referring Physician Cardiology 04/15/19 Derrek Ling MD [address] [place] [address] [place] [address] Consulting Physician Nephrology 06/02/24 documented as of this encounter
--- OUTSIDE RECORDS SUMMARY | 2024-12-16 15:18 | XMS_ITS | Encounter Summary ---
Author Organization [facility] Facility Care Team Providers Care Acds Block 1 Operator Name Role Phone Odell Mann MD Primary Care Prov ider Howard Herbert MD Unavailable [phone] Derrek Ling MD Unavailable [phone] Encounter Details Date Type Department Care Team (Latest Contact Info) Description 01/20/2018 Orders Only [facility] CLINCONV ProviderJulio Cesar MD [address] [place] [address] Social History Tobacco Use Types Packs/Day Years Used Date Smoking Tobacco: Never Assessed Comments Unknown Sex and Gender Information Value Date Recorded Sex Assigned at Not on file Legal Sex Female 4:21 PM OFFSET PRINTING PRESSMEN Gender Identity Female 12/16/2024 10:18 AM CDT Sexual Orientation Not on file documented as of this encounter Plan of Treatment Not on file documented as of this encounter Procedures Procedure Name Priority Date/Time Associated Diagnosis Comments SCAN - LABS 02/02/2018 12:00 AM OFFSET PRINTING PRESSMEN documented in this encounter Results * SCAN - LABS (02/02/2018 12:00 AM OFFSET PRINTING PRESSMEN) Narrative 02/02/2018 12:00 AM OFFSET PRINTING PRESSMEN Ordered by an unspecified provider. us Historical Provider Final Res ult documented in this encounter Visit Diagnoses Not on filedocumented in this encounter Additional Health Concerns Infection Onset Date Last Indicated Resolved Time COVID: Suspected 06/01/2024 06/01/2024 06/01/2024 5:27 PM CDT documented as of this encounter Care Teams Acds Block 1 Operator Relationship Specialty Start Date End Date Odell Mann MD PCP - General 06/14/18 Howard Herbert MD Referring Physician Cardiology 04/15/19 Derrek Ling MD [address] [place] [address] [place] [address] Consulting Physician Nephrology 06/02/24 documented as of this encounter
--- OUTSIDE RECORDS SUMMARY | 2024-12-16 15:18 | XMS_ITS | Patient Health Record ---
Author Organization [facility] Address [address] [place] [address] Care Team Providers Care Armhole Baster Jumpbasting Name Role Phone Mackenzie YOO, Odell Primary Care Provider Delphine abhishek DUNHAM CENTRIFUGAL CHILLER TECHNICIAN, CARROL Unavailable Reason For Referral No Information Plan Of Treatment Pending Test Test Name Order Date Endoscopic Retrograde Cholangiopancreato graphy (ERCP) 12/30/2019 Insurance Providers Payer Name Payer Address Payer Phone Subscriber Number Group Number Insured Name Patient Relationship to Insured Coverage Start Date Coverage End Date AARP-Medic are Complete [address] [address] [place] [id number] Anuja Salas Self - patient is the insured
--- OUTSIDE RECORDS SUMMARY | 2024-12-16 15:18 | XMS_ITS | Data Portability ---
Author Organization [facility] OFFICE Address [address] [place] [address] Care Team Providers Care Body Care Manager Name Role Phone JARAD MCBRIDE Primary Care Provider Assessment Encounter Date Assessment Date Assessment LastModified by Organization Details LastModified Time 03/20/2022 03/20/2022 Discussed with patient findings, diagnosis, and prognosis. Discussed evaluation and treatment options including risks and benefits with patient, and patient expressed understanding. The following interventions were recommended: heart healthy low-fat, low-sodium diet, begin regular exercise,maint ain appropriate weight, continue current medications, and medical follow-up as noted. [email or web address] Not available 03/20/2022 16:13:22 04/15/2022 04/15/2022 Discussed with patient findings, diagnosis, and prognosis. Discussed evaluation and treatment options including risks and benefits with patient, and patient expressed understanding. The following interventions were recommended: heart healthy low-fat, low-sodium diet, begin regular exercise,maint ain appropriate weight, continue current medications, and medical follow-up as noted. [email or web address] Not available 04/15/2022 16:27:39 05/15/2022 05/15/2022 Discussed with patient findings, diagnosis, and prognosis. Discussed evaluation and treatment options including risks and benefits with patient, and patient expressed understanding. The following interventions were recommended: heart healthy low-fat, low-sodium diet, begin regular exercise,maint ain appropriate weight, continue current medications, and medical follow-up as noted. [email or web address] Not available 05/15/2022 13:46:51 06/07/2022 06/07/2022 Discussed with patient findings, diagnosis, and prognosis. Discussed evaluation and treatment options including risks and benefits with patient, and patient expressed understanding. The following interventions were recommended: heart healthy low-fat, low-sodium diet, begin regular exercise,maint ain appropriate weight, continue current medications, and medical follow-up as noted. [email or web address] Not available 06/07/2022 11:37:51 07/18/2022 07/18/2022 Discussed with patient findings, diagnosis, and prognosis. Discussed evaluation and treatment options including risks and benefits with patient, and patient expressed understanding. The following interventions were recommended: heart healthy low-fat, low-sodium diet, begin regular exercise,maint ain appropriate weight, continue current medications, and medical follow-up as noted. Not available 07/18/2022 16:14:14 Plan of Treatment Reminders Order Date Submit Date Provider Last Modified By Organization Details Last Modified Time Details Appointments None recorded. Lab None recorded. Referral None recorded. Procedures None recorded. Surgeries None recorded. Imaging None recorded. Medication Orders ranolazine ER 500 mg tablet,exte nded release,12 hr 2022 023 [facility], [id number], [address], 16:26:09 hydrochloro thiazide 12.5 mg tablet [id number] [facility], [id number], [address], 14:00:56 Patient TargetsNo targets recorded. Patient Instructions Encounter Date Encounter Id Patient Instructions Last Modified By Organization Details Last Modified Time 03/20/2022 [id number] chest pain: care instructions [email or web address] Not available 03/20/2022 16:44:00 sleep apnea: car e instructions [email or web address] Not available 03/20/2022 16:44:00 palpitations: care instructions [email or web address] Not available 03/20/2022 16:44:00 elevated blood pressure: care instructions [email or web address] Not available 03/20/2022 16:44:00 shortness of breath: care instructions [email or web address] Not available 03/20/2022 16:44:00 04/15/2022 [id number] chest pain: care instructions Not available 04/15/2022 16:42:27 sleep apnea: car e instructions [email or web address] Not available 04/15/2022 16:42:27 palpitations: care instructions [email or web address] Not available 04/15/2022 16:42:28 elevated blood pressure: care instructions Not available 04/15/2022 16:42:28 shortness of breath: care instructions [email or web address] Not available 04/15/2022 16:42:27 05/15/2022 [id number] chest pain: care instructions [email or web address] Not available 05/15/2022 14:05:47 sleep apnea: car e instructions [email or web address] Not available 05/15/2022 14:05:47 palpitations: care instructions [email or web address] Not available 05/15/2022 14:05:47 elevated blood pressure: care instructions Not available 05/15/2022 14:05:47 shortness of breath: care instructions [email or web address] Not available 05/15/2022 14:05:47 06/07/2022 [id number] chest pain: care instructions [email or web address] Not available 06/07/2022 11:51:11 sleep apnea: car e instructions [email or web address] Not available 06/07/2022 11:51:11 palpitations: care instructions [email or web address] Not available 06/07/2022 11:51:11 elevated blood pressure: care instructions [email or web address] Not available 06/07/2022 11:51:11 shortness of breath: care instructions Not available 06/07/2022 11:51:11 07/18/2022 [id number] elevated blood pressure: care instructions [email or web address] Not available 07/18/2022 16:26:02 palpitations: care instructions Not available 07/18/2022 16:26:02 chest pain: care instructions Not available 07/18/2022 16:26:02 sleep apnea: car e instructions [email or web address] Not available 07/18/2022 16:26:02 shortness of breath: care instructions Not available 07/18/2022 16:26:02 Reason for Referral None Reported. Results Created Date Observation Date Name Description Value Unit Range Abnormal Flag Note LastModifiedBy Organization Detail LastModifiedTime 02/18/20 22 02/12/2022 US, echoc ardio gram No observ ation record ed. [facility] [address], [place], [address], 03/11/2022 15:58:56 02/21/20 22 02/12/2022 US, echoc ardio gram No observ ation record ed. [email or web address] Not Available 2021 13:30:21 03/04/20 22 01/31/2022 barbara can cardi olite stres s test (PROC ) No observ ation record ed. [email or web address] Not Available 2021 11:06:47 06/14/19 23 06/07/2022 elect rocar diogr am No observ ation record ed. [email or web address] Not Available 15:35:47 Result Notes None recorded. Problems Name Problem SNOMED Code Status Onset Date Resolution Date Notes Provider Name and Address Organization Details Recorded Time Diabetes mellitus 32007500 Active 2015 Not Available [facility] 1 06:44:01 Hypertensi ve disorder 88206006 Active 2015 Not Available [facility] 1 06:44:01 Gastroesop hageal reflux disease 995625938 Active 2015 Not Available [facility] 1 06:44:01 Dyspnea 704759233 Active 2015 Not Available [facility] 1 06:44:01 Chest pain 50368038 Active 2015 Not Available [facility] 1 06:44:01 Palpitatio ns 85830574 Active 2015 Not Available [facility] 1 06:44:01 Electrocar diogram abnormal 478094083 Completed 201501/17/2016 Yosef moore [place] [facility] 6 03:55:54 EKG: anterior ischemia 631156389 Active 2015 Not Available [facility] 1 06:44:01 Allergic rhinitis 95698352 Active 2015 Not Available [facility] 1 06:44:01 Cataract 103116768 Active 2015 Not Available [facility] 1 06:44:01 Motion sickness 38099808 Active 2015 Not Available [facility] 1 06:44:01 Basal cell carcinoma of skin 201032530 Active 03/2013 Not Available [facility] 1 06:44:01 Diverticul itis 449018291 Active 2015 Not Available [facility] 1 06:44:01 Arthritis 4071088 Active 2015 Not Available [facility] 1 06:44:01 Hypothyroi dism 62197431 Active 2015 Not Available [facility] 1 06:44:01 Obstructiv e sleep apnea syndrome 01679112 Active 2016 Not Available [facility] 1 06:44:01 Dyslipidem ia 053390077 Active 2017 Not Available [facility] 1 06:44:01 Coronary arterioscl erosis 57262195 Active 2017 Not Available [facility] 1 06:44:01 Notes:thyroid problem Problem Notes None recorded. Procedures Surgical History Date Name Laterality Status Provider Name and Address Organization Details Recorded Time Hysterectomy completed [facility] 09/06/2015 12:17:38 Appendectomy completed [facility] 09/06/2015 12:17:17 Imaging Results None recorded. Procedure Notes None recorded. Medical Equipment None Reported. Allergies Allergen ID Allergen Name Allergen Category Reaction Reaction Severity Criticality Documentation Date Start Date Code Code System Note Provider Name and Address Organization Details Recorded Time 2920 aspirin medicatio n Not available Not available Not available 01/17/2016 1191 RxNorm tanvir thompson [facility] 7 16:21:12 Medications Name Sig Start Date Stop Date Status Note LastModified by Organization Details LastModified Time meclizine hcl 25 mg tabs 04/17 completed as needed 0 Not Available Not Available Not Available isosorbid e mononitra te er 30 mg tb24 1 tab qd 04/17 completed Not Available Not Available Not Available prednison e 10 mg tabs 04/07 completed Not Available Not Available Not Available pioglitaz one hydrochlo ride 30 mg tabs 1/2 tablet daily 04/17 completed Not Available Not Available Not Available pantopraz ole sodium 40 mg tbec 1 tab qd 04/17 completed Not Available Not Available Not Available potassium chloride er 10 meq cpcr 1 tab bid 04/17 completed 1qd Not Available Not Available Not Available amitripty line hcl 75 mg tabs 1 tab qd 01/11 completed pt not taking 01/12/20 Not Available Not Available Not Available ranexa 500 mg tb12 01/11 completed pt. no longer take 0 FH Not Available Not Available Not Available diclofena c sodium dr 75 mg tbec 04/07 completed pt. no longer take 0 FH Not Available Not Available Not Available glimepiri de 1 mg tabs 0.5 tab qd 12/08 completed Not Available Not Available Not Available bumetanid e 1 mg tabs 04/17 completed Not Available Not Available Not Available atorvasta tin calcium 20 mg tabs 04/17 completed Not Available Not Available Not Available losartan potassium 100 mg tabs 1 tab qd 11/28 completed Not Available Not Available Not Available amitripty line hcl 50 mg tabs 07/14 completed Not Available Not Available Not Available ropinirol e hcl 0.5 mg tabs 1 tab qhs 04/17 completed Not Available Not Available Not Available hydrocodo ne/acetam inophen 10-325 mg tabs 01/11 completed pt. no longer take 0 FH Not Available Not Available Not Available ranitidin e hcl 300 mg tabs 1 tab qhs 08/31 completed Not Available Not Available Not Available ranexa 1000 mg tb12 11/03 completed Not Available Not Available Not Available gabapenti n 300 mg caps 1 TAB BID 04/17 completed pt. no longer take 0 FH Not Available Not Available Not Available ibuprofen 600 mg tabs 04/07 completed Not Available Not Available Not Available nitroglyc chiqui 0.4 mg subl 05/14 completed Not Available Not Available Not Available hydrocodo ne/acetam inophen 5-325 mgtabs 01/11 completed pt. no longer take 0 FH Not Available Not Available Not Available tramadol hcl 50 mg tabs 10/05 completed Not Available Not Available Not Available tobramyci n/dexamet hasone 0.3-0.1 % susp 10/05 completed Not Available Not Available Not Available pioglitaz one hcl 30 mg tabs qd 04/17 completed Not Available Not Available Not Available metoprolo l succinate er 50 mg tb24 1 tab qd 04/17 completed Not Available Not Available Not Available bumetanid e 2 mg tabs 1 tab bid 01/05 completed Not Available Not Available Not Available cholestyr amine 4 gm/dose powd qd 01/11 completed pt not taking 01/12/20 Not Available Not Available Not Available cefuroxim e axetil 250 mg tabs 10/05 completed Not Available Not Available Not Available levothyro xine sodium 25 mcg tabs 1 btab qd 11/28 completed Not Available Not Available Not Available losartan 50 mg tablet TAKE 2 TABLETS BY MOUTH ONCE DAILY 05/16 completed Not Available Not Available Not Available amoxicill in 500 mg capsule TAKE 1 CAPSULE BY MOUTH THREE TIMES DAILY UNTIL GONE 11/28 completed Not Available Not Available Not Available pioglitaz one 15 mg tablet TAKE 1 TABLET BY MOUTH ONCE DAILY 11/28 completed Not Available Not Available Not Available cefprozil 500 mg tablet TAKE 1 TABLET BY MOUTH TWICE A DAY 03/20 completed Not Available Not Available Not Available potassium chloride ER 10 mEq capsule,e xtended release TAKE 1 CAPSULE BY MOUTH TWICE DAILY 05/16 completed Not Available Not Available Not Available prednison e 10 mg tablet TAKE 6 TABLETS BY MOUTH ONCE DAILY FOR 4 DAYS, THEN 4 TABS ONCE DAILY FOR 4 DAYS, THEN 2 TABS ONCE DAILY FOR 4 DAYS, THEN 1 TAB ONCE DAILY FOR 4 DAYS 03/20 completed no longer take Not Available Not Available Not Available doxycycli ne hyclate 100 mg capsule TAKE 1 CAPSULE BY MOUTH TWICE DAILY active Not Available Not Available No t Available cefuroxim e axetil 250 mg tablet 08/31 completed Not Available Not Available Not Available atorvasta tin 20 mg tablet TAKE 1 TABLET BY MOUTH ONCE DAILY AT BEDTIME active Not Available Not Available No t Available bumetanid e 2 mg tablet TAKE 1 TABLET BY MOUTH TWICE DAILY 01/05 completed Not Available Not Available Not Available nadolol 80 mg tablet Take 1 tablet every day by oral route. 07/14 completed Not Available Not Available Not Available amitripty line 75 mg tablet TAKE 1 TABLET BY MOUTH AT BEDTIME 11/28 completed Not Available Not Available Not Available fluconazo le 150 mg tablet 12/02 completed Not Available Not Available Not Available benzonata te 200 mg capsule TAKE 1 CAPSULE BY MOUTH THREE TIMES DAILY NEEDED FOR COUGH active Not Available Not Available No t Available metoprolo l succinate ER 50 mg tablet,ex tended release 24 hr TAKE 1 TABLET BY MOUTH ONCE DAILY active Not Available Not Available No t Available ranitidin e 300 mg tablet Take 1 tablet every day by oral route. 01/11 completed pt. no longer take 0 FH Not Available Not Available Not Available hydrocodo ne 5 mg-acetam inophen 325 mg tablet 11/28 completed Not Available Not Available Not Available Lasix 40 mg tablet Take 1 tablet every day by oral route for 30 days. 04/03 completed Not Available Not Available Not Available famotidin e 40 mg tablet TAKE 1 TABLET BY MOUTH TWICE DAILY active Not Available Not Available No t Available isosorbid e mononitra te ER 30 mg tablet,ex tended release 24 hr TAKE 1 TABLET BY MOUTH DAILY active Not Available Not Available No t Available prednison e 5 mg tablet Take 0.5 tablets by oral route. 12/02 completed Not Available Not Available Not Available clonazepa m 1 mg tablet 04/21 completed Not Available Not Available Not Available potassium chloride ER 10 mEq tablet,ex tended release Take 1 tablet twice a day by oral route. 05/06 completed KCl 10 mEq bid 3 Not Available Not Available Not Available amlodipin e 5 mg tablet Take 1 tablet every day by oral route. 03/20 completed Not Available Not Available Not Available acyclovir 400 mg tablet TAKE 1 TABLET BY MOUTH THREE TIMES DAILY FOR FEVER BLISTERS active Not Available Not Available No t Available aspirin 81 mg tablet,de layed release Take 1 tablet every day by oral route. 11/28 completed Not Available Not Available Not Available tramadol 50 mg tablet TAKE 1 TO 2 TABLETS BY MOUTH 4 TIMES DAILY NEEDED FOR PAIN 03/20 completed no longer take Not Available Not Available Not Available amitripty line 50 mg tablet TAKE 1 TABLET BY MOUTH AT BEDTIME 11/28 completed Not Available Not Available Not Available levothyro xine 25 mcg tablet TAKE 1 TABLET BY MOUTH ONCE DAILY active Not Available Not Available No t Available glimepiri de 1 mg tablet Take 1 tablet every day by oral route. 11/03 completed 0.5 tab qd Not Available Not Available Not Available potassium chloride ER 20 mEq tablet,ex tended release(p art/cryst ) TAKE 1 TABLET BY MOUTH 3 TIMES DAILY active Not Available Not Available No t Available famotidin e 20 mg tablet 08/31 completed Not Available Not Available Not Available magnesium oxide 400 mg (241.3 mg magnesium ) tablet Take 1 tablet by mouth once daily 2023 active Not Available Not Available Not Avai lable trazodone 100 mg tablet TAKE 1 & 1/2 (ONE & ONE-HALF ) TABLETS BY MOUTH AT BEDTIME active Not Available Not Available No t Available ropinirol e 0.25 mg tablet 1 qd at bed time 07/14 completed Not Available Not Available Not Available meclizine 25 mg tablet TAKE 1 TABLET BY MOUTH 4 TIMES DAILY NEEDED FOR DIZZINES S active Not Available Not Available No t Available diazepam 2 mg tablet TAKE 1 TABLET BY MOUTH THREE TIMES DAILY NEEDED active Not Available Not Available No t Available baclofen 10 mg tablet TAKE 1 TABLET BY MOUTH TWICE DAILY 11/28 completed Not Available Not Available Not Available benzonata te 100 mg capsule TAKE 1 CAPSULE BY MOUTH THREE TIMES DAILY NEEDED FOR COUGH active Not Available Not Available No t Available Lasix 20 mg tablet Take 1 tablet every day by oral route. 09/20 completed Not Available Not Available Not Available pantopraz ole 40 mg tablet,de layed release Take 1 tablet every day by oral route. 05/17 completed Not Available Not Available Not Available ropinirol e 0.5 mg tablet TAKE 1 TABLET BY MOUTH AT BEDTIME active Not Available Not Available No t Available lansopraz ole 30 mg capsule,d elayed release TAKE 1 CAPSULE BY MOUTH TWICE DAILY active Not Available Not Available No t Available nitroglyc chiqui 0.4 mg sublingua l tablet DISSOLVE ONE TABLET UNDER THE TONGUE EVERY 5 MINUTES NEEDED FOR CHEST PAIN. DO NOT EXCEED A TOTAL OF 3 DOSES IN 15 MINUTES NOW active Not Available Not Available No t Available bumetanid e 1 mg tablet TAKE 1 TABLET BY MOUTH TWICE DAILY active Not Available Not Available No t Available mupirocin 2 % topical ointment 03/20 completed Not Available Not Available Not Available lorazepam 1 mg tablet 04/21 completed Not Available Not Available Not Available hydroxych loroquine 200 mg tablet TAKE 1 TABLET BY MOUTH ONCE DAILY 03/20 completed Not Available Not Available Not Available polyethyl marcela glycol 3350 17 gram/dose oral powder 04/23 completed Not Available Not Available Not Available levofloxa es 500 mg tablet TAKE 1 TABLET BY MOUTH ONCE DAILY active pt is no longer taking 07/18/22 SA Not Available Not Available Not Available methylpre dnisolone 4 mg tablets in a dose pack ORALLY PER PACKAGE DIRECTIO NS 03/20 completed no longer take Not Available Not Available Not Available ipratropi um bromide 42 mcg (0.06 %) nasal spray USE 2 SPRAY(S) IN EACH NOSTRIL TWICE DAILY TO THREE TIMES DAILY 11/28 completed Not Available Not Available Not Available pioglitaz one 30 mg tablet TAKE 1 TABLET BY MOUTH ONCE DAILY active Not Available Not Available No t Available carbidopa 25 mg-levodo pa 100 mg tablet 08/31 completed Not Available Not Available Not Available ondansetr on 4 mg disintegr ating tablet DISSOLVE 1 TABLET IN MOUTH EVERY 6 HOURS NEEDED FOR NAUSEA 11/28 completed Not Available Not Available Not Available losartan 100 mg tablet TAKE 1 TABLET BY MOUTH ONCE DAILY 05/15 completed Not Available Not Available Not Available fluticaso ne propionat e 50 mcg/actua tion nasal spray,nancy pension USE 1 TO 2 SPRAY(S) IN EACH NOSTRIL TWICE DAILY active Not Available Not Available No t Available dicyclomi ne 10 mg capsule TAKE 1 CAPSULE BY MOUTH THREE TIMES DAILY 11/15 completed Not Available Not Available Not Available vitamin E 268 mg (400 unit) capsule Take every day by oral route. 03/20 completed pt take 1 tab 670 mg every 24 hours ; MA 04/15/18 Not Available Not Available Not Available sulindac 200 mg tablet TAKE 1 TABLET BY MOUTH TWICE DAILY 11/15 completed Not Available Not Available Not Available metoclopr amide 10 mg tablet 08/31 completed Not Available Not Available Not Available amoxicill in 875 mg-potass ium clavulana te 125 mg tablet TAKE 1 TABLET BY MOUTH TWICE DAILY 03/20 completed no longer take Not Available Not Available Not Available tobramyci n 0.3 %-dexamet hasone 0.1 % eye drops,nancy pension 08/31 completed Not Available Not Available Not Available cholestyr amine (with sugar) 4 gram oral powder 01/11 completed pt not taking 01/12/20 Not Available Not Available Not Available potassium chloride ER 10 mEq tablet,ex tended release(p art/cryst ) TAKE 1 TABLET BY MOUTH TWICE DAILY active Not Available Not Available No t Available Flovent HFA 110 mcg/actua tion aerosol inhaler active Not Available Not Available Not Available estradiol 0.5mg qd 09/20 completed Not Available Not Available Not Available Gas Relief (simethic one) prn 04/17 completed Not Available Not Available Not Available Cholestyr amine 4gm qd 07/14 completed Not Available Not Available Not Available Vitamin D 2000ui qd 04/17 completed No longer take it 04/15/18 ; MA Not Available Not Available Not Available Klor-Con 10 bid 07/14 completed Not Available Not Available Not Available Vitamin D3 03/20 completed pt take 1 tab 25 mg every 24 hours ; MA 04/15/18 Not Available Not Available Not Available ranolazin e ER 500 mg tablet,ex tended release,1 2 hr TAKE 1 TABLET BY MOUTH TWICE DAILY active Not Available Not Available No t Available Januvia 100 mg tablet 09/02 completed Not Available Not Available Not Available hydrochlo rothiazid e 12.5 mg tablet Take 1 tablet every day by oral route. 05/15 completed Pt is holding until after potassiu m levels are up Not Available Not Available Not Available Ranexa 1,000 mg tablet,ex tended release Take 1 tablet twice a day by oral route. 11/03 completed 0.5 tab qd Not Available Not Available Not Available diclofena c 1 % topical gel APPLY 4 GRAMS TOPICALL Y TO AFFECTED AREA 4 TIMES DAILY active Not Available Not Available No t Available levothyro xine 25 mcg capsule Take 1 capsule every day by oral route. 07/14 completed Not Available Not Available Not Available B12 03/20 completed Pt take 1 tab 500 MCG every 24 hours : 04/15/18 : MA Not Available Not Available Not Available Jennifer Allergy 180 mg tablet Take 1 tablet every day by oral route. 09/02 completed Not Available Not Available Not Available Jennifer Allergy PRN active Not Available Not Available Not Available potassium chloride ER 20 mEq tablet,ex tended release 20 mEQ tid 05/15/2207/18 completed Not Available Not Available Not Available Trulicity 0.75 mg/0.5 mL subcutane ous pen injector inj q 07/14 completed Not Available Not Available Not Available Asmanex HFA 200 mcg/actua tion aerosol inhaler 11/28 completed Not Available Not Available Not Available Fish Oil 1,000 mg (120 mg-180 mg) capsule Take 2 capsules twice a day by oral route. active Not Available Not Available No t Available Paxlovid 300 mg (150 mg x 2)-100 mg tablets in a dose pack TAKE 3 TABLETS TOGETHER (TWO 150 MG NIRMATRE LVIR TABLETS AND ONE 100 MG RITONAVI R TABLET) BY MOUTH TWICE DAILY FOR 5 DAYS. active Not Available Not Available No t Available Vitals Date Recorded Body height Body mass index (BMI) Body weight Heart rate Respiratory rate Oxygen saturation Oxygen saturation in Arterial blood by Pulse oximetry Systolic And Diastolic Provider Name and Address Organization Details Last Updated DateTime 3 157.48 cm 30 kg/m2 58904.1 5 g 82 /min 16 /min 98 % 98 % 118/82 mm[Hg] Martínez [facility] 3 15:11:38 Date Recorded Body height Body mass index (BMI) Body weight Heart rate Oxygen saturation Oxygen saturation in Arterial blood by Pulse oximetry Systolic And Diastolic Provider Name and Address Organization Details Last Updated DateTime 3 157.48 cm 30.5 kg/m2 35552.9 3 g 71 /min 98 % 98 % 123/66 mm[Hg] Anuja Rod [facility] 3 15:11:48 Date Recorded Body height Body mass index (BMI) Body weight Heart rate Respiratory rate Oxygen saturation Oxygen saturation in Arterial blood by Pulse oximetry Systolic And Diastolic Provider Name and Address Organization Details Last Updated DateTime 3 157.48 cm 30.9 kg/m2 66546.1 1 g 63 /min 16 /min 97 % 97 % 118/68 mm[Hg] Martínez Carter [facility] 3 12:55:21 Date Recorded Body height Body mass index (BMI) Body weight Heart rate Oxygen saturation Oxygen saturation in Arterial blood by Pulse oximetry Systolic And Diastolic Provider Name and Address Organization Details Last Updated DateTime 3 157.48 cm 30.7 kg/m2 62664.5 2 g 59 /min 98 % 98 % 104/58 mm[Hg] Zonia Wyman [facility] 3 10:57:28 Date Recorded Body height Body mass index (BMI) Body weight Oxygen saturation Oxygen saturation in Arterial blood by Pulse oximetry Heart rate Systolic And Diastolic Provider Name and Address Organization Details Last Updated DateTime 3 157.48 cm 28.8 kg/m2 37149.7 2 g 96 % 96 % 66 /min 118/60 mm[Hg] WILLIAMS MILLER [facility] 3 15:46:38 Social History None recorded. Functional Status None recorded. Mental Status None recorded. Family History Relationship Description Onset Age of this Age Resolved Age Notes LastModified by Organization Details LastModified Time Mother Myocardial infarction [email or web address] Not available 09/05 12:15:49 Mother Essential hypertension [email or web address] Not available 12:16:21 Father Diabetes mellitus [email or web address] Not available 2015 12:16:07 Father Essential hypertension [email or web address] Not available 12:16:21 Medical History Condition Response Diabetes Y Hyperlipidemia Y Hypertension Y Sleep Apnea Y GERD/Reflux Y Gynecological HistoryNo gynecological history recorded. Obstetrics History GPAL:G 0 P 0 0 0 0 Past Encounters Encounter ID Performer Location Encounter Start Date Encounter Closed Date Diagnosis/Indication Diagnosis SNOMED-CT Code Diagnosis ICD10 Code Diagnosis IMO Codes Diagnosis Note [id number] MD Tha Appiah e Office [address] [place] [address] 09/06/2015 11:42:04 09/08/2015 14:28:27 Hypertensive disorder 50261396 I10 ELevated at the office, controlled at home. Currently elevated, however controlled at home, continue to check bp at home. Will consider to adjust bp meds if bp is consistent ly elevated. Dyspnea 424018096 R06.00 SHe has hx of HTN for 10 years and DM, she has EDWARDS and TWI in precordial leads. cardiac cath showed normal coronaries . Start on intermitte nt lasix as needed for weight gain and LE edema and evaluate clinical response, check echo to evaluate for valve function and diastolic function. Asa 81 mg po daily [id number] MD Tha [facility] e Office [address] [place] [address] 09/13/2015 14:56:35 09/13/2015 16:47:27 Hypertensive disorder 54078395 I10 Dyspnea 171011720 R06.00 SHe has hx of HTN for 10 years and DM, she has EDWARDS and TWI in precordial leads. cardiac cath showed normal coronaries . [id number] Elsy Zhang MD [facility] [address] [place] [address] 09/21/2015 13:09:31 09/21/2015 17:42:34 Hypertensive disorder 20537062 I10 controlled . Dyspnea 193393897 R06.00 Echo with normal LV systolic function, stage II ddx and no pulmonary HTN, she is not a smokerHer symptoms are fairly new for the last 3 months.Ref er to pulmonary and PFT Chest pain 87758205 R07. 9 with normal coronaries recently, echo showed normal LV systolic dysfunctio n and stage II DDx.She is already on nitrates and BB and oral lasixAdd sublingual and test if improves her symptoms. Palpitations 39757012 R0 0.2 Holter monitor [id number] Howard Herbert MD [facility] [address] [place] [address] 04/03/2016 15:44:07 04/04/2016 14:10:11 Chest pain 04643191 R07.9 Resolved since initiation of CPAP. With normal coronaries recently, echo showed normal LV systolic dysfunctio n and stage II diastolic dysfunctio n.She is already on nitrates and BB and oral Bumex.Cons ider addition of ASA 81mg qd for primary prevention given cardiac high risk factors. Hypertensive disorder 38 298493 I10 Patient's blood pressure is well-contr olled on present medical therapy. Patient is tolerating , without difficulty , the current medication s. I have not made changes to the current regimen. Patient was advised to eat a low-sodium diet (2 grams sodium or less daily). Dyspnea 290188348 R06.00 Resolved since initiation of CPAP. Echo with normal LV systolic function, Grade 2 diastolic dysfunctio n, and no pulmonary HTN, she is not a smoker. Palpitations 29996924 R0 0.2 Resolved. Holter monitor unremarkab le. TSH normal. Diabetes mellitus 072039 09 E11.59 Discussed importance of tight glycemic control to minimize cardiovasc ular disease progressio n. [id number] Howard Herbert MD [facility] [place] [address] 09/02/2016 10:44:46 09/03/2016 08:48:05 Hypertensive disorder 56164121 I10 Patient's blood pressure is well-contr olled on present medical therapy. Patient is tolerating , without difficulty , the current medication s. I have not made changes to the current regimen. Patient was advised to eat a low-sodium diet (2 grams sodium or less daily). Chest pain 72878193 R07. 9 Resolved since initiation of CPAP. With normal coronaries recently, echo showed normal LV systolic dysfunctio n and stage II diastolic dysfunctio n.She is already on nitrates and BB and oral Bumex.Cons ider addition of ASA 81mg qd for primary prevention given cardiac high risk factors. Dyspnea 846362658 R06.00 Pt has Dyspnea with Exertion and Exertion when bending over. EDWARDS improves as she continues to walk. Echo with normal LV systolic function, Grade 2 diastolic dysfunctio n, and no pulmonary HTN. She is not a smoker. Increase exercise with walking. Palpitations 49339754 R0 0.2 Resolved. Holter monitor unremarkab le. TSH normal. Diabetes mellitus 753980 09 E11.59 Discussed importance of tight glycemic control to minimize cardiovasc ular disease progressio n. Obstructiv e sleep apnea syndrome 08519419 G47.33 Tolerating CPAP. Continue. [id number] Howard Herbert MD [facility] [address] [place] [address] 12/02/2016 10:19:23 12/03/2016 11:33:56 Hypertensive disorder 74606567 I10 Patient's blood pressure is well-contr olled on present medical therapy. Patient is tolerating , without difficulty , the current medication s. I have not made changes to the current regimen. Patient was advised to eat a low-sodium diet (2 grams sodium or less daily). Chest pain 07940814 R07. 9 Atypical. Improved since initiation of CPAP. With normal coronaries recently, echo showed normal LV systolic dysfunctio n and stage II diastolic dysfunctio n.She is already on nitrates and BB and oral Bumex.Cont inue ASA 81mg qd for primary prevention given cardiac high risk factors. Dyspnea 106164591 R06.00 Pt had Dyspnea with Exertion and Exertion when bending over. EDWARDS improved as she continues to walk. Echo with normal LV systolic function, Grade 2 diastolic dysfunctio n, and no pulmonary HTN. She is not a smoker. Increase exercise with walking. Palpitations 88285580 R0 0.2 Resolved. Holter monitor unremarkab le. TSH normal. Obstructiv e sleep apnea syndrome 21121377 G47.33 Tolerating CPAP. Continue. Diabetes mellitus 671340 E11.59 Discussed importance of tight glycemic control to minimize cardiovasc ular disease progressio n. [id number] Howard Herbert MD [facility] [address] [place] [address] 04/23/2017 11:03:16 04/23/2017 15:55:50 Hypertensive disorder 18880053 I10 Patient's blood pressure is well-contr olled on present medical therapy. Patient is tolerating , without difficulty , the current medication s. I have not made changes to the current regimen. Patient was advised to eat a low-sodium diet (2 grams sodium or less daily). Chest pain 80211697 R07. 9 Atypical. Previously Improved since initiation of CPAP. With normal coronaries on prior [facility] 08/2015, echo showed normal LV systolic dysfunctio n and stage II diastolic dysfunctio n.She is already on nitrates and BB and oral Bumex.Cont inue ASA 81mg qd for primary prevention given cardiac high risk factors. Patient presents with chest pain with atypical features and exertional dyspnea which can be an anginal equivalent . Given the history, exam findings and high cardiac risk factors, I feel additional investigat ion is warranted. I have made arrangemen ts in the near future for a [facility] stress nuclear test due to reduced functional capacity or conduction abnormalit y. The procedure was discussed with the patient, and risks, benefits, and alternativ e options were explained. Appropriat e labwork has not been performed recently, therefore I have made arrangemen ts for further testing: CMP, Mg, FLP. I hav,e asked the patient to curtail exercise and activities until our investigat ion is complete. I have made the following adjustment s to the present medical regimen. Patient has been given a prescripti on for sublingual nitroglyce rin. Dyspnea 955193632 R06.00 Increased exertional dyspnea. Echo with normal LV systolic function, Grade 2 diastolic dysfunctio n, and no pulmonary HTN. She is not a smoker. Increased to Bumex 1mg bid from 1 mg qd 04/23/17. CMP in 5 days. Call if wt gain 4 lbs. Palpitations 49351013 R0 0.2 Resolved. Holter monitor unremarkab le. TSH normal. Obstructiv e sleep apnea syndrome 04345909 G47.33 Tolerating CPAP. Continue. Diabetes mellitus 416990 09 E11.59 Discussed importance of tight glycemic control to minimize cardiovasc ular disease progressio n. 82016 Howard Herbert MD [facility] [address] [place] [address] 2017 12:10:23 2017 17:26:46 Chest pain 50987730 R07.9 Atypical. May be related to HF-pEF with grade 2 diastolic dysfunctio n on recent echo. Had CTA chest 04/19/17: no PE; small pleural effusions with bilateral dependent atelectasi s. Previously Improved since initiation of CPAP. With normal coronaries on prior [facility] 08/2015, echo showed normal LV systolic dysfunctio n and stage II diastolic dysfunctio n.She is already on nitrates and BB and oral Bumex.Cont inue ASA 81mg qd for primary prevention given cardiac high risk factors. Patient presents with chest pain with atypical features and exertional dyspnea which can be an anginal equivalent . Given the history, exam findings and high cardiac risk factors, I feel additional investigat ion is warranted. I have made arrangemen ts in the near future for a pharmacolo gi stress nuclear test due to reduced functional capacity or conduction abnormalit y. The procedure was discussed with the patient, and risks, benefits, and alternativ e options were explained. LDL 71 (nonfastin g, 04/28/17). Hypertensive disorder 38 237437 I10 Patient's blood pressure is well-contr olled on present medical therapy. Patient is tolerating , without difficulty , the current medication s. I have not made changes to the current regimen. Patient was advised to eat a low-sodium diet (2 grams sodium or less daily). Dyspnea 096778136 R06.00 Stable exertional dyspnea. Echo with normal LV systolic function, Grade 2 diastolic dysfunctio n, and no pulmonary HTN. She is not a smoker. Changed to Bumex 1 mg bid 04/23/17 as patient thought she was taking 1 mg qd at the time, but in retrospect she was taking 2 mg qHS previously . Increased to Bumex 2mg bid 04/28/17. Increased KCl to 10 mEq bid. BMP/Mg 1 week. Call if wt gain 4 lbs or increased chest pain or dyspnea. Palpitations 50964582 R0 0.2 Resolved. Holter monitor unremarkab le. TSH normal. Obstructiv e sleep apnea syndrome 73655238 G47.33 Tolerating CPAP. Continue. Diabetes mellitus 218859 09 E11.59 Discussed importance of tight glycemic control to minimize cardiovasc ular disease progressio n. [id number] Howard Herbert MD [facility] [address] [place] [address] 05/14/2017 10:37:03 05/15/2017 10:15:15 Chest pain 03411424 R07.9 Atypical. May be related to HF-pEF with grade 2 diastolic dysfunctio n on recent echo. Had CTA chest 04/19/17: no PE; small pleural effusions with bilateral dependent atelectasi s. Previously Improved since initiation of CPAP. With normal coronaries on prior [facility] 08/2015, echo showed normal LV systolic dysfunctio n and stage II diastolic dysfunctio n. Had Lexiscan Cardiolite Stress Test 04/30/17 : Negative lexiscan stress test for ischemia. Normal LV systolic function Adequate stress with lexiscan. Abnormal stress test. Artifact noted. No previous study to compare. LVEF >60%. She is already on nitrates and BB and oral Bumex.Cont inue ASA 81mg qd for primary prevention given cardiac high risk factors. Had LDL 71 (nonfastin g, 04/28/17). Pt to f/u with PCP and GI with history of GERD. Hypertensive disorder 38 023434 I10 Patient's blood pressure is well-contr olled on present medical therapy. Patient is tolerating , without difficulty , the current medication s. I have not made changes to the current regimen. Patient was advised to eat a low-sodium diet (2 grams sodium or less daily). Dyspnea 171236012 R06.00 Stable exertional dyspnea. Echo with normal LV systolic function, Grade 2 diastolic dysfunctio n, and no pulmonary HTN. She is not a smoker. Changed to Bumex 1 mg bid 04/23/17 as patient thought she was taking 1 mg qd at the time, but in retrospect she was taking 2 mg qHS previously . Increased to Bumex 2mg bid 04/28/17. Increased KCl to 10 mEq bid. BMP/Mg 1 week. Call if wt gain 4 lbs or increased chest pain or dyspnea. Had PFT [facility]. [facility] 1 year ago per sleep MD and pt to f/u with pulm. Palpitations 76414225 R0 0.2 Intermitte nt. Holter monitor unremarkab le 2015. TSH normal. Repeat 24 Hr Holter. Obstructiv e sleep apnea syndrome 75404595 G47.33 Tolerating CPAP. Continue. Diabetes mellitus 414966 09 E11.59 Discussed importance of tight glycemic control to minimize cardiovasc ular disease progressio n. [id number] Howard Herbert MD [facility] [address] [place] [address] 07/14/2017 15:45:31 07/15/2017 13:07:15 Chest pain 46977260 R07.9 Atypical. May be related to HF-pEF with grade 2 diastolic dysfunctio n on recent echo. Had CTA chest 04/19/17: no PE; small pleural effusions with bilateral dependent atelectasi s. Previously Improved since initiation of CPAP. With normal coronaries on prior [facility] 08/2015, echo showed normal LV systolic dysfunctio n and stage II diastolic dysfunctio n. Had Lexiscan Cardiolite Stress Test 04/30/17 : Negative lexiscan stress test for ischemia. Normal LV systolic function Adequate stress with lexiscan. Abnormal stress test. Artifact noted. No previous study to compare. LVEF >60%. She is already on nitrates and BB and oral Bumex.Cont inue ASA 81mg qd for primary prevention given cardiac high risk factors. Had LDL 71 (nonfastin g, 04/28/17). Pt to f/u with PCP and GI with history of GERD, with doubling of pantoprazo le per PCP 06/2017. Consider amlodipine . For possible microvascu lar disease with DM, began Ranexa 500 mg bid 07/14/17. Had normal TSH 06/2017. Consider coronary CTA pending response to Ranexa. Hypertensive disorder 38 223617 I10 Patient's blood pressure is well-contr olled on present medical therapy. Patient is tolerating , without difficulty , the current medication s. I have not made changes to the current regimen. Patient was advised to eat a low-sodium diet (2 grams sodium or less daily). Dyspnea 785663549 R06.00 Stable limiting exertional dyspnea. Echo with normal LV systolic function, Grade 2 diastolic dysfunctio n, and no pulmonary HTN. She is not a smoker. Changed to Bumex 1 mg bid 04/23/17 as patient thought she was taking 1 mg qd at the time, but in retrospect she was taking 2 mg qHS previously . Increased to Bumex 2mg bid 04/28/17. Increased KCl to 10 mEq bid. BMP/Mg good. Call if wt gain 4 lbs or increased chest pain or dyspnea. Pt to f/u with pulm. Dr. Hearn. Palpitations 60598239 R0 0.2 Intermitte nt. Holter monitor unremarkab le 2015. TSH normal. Had Zio Monitor on 05/27/17: Unremarkab le holter, Rare PVC's but not correlated with symptoms, Symptoms of chest pain, fluttering and dyspnea correlated with normal sinus rhythm. Obstructiv e sleep apnea syndrome 48724293 G47.33 Tolerating CPAP. Continue. Managed per Dr. Hearn with lowering of pressure to 7 mm Hg 06/2017, with improvemen t. Diabetes mellitus 078956 09 E11.59 Discussed importance of tight glycemic control to minimize cardiovasc ular disease progressio n. [id number] Howard Herbert MD [facility] [address] [place] [address] 07/28/2017 10:21:38 07/29/2017 09:21:29 Chest pain 37615745 R07.9 Atypical. May be related to HF-pEF with grade 2 diastolic dysfunctio n on recent echo. Had CTA chest 04/19/17: no PE; small pleural effusions with bilateral dependent atelectasi s. Previously Improved since initiation of CPAP. With normal coronaries on prior [facility] 08/2015, echo showed normal LV systolic dysfunctio n and stage II diastolic dysfunctio n. Had Lexiscan Cardiolite Stress Test 04/30/17 : Negative lexiscan stress test for ischemia. Normal LV systolic function Adequate stress with lexiscan. Abnormal stress test. Artifact noted. No previous study to compare. LVEF >60%. She is already on nitrates and BB and oral Bumex. Continue ASA 81mg qd for primary prevention given cardiac high risk factors. Had LDL 71 (nonfastin g, 04/28/17). Pt to f/u with PCP and GI with history of GERD, with doubling of pantoprazo le per PCP 06/2017. Consider amlodipine . For possible microvascu lar disease with DM, began Ranexa 500 mg bid 07/14/17, with marked improvemen t in chest pain. Increased to Ranexa 1000 mg bid 07/28/17. She is PAIN FREE after starting Ranexa. Had normal TSH 06/2017. Consider coronary CTA pending response to Ranexa. Hypertensive disorder 38 997758 I10 Patient's blood pressure is well-contr olled on present medical therapy. Patient is tolerating , without difficulty , the current medication s. I have not made changes to the current regimen. Patient was advised to eat a low-sodium diet (2 grams sodium or less daily). Dyspnea 450584727 R06.00 Improved exertional dyspnea with increased walking. Echo with normal LV systolic function, Grade 2 diastolic dysfunctio n, and no pulmonary HTN. She is not a smoker. Changed to Bumex 1 mg bid 04/23/17 as patient thought she was taking 1 mg qd at the time, but in retrospect she was taking 2 mg qHS previously . Increased to Bumex 2mg bid 04/28/17. Increased KCl to 10 mEq bid. BMP/Mg good. Call if wt gain 4 lbs or increased chest pain or dyspnea. Pt to f/u with pulm. Dr. Hearn. Palpitations 55987168 R0 0.2 Intermitte nt. Holter monitor unremarkab le 2015. TSH normal. Had Zio Monitor on 05/27/17: Unremarkab le holter, Rare PVC's but not correlated with symptoms, Symptoms of chest pain, fluttering and dyspnea correlated with normal sinus rhythm. Obstructiv e sleep apnea syndrome 28571212 G47.33 Tolerating CPAP. Continue. Managed per Dr. Hearn with lowering of pressure to 7 mm Hg 06/2017, with improvemen t. Diabetes mellitus 772093 09 E11.59 Discussed importance of tight glycemic control to minimize cardiovasc ular disease progressio n. Needs to keep LDL less than 70, and HDL more than 40. Had LDL 71 04/2017. Consider statin if repeat LDL elevated in 3 months. 13877 Howard Herbert MD [facility] [address] [place] [address] 11/03/2017 10:43:11 03/20/2018 10:41:50 Chest pain 94458334 R07.9 Atypical. May be related to HF-pEF with grade 2 diastolic dysfunctio n on recent echo. Had CTA chest 04/19/17: no PE; small pleural effusions with bilateral dependent atelectasi s. Previously Improved since initiation of CPAP. With normal coronaries on prior [facility] 08/2015, echo showed normal LV systolic dysfunctio n and stage II diastolic dysfunctio n. Had Lexiscan Cardiolite Stress Test 04/30/17: Negative lexiscan stress test for ischemia. Normal LV systolic function Adequate stress with lexiscan. Abnormal stress test. Artifact noted. No previous study to compare. LVEF >60%. She is already on nitrates and BB and oral Bumex. Continue ASA 81mg qd for primary prevention given cardiac high risk factors. Had LDL 71 (nonfastin g, 04/28/17). Pt to f/u with PCP and GI with history of GERD, with doubling of pantoprazo le per PCP 06/2017. Consider amlodipine . For possible microvascu lar disease with DM, began Ranexa 500 mg bid 07/14/17, with marked improvemen t in chest pain. Increased to Ranexa 1000 mg bid 07/28/17 but patient had dizziness so returned to 500 mg bid. She is PAIN FREE after starting Ranexa. Had normal TSH 06/2017. 11/03/17 Patient has been taking Ranexa 500 mg BID with rare chest pain symptoms. She could not tolerate 1000 mg BID due to lightheadn ess/dizzin ess and she fell breaking her right ankle. Consider coronary CTA pending response to Ranexa. Hypertensive disorder 38 051072 I10 Patient's blood pressure is well-contr olled on present medical therapy. Patient is tolerating , without difficulty , the current medication s. I have not made changes to the current regimen. Patient was advised to eat a low-sodium diet (2 grams sodium or less daily). Dyspnea 228105185 R06.00 Improved exertional dyspnea with increased walking. Echo with normal LV systolic function, Grade 2 diastolic dysfunctio n, and no pulmonary HTN. She is not a smoker. Changed to Bumex 1 mg bid 04/23/17 as patient thought she was taking 1 mg qd at the time, but in retrospect she was taking 2 mg qHS previously . Increased to Bumex 2mg bid 04/28/17. Increased KCl to 10 mEq bid. BMP/Mg good. Decreased to Bumex 1 mg bid 11/03/17 for increased Cr. Call if wt gain 4 lbs or increased chest pain or dyspnea. Pt to f/u with pulm. Dr. Hearn. Palpitations 90349164 R0 0.2 Resolved. Holter monitor unremarkab le 2015. TSH normal. Had Zio Monitor on 05/27/17: Unremarkab le holter, Rare PVC's but not correlated with symptoms, Symptoms of chest pain, fluttering and dyspnea correlated with normal sinus rhythm. Obstructiv e sleep apnea syndrome 62237265 G47.33 Tolerating CPAP. Continue. Managed per Dr. Hearn with lowering of pressure to 7 mm Hg 06/2017, with improvemen t. Diabetes mellitus 181404 09 E11.59 Discussed importance of tight glycemic control to minimize cardiovasc ular disease progressio n. Needs to keep LDL less than 70, and HDL more than 40. Had LDL 71 04/2017. Consider statin if repeat LDL elevated in 3 months. Dyslipidemia 870464214 E 78.5 Had LDL 105. Needs to keep LDL less than 70, and HDL more than 40. Began atorvastat in 20 mg 11/03/17. FLP 1 mo. [id number] Howard Herbert MD [facility] [address] [place] [address] 12/08/2017 10:58:10 12/08/2017 12:09:36 Chest pain 53056929 R07.9 Atypical. May be related to HF-pEF with grade 2 diastolic dysfunctio n on recent echo. Had CTA chest 04/19/17: no PE; small pleural effusions with bilateral dependent atelectasi s. Previously Improved since initiation of CPAP. With normal coronaries on prior [facility] 08/2015, echo showed normal LV systolic dysfunctio n and stage II diastolic dysfunctio n. Had Lexiscan Cardiolite Stress Test 04/30/17: Negative lexiscan stress test for ischemia. Normal LV systolic function Adequate stress with lexiscan. Abnormal stress test. Artifact noted. No previous study to compare. LVEF >60%. She is already on nitrates and BB and oral Bumex. Continue ASA 81mg qd for primary prevention given cardiac high risk factors. Had LDL 71 (nonfastin g, 04/28/17). Pt to f/u with PCP and GI with history of GERD, with doubling of pantoprazo le per PCP 06/2017. Consider amlodipine . For possible microvascu lar disease with DM, began Ranexa 500 mg bid 07/14/17, with marked improvemen t in chest pain. Increased to Ranexa 1000 mg bid 07/28/17 but patient had dizziness so returned to 500 mg bid. She is PAIN FREE after starting Ranexa. Had normal TSH 06/2017. 11/03/17 Patient has been taking Ranexa 500 mg BID with rare chest pain symptoms. She could not tolerate 1000 mg BID due to lightheadn ess/dizzin ess and she fell breaking her right ankle. Obtain cardiac CTA to evaluate for CAD in light of consistent exertional chest pain after walking 1 mile. Discussed risk of worsening renal function with patient. Hypertensive disorder 38 027556 I10 Patient's blood pressure is well-contr olled on present medical therapy. Patient is tolerating , without difficulty , the current medication s. I have not made changes to the current regimen. Patient was advised to eat a low-sodium diet (2 grams sodium or less daily). Dyspnea 851559509 R06.00 Reports slightly improved exertional dyspnea with increased walking. Echo with normal LV systolic function, Grade 2 diastolic dysfunctio n, and no pulmonary HTN. She is not a smoker. Changed to Bumex 1 mg bid 04/23/17 as patient thought she was taking 1 mg qd at the time, but in retrospect she was taking 2 mg qHS previously . Increased to Bumex 2mg bid 04/28/17. Increased KCl to 10 mEq bid. BMP/Mg good. Decreased to Bumex 1 mg bid 11/03/17 for increased Cr. Call if wt gain 4 lbs or increased chest pain or dyspnea. Pt to f/u with pulm. Dr. Hearn. Palpitations [id number] R0 0.2 Resolved. Holter monitor unremarkab le 2015. TSH normal. Had Zio Monitor on 05/27/17: Unremarkab le holter, Rare PVC's but not correlated with symptoms, Symptoms of chest pain, fluttering and dyspnea correlated with normal sinus rhythm. Obstructiv e sleep apnea syndrome [id number] G47.33 Tolerating CPAP. Continue. Managed per Dr. Hearn with lowering of pressure to 7 mm Hg 06/2017, with deisymen tAaliyah Diabetes mellitus [id number] 09 E11.59 Discussed importance of tight glycemic control to minimize cardiovasc ular disease progressio n. Needs to keep LDL less than 70, and HDL more than 40. Had LDL 71 04/2017. Consider statin if repeat LDL elevated in 3 months. Dyslipidemia [id number] E 78.5 Had LDL 105. Needs to keep LDL less than 70, and HDL more than 40. Began atorvastat in 20 mg 11/03/17. FLP 1 mo with LDL 50 12/02/17. [id number] Anuel Albright MD [facility] [address] [place] [address] 12/22/2017 12:06:51 12/22/2017 13:59:37 [id number] Howard Herbert MD [facility] [address] [place] [address] 01/05/2018 10:56:04 01/05/2018 12:07:27 Chest pain [id number] R07.9 Atypical. May be related to HF-pEF with grade 2 diastolic dysfunctio n on recent echo. Had CTA chest 04/19/17: no PE; small pleural effusions with bilateral dependent atelectasi s. Previously Improved since initiation of CPAP. With normal coronaries on prior [facility] 08/2015, echo showed normal LV systolic dysfunctio n and stage II diastolic dysfunctio n. Had Lexiscan Cardiolite Stress Test 04/30/17: Negative lexiscan stress test for ischemia. Normal LV systolic function Adequate stress with lexiscan. Abnormal stress test. Artifact noted. No previous study to compare. LVEF >60%. She is already on nitrates and BB and oral Bumex. Continue ASA 81mg qd for primary prevention given cardiac high risk factors. Had LDL 71 (nonfastin g, 04/28/17). Pt to f/u with PCP and GI with history of GERD, with doubling of pantoprazo le per PCP 06/2017. Consider amlodipine . For possible microvascu lar disease with DM, began Ranexa 500 mg bid 07/14/17, with marked improvemen t in chest pain. Increased to Ranexa 1000 mg bid 07/28/17 but patient had dizziness so returned to 500 mg bid. She is PAIN FREE after starting Ranexa. Had normal TSH 06/2017. 11/03/17 Patient has been taking Ranexa 500 mg BID with rare chest pain symptoms. She could not tolerate 1000 mg BID due to lightheadn ess/dizzin ess and she fell breaking her right ankle. Obtain cardiac CTA to evaluate for CAD in light of consistent exertional chest pain after walking 1 mile. Had Cardiac CTA done in 12/22/17 showed Mild coronary artery disease (<25% stenosis in LAD, diagonal, LCx, RCA, LVEF 60%). Hypertensive disorder 38 148739 I10 Patient's blood pressure is well-contr olled on present medical therapy. Patient is tolerating , without difficulty , the current medication s. I have not made changes to the current regimen. Patient is advised to maintain a blood pressure diary. Patient was advised to eat a low-sodium diet (2 grams sodium or less daily). Dyspnea [id number] R06.00 Reports stable to somewhat worsening exertional dyspnea with increased walking. Echo with normal LV systolic function, Grade 2 diastolic dysfunctio n, and no pulmonary HTN. She is not a smoker. Changed to Bumex 1 mg bid 04/23/17 as patient thought she was taking 1 mg qd at the time, but in retrospect she was taking 2 mg qHS previously . Increased to Bumex 2mg bid 04/28/17. Increased KCl to 10 mEq bid. BMP/Mg good. Decreased to Bumex 1 mg bid 11/03/17 for increased Cr. Call if wt gain 4 lbs or increased chest pain or dyspnea. 20 lb. weight loss recommende d over the next 2 months. Pt to f/u with pulm. Dr. Hearn. Palpitations [id number] R0 0.2 Resolved. Holter monitor unremarkab le 2015. TSH normal. Had Zio Monitor on 05/27/17: Unremarkab le holter, Rare PVC's but not correlated with symptoms, Symptoms of chest pain, fluttering and dyspnea correlated with normal sinus rhythm. Obstructiv e sleep apnea syndrome [id number] G47.33 Tolerating CPAP. Continue. Managed per Dr. Hearn with lowering of pressure to 7 mm Hg 06/2017, with improvemen t. Diabetes mellitus 232002 09 E11.59 Discussed importance of tight glycemic control to minimize cardiovasc ular disease progressio n. Needs to keep LDL less than 70, and HDL more than 40. Had LDL 71 04/2017. Consider statin if repeat LDL elevated in 3 months. Dyslipidemia [id number] E 78.5 Had LDL 105. Needs to keep LDL less than 70, and HDL more than 40. Began atorvastat in 20 mg 11/03/17. FLP 1 mo with LDL 55 12/28/17. Coronary arteriosclerosis 30741924 I25.10 Mild. Had Cardiac CTA done in 12/22/17 showed Mild coronary artery disease (<25% stenosis in LAD, diagonal, LCx, RCA, LVEF 60%). Needs to keep LDL less than 70, and HDL more than 40. [id number] Howard Herbert MD [address] [place] [address] 04/15/2018 14:17:33 04/15/2018 16:20:26 Coronary arteriosclerosis [id number] I25.10 Mild. Had Cardiac CTA done in 12/22/17 showed Mild coronary artery disease (<25% stenosis in LAD, diagonal, LCx, RCA, LVEF 60%). Needs to keep LDL less than 70, and HDL more than 40. Chest pain [id number] R07. 9 Improved. Atypical. May be related to HF-pEF with grade 2 diastolic dysfunctio n on recent echo. Had CTA chest 04/19/17: no PE; small pleural effusions with bilateral dependent atelectasi s. Previously Improved since initiation of CPAP. With normal coronaries on prior [facility] 08/2015, echo showed normal LV systolic dysfunctio n and stage II diastolic dysfunctio n. Had Lexiscan Cardiolite Stress Test 04/30/17: Negative lexiscan stress test for ischemia. Normal LV systolic function Adequate stress with lexiscan. Abnormal stress test. Artifact noted. No previous study to compare. LVEF >60%. She is already on nitrates and BB and oral Bumex. Continue ASA 81mg qd for primary prevention given cardiac high risk factors. Had LDL 71 (nonfastin g, 04/28/17). Pt to f/u with PCP and GI with history of GERD, with doubling of pantoprazo le per PCP 06/2017. Consider amlodipine . For possible microvascu lar disease with DM, began Ranexa 500 mg bid 07/14/17, with marked improvemen t in chest pain. Increased to Ranexa 1000 mg bid 07/28/17 but patient had dizziness so returned to 500 mg bid. She is PAIN FREE after starting Ranexa. Had normal TSH 06/2017. 11/03/17 Patient has been taking Ranexa 500 mg BID with rare chest pain symptoms. She could not tolerate 1000 mg BID due to lightheadn ess/dizzin ess and she fell breaking her right ankle. Obtain cardiac CTA to evaluate for CAD in light of consistent exertional chest pain after walking 1 mile. Had Cardiac CTA done in 12/22/17 showed Mild coronary artery disease (<25% stenosis in LAD, diagonal, LCx, RCA, LVEF 60%). Hypertensive disorder 38 930716 I10 Patient's blood pressure is well-contr olled on present medical therapy. Patient is tolerating , without difficulty , the current medication s. I have not made changes to the current regimen. Patient is advised to maintain a blood pressure diary. Patient was advised to eat a low-sodium diet (2 grams sodium or less daily). Dyspnea [id number] R06.00 Reports stable to improving exertional dyspnea with increased walking. Echo with normal LV systolic function, Grade 2 diastolic dysfunctio n, and no pulmonary HTN. She is not a smoker. Changed to Bumex 1 mg bid 04/23/17 as patient thought she was taking 1 mg qd at the time, but in retrospect she was taking 2 mg qHS previously . Increased to Bumex 2mg bid 04/28/17. Increased KCl to 10 mEq bid. BMP/Mg good. Decreased to Bumex 1 mg bid 11/03/17 for increased Cr. Call if wt gain 4 lbs or increased chest pain or dyspnea. 20 lb. weight loss recommende d over the next 2 months. Pt to f/u with pulm. Dr. Hearn and follows with renal MD. Palpitations [id number] R0 0.2 Resolved. Holter monitor unremarkab le 2015. TSH normal. Had Zio Monitor on 05/27/17: Unremarkab le holter, Rare PVC's but not correlated with symptoms, Symptoms of chest pain, fluttering and dyspnea correlated with normal sinus rhythm. Obstructiv e sleep apnea syndrome [id number] G47.33 Tolerating CPAP. Continue. Managed per Dr. Hearn with lowering of pressure to 7 mm Hg 06/2017, with duarte lloyd Diabetes mellitus 893304 09 E11.59 Discussed importance of tight glycemic control to minimize cardiovasc ular disease progressio n. Needs to keep LDL less than 70, and HDL more than 40. Had LDL 71 04/2017. Consider statin if repeat LDL elevated in 3 months. Dyslipidemia [id number] E 78.5 Had LDL 105. Needs to keep LDL less than 70, and HDL more than 40. Began atorvastat in 20 mg 11/03/17. FLP 1 mo with LDL 55 12/28/17. [id number] Howard Herbert MD [facility] [address] [place] [address] 10/05/2018 13:46:37 10/05/2018 15:09:48 Coronary arteriosclerosis 00136853 I25.10 Mild. Had Cardiac CTA done 12/22/17 showed Mild coronary artery disease (<25% stenosis in LAD, diagonal, LCx, RCA, LVEF 60%). Needs to keep LDL less than 70, and HDL more than 40. Chest pain 46386449 R07. 9 Resolved. Atypical. May be related to HF-pEF with grade 2 diastolic dysfunctio n on recent echo. Had CTA chest 04/19/17: no PE; small pleural effusions with bilateral dependent atelectasi s. Previously Improved since initiation of CPAP. With normal coronaries on prior [facility] 08/2015, echo showed normal LV systolic dysfunctio n and stage II diastolic dysfunctio n. Had Lexiscan Cardiolite Stress Test 04/30/17: Negative lexiscan stress test for ischemia. Normal LV systolic function Adequate stress with lexiscan. Abnormal stress test. Artifact noted. No previous study to compare. LVEF >60%. She is already on nitrates and BB and oral Bumex. Continue ASA 81mg qd for primary prevention given cardiac high risk factors. Had LDL 71 (nonfastin g, 04/28/17). Pt to f/u with PCP and GI with history of GERD, with doubling of pantoprazo le per PCP 06/2017. Consider amlodipine . For possible microvascu lar disease with DM, began Ranexa 500 mg bid 07/14/17, with marked improvemen t in chest pain. Increased to Ranexa 1000 mg bid 07/28/17 but patient had dizziness so returned to 500 mg bid. She is PAIN FREE after starting Ranexa. Had normal TSH 06/2017. 11/03/17 Patient has been taking Ranexa 500 mg BID with rare chest pain symptoms. She could not tolerate 1000 mg BID due to lightheadn ess/dizzin ess and she fell breaking her right ankle. Obtained cardiac CTA to evaluate for CAD in light of consistent exertional chest pain after walking 1 mile. Had Cardiac CTA done in 12/22/17 showed Mild coronary artery disease (<25% stenosis in LAD, diagonal, LCx, RCA, LVEF 60%). Hypertensive disorder 38 320064 I10 Patient's blood pressure is well-contr olled on present medical therapy. Patient is tolerating , without difficulty , the current medication s. I have not made changes to the current regimen. Patient is advised to maintain a blood pressure diary. Patient was advised to eat a low-sodium diet (2 grams sodium or less daily). Obtain BMP, Mg. Dyspnea 311731923 R06.00 Reports stable to improving exertional dyspnea with increased walking. Echo with normal LV systolic function, Grade 2 diastolic dysfunctio n, and no pulmonary HTN. She is not a smoker. Changed to Bumex 1 mg bid 04/23/17 as patient thought she was taking 1 mg qd at the time, but in retrospect she was taking 2 mg qHS previously . Increased to Bumex 2mg bid 04/28/17. Increased KCl to 10 mEq bid. BMP/Mg good. Decreased to Bumex 1 mg bid 11/03/17 for increased Cr. Call if wt gain 4 lbs or increased chest pain or dyspnea. 20 lb. weight loss recommende d over the next 2 months. Pt to f/u with pulm. Dr. Hearn and follows with renal MD. Palpitations [id number] R0 0.2 Resolved. Holter monitor unremarkab le 2015. TSH normal. Had Zio Monitor on 05/27/17: Unremarkab le holter, Rare PVC's but not correlated with symptoms, Symptoms of chest pain, fluttering and dyspnea correlated with normal sinus rhythm. Obstructiv e sleep apnea syndrome 03648779 G47.33 Tolerating CPAP. Continue. Managed per Dr. Hearn with lowering of pressure to 7 mm Hg 06/2017, with deisymen t. Diabetes mellitus 821926 09 E11.59 Discussed importance of tight glycemic control to minimize cardiovasc ular disease progressio n. Needs to keep LDL less than 70, and HDL more than 40. Had LDL 71 04/2017. Consider statin if repeat LDL elevated in 3 months. Dyslipidemia 053246609 E 78.5 Had LDL 105. Needs to keep LDL less than 70, and HDL more than 40. Began atorvastat in 20 mg 11/03/17. FLP 1 mo with LDL 55 12/28/17. Obtain FLP. [id number] Howard Herbert MD [facility] [address] [place] [address] 04/07/2019 10:28:31 04/07/2019 11:57:03 Coronary arteriosclerosis [id number] I25.10 Mild. Had Cardiac CTA done 12/22/17 showed Mild coronary artery disease (<25% stenosis in LAD, diagonal, LCx, RCA, LVEF 60%). Needs to keep LDL less than 70, and HDL more than 40. Resumed ASA. Chest pain 61384803 R07. 9 Atypical. May be related to HF-pEF with grade 2 diastolic dysfunctio n on recent echo. Had CTA chest 04/19/17: no PE; small pleural effusions with bilateral dependent atelectasi s. Previously Improved since initiation of CPAP. With normal coronaries on prior [facility] 08/2015, echo showed normal LV systolic dysfunctio n and stage II diastolic dysfunctio n. Had Lexiscan Cardiolite Stress Test 04/30/17: Negative lexiscan stress test for ischemia. Normal LV systolic function Adequate stress with lexiscan. Abnormal stress test. Artifact noted. No previous study to compare. LVEF >60%. She is already on nitrates and BB and oral Bumex. Continue ASA 81mg qd for primary prevention given cardiac high risk factors. Pt to f/u with PCP and GI with history of GERD, with doubling of pantoprazo le per PCP 06/2017. Consider amlodipine . For possible microvascu lar disease with DM, began Ranexa 500 mg bid 07/14/17, with marked improvemen t in chest pain. Increased to Ranexa 1000 mg bid 07/28/17 but patient had dizziness so returned to 500 mg bid. 11/03/17 Patient has been taking Ranexa 500 mg BID with rare chest pain symptoms. She could not tolerate 1000 mg BID due to lightheadn ess/dizzin ess and she fell breaking her right ankle. Obtained cardiac CTA to evaluate for CAD in light of consistent exertional chest pain after walking 1 mile. Had Cardiac CTA done in 12/22/17 showed Mild coronary artery disease (<25% stenosis in LAD, diagonal, LCx, RCA, LVEF 60%). Hypertensive disorder 38 687100 I10 Patient's blood pressure is well-contr olled on present medical therapy. Patient is tolerating , without difficulty , the current medication s. I have not made changes to the current regimen. Patient is advised to maintain a blood pressure diary. Patient was advised to eat a low-sodium diet (2 grams sodium or less daily). Had 02/16/19: Cr 1.74, K 4.3, TG 221, LDL 69 (04/13/18: Cr 1.34, K 4.3). For increased BUN 28 and increased Cr to 1.74, patient needs f/u with renal Dr. Ling. Reduced Aleve/NSAI D use which she has increased in recent months. Reduced bumetanide from 1mg bid to 1 mg qd, also reduce KCl from 10 meq bid to qd 04/07/19. Call if wt gain 4 lbs or increased chest pain or dyspnea. BMP, Mg 1 mo. Dyspnea 903584973 R06.00 Reports stable to improving exertional dyspnea with increased walking. Echo with normal LV systolic function, Grade 2 diastolic dysfunctio n, and no pulmonary HTN. She is not a smoker. Call if wt gain 4 lbs or increased chest pain or dyspnea. 20 lb. weight loss recommende d over the next 2 months. Pt to f/u with pulm. Dr. Hearn and follows with renal MD. Palpitations [id number] R0 0.2 Resolved. Holter monitor unremarkab le 2015. TSH normal. Had Zio Monitor on 05/27/17: Unremarkab le holter, Rare PVC's but not correlated with symptoms, Symptoms of chest pain, fluttering and dyspnea correlated with normal sinus rhythm. Obstructiv e sleep apnea syndrome 17507807 G47.33 Tolerating CPAP. Continue. Managed per Dr. Hearn with lowering of pressure to 7 mm Hg 06/2017, with duarte lloyd Diabetes mellitus 165400 09 E11.59 Discussed importance of tight glycemic control to minimize cardiovasc ular disease progressio n. Needs to keep LDL less than 70, and HDL more than 40. Had LDL 71 04/2017. Consider statin if repeat LDL elevated in 3 months. Dyslipidemia 846483679 E 78.5 Had LDL 105. Needs to keep LDL less than 70, and HDL more than 40. Began atorvastat in 20 mg 11/03/17. FLP 1 mo with LDL 55 12/28/17. Had 02/16/19: TG 221, LDL 69 Began fish oil 2 gm bid 04/07/18. [id number] Howard Herbert MD [address] [place] [address] 09/01/2019 11:15:13 09/01/2019 12:23:16 Coronary arteriosclerosis 09094487 I25.10 Mild. Had Cardiac CTA done 12/22/17 showed Mild coronary artery disease (<25% stenosis in LAD, diagonal, LCx, RCA, LVEF 60%). Needs to keep LDL less than 70, and HDL more than 40. Resumed ASA. Chest pain 56212230 R07. 9 Atypical. Has increased burning chest pain with GERD after meals, awaiting GI follow-up. Had CTA chest 04/19/17: no PE; small pleural effusions with bilateral dependent atelectasi s. Previously Improved since initiation of CPAP. With normal coronaries on prior [facility] 08/2015, echo showed normal LV systolic dysfunctio n and stage II diastolic dysfunctio n. Had Lexiscan Cardiolite Stress Test 04/30/17: Negative lexiscan stress test for ischemia. Normal LV systolic function Adequate stress with lexiscan. Abnormal stress test. Artifact noted. No previous study to compare. LVEF >60%. She is already on nitrates and BB and oral Bumex. Continue ASA 81mg qd for primary prevention given cardiac high risk factors. Pt to f/u with PCP and GI with history of GERD, with doubling of pantoprazo le per PCP 06/2017. Consider amlodipine . For possible microvascu lar disease with DM, began Ranexa 500 mg bid 07/14/17, with marked improvemen t in chest pain. Increased to Ranexa 1000 mg bid 07/28/17 but patient had dizziness so returned to 500 mg bid. 11/03/17 Patient has been taking Ranexa 500 mg BID with rare chest pain symptoms. She could not tolerate 1000 mg BID due to lightheadn ess/dizzin ess and she fell breaking her right ankle. Obtained cardiac CTA to evaluate for CAD in light of consistent exertional chest pain after walking 1 mile. Had Cardiac CTA done in 12/22/17 showed Mild coronary artery disease (<25% stenosis in LAD, diagonal, LCx, RCA, LVEF 60%). Hypertensive disorder 38 285667 I10 Patient's blood pressure is well-contr olled on present medical therapy. Patient is tolerating , without difficulty , the current medication s. I have not made changes to the current regimen. Patient is advised to maintain a blood pressure diary. Patient was advised to eat a low-sodium diet (2 grams sodium or less daily). Had 02/16/19: Cr 1.74, K 4.3, TG 221, LDL 69 (04/13/18: Cr 1.34, K 4.3). For increased BUN 28 and increased Cr to 1.74, patient had f/u with renal Dr. Ling. Reduced Aleve/NSAI D use which she has increased in recent months. Reduced bumetanide from 1mg bid to 1 mg qd, also reduce KCl from 10 meq bid to qd 04/07/19. Call if wt gain 4 lbs or increased chest pain or dyspnea. Obtain BMP, Mg, results from 08/30/19, [facility]. Elevate legs and begin compressio n stockings. Dyspnea 231618227 R06.00 Reports stable to improving exertional dyspnea with increased walking. Echo with normal LV systolic function, Grade 2 diastolic dysfunctio n, and no pulmonary HTN. She is not a smoker. Call if wt gain 4 lbs or increased chest pain or dyspnea. 20 lb. weight loss recommende d over the next 2 months. Pt to f/u with pulm. Dr. Hearn and follows with renal MD. Palpitations [id number] R0 0.2 Resolved. Holter monitor unremarkab le 2015. TSH normal. Had Zio Monitor on 05/27/17: Unremarkab le holter, Rare PVC's but not correlated with symptoms, Symptoms of chest pain, fluttering and dyspnea correlated with normal sinus rhythm. Obstructiv e sleep apnea syndrome 46585839 G47.33 Tolerating CPAP. Continue. Managed per Dr. Hearn with lowering of pressure to 7 mm Hg 06/2017, with duarte tAaliyah Diabetes mellitus 945646 09 E11.59 Discussed importance of tight glycemic control to minimize cardiovasc ular disease progressio n. Needs to keep LDL less than 70, and HDL more than 40. Had LDL 71 04/2017. Consider statin if repeat LDL elevated in 3 months. Dyslipidemia 208615518 E 78.5 Had LDL 105. Needs to keep LDL less than 70, and HDL more than 40. Began atorvastat in 20 mg 11/03/17. FLP 1 mo with LDL 55 12/28/17. Had 02/16/19: TG 221, LDL 69 Began fish oil 2 gm bid 04/07/18, resumed 10/01/19 as she had stopped.. [id number] Anuel Albright MD [facility] [address] [place] [address] 01/12/2020 11:32:22 01/12/2020 12:46:23 Coronary arteriosclerosis 62003151 I25.10 01/12/2020 Denies symptoms. Mild on CTA. DiabeticOb tain echo to evaluate for structural /functiona l disease. Mild. Had Cardiac CTA done 12/22/17 showed Mild coronary artery disease (<25% stenosis in LAD, diagonal, LCx, RCA, LVEF 60%). Needs to keep LDL less than 70, and HDL more than 40. Resumed ASA. Chest pain 47944864 R07. 9 01/12/2020 Atypical. Has increased burning chest pain with GERD after meals, awaiting GI follow-up. ERCP scheduled this month. Had CTA chest 04/19/17: no PE; small pleural effusions with bilateral dependent atelectasi s. Previously Improved since initiation of CPAP. With normal coronaries on prior [facility] 08/2015, echo showed normal LV systolic dysfunctio n and stage II diastolic dysfunctio n. Had Lexiscan Cardiolite Stress Test 04/30/17: Negative lexiscan stress test for ischemia. Normal LV systolic function Adequate stress with lexiscan. Abnormal stress test. Artifact noted. No previous study to compare. LVEF >60%. She is already on nitrates and BB and oral Bumex. Continue ASA 81mg qd for primary prevention given cardiac high risk factors. Pt to f/u with PCP and GI with history of GERD, with doubling of pantoprazo le per PCP 06/2017. Consider amlodipine . For possible microvascu lar disease with DM, began Ranexa 500 mg bid 07/14/17, with marked improvemen t in chest pain. Increased to Ranexa 1000 mg bid 07/28/17 but patient had dizziness so returned to 500 mg bid. 11/03/17 Patient has been taking Ranexa 500 mg BID with rare chest pain symptoms. She could not tolerate 1000 mg BID due to lightheadn ess/dizzin ess and she fell breaking her right ankle. Obtained cardiac CTA to evaluate for CAD in light of consistent exertional chest pain after walking 1 mile. Had Cardiac CTA done in 12/22/17 showed Mild coronary artery disease (<25% stenosis in LAD, diagonal, LCx, RCA, LVEF 60%). Hypertensive disorder 38 542932 I10 01/12/2020 Blood pressure is elevated today, but this is only one reading, will keep close follow up, and consider medication change if blood pressure is still elevated next visit. Patient's blood pressure is on present medical therapy. Patient is tolerating , without difficulty , the current medication s. I have not made changes to the current regimen. Patient is advised to maintain a blood pressure diary. Patient was advised to eat a low-sodium diet (2 grams sodium or less daily). Had 02/16/19: Cr 1.74, K 4.3, TG 221, LDL 69 (04/13/18: Cr 1.34, K 4.3). For increased BUN 28 and increased Cr to 1.74, patient had f/u with renal Dr. Ling. Reduced Aleve/NSAI D use which she has increased in recent months. Reduced bumetanide from 1mg bid to 1 mg qd, also reduce KCl from 10 meq bid to qd 04/07/19. Call if wt gain 4 lbs or increased chest pain or dyspnea. Obtain BMP, Mg, results from 08/30/19, [facility]. Elevate legs and begin compressio n stockings. Dyspnea 703176556 R06.00 01/12/2020 Reports stable to improving exertional dyspnea with increased walking. Exercising regularly, 3 mile walks. Echo with normal LV systolic function, Grade 2 diastolic dysfunctio n, and no pulmonary HTN. She is not a smoker. Call if wt gain 4 lbs or increased chest pain or dyspnea. 20 lb. weight loss recommende d over the next 2 months. Pt to f/u with pulm. Dr. Hearn and follows with renal MD. Palpitations [id number] R0 0.2 01/12/2020 Resolved. Holter monitor unremarkab le 2016. TSH normal. Had Zio Monitor on 05/27/17: Unremarkab le holter, Rare PVC's but not correlated with symptoms, Symptoms of chest pain, fluttering and dyspnea correlated with normal sinus rhythm. Obstructiv e sleep apnea syndrome [id number] G47.33 01/12/2020 Tolerating CPAP. Continue. Managed per Dr. Hearn with lowering of pressure to 7 mm Hg 06/2017, with duarte lloyd Diabetes mellitus [id number] E11.59 01/12/2020 Discussed importance of tight glycemic control to minimize cardiovasc ular disease progressio n. Needs to keep LDL less than 70, and HDL more than 40. Had LDL 71 04/2017. Consider statin if repeat LDL elevated in 3 months. Dyslipidemia [id number] E 78.5 01/12/2020 Obtain fasting lipids. Last 02/16/19: TG 221, LDL 69 Continue Atorvastat in Had LDL 105.Needs to keep LDL less than 70, and HDL more than 40. Began atorvastat in 20 mg 11/03/17. FLP 1 mo with LDL 55 12/28/17. Began fish oil 2 gm bid 04/07/18, resumed 10/01/19 as she had stopped.. [id number] Howard Herbert MD [facility] Office [address] [place] [address] 04/14/2020 11:24:29 04/14/2020 13:48:14 Coronary arteriosclerosis [id number] I25.10 Mild on CTA. Diabetic Had Cardiac CTA done 12/22/17 showed Mild coronary artery disease (<25% stenosis in LAD, diagonal, LCx, RCA, LVEF 60%). Needs to keep LDL less than 70, and HDL more than 40. Resumed ASA. Chest pain [id number] R07. 9 Reports left central chest pain which was continuous sharp pain with intermitte nt stabbing and shock, for several hours at time 04/11/20 for 2 occasions, for which she was seen in [place] ED but was not admitted. She CTA chest with no PE per patient report. Patient presents with chest pain with atypical features and exertional dyspnea which can be an anginal equivalent . Given the history, exam findings and high cardiac risk factors, I feel additional investigat ion is warranted. I have made arrangemen ts in the near future for a [facility] Lexiscan stress nuclear test due to reduced functional capacity or conduction abnormalit y. Obtain echo to evaluate for structural /functiona l disease. The procedure was discussed with the patient, and risks, benefits, and alternativ e options were explained. Appropriat e labwork has been performed recently, therefore I have not made arrangemen ts for further testing; obtain labs [facility]. I have asked the patient to curtail exercise and activities until our investigat ion is complete. I have made the following adjustment s to the present medical regimen. h Previously Improved since initiation of CPAP. With normal coronaries on prior [facility] 08/2015, echo showed normal LV systolic dysfunctio n and stage II diastolic dysfunctio n. Had Lexiscan Cardiolite Stress Test 04/30/17: Negative lexiscan stress test for ischemia. Normal LV systolic function Adequate stress with lexiscan. Abnormal stress test. Artifact noted. No previous study to compare. LVEF >60%. She is already on nitrates and BB and oral Bumex. Continue ASA 81mg qd for primary prevention given cardiac high risk factors. Pt to f/u with PCP and GI with history of GERD, with doubling of pantoprazo le per PCP 06/2017. Consider amlodipine . For possible microvascu lar disease with DM, began Ranexa 500 mg bid 07/14/17, with marked improvemen t in chest pain. Increased to Ranexa 1000 mg bid 07/28/17 but patient had dizziness so returned to 500 mg bid. 11/03/17 Patient has been taking Ranexa 500 mg BID with rare chest pain symptoms. She could not tolerate 1000 mg BID due to lightheadn ess/dizzin ess and she fell breaking her right ankle. Had Cardiac CTA done in 12/22/17 showed Mild coronary artery disease (<25% stenosis in LAD, diagonal, LCx, RCA, LVEF 60%). Hypertensive disorder 38 [id number] I10 Patient's blood pressure is good on present medical therapy. Patient is tolerating , without difficulty , the current medication s. I have not made changes to the current regimen. Patient is advised to maintain a blood pressure diary. Patient was advised to eat a low-sodium diet (2 grams sodium or less daily). Had 02/16/19: Cr 1.74, K 4.3, TG 221, LDL 69 (04/13/18: Cr 1.34, K 4.3). For increased BUN 28 and increased Cr to 1.74, patient had f/u with renal Dr. Ling. Reduced Aleve/NSAI D use which she has increased in recent months. Reduced bumetanide from 1mg bid to 1 mg qd, also reduce KCl from 10 meq bid to qd 04/07/19. Call if wt gain 4 lbs or increased chest pain or dyspnea. Obtain BMP, Mg, results from 08/30/19, [facility]. Elevate legs and begin compressio n stockings. Had 03/15/20: CPK 103 Had 03/15/20 CMP: NA 142, K 3.8, CH 104, CO2 29.7, GL 153, BUN 23, CR 1.27, CA 9.3, AST 26, ALT 22, ALK PHOS 213 Dyspnea [id number] R06.00 Reports increased exertional dyspnea with increased walking. Call if wt gain 4 lbs or increased chest pain or dyspnea. 20 lb. weight loss recommende d over the next 2 months. Pt to f/u with pulm. Dr. Hearn and follows with renal MD. Palpitations [id number] R0 0.2 Resolved. Holter monitor unremarkab le 2015. TSH normal. Had Zio Monitor on 05/27/17: Unremarkab le holter, Rare PVC's but not correlated with symptoms, Symptoms of chest pain, fluttering and dyspnea correlated with normal sinus rhythm. Obstructiv e sleep apnea syndrome [id number] G47.33 01/12/2020 Tolerating CPAP. Continue. Managed per Dr. Hearn with lowering of pressure to 7 mm Hg 06/2017, with improvemen t. Diabetes mellitus [id number] 09 E11.59 Discussed importance of tight glycemic control to minimize cardiovasc ular disease progressio n. Needs to keep LDL less than 70, and HDL more than 40. Had LDL 71 04/2017. Consider statin if repeat LDL elevated in 3 months. Dyslipidemia [id number] E 78.5 Obtain fasting lipids. Last 02/16/19: TG 221, LDL 69 Continue Atorvastat in Had LDL 105.Needs to keep LDL less than 70, and HDL more than 40. Began atorvastat in 20 mg 11/03/17. FLP 1 mo with LDL 55 12/28/17. Began fish oil 2 gm bid 04/07/18, resumed 10/01/19 as she had stopped.. 03/15/20: CPK 103 03/15/20 LIPID: TC 150, TG 220, HDL 57, LDL 49 03/15/20 CMP: NA 142, K 3.8, CH 104, CO2 29.7, GL 153, BUN 23, CR 1.27, CA 9.3, AST 26, ALT 22, ALK PHOS 213 Had 03/15/20 LIPID: TC 150, TG 220, HDL 57, LDL 49 [id number] Howard Herbert MD [place] [facility] [place] [address] 05/17/2020 15:01:50 05/17/2020 16:18:40 Coronary arteriosclerosis [id number] I25.10 Mild on CTA. Diabetic Had Cardiac CTA done 12/22/17 showed Mild coronary artery disease (<25% stenosis in LAD, diagonal, LCx, RCA, LVEF 60%). Had 04/21/20 LEXISCAN CARDIOLITE STRESS TEST: Adequate Stress with Lexiscan. Negative Lexiscan stress test for ischemia. Normal LV systolic function. Artifact noted. Compared to last study on 04/30/17, there are no changes, LVEF >60% Needs to keep LDL less than 70, and HDL more than 40. Resumed ASA. Chest pain [id number] R07. 9 Improved, with decreased intensity and frequency. Previously , reported left central chest pain which was continuous sharp pain with intermitte nt stabbing and shock, for several hours at time 04/11/20 for 2 occasions, for which she was seen in [place] ED but was not admitted. She CTA chest with no PE per patient report. Had ECHO done in 04/25/20 showed LV chamber size is normal. There is normal global systolic function and contractil ity. The estimated left ventricle ejection fraction is 55-60% (normal). There is mild thickening of mitral valve anterior leaflet. There is trace mitral regurgitat ion. There is trace tricuspid regurgitat ion. There is mild pulmonary hypertensi on. Had 04/21/20 LEXISCAN CARDIOLITE STRESS TEST: Adequate Stress with Lexiscan. Negative Lexiscan stress test for ischemia. Normal LV systolic function. Artifact noted. Compared to last study on 04/30/17, there are no changes, LVEF >60% Previously Improved since initiation of CPAP. With normal coronaries on prior [facility] 08/2015, echo showed normal LV systolic dysfunctio n and stage II diastolic dysfunctio n. Had Lexiscan Cardiolite Stress Test 04/30/17: Negative lexiscan stress test for ischemia. Normal LV systolic function Adequate stress with lexiscan. Abnormal stress test. Artifact noted. No previous study to compare. LVEF >60%. She is already on nitrates and BB and oral Bumex. Continue ASA 81mg qd for primary prevention given cardiac high risk factors. Pt to f/u with PCP and GI with history of GERD, with doubling of pantoprazo le per PCP 06/2017. Consider amlodipine . For possible microvascu lar disease with DM, began Ranexa 500 mg bid 07/14/17, with marked improvemen t in chest pain. Increased to Ranexa 1000 mg bid 07/28/17 but patient had dizziness so returned to 500 mg bid. 11/03/17 Patient has been taking Ranexa 500 mg BID with rare chest pain symptoms. She could not tolerate 1000 mg BID due to lightheadn ess/dizzin ess and she fell breaking her right ankle. Had Cardiac CTA done in 12/22/17 showed Mild coronary artery disease (<25% stenosis in LAD, diagonal, LCx, RCA, LVEF 60%). Hypertensive disorder 38 [id number] I10 Patient's blood pressure is good on present medical therapy. Patient is tolerating , without difficulty , the current medication s. I have not made changes to the current regimen. Patient is advised to maintain a blood pressure diary. Patient was advised to eat a low-sodium diet (2 grams sodium or less daily). Had 02/16/19: Cr 1.74, K 4.3, TG 221, LDL 69 (04/13/18: Cr 1.34, K 4.3). For increased BUN 28 and increased Cr to 1.74, patient had f/u with renal Dr. Ling. Reduced Aleve/NSAI D use which she has increased in recent months. Reduced bumetanide from 1mg bid to 1 mg qd, also reduce KCl from 10 meq bid to qd 04/07/19. Call if wt gain 4 lbs or increased chest pain or dyspnea. Obtain BMP, Mg, results from 08/30/19, [facility]. Elevate legs and begin compressio n stockings. Had 03/15/20: CPK 103 Had 03/15/20 CMP: NA 142, K 3.8, CH 104, CO2 29.7, GL 153, BUN 23, CR 1.27, CA 9.3, AST 26, ALT 22, ALK PHOS 213 Dyspnea [id number] R06.00 Improved. Call if wt gain 4 lbs or increased chest pain or dyspnea. 20 lb. weight loss recommende d over the next 2 months. Had f/u with pulm. Dr. Hearn and follows with renal MD. Palpitations [id number] R0 0.2 Resolved. Holter monitor unremarkab le 2015. TSH normal. Had Zio Monitor on 05/27/17: Unremarkab le holter, Rare PVC's but not correlated with symptoms, Symptoms of chest pain, fluttering and dyspnea correlated with normal sinus rhythm. Obstructiv e sleep apnea syndrome [id number] G47.33 Tolerating CPAP. Continue. Managed per Dr. Hearn with lowering of pressure to 7 mm Hg 06/2017, with duarte t. Diabetes mellitus 880291 09 E11.59 Discussed importance of tight glycemic control to minimize cardiovasc ular disease progressio n. Needs to keep LDL less than 70, and HDL more than 40. Had LDL 71 04/2017. Consider statin if repeat LDL elevated in 3 months. Dyslipidemia [id number] E 78.5 Obtain fasting lipids. Last 02/16/19: TG 221, LDL 69 Continue Atorvastat in Had LDL 105.Needs to keep LDL less than 70, and HDL more than 40. Began atorvastat in 20 mg 11/03/17. FLP 1 mo with LDL 55 12/28/17. Began fish oil 2 gm bid 04/07/18, resumed 10/01/19 as she had stopped.. 03/15/20: CPK 103 03/15/20 LIPID: TC 150, TG 220, HDL 57, LDL 49 03/15/20 CMP: NA 142, K 3.8, CH 104, CO2 29.7, GL 153, BUN 23, CR 1.27, CA 9.3, AST 26, ALT 22, ALK PHOS 213 Had 03/15/20 LIPID: TC 150, TG 220, HDL 57, LDL 49 [id number] Howard Herbert MD [place] [facility] [address] [place] [address] 11/15/2020 13:47:47 11/16/2020 15:41:52 Coronary arteriosclerosis [id number] I25.10 Mild on CTA. Diabetic Had Cardiac CTA done 12/22/17 showed Mild coronary artery disease (<25% stenosis in LAD, diagonal, LCx, RCA, LVEF 60%). Had 04/21/20 LEXISCAN CARDIOLITE STRESS TEST: Adequate Stress with Lexiscan. Negative Lexiscan stress test for ischemia. Normal LV systolic function. Artifact noted. Compared to last study on 04/30/17, there are no changes, LVEF >60% Needs to keep LDL less than 70, and HDL more than 40. Resumed ASA. Chest pain 44990316 R07. 9 Resolved. Previously , reported left central chest pain which was continuous sharp pain with intermitte nt stabbing and shock, for several hours at time 04/11/20 for 2 occasions, for which she was seen in [place] ED but was not admitted. She CTA chest with no PE per patient report. Had ECHO done in 04/25/20 showed LV chamber size is normal. There is normal global systolic function and contractil ity. The estimated left ventricle ejection fraction is 55-60% (normal). There is mild thickening of mitral valve anterior leaflet. There is trace mitral regurgitat ion. There is trace tricuspid regurgitat ion. There is mild pulmonary hypertensi on. Had 04/21/20 LEXISCAN CARDIOLITE STRESS TEST: Adequate Stress with Lexiscan. Negative Lexiscan stress test for ischemia. Normal LV systolic function. Artifact noted. Compared to last study on 04/30/17, there are no changes, LVEF >60% Previously Improved since initiation of CPAP. With normal coronaries on prior [facility] 08/2015, echo showed normal LV systolic dysfunctio n and stage II diastolic dysfunctio n. Had Lexiscan Cardiolite Stress Test 04/30/17: Negative lexiscan stress test for ischemia. Normal LV systolic function Adequate stress with lexiscan. Abnormal stress test. Artifact noted. No previous study to compare. LVEF >60%. She is already on nitrates and BB and oral Bumex. Continue ASA 81mg qd for primary prevention given cardiac high risk factors. Pt to f/u with PCP and GI with history of GERD, with doubling of pantoprazo le per PCP 06/2017. Consider amlodipine . For possible microvascu lar disease with DM, began Ranexa 500 mg bid 07/14/17, with marked improvemen t in chest pain. Increased to Ranexa 1000 mg bid 07/28/17 but patient had dizziness so returned to 500 mg bid. 11/03/17 Patient has been taking Ranexa 500 mg BID with rare chest pain symptoms. She could not tolerate 1000 mg BID due to lightheadn ess/dizzin ess and she fell breaking her right ankle. Had Cardiac CTA done in 12/22/17 showed Mild coronary artery disease (<25% stenosis in LAD, diagonal, LCx, RCA, LVEF 60%). Hypertensive disorder 38 001595 I10 on present medical therapy. Patient is tolerating , without difficulty , the current medication s. I have not made changes to the current regimen. Patient is advised to maintain a blood pressure diary. Patient was advised to eat a low-sodium diet (2 grams sodium or less daily). Had 02/16/19: Cr 1.74, K 4.3, TG 221, LDL 69 (04/13/18: Cr 1.34, K 4.3). For increased BUN 28 and increased Cr to 1.74, patient had f/u with renal Dr. Ling. Reduced Aleve/NSAI D use which she has increased in recent months. Reduced bumetanide from 1mg bid to 1 mg qd, also reduce KCl from 10 meq bid to qd 04/07/19. Call if wt gain 4 lbs or increased chest pain or dyspnea. Obtain BMP, Mg, results from 08/30/19, [facility]. Elevate legs and begin compressio n stockings. Had 03/15/20: CPK 103 Had 03/15/20 CMP: NA 142, K 3.8, CH 104, CO2 29.7, GL 153, BUN 23, CR 1.27, CA 9.3, AST 26, ALT 22, ALK PHOS 213 Had 10/22/20: K 3.9, Cr 1.46, hgb 11.2, with Cr improved off NSAIDs as per nephrology . Dyspnea [id number] R06.00 Improved. Call if wt gain 4 lbs or increased chest pain or dyspnea. 20 lb. weight loss recommende d over the next 2 months. Had f/u with pulm. Dr. Hearn and follows with renal MD. Palpitations [id number] R0 0.2 Resolved. Holter monitor unremarkab le 2015. TSH normal. Had Zio Monitor on 05/27/17: Unremarkab le holter, Rare PVC's but not correlated with symptoms, Symptoms of chest pain, fluttering and dyspnea correlated with normal sinus rhythm. Obstructiv e sleep apnea syndrome [id number] G47.33 Tolerating CPAP. Continue. Managed per Dr. Hearn with lowering of pressure to 7 mm Hg 06/2017, with improvemen t. Her CPAP is recalled, and she is following with Dr. Hearn. Diabetes mellitus 708132 09 E11.59 Discussed importance of tight glycemic control to minimize cardiovasc ular disease progressio n. Needs to keep LDL less than 70, and HDL more than 40. Had LDL 71 04/2017. Consider statin if repeat LDL elevated in 3 months. Dyslipidemia 864463532 E 78.5 Obtain fasting lipids. Last 02/16/19: TG 221, LDL 69 Continue Atorvastat in Had LDL 105.Needs to keep LDL less than 70, and HDL more than 40. Began atorvastat in 20 mg 11/03/17. FLP 1 mo with LDL 55 12/28/17. Began fish oil 2 gm bid 04/07/18, resumed 10/01/19 as she had stopped.. 03/15/20: CPK 103 03/15/20 LIPID: TC 150, TG 220, HDL 57, LDL 49 03/15/20 CMP: NA 142, K 3.8, CH 104, CO2 29.7, GL 153, BUN 23, CR 1.27, CA 9.3, AST 26, ALT 22, ALK PHOS 213 Had 03/15/20 LIPID: TC 150, TG 220, HDL 57, LDL 49 Obtain FLP, CMP, Mg, CBC. [id number] Howard Herbert MD [place] [facility] [address] [place] [id number] 05/16/2021 14:13:26 05/16/2021 16:23:31 Coronary arteriosclerosis [id number] I25.10 Mild on CTA. Diabetic. Had Cardiac CTA done 12/22/17 showed Mild coronary artery disease (<25% stenosis in LAD, diagonal, LCx, RCA, LVEF 60%). Had 04/21/20 LEXISCAN CARDIOLITE STRESS TEST: Adequate Stress with Lexiscan. Negative Lexiscan stress test for ischemia. Normal LV systolic function. Artifact noted. Compared to last study on 04/30/17, there are no changes, LVEF >60%. For possible microvascu lar disease with DM, began Ranexa 500 mg bid 07/14/17, with marked improvemen t in chest pain. Increased to Ranexa 1000 mg bid 07/28/17 but patient had dizziness so returned to 500 mg bid. Needs to keep LDL less than 70, and HDL more than 40. Resumed ASA. Chest pain 72886932 R07. 9 Resolved. Previously , reported left central chest pain which was continuous sharp pain with intermitte nt stabbing and shock, for several hours at time 04/11/20 for 2 occasions, for which she was seen in [place] ED but was not admitted. She CTA chest with no PE per patient report. Had ECHO done in 04/25/20 showed LV chamber size is normal. There is normal global systolic function and contractil ity. The estimated left ventricle ejection fraction is 55-60% (normal). There is mild thickening of mitral valve anterior leaflet. There is trace mitral regurgitat ion. There is trace tricuspid regurgitat ion. There is mild pulmonary hypertensi on. Had 04/21/20 LEXISCAN CARDIOLITE STRESS TEST: Adequate Stress with Lexiscan. Negative Lexiscan stress test for ischemia. Normal LV systolic function. Artifact noted. Compared to last study on 04/30/17, there are no changes, LVEF >60% Previously Improved since initiation of CPAP. With normal coronaries on prior [facility] 08/2015, echo showed normal LV systolic dysfunctio n and stage II diastolic dysfunctio n. Had Lexiscan Cardiolite Stress Test 04/30/17: Negative lexiscan stress test for ischemia. Normal LV systolic function Adequate stress with lexiscan. Abnormal stress test. Artifact noted. No previous study to compare. LVEF >60%. She is already on nitrates and BB and oral Bumex. Continue ASA 81mg qd for primary prevention given cardiac high risk factors. Pt to f/u with PCP and GI with history of GERD, with doubling of pantoprazo le per PCP 06/2017. Consider amlodipine . For possible microvascu lar disease with DM, began Ranexa 500 mg bid 07/14/17, with marked improvemen t in chest pain. Increased to Ranexa 1000 mg bid 07/28/17 but patient had dizziness so returned to 500 mg bid. 11/03/17 Patient has been taking Ranexa 500 mg BID with rare chest pain symptoms. She could not tolerate 1000 mg BID due to lightheadn ess/dizzin ess and she fell breaking her right ankle. Had Cardiac CTA done in 12/22/17 showed Mild coronary artery disease (<25% stenosis in LAD, diagonal, LCx, RCA, LVEF 60%). Hypertensive disorder 38 231623 I10 Patient's blood pressure is well-contr olled on present medical therapy. Patient is tolerating , without difficulty , the current medication s. I have not made changes to the current regimen. Patient is advised to maintain a blood pressure diary. Patient was advised to eat a low-sodium diet (2 grams sodium or less daily). Had 02/16/19: Cr 1.74, K 4.3, TG 221, LDL 69 (04/13/18: Cr 1.34, K 4.3). For increased BUN 28 and increased Cr to 1.74, patient had f/u with renal Dr. Ling. Reduced Aleve/NSAI D use which she has increased in recent months. Reduced bumetanide from 1mg bid to 1 mg qd, also reduce KCl from 10 meq bid to qd 04/07/19. Call if wt gain 4 lbs or increased chest pain or dyspnea. Obtain BMP, Mg, results from 08/30/19, [facility]. Elevate legs and begin compressio n stockings. Had 03/15/20: CPK 103 Had 03/15/20 CMP: NA 142, K 3.8, CH 104, CO2 29.7, GL 153, BUN 23, CR 1.27, CA 9.3, AST 26, ALT 22, ALK PHOS 213 Had 10/22/20: K 3.9, Cr 1.46, hgb 11.2, with Cr improved off NSAIDs as per nephrology . Had 05/04/21: Mg 1.9, LDL 52, hgb 12.0, Cr 1.12, K 4.5, Dyspnea [id number] R06.00 Improved. Call if wt gain 4 lbs or increased chest pain or dyspnea. 20 lb. weight loss recommende d over the next 2 months. Had f/u with pulm. Dr. Hearn and follows with renal MD. Palpitations [id number] R0 0.2 Resolved. Holter monitor unremarkab le 2016. TSH normal. Had Zio Monitor on 05/27/17: Unremarkab le holter, Rare PVC's but not correlated with symptoms, Symptoms of chest pain, fluttering and dyspnea correlated with normal sinus rhythm. Obstructiv e sleep apnea syndrome [id number] G47.33 Tolerating CPAP. Continue. Managed per Dr. Hearn with lowering of pressure to 7 mm Hg 06/2017, with improvemen t. Her CPAP is not recalled, and she is following with Dr. Hearn. Diabetes mellitus 730653 09 E11.59 Discussed importance of tight glycemic control to minimize cardiovasc ular disease progressio n. Needs to keep LDL less than 70, and HDL more than 40. Had LDL 71 04/2017. Consider statin if repeat LDL elevated in 3 months. Dyslipidemia [id number] E 78.5 Obtain fasting lipids. Last 02/16/19: TG 221, LDL 69 Continue Atorvastat in Had LDL 105.Needs to keep LDL less than 70, and HDL more than 40. Began atorvastat in 20 mg 11/03/17. FLP 1 mo with LDL 55 12/28/17. Began fish oil 2 gm bid 04/07/18, resumed 10/01/19 as she had stopped.. 03/15/20: CPK 103 03/15/20 LIPID: TC 150, TG 220, HDL 57, LDL 49 03/15/20 CMP: NA 142, K 3.8, CH 104, CO2 29.7, GL 153, BUN 23, CR 1.27, CA 9.3, AST 26, ALT 22, ALK PHOS 213 Had 03/15/20 LIPID: TC 150, TG 220, HDL 57, LDL 49 Had 05/04/21: LDL 52 [id number] Howard Herbert MD [facility] [address] [place] [address] 11/28/2021 10:53:45 11/28/2021 11:49:18 Coronary arteriosclerosis [id number] I25.10 Mild on CTA. Diabetic. Had Cardiac CTA done 12/22/17 showed Mild coronary artery disease (<25% stenosis in LAD, diagonal, LCx, RCA, LVEF 60%). Had 04/21/20 LEXISCAN CARDIOLITE STRESS TEST: Adequate Stress with Lexiscan. Negative Lexiscan stress test for ischemia. Normal LV systolic function. Artifact noted. Compared to last study on 04/30/17, there are no changes, LVEF >60%. For possible microvascu lar disease with DM, began Ranexa 500 mg bid 07/14/17, with marked improvemen t in chest pain. Increased to Ranexa 1000 mg bid 07/28/17 but patient had dizziness so returned to 500 mg bid. Needs to keep LDL less than 70, and HDL more than 40. Resumed ASA. Consider Jardiance. Chest pain [id number] R07. 9 Resolved. Previously , reported left central chest pain which was continuous sharp pain with intermitte nt stabbing and shock, for several hours at time 04/11/20 for 2 occasions, for which she was seen in [place] ED but was not admitted. She CTA chest with no PE per patient report. Had ECHO done in 04/25/20 showed LV chamber size is normal. There is normal global systolic function and contractil ity. The estimated left ventricle ejection fraction is 55-60% (normal). There is mild thickening of mitral valve anterior leaflet. There is trace mitral regurgitat ion. There is trace tricuspid regurgitat ion. There is mild pulmonary hypertensi on. Had 04/21/20 LEXISCAN CARDIOLITE STRESS TEST: Adequate Stress with Lexiscan. Negative Lexiscan stress test for ischemia. Normal LV systolic function. Artifact noted. Compared to last study on 04/30/17, there are no changes, LVEF >60% Previously Improved since initiation of CPAP. With normal coronaries on prior [facility] 08/2015, echo showed normal LV systolic dysfunctio n and stage II diastolic dysfunctio n. Had Lexiscan Cardiolite Stress Test 04/30/17: Negative lexiscan stress test for ischemia. Normal LV systolic function Adequate stress with lexiscan. Abnormal stress test. Artifact noted. No previous study to compare. LVEF >60%. She is already on nitrates and BB and oral Bumex. Continue ASA 81mg qd for primary prevention given cardiac high risk factors. Pt to f/u with PCP and GI with history of GERD, with doubling of pantoprazo le per PCP 06/2017. Consider amlodipine . For possible microvascu lar disease with DM, began Ranexa 500 mg bid 07/14/17, with marked improvemen t in chest pain. Increased to Ranexa 1000 mg bid 07/28/17 but patient had dizziness so returned to 500 mg bid. 11/03/17 Patient has been taking Ranexa 500 mg BID with rare chest pain symptoms. She could not tolerate 1000 mg BID due to lightheadn ess/dizzin ess and she fell breaking her right ankle. Had Cardiac CTA done in 12/22/17 showed Mild coronary artery disease (<25% stenosis in LAD, diagonal, LCx, RCA, LVEF 60%). Hypertensive disorder 38 [id number] I10 Patient's blood pressure is not well-contr olled on present medical therapy. Patient is tolerating , without difficulty , the current medication s. I have made the following changes to the current regimen. Patient is advised to maintain a blood pressure diary. Patient was advised to eat a low-sodium diet (2 grams sodium or less daily). Had 02/16/19: Cr 1.74, K 4.3, TG 221, LDL 69 (04/13/18: Cr 1.34, K 4.3). For increased BUN 28 and increased Cr to 1.74, patient had f/u with renal Dr. Ling. Reduced Aleve/NSAI D use which she has increased in recent months. Reduced bumetanide from 1mg bid to 1 mg qd, also reduce KCl from 10 meq bid to qd 04/07/19. Call if wt gain 4 lbs or increased chest pain or dyspnea. Obtain BMP, Mg, results from 08/30/19, [facility]. Elevate legs and begin compressio n stockings. Had 03/15/20: CPK 103 Had 03/15/20 CMP: NA 142, K 3.8, CH 104, CO2 29.7, GL 153, BUN 23, CR 1.27, CA 9.3, AST 26, ALT 22, ALK PHOS 213 Had 10/22/20: K 3.9, Cr 1.46, hgb 11.2, with Cr improved off NSAIDs as per nephrology . Had 05/04/21: Mg 1.9, LDL 52, hgb 12.0, Cr 1.12, K 4.5, Began amlodipine 5 mg qd 11/28/21. Dyspnea [id number] R06.00 Improved. Call if wt gain 4 lbs or increased chest pain or dyspnea. 20 lb. weight loss recommende d over the next 2 months. Had f/u with pulm. Dr. Hearn and follows with renal MD. Palpitations [id number] R0 0.2 Reports forceful rapid palpitatio ns for < 1 min. on 3 occasions since 08/2021. Holter monitor unremarkab le 2015. TSH normal. Had Zio Monitor on 05/27/17: Unremarkab le holter, Rare PVC's but not correlated with symptoms, Symptoms of chest pain, fluttering and dyspnea correlated with normal sinus rhythm. Obtain 30 day Zoll MCT monitor. Obtain TSH, Mg, BMP. Obstructiv e sleep apnea syndrome [id number] G47.33 Tolerating CPAP. Continue. Managed per Dr. Hearn with lowering of pressure to 7 mm Hg 06/2017, with improvemen t. Her CPAP is not recalled, and she is following with Dr. Hearn. Diabetes mellitus 161522 09 E11.59 Discussed importance of tight glycemic control to minimize cardiovasc ular disease progressio n. Needs to keep LDL less than 70, and HDL more than 40. Had LDL 71 04/2017. Consider statin if repeat LDL elevated in 3 months. Dyslipidemia [id number] E 78.5 Obtain fasting lipids. Last 02/16/19: TG 221, LDL 69 Continue Atorvastat in Had LDL 105.Needs to keep LDL less than 70, and HDL more than 40. Began atorvastat in 20 mg 11/03/17. FLP 1 mo with LDL 55 12/28/17. Began fish oil 2 gm bid 04/07/18, resumed 10/01/19 as she had stopped.. 03/15/20: CPK 103 03/15/20 LIPID: TC 150, TG 220, HDL 57, LDL 49 03/15/20 CMP: NA 142, K 3.8, CH 104, CO2 29.7, GL 153, BUN 23, CR 1.27, CA 9.3, AST 26, ALT 22, ALK PHOS 213 Had 03/15/20 LIPID: TC 150, TG 220, HDL 57, LDL 49 Had 05/04/21: LDL 52 [id number] MD [facility] [facility] Office [address] [facility] [place] [address] 01/21/2022 12:33:30 01/21/2022 14:05:10 Coronary arteriosclerosis [id number] I25.10 Mild on CTA. Diabetic. Had Cardiac CTA done 12/22/17 showed Mild coronary artery disease (<25% stenosis in LAD, diagonal, LCx, RCA, LVEF 60%). Had 04/21/20 LEXISCAN CARDIOLITE STRESS TEST: Adequate Stress with Lexiscan. Negative Lexiscan stress test for ischemia. Normal LV systolic function. Artifact noted. Compared to last study on 04/30/17, there are no changes, LVEF >60%. For possible microvascu lar disease with DM, began Ranexa 500 mg bid 07/14/17, with marked improvemen t in chest pain. Increased to Ranexa 1000 mg bid 07/28/17 but patient had dizziness so returned to 500 mg bid. Needs to keep LDL less than 70, and HDL more than 40. Resumed ASA. Consider Jardiance. Chest pain [id number] R07. 9 Increased. Patient presents with chest pain with atypical features. Given the history, exam findings and intermedia te cardiac risk factors with known CAD, I feel additional investigat ion is warranted. I have made arrangemen ts in the near future for a pharmacolo [facility] Lexiscan stress nuclear test due to reduced functional capacity or conduction abnormalit y.Obtain echo to evaluate for structural /functiona l disease. The procedure was discussed with the patient, and risks, benefits, and alternativ e options were explained. Appropriat e labwork has not been performed recently, therefore I have made arrangemen ts for further testing. I have asked the patient to curtail exercise and activities until our investigat ion is complete. I have made the following adjustment s to the present medical regimen. Had 04/21/20 LEXISCAN CARDIOLITE STRESS TEST: Adequate Stress with Lexiscan. Negative Lexiscan stress test for ischemia. Normal LV systolic function. Artifact noted. Compared to last study on 04/30/17, there are no changes, LVEF >60% Previously Improved since initiation of CPAP. With normal coronaries on prior [facility] 08/2015, echo showed normal LV systolic dysfunctio n and stage II diastolic dysfunctio n. She is already on nitrates and BB and oral Bumex. Continue ASA 81mg qd for primary prevention given cardiac high risk factors. Pt to f/u with PCP and GI with history of GERD, with doubling of pantoprazo le per PCP 06/2017. Consider amlodipine . For possible microvascu lar disease with DM, began Ranexa 500 mg bid 07/14/17, with marked improvemen t in chest pain. Increased to Ranexa 1000 mg bid 07/28/17 but patient had dizziness so returned to 500 mg bid. 11/03/17 Patient has been taking Ranexa 500 mg BID with rare chest pain symptoms. She could not tolerate 1000 mg BID due to lightheadn ess/dizzin ess and she fell breaking her right ankle. Had Cardiac CTA done in 12/22/17 showed Mild coronary artery disease (<25% stenosis in LAD, diagonal, LCx, RCA, LVEF 60%). Hypertensive disorder 38 440026 I10 Patient's blood pressure is somewhat well-contr olled on present medical therapy. Patient is tolerating , without difficulty , the current medication s. I have made the following changes to the current regimen. Patient is advised to maintain a blood pressure diary. Patient was advised to eat a low-sodium diet (2 grams sodium or less daily). Had 02/16/19: Cr 1.74, K 4.3, TG 221, LDL 69 (04/13/18: Cr 1.34, K 4.3). For increased BUN 28 and increased Cr to 1.74, patient had f/u with renal Dr. Ling. Reduced Aleve/NSAI D use which she has increased in recent months. Reduced bumetanide from 1mg bid to 1 mg qd 04/07/19. Call if wt gain 4 lbs or increased chest pain or dyspnea. Obtain BMP, Mg, results from 08/30/19, [facility]. Elevate legs and begin compressio n stockings. Had 03/15/20: CPK 103 Had 03/15/20 CMP: NA 142, K 3.8, CH 104, CO2 29.7, GL 153, BUN 23, CR 1.27, CA 9.3, AST 26, ALT 22, ALK PHOS 213 Had 10/22/20: K 3.9, Cr 1.46, hgb 11.2, with Cr improved off NSAIDs as per nephrology . Had 05/04/21: Mg 1.9, LDL 52, hgb 12.0, Cr 1.12, K 4.5, Began amlodipine 5 mg qd 11/28/21, but patient stopped due diarrhea. For increased edema, increased to Bumex 1 mg bid since late 12/2021, with residual mild edema. Had 01/18/22: Cr 1.32, K 3.8, hgb11.2, TSH normal, Mg 1.8, Began HCTZ 12.5 mg qd 01/21/22. Compressio n stockings. Obtain BMP, Mg. Dyspnea [id number] R06.00 Improved. Call if wt gain 4 lbs or increased chest pain or dyspnea. 20 lb. weight loss recommende d over the next 2 months. Had f/u with pulm. Dr. Hearn and follows with renal MD. Palpitations [id number] R0 0.2 Reports forceful rapid palpitatio ns for < 1 min. on 3 occasions since 08/2021. Holter monitor unremarkab le 2015. TSH normal. Had Zio Monitor on 05/27/17: Unremarkab le holter, Rare PVC's but not correlated with symptoms, Symptoms of chest pain, fluttering and dyspnea correlated with normal sinus rhythm. Obtained 30 day Zoll MCT monitor 12/09/21: unremarkab le, symptoms correlated with NSR. Obstructiv e sleep apnea syndrome [id number] G47.33 Tolerating CPAP. Continue. Managed per Dr. Hearn with lowering of pressure to 7 mm Hg 06/2017, with deisymen t. Her CPAP is not recalled, and she is following with Dr. Hearn. Diabetes mellitus 847734 09 E11.59 Discussed importance of tight glycemic control to minimize cardiovasc ular disease progressio n. Needs to keep LDL less than 70, and HDL more than 40. Had LDL 71 04/2017. Consider statin if repeat LDL elevated in 3 months. Dyslipidemia [id number] E 78.5 Obtain fasting lipids. Last 02/16/19: TG 221, LDL 69 Continue Atorvastat in Had LDL 105.Needs to keep LDL less than 70, and HDL more than 40. Began atorvastat in 20 mg 11/03/17. FLP 1 mo with LDL 55 12/28/17. Began fish oil 2 gm bid 04/07/18, resumed 10/01/19 as she had stopped.. 03/15/20: CPK 103 03/15/20 LIPID: TC 150, TG 220, HDL 57, LDL 49 03/15/20 CMP: NA 142, K 3.8, CH 104, CO2 29.7, GL 153, BUN 23, CR 1.27, CA 9.3, AST 26, ALT 22, ALK PHOS 213 Had 03/15/20 LIPID: TC 150, TG 220, HDL 57, LDL 49 Had 05/04/21: LDL 52 [id number] Howard Herbert MD [place] [facility] [place] [address] 03/20/2022 14:39:07 03/20/2022 16:54:37 Coronary arteriosclerosis [id number] I25.10 Mild on CTA. Diabetic. Had Cardiac CTA done 12/22/17 showed Mild coronary artery disease (<25% stenosis in LAD, diagonal, LCx, RCA, LVEF 60%). Had Lexiscan cardiolite stress test ( 2): Adequate Stress with Lexiscan. Negative Lexiscan stress test for ischemia. Normal LV systolic function. Compared to last study on 04/21/20 there are no changes. Had 04/21/20 LEXISCAN CARDIOLITE STRESS TEST: Adequate Stress with Lexiscan. Negative Lexiscan stress test for ischemia. Normal LV systolic function. Artifact noted. Compared to last study on 04/30/17, there are no changes, LVEF >60%. For possible microvascu lar disease with DM, began Ranexa 500 mg bid 07/14/17, with marked improvemen t in chest pain. Increased to Ranexa 1000 mg bid 07/28/17 but patient had dizziness so returned to 500 mg bid. Needs to keep LDL less than 70, and HDL more than 40. Resumed ASA. Consider Jardiance. Chest pain [id number] R07. 9 Resolved. Had Lexiscan cardiolite stress test ( 2): Adequate Stress with Lexiscan. Negative Lexiscan stress test for ischemia. Normal LV systolic function. Compared to last study on 04/21/20 there are no changes. Had 04/21/20 LEXISCAN CARDIOLITE STRESS TEST: Adequate Stress with Lexiscan. Negative Lexiscan stress test for ischemia. Normal LV systolic function. Artifact noted. Compared to last study on 04/30/17, there are no changes, LVEF >60% Previously Improved since initiation of CPAP. With normal coronaries on prior [facility] 08/2015, echo showed normal LV systolic dysfunctio n and stage II diastolic dysfunctio n. She is already on nitrates and BB and oral Bumex. Continue ASA 81mg qd for primary prevention given cardiac high risk factors. Pt to f/u with PCP and GI with history of GERD, with doubling of pantoprazo le per PCP 06/2017. Consider amlodipine . For possible microvascu lar disease with DM, began Ranexa 500 mg bid 07/14/17, with marked improvemen t in chest pain. Increased to Ranexa 1000 mg bid 07/28/17 but patient had dizziness so returned to 500 mg bid. 11/03/17 Patient has been taking Ranexa 500 mg BID with rare chest pain symptoms. She could not tolerate 1000 mg BID due to lightheadn ess/dizzin ess and she fell breaking her right ankle. Had ECHO 02/12/22: LV chamber size is normal,the estimated LVEF is 60-65%, LV relaxation is impaired, the aortic valve is mildly calcified. there is mild thickening of the mitral valve anterior leaflet,th ere is mild tricuspid regurgitat ion,mild elevation of estimated RV systolic pressure,t here is a trace pericardia l effusion,s inus bradycardi a. Had Cardiac CTA done in 12/22/17 showed Mild coronary artery disease (<25% stenosis in LAD, diagonal, LCx, RCA, LVEF 60%). Hypertensive disorder 38 090380 I10 Patient's blood pressure is somewhat well-contr olled on present medical therapy. Patient is tolerating , without difficulty , the current medication s. I have made the following changes to the current regimen. Patient is advised to maintain a blood pressure diary. Patient was advised to eat a low-sodium diet (2 grams sodium or less daily). Had 02/16/19: Cr 1.74, K 4.3, TG 221, LDL 69 (04/13/18: Cr 1.34, K 4.3). For increased BUN 28 and increased Cr to 1.74, patient had f/u with renal Dr. Ling. Reduced Aleve/NSAI D use which she has increased in recent months. Reduced bumetanide from 1mg bid to 1 mg qd 04/07/19. Call if wt gain 4 lbs or increased chest pain or dyspnea. Obtain BMP, Mg, results from 08/30/19, [facility]. Elevate legs and begin compressio n stockings. Had 03/15/20: CPK 103 Had 03/15/20 CMP: NA 142, K 3.8, CH 104, CO2 29.7, GL 153, BUN 23, CR 1.27, CA 9.3, AST 26, ALT 22, ALK PHOS 213 Had 10/22/20: K 3.9, Cr 1.46, hgb 11.2, with Cr improved off NSAIDs as per nephrology . Had 05/04/21: Mg 1.9, LDL 52, hgb 12.0, Cr 1.12, K 4.5, Began amlodipine 5 mg qd 11/28/21, but patient stopped due diarrhea. For increased edema, increased to Bumex 1 mg bid since late 12/2021, with residual mild edema. Had 01/18/22: Cr 1.32, K 3.8, hgb11.2, TSH normal, Mg 1.8, Began HCTZ 12.5 mg qd 01/21/22. Reports significan t reduction in swelling to lower extremitie s on HCTZ. Had 03/19/22: Cr 3.83, BUN 70, K 4.6, Mg 1.9 Patient reports thirst. Given increased BUN and Cr, stopped HCTZ 03/20/22. Held losartan 100 mg qd 03/20/22 given increased Cr. BP diary. Also, patient was placed on hydroxychl oroquine per rheumatogy which can be associated with proteinuri a and may need dose adjustment with AKD. Recommend stopping hydroxychl oroquine pending her upcoming discussion with rheum. and with nephrology . Reduced to KCl 10 mEq daily 03/20/22jl Increase hydration. She has f/u with Dr. Ling 04/19/22. Compressio n stockings. Obtain BMP, Mg. Dyspnea [id number] R06.00 Improved. Call if wt gain 4 lbs or increased chest pain or dyspnea. 20 lb. weight loss recommende d over the next 2 months. Had ECHO 02/12/22: LV chamber size is normal,the estimated LVEF is 60-65%, LV relaxation is impaired, the aortic valve is mildly calcified. there is mild thickening of the mitral valve anterior leaflet,th ere is mild tricuspid regurgitat ion,mild elevation of estimated RV systolic pressure,t here is a trace pericardia l effusion,s inus bradycardi a. Had f/u with pulm. Dr. Hearn and follows with renal MD. Palpitations [id number] R0 0.2 Reports forceful rapid palpitatio ns for < 1 min. on 3 occasions since 08/2021. Holter monitor unremarkab le 2015. TSH normal. Had Zio Monitor on 05/27/17: Unremarkab le holter, Rare PVC's but not correlated with symptoms, Symptoms of chest pain, fluttering and dyspnea correlated with normal sinus rhythm. Obtained 30 day Zoll MCT monitor 12/09/21: unremarkab le, symptoms correlated with NSR. Obstructiv e sleep apnea syndrome [id number] G47.33 Tolerating CPAP. Continue. Managed per Dr. Hearn with lowering of pressure to 7 mm Hg 06/2017, with improvemen t. Her CPAP is not recalled, and she is following with Dr. Hearn. Diabetes mellitus 669951 09 E11.59 Discussed importance of tight glycemic control to minimize cardiovasc ular disease progressio n. Needs to keep LDL less than 70, and HDL more than 40. Had LDL 71 04/2017. Consider statin if repeat LDL elevated in 3 months. Dyslipidemia [id number] E 78.5 Obtain fasting lipids. Last 02/16/19: TG 221, LDL 69 Continue Atorvastat in Had LDL 105.Needs to keep LDL less than 70, and HDL more than 40. Began atorvastat in 20 mg 11/03/17. FLP 1 mo with LDL 55 12/28/17. Began fish oil 2 gm bid 04/07/18, resumed 10/01/19 as she had stopped.. 03/15/20: CPK 103 03/15/20 LIPID: TC 150, TG 220, HDL 57, LDL 49 03/15/20 CMP: NA 142, K 3.8, CH 104, CO2 29.7, GL 153, BUN 23, CR 1.27, CA 9.3, AST 26, ALT 22, ALK PHOS 213 Had 03/15/20 LIPID: TC 150, TG 220, HDL 57, LDL 49 Had 05/04/21: LDL 52 [id number] Howard Herbert MD [facility] e Office [address] [facility] [place] [address] 04/15/2022 15:00:12 04/15/2022 17:20:11 Coronary arteriosclerosis [id number] I25.10 Mild on CTA. Diabetic. Had Cardiac CTA done 12/22/17 showed Mild coronary artery disease (<25% stenosis in LAD, diagonal, LCx, RCA, LVEF 60%). Had Lexiscan cardiolite stress test ( 2): Adequate Stress with Lexiscan. Negative Lexiscan stress test for ischemia. Normal LV systolic function. Compared to last study on 04/21/20 there are no changes. Had 04/21/20 LEXISCAN CARDIOLITE STRESS TEST: Adequate Stress with Lexiscan. Negative Lexiscan stress test for ischemia. Normal LV systolic function. Artifact noted. Compared to last study on 04/30/17, there are no changes, LVEF >60%. For possible microvascu lar disease with DM, began Ranexa 500 mg bid 07/14/17, with marked improvemen t in chest pain. Increased to Ranexa 1000 mg bid 07/28/17 but patient had dizziness so returned to 500 mg bid. Needs to keep LDL less than 70, and HDL more than 40. Resumed ASA. Consider Jardiance. Chest pain [id number] R07. 9 Resolved. Had Lexiscan cardiolite stress test ( 2): Adequate Stress with Lexiscan. Negative Lexiscan stress test for ischemia. Normal LV systolic function. Compared to last study on 04/21/20 there are no changes. Had 04/21/20 LEXISCAN CARDIOLITE STRESS TEST: Adequate Stress with Lexiscan. Negative Lexiscan stress test for ischemia. Normal LV systolic function. Artifact noted. Compared to last study on 04/30/17, there are no changes, LVEF >60% Previously Improved since initiation of CPAP. With normal coronaries on prior [facility] 08/2015, echo showed normal LV systolic dysfunctio n and stage II diastolic dysfunctio n. She is already on nitrates and BB and oral Bumex. Continue ASA 81mg qd for primary prevention given cardiac high risk factors. Pt to f/u with PCP and GI with history of GERD, with doubling of pantoprazo le per PCP 06/2017. Consider amlodipine . For possible microvascu lar disease with DM, began Ranexa 500 mg bid 07/14/17, with marked improvemen t in chest pain. Increased to Ranexa 1000 mg bid 07/28/17 but patient had dizziness so returned to 500 mg bid. 11/03/17 Patient has been taking Ranexa 500 mg BID with rare chest pain symptoms. She could not tolerate 1000 mg BID due to lightheadn ess/dizzin ess and she fell breaking her right ankle. Had ECHO 02/12/22: LV chamber size is normal,the estimated LVEF is 60-65%, LV relaxation is impaired, the aortic valve is mildly calcified. there is mild thickening of the mitral valve anterior leaflet,th ere is mild tricuspid regurgitat ion,mild elevation of estimated RV systolic pressure,t here is a trace pericardia l effusion,s inus bradycardi a. Had Cardiac CTA done in 12/22/17 showed Mild coronary artery disease (<25% stenosis in LAD, diagonal, LCx, RCA, LVEF 60%). Hypertensive disorder 38 780165 I10 Patient's blood pressure is somewhat well-contr olled on present medical therapy. Patient is tolerating , without difficulty , the current medication s. I have made the following changes to the current regimen. Patient is advised to maintain a blood pressure diary. Patient was advised to eat a low-sodium diet (2 grams sodium or less daily). Had 02/16/19: Cr 1.74, K 4.3, TG 221, LDL 69 (04/13/18: Cr 1.34, K 4.3). For increased BUN 28 and increased Cr to 1.74, patient had f/u with renal Dr. Ling. Reduced Aleve/NSAI D use which she has increased in recent months. Reduced bumetanide from 1mg bid to 1 mg qd 04/07/19. Call if wt gain 4 lbs or increased chest pain or dyspnea. Obtain BMP, Mg, results from 08/30/19, [facility]. Elevate legs and begin compressio n stockings. Had 03/15/20: CPK 103 Had 03/15/20 CMP: NA 142, K 3.8, CH 104, CO2 29.7, GL 153, BUN 23, CR 1.27, CA 9.3, AST 26, ALT 22, ALK PHOS 213 Had 10/22/20: K 3.9, Cr 1.46, hgb 11.2, with Cr improved off NSAIDs as per nephrology . Had 05/04/21: Mg 1.9, LDL 52, hgb 12.0, Cr 1.12, K 4.5, Began amlodipine 5 mg qd 11/28/21, but patient stopped due diarrhea. For increased edema, increased to Bumex 1 mg bid since late 12/2021, with residual mild edema. Had 01/18/22: Cr 1.32, K 3.8, hgb11.2, TSH normal, Mg 1.8, Began HCTZ 12.5 mg qd 01/21/22. Reports significan t reduction in swelling to lower extremitie s on HCTZ. Had 03/19/22: Cr 3.83, BUN 70, K 4.6, Mg 1.9 Patient reports thirst. Given increased BUN and Cr, stopped HCTZ 03/20/22. Held losartan 100 mg qd 03/20/22 given increased Cr. BP diary. Also, patient was placed on hydroxychl oroquine per rheumatogy which can be associated with proteinuri a and may need dose adjustment with AKD. Recommend stopping hydroxychl oroquine pending her upcoming discussion with rheum. and with nephrology . Reduced to KCl 10 mEq daily 03/20/22. Increase hydration. She had f/u with Dr. Ling late 03/2022 and late 04/2022. Had 04/11/22: Cr 1.38, K 3.6, Mg 1.9 Compressio n stockings. Began HCTZ 12.5 mg qd 04/15/22 and increased to KCl 10 mEq bid. Continue off losartan pending Renal f/u and pending labs. Obtain BMP, Mg. Dyspnea [id number] R06.00 Improved. Call if wt gain 4 lbs or increased chest pain or dyspnea. 20 lb. weight loss recommende d over the next 2 months. Had ECHO 02/12/22: LV chamber size is normal,the estimated LVEF is 60-65%, LV relaxation is impaired, the aortic valve is mildly calcified. there is mild thickening of the mitral valve anterior leaflet,th ere is mild tricuspid regurgitat ion,mild elevation of estimated RV systolic pressure,t here is a trace pericardia l effusion,s inus bradycardi a. Had f/u with pulm. Dr. Hearn and follows with renal MD. Palpitations [id number] R0 0.2 Reports forceful rapid palpitatio ns for < 1 min. on 3 occasions since 08/2021. Holter monitor unremarkab le 2015. TSH normal. Had Zio Monitor on 05/27/17: Unremarkab le holter, Rare PVC's but not correlated with symptoms, Symptoms of chest pain, fluttering and dyspnea correlated with normal sinus rhythm. Obtained 30 day Zoll MCT monitor 12/09/21: unremarkab le, symptoms correlated with NSR. Obstructiv e sleep apnea syndrome [id number] G47.33 Tolerating CPAP. Continue. Managed per Dr. Hearn with lowering of pressure to 7 mm Hg 06/2017, with improvemen t. Her CPAP is not recalled, and she is following with Dr. Hearn. Diabetes mellitus 948589 09 E11.59 Discussed importance of tight glycemic control to minimize cardiovasc ular disease progressio n. Needs to keep LDL less than 70, and HDL more than 40. Had LDL 71 04/2017. Consider statin if repeat LDL elevated in 3 months. Dyslipidemia [id number] E 78.5 Obtain fasting lipids. Last 02/16/19: TG 221, LDL 69 Continue Atorvastat in Had LDL 105.Needs to keep LDL less than 70, and HDL more than 40. Began atorvastat in 20 mg 11/03/17. FLP 1 mo with LDL 55 12/28/17. Began fish oil 2 gm bid 04/07/18, resumed 10/01/19 as she had stopped.. 03/15/20: CPK 103 03/15/20 LIPID: TC 150, TG 220, HDL 57, LDL 49 03/15/20 CMP: NA 142, K 3.8, CH 104, CO2 29.7, GL 153, BUN 23, CR 1.27, CA 9.3, AST 26, ALT 22, ALK PHOS 213 Had 03/15/20 LIPID: TC 150, TG 220, HDL 57, LDL 49 Had 05/04/21: LDL 52 [id number] Howard Herbert MD [place] [facility] [place] [address] 05/15/2022 12:33:49 05/15/2022 14:15:03 Coronary arteriosclerosis [id number] I25.10 Mild on CTA. Diabetic. Had Cardiac CTA done 12/22/17 showed Mild coronary artery disease (<25% stenosis in LAD, diagonal, LCx, RCA, LVEF 60%). Had Lexiscan cardiolite stress test ( 2): Adequate Stress with Lexiscan. Negative Lexiscan stress test for ischemia. Normal LV systolic function. Compared to last study on 04/21/20 there are no changes. Had 04/21/20 LEXISCAN CARDIOLITE STRESS TEST: Adequate Stress with Lexiscan. Negative Lexiscan stress test for ischemia. Normal LV systolic function. Artifact noted. Compared to last study on 04/30/17, there are no changes, LVEF >60%. For possible microvascu lar disease with DM, began Ranexa 500 mg bid 07/14/17, with marked improvemen t in chest pain. Increased to Ranexa 1000 mg bid 07/28/17 but patient had dizziness so returned to 500 mg bid. Needs to keep LDL less than 70, and HDL more than 40. Resumed ASA. Consider Jardiance. Chest pain [id number] R07. 9 Resolved except with cough. Had Lexiscan cardiolite stress test ( 2): Adequate Stress with Lexiscan. Negative Lexiscan stress test for ischemia. Normal LV systolic function. Compared to last study on 04/21/20 there are no changes. Had 04/21/20 LEXISCAN CARDIOLITE STRESS TEST: Adequate Stress with Lexiscan. Negative Lexiscan stress test for ischemia. Normal LV systolic function. Artifact noted. Compared to last study on 04/30/17, there are no changes, LVEF >60% Previously Improved since initiation of CPAP. With normal coronaries on prior [facility] 08/2015, echo showed normal LV systolic dysfunctio n and stage II diastolic dysfunctio n. She is already on nitrates and BB and oral Bumex. Continue ASA 81mg qd for primary prevention given cardiac high risk factors. Pt to f/u with PCP and GI with history of GERD, with doubling of pantoprazo le per PCP 06/2017. Consider amlodipine . For possible microvascu lar disease with DM, began Ranexa 500 mg bid 07/14/17, with marked improvemen t in chest pain. Increased to Ranexa 1000 mg bid 07/28/17 but patient had dizziness so returned to 500 mg bid. 11/03/17 Patient has been taking Ranexa 500 mg BID with rare chest pain symptoms. She could not tolerate 1000 mg BID due to lightheadn ess/dizzin ess and she fell breaking her right ankle. Had ECHO 02/12/22: LV chamber size is normal,the estimated LVEF is 60-65%, LV relaxation is impaired, the aortic valve is mildly calcified. there is mild thickening of the mitral valve anterior leaflet,th ere is mild tricuspid regurgitat ion,mild elevation of estimated RV systolic pressure,t here is a trace pericardia l effusion,s inus bradycardi a. Had Cardiac CTA done in 12/22/17 showed Mild coronary artery disease (<25% stenosis in LAD, diagonal, LCx, RCA, LVEF 60%). Hypertensive disorder 38 [id number] I10 Patient's blood pressure is well-contr olled on present medical therapy. Patient is tolerating , without difficulty , the current medication s. I have made the following changes to the current regimen. Patient is advised to maintain a blood pressure diary. Patient was advised to eat a low-sodium diet (2 grams sodium or less daily). Reduced Aleve/NSAI D use which she has increased in recent months. Call if wt gain 4 lbs or increased chest pain or dyspnea. Elevate legs and begin compressio n stockings. Began amlodipine 5 mg qd 11/28/21, but patient stopped due diarrhea. Also, patient was placed on hydroxychl oroquine per rheumatogy which can be associated with proteinuri a and may need dose adjustment with AKD. Recommend stopping hydroxychl oroquine pending her upcoming discussion with rheum. and with nephrology . Increase hydration. She had f/u with Dr. Ling late 03/2022 and late 04/2022. Had 04/11/22: Cr 1.38, K 3.6, Mg 1.9 Compressio n stockings. For edema, began HCTZ 12.5 mg qd 04/15/22 and increased to KCl 10 mEq bid, but Dr. Ling stopped HCTZ, losartan, and bumetanide 04/2022 due to increased Cr 1.98 05/06/22 with K low 2.6. Continue off losartan and off HCTZ pending Renal f/u and pending labs. Due to increased edema off all diuretics until 05/15/22, Dr. Ling restarted bumetanide but decreased from 1mg bid to 1 mg qd 05/15/22. Dr. Ling ordered increase from KCl 20 mEq bid to tid 05/15/22, with resumption of bumetanide . Had 05/13/22: K 4.0, Cr 1.15. Obtain BMP, Mg 05/23/22.. Dyspnea [id number] R06.00 Improved. Call if wt gain 4 lbs or increased chest pain or dyspnea. 20 lb. weight loss recommende d over the next 2 months. Had ECHO 02/12/22: LV chamber size is normal,the estimated LVEF is 60-65%, LV relaxation is impaired, the aortic valve is mildly calcified. there is mild thickening of the mitral valve anterior leaflet,th ere is mild tricuspid regurgitat ion,mild elevation of estimated RV systolic pressure,t here is a trace pericardia l effusion,s inus bradycardi a. Had f/u with pulm. Dr. Hearn and follows with renal MD. Palpitations [id number] R0 0.2 Reports forceful rapid palpitatio ns for < 1 min. on 3 occasions since 08/2021. Holter monitor unremarkab le 2015. TSH normal. Had Zio Monitor on 05/27/17: Unremarkab le holter, Rare PVC's but not correlated with symptoms, Symptoms of chest pain, fluttering and dyspnea correlated with normal sinus rhythm. Obtained 30 day Zoll MCT monitor 12/09/21: unremarkab le, symptoms correlated with NSR. Obstructiv e sleep apnea syndrome [id number] G47.33 Tolerating CPAP. Continue. Managed per Dr. Hearn with lowering of pressure to 7 mm Hg 06/2017, with improvemen t. Her CPAP is not recalled, and she was following with Dr. Hearn. Diabetes mellitus 039565 09 E11.59 Discussed importance of tight glycemic control to minimize cardiovasc ular disease progressio n. Needs to keep LDL less than 70, and HDL more than 40. Had LDL 71 04/2017. Consider statin if repeat LDL elevated in 3 months. Dyslipidemia [id number] E 78.5 Obtain fasting lipids. Last 02/16/19: TG 221, LDL 69 Continue Atorvastat in Had LDL 105.Needs to keep LDL less than 70, and HDL more than 40. Began atorvastat in 20 mg 11/03/17. FLP 1 mo with LDL 55 12/28/17. Began fish oil 2 gm bid 04/07/18, resumed 10/01/19 as she had stopped.. 03/15/20: CPK 103 03/15/20 LIPID: TC 150, TG 220, HDL 57, LDL 49 03/15/20 CMP: NA 142, K 3.8, CH 104, CO2 29.7, GL 153, BUN 23, CR 1.27, CA 9.3, AST 26, ALT 22, ALK PHOS 213 Had 03/15/20 LIPID: TC 150, TG 220, HDL 57, LDL 49 Had 05/04/21: LDL 52 Obtain FLP, CMP, Mg, TSH, CBC. [id number] MD [place] [facility] [address] [place] [address] 06/07/2022 10:26:24 06/07/2022 12:00:29 Coronary arteriosclerosis [id number] I25.10 Mild on CTA. Diabetic. Had Cardiac CTA done 12/22/17 showed Mild coronary artery disease (<25% stenosis in LAD, diagonal, LCx, RCA, LVEF 60%). Had Lexiscan cardiolite stress test ( 2): Adequate Stress with Lexiscan. Negative Lexiscan stress test for ischemia. Normal LV systolic function. Compared to last study on 04/21/20 there are no changes. Had 04/21/20 LEXISCAN CARDIOLITE STRESS TEST: Adequate Stress with Lexiscan. Negative Lexiscan stress test for ischemia. Normal LV systolic function. Artifact noted. Compared to last study on 04/30/17, there are no changes, LVEF >60%. For possible microvascu lar disease with DM, began Ranexa 500 mg bid 07/14/17, with marked improvemen t in chest pain. Increased to Ranexa 1000 mg bid 07/28/17 but patient had dizziness so returned to 500 mg bid. Needs to keep LDL less than 70, and HDL more than 40. Resumed ASA. Consider Jardiance. Chest pain [id number] R07. 9 Resolved except with cough. Had Lexiscan cardiolite stress test ( 2): Adequate Stress with Lexiscan. Negative Lexiscan stress test for ischemia. Normal LV systolic function. Compared to last study on 04/21/20 there are no changes. Had 04/21/20 LEXISCAN CARDIOLITE STRESS TEST: Adequate Stress with Lexiscan. Negative Lexiscan stress test for ischemia. Normal LV systolic function. Artifact noted. Compared to last study on 04/30/17, there are no changes, LVEF >60% Previously Improved since initiation of CPAP. With normal coronaries on prior [facility] 08/2015, echo showed normal LV systolic dysfunctio n and stage II diastolic dysfunctio n. She is already on nitrates and BB and oral Bumex. Continue ASA 81mg qd for primary prevention given cardiac high risk factors. Pt to f/u with PCP and GI with history of GERD, with doubling of pantoprazo le per PCP 06/2017. Consider amlodipine . For possible microvascu lar disease with DM, began Ranexa 500 mg bid 07/14/17, with marked improvemen t in chest pain. Increased to Ranexa 1000 mg bid 07/28/17 but patient had dizziness so returned to 500 mg bid. 11/03/17 Patient has been taking Ranexa 500 mg BID with rare chest pain symptoms. She could not tolerate 1000 mg BID due to lightheadn ess/dizzin ess and she fell breaking her right ankle. Had ECHO 02/12/22: LV chamber size is normal,the estimated LVEF is 60-65%, LV relaxation is impaired, the aortic valve is mildly calcified. there is mild thickening of the mitral valve anterior leaflet,th ere is mild tricuspid regurgitat ion,mild elevation of estimated RV systolic pressure,t here is a trace pericardia l effusion,s inus bradycardi a. Had Cardiac CTA done in 12/22/17 showed Mild coronary artery disease (<25% stenosis in LAD, diagonal, LCx, RCA, LVEF 60%). Hypertensive disorder 38 631542 I10 Patient's blood pressure is well-contr olled on present medical therapy. Patient is tolerating , without difficulty , the current medication s. I have not made changes to the current regimen. Patient is advised to maintain a blood pressure diary. Patient was advised to eat a low-sodium diet (2 grams sodium or less daily). Reduced Aleve/NSAI D use which she has increased in recent months. Elevate legs and begin compressio n stockings. Began amlodipine 5 mg qd 11/28/21, but patient stopped due diarrhea. Also, patient was placed on hydroxychl oroquine per rheumatogy which can be associated with proteinuri a and may need dose adjustment with AKD. Recommend stopping hydroxychl oroquine pending her upcoming discussion with rheum. and with nephrology . She had f/u with Dr. Ling late 03/2022 and late 04/2022. Had 04/11/22: Cr 1.38, K 3.6, Mg 1.9 Compressio n stockings. Elevate legs. Low Na diet. Increase walking. For edema, began HCTZ 12.5 mg qd 04/15/22 and increased to KCl 10 mEq bid, but Dr. Ling stopped HCTZ, losartan, and bumetanide 04/2022 due to increased Cr 1.98 05/06/22 with K low 2.6. Continue off losartan and off HCTZ pending Renal f/u and pending labs. Due to increased edema off all diuretics until 05/15/22, Dr. Ling restarted bumetanide but decreased from 1mg bid to 1 mg qd 05/15/22. Dr. Ling ordered increase from KCl 20 mEq bid to tid 05/15/22, with resumption of bumetanide . Had 05/13/22: K 4.0, Cr 1.15. Had 05/23/22: Cr 1.62, BUN 20, K 4.0, wbc 2.8 low, hgb 10.4 low, plt 126 low, LDL 67, while on Bumex 1 mg qd or bid prn as per Dr. Ling, with f/u with Dr. Ling 07/2022. Obtain BMP, Mg, CBC. Dyspnea [id number] R06.00 Improved. Call if wt gain 4 lbs or increased chest pain or dyspnea. 20 lb. weight loss recommende d over the next 2 months. Had ECHO 02/12/22: LV chamber size is normal,the estimated LVEF is 60-65%, LV relaxation is impaired, the aortic valve is mildly calcified. there is mild thickening of the mitral valve anterior leaflet,th ere is mild tricuspid regurgitat ion,mild elevation of estimated RV systolic pressure,t here is a trace pericardia l effusion,s inus bradycardi a. Had f/u with pulm. Dr. Hearn and follows with renal MD. Palpitations [id number] R0 0.2 Reports forceful rapid palpitatio ns for < 1 min. on 3 occasions since 08/2021. Holter monitor unremarkab le 2015. TSH normal. Had Zio Monitor on 05/27/17: Unremarkab le holter, Rare PVC's but not correlated with symptoms, Symptoms of chest pain, fluttering and dyspnea correlated with normal sinus rhythm. Obtained 30 day Zoll MCT monitor 12/09/21: unremarkab le, symptoms correlated with NSR. Obstructiv e sleep apnea syndrome [id number] G47.33 Tolerating CPAP. Continue. Managed per Dr. Hearn with lowering of pressure to 7 mm Hg 06/2017, with improvemen t. Her CPAP is not recalled, and she was following with Dr. Hearn. Diabetes mellitus 418570 09 E11.59 Discussed importance of tight glycemic control to minimize cardiovasc ular disease progressio n. Needs to keep LDL less than 70, and HDL more than 40. Had LDL 71 04/2017. Consider statin if repeat LDL elevated in 3 months. Dyslipidemia [id number] E 78.5 Obtain fasting lipids. Last 02/16/19: TG 221, LDL 69 Continue Atorvastat in Had LDL 105.Needs to keep LDL less than 70, and HDL more than 40. Began atorvastat in 20 mg 11/03/17. FLP 1 mo with LDL 55 12/28/17. Began fish oil 2 gm bid 04/07/18, resumed 10/01/19 as she had stopped.. 03/15/20: CPK 103 03/15/20 LIPID: TC 150, TG 220, HDL 57, LDL 49 03/15/20 CMP: NA 142, K 3.8, CH 104, CO2 29.7, GL 153, BUN 23, CR 1.27, CA 9.3, AST 26, ALT 22, ALK PHOS 213 Had 03/15/20 LIPID: TC 150, TG 220, HDL 57, LDL 49 Had 05/04/21: LDL 52 Had 05/23/22: Cr 1.62, BUN 20, K 4.0, wbc 2.8 low, hgb 10.4 low, plt 126 low, LDL 67 If pancytopen ia persists, patient would need hematology consult per PCP. [id number] Howard Herbert MD [place] [facility] [address] [place] [phone] 07/18/2022 15:18:21 07/18/2022 16:48:32 Coronary arteriosclerosis [id number] I25.10 Mild on CTA. Diabetic. Had Cardiac CTA done 12/22/17 showed Mild coronary artery disease (<25% stenosis in LAD, diagonal, LCx, RCA, LVEF 60%). Had Lexiscan cardiolite stress test ( 2): Adequate Stress with Lexiscan. Negative Lexiscan stress test for ischemia. Normal LV systolic function. Compared to last study on 04/21/20 there are no changes. Had 04/21/20 LEXISCAN CARDIOLITE STRESS TEST: Adequate Stress with Lexiscan. Negative Lexiscan stress test for ischemia. Normal LV systolic function. Artifact noted. Compared to last study on 04/30/17, there are no changes, LVEF >60%. For possible microvascu lar disease with DM, began Ranexa 500 mg bid 07/14/17, with marked improvemen t in chest pain. Increased to Ranexa 1000 mg bid 07/28/17 but patient had dizziness so returned to 500 mg bid. Needs to keep LDL less than 70, and HDL more than 40. Resumed ASA. Consider Jardiance. Chest pain 03261901 R07. 9 Resolved except with cough. Had Lexiscan cardiolite stress test ( 2): Adequate Stress with Lexiscan. Negative Lexiscan stress test for ischemia. Normal LV systolic function. Compared to last study on 04/21/20 there are no changes. Had 04/21/20 LEXISCAN CARDIOLITE STRESS TEST: Adequate Stress with Lexiscan. Negative Lexiscan stress test for ischemia. Normal LV systolic function. Artifact noted. Compared to last study on 04/30/17, there are no changes, LVEF >60% Previously Improved since initiation of CPAP. With normal coronaries on prior [facility] 08/2015, echo showed normal LV systolic dysfunctio n and stage II diastolic dysfunctio n. She is already on nitrates and BB and oral Bumex. Continue ASA 81mg qd for primary prevention given cardiac high risk factors. Pt to f/u with PCP and GI with history of GERD, with doubling of pantoprazo le per PCP 06/2017. Consider amlodipine . For possible microvascu lar disease with DM, began Ranexa 500 mg bid 07/14/17, with marked improvemen t in chest pain. Increased to Ranexa 1000 mg bid 07/28/17 but patient had dizziness so returned to 500 mg bid. 11/03/17 Patient has been taking Ranexa 500 mg BID with rare chest pain symptoms. She could not tolerate 1000 mg BID due to lightheadn ess/dizzin ess and she fell breaking her right ankle. Had ECHO 02/12/22: LV chamber size is normal,the estimated LVEF is 60-65%, LV relaxation is impaired, the aortic valve is mildly calcified. there is mild thickening of the mitral valve anterior leaflet,th ere is mild tricuspid regurgitat ion,mild elevation of estimated RV systolic pressure,t here is a trace pericardia l effusion,s inus bradycardi a. Had Cardiac CTA done in 12/22/17 showed Mild coronary artery disease (<25% stenosis in LAD, diagonal, LCx, RCA, LVEF 60%). Hypertensive disorder 38 785633 I10 Patient's blood pressure is well-contr olled on present medical therapy. Patient is tolerating , without difficulty , the current medication s. I have not made changes to the current regimen. Patient is advised to maintain a blood pressure diary. Patient was advised to eat a low-sodium diet (2 grams sodium or less daily). Reduced Aleve/NSAI D use which she has increased in recent months. Elevate legs and begin compressio n stockings. Began amlodipine 5 mg qd 11/28/21, but patient stopped due diarrhea. Also, patient was placed on hydroxychl oroquine per rheumatogy which can be associated with proteinuri a and may need dose adjustment with AKD. Recommend stopping hydroxychl oroquine pending her upcoming discussion with rheum. and with nephrology . She had f/u with Dr. Ling late 03/2022 and late 04/2022. Had 04/11/22: Cr 1.38, K 3.6, Mg 1.9 Compressio n stockings. Elevate legs. Low Na diet. Increase walking. For edema, began HCTZ 12.5 mg qd 04/15/22 and increased to KCl 10 mEq bid, but Dr. Ling stopped HCTZ, losartan, and bumetanide 04/2022 due to increased Cr 1.98 05/06/22 with K low 2.6. Continue off losartan and off HCTZ pending Renal f/u and pending labs. Due to increased edema off all diuretics until 05/15/22, Dr. Ling restarted bumetanide but decreased from 1mg bid to 1 mg qd 05/15/22. Dr. Ling ordered increase from KCl 20 mEq bid to tid 05/15/22, with resumption of bumetanide . Had 05/13/22: K 4.0, Cr 1.15. Had 05/23/22: Cr 1.62, BUN 20, K 4.0, wbc 2.8 low, hgb 10.4 low, plt 126 low, LDL 67, while on Bumex 1 mg qd or bid prn as per Dr. Ling, with f/u with Dr. Ling 07/2022. Had ( 3)MAG-1.5C BC-WBC 2.88 RBC 3.36 HGB 10.4 HCT 31.6 PLT 170BMP-GL 136 BUN 15 CR 1.46 NA 136 K 4.0 CA 8.9 Patient was started on MgOxide 400 mg qd mid 06/2022. Obtain BMP, Mg, CBC. Dyspnea [id number] R06.00 Improved. Call if wt gain 4 lbs or increased chest pain or dyspnea. 20 lb. weight loss recommende d over the next 2 months. Had ECHO 02/12/22: LV chamber size is normal,the estimated LVEF is 60-65%, LV relaxation is impaired, the aortic valve is mildly calcified. there is mild thickening of the mitral valve anterior leaflet,th ere is mild tricuspid regurgitat ion,mild elevation of estimated RV systolic pressure,t here is a trace pericardia l effusion,s inus bradycardi a. Had f/u with pulm. Dr. Hearn and follows with renal MD. Palpitations [id number] R0 0.2 Reports forceful rapid palpitatio ns for < 1 min. on 3 occasions since 08/2021. Holter monitor unremarkab le 2016. TSH normal. Had Zio Monitor on 05/27/17: Unremarkab le holter, Rare PVC's but not correlated with symptoms, Symptoms of chest pain, fluttering and dyspnea correlated with normal sinus rhythm. Obtained 30 day Zoll MCT monitor 12/09/21: unremarkab le, symptoms correlated with NSR. Obstructiv e sleep apnea syndrome [id number] G47.33 Tolerating CPAP. Continue. Managed per Dr. Hearn with lowering of pressure to 7 mm Hg 06/2017, with improvemen t. Her CPAP is not recalled, and she was following with Dr. Hearn. Diabetes mellitus 654722 09 E11.59 Discussed importance of tight glycemic control to minimize cardiovasc ular disease progressio n. Needs to keep LDL less than 70, and HDL more than 40. Had LDL 71 04/2017. Consider statin if repeat LDL elevated in 3 months. Dyslipidemia [id number] E 78.5 Obtain fasting lipids. Last 02/16/19: TG 221, LDL 69 Continue Atorvastat in Had LDL 105.Needs to keep LDL less than 70, and HDL more than 40. Began atorvastat in 20 mg 11/03/17. FLP 1 mo with LDL 55 12/28/17. Began fish oil 2 gm bid 04/07/18, resumed 10/01/19 as she had stopped.. 03/15/20: CPK 103 03/15/20 LIPID: TC 150, TG 220, HDL 57, LDL 49 03/15/20 CMP: NA 142, K 3.8, CH 104, CO2 29.7, GL 153, BUN 23, CR 1.27, CA 9.3, AST 26, ALT 22, ALK PHOS 213 Had 12/30/20 LIPID: TC 150, TG 220, HDL 57, LDL 49 Had 05/04/21: LDL 52 Had 05/23/22: Cr 1.62, BUN 20, K 4.0, wbc 2.8 low, hgb 10.4 low, plt 126 low, LDL 67 As low wbc and anemia persist, patient has hematology consult per PCP 08/2022. Health Concerns Section Related Observation LastModified by Organization Detai ls LastModified Time None Recorded Concern Status LastModified by Organization Details LastModified Time None Recorded Advance Directives Directive None Recorded Payers Insurance Date Sequence Insurance Name Policy Number Policy Sol[place] Covered Member ID [place] Member ID Guarantor Name 07/15/2022 1 [facility] (MEDICARE REPLACEMENT/AD VANTAGE - HMO) [id number] Anuja Prasad [id number] Anuja Prasad 01/21/2022 1 [employer] (MEDICARE) Anuja Prasad [id number] Anuja Prasad 01/21/2022 2 [employer] (MEDICARE SUPPLEMENT) [id number] Anuja Prasad [id number] Anuja Prasad 01/21/2022 2 [employer] - [employer] (MEDICARE SUPPLEMENT) [id number] Anuja Prasad [id number] Anuja Prasad 01/21/2022 1 [email or web address] [facility] [employer] ([facility] [id number] Anuja Prasad [id number] Anuja Prasad 07/21/2016 PAYMENT PLAN Anuja Prasad 01/21/2022 1 [id number] Anuja Prasad [id number] Anuja Prasad Notes Date Note Type Note Provider Name and Address Organization Details Recorded Time 03/20/2022 text/html 03/20/22 CC: chest pain 76 yo white woman with hx of CAD, HF-pEF, IVCD, HTN, DM, ROSA (on CPAP), pulmonary HTN, CKD (Dr. Ling), hypothyroidism, GERD, sciatica, who presents today for follow up chest pain. Chest pain has resolved, except with coughing with recent URI 11/2021. Previously, she reported left central chest pain which was continuous sharp pain with intermittent stabbing and shock, for several hours at time 04/11/20 for 2 occasions, for which she was seen in [place] ED but was not admitted, worse when laying flat. She CTA chest witn no PE per patient report. Some associated dyspnea and nausea. No diaphoresis. Since her last visit, she reports improving gastric issues. She had ERCP with transient stenting per Dr Mccloud. She also has been dx with anemia. Reports that her GERD has improved since she was last here. She had pancreatic stent 01/19/2020. Reports significant reduction in swelling to lower extremities. Reports resolution of exertional dyspnea. Reports palpitations, racing heart. Denies concerns at this time, reporting an overall feeling of well-being outside of her gastric issues. No edema or dizziness, except with migraines. Previously, she was started on Ranexa 1000 mg BID, but she had an episodes of dizziness, fell and broke her right ankle and sprained her left ankle. She returned back to Ranexa 500 mg BID. She was inactive for 2 months after her fall. Reports sciatica, following with PCP. She reports rare episodes of heart burn. She saw her GI Specialist and was restarted on her amitriptyline 07/24/17 for her GERD. Previously, her PCP discontinued her amitriptyline and increased Pantoprazole 40 mg daily for GERD. BP has been running well, with BP < 130/80 at home. Reported resolution of occasional sharp, electrical chest pain for a few minutes associated with headaches, with sharp pain resolved but now with nonexertional left chest pain which is a heaviness for up to 2 min, without dyspnea, nausea, or diaphoresis. No shortness of breath at rest. Reports less dyspnea on exertion. No diaphoresis. No orthopnea. No PND's. Occasional dizziness with occasional vertigo. Reports forceful rapid palpitations for < 1 min. on 3 occasions since 08/2021. No syncope or near syncope. Intermittent leg swelling, bilateral, mild, improved. No side effects from medications. ROSA on CPAP by physiotherapy assistant. She is getting MRI brain due to headaches as per PCP. Previously, she had another sleep apnea test at physiotherapy assistant and changed her CPAP setting with some improvement of her fatigue. She continues to have shortness of breath and chest pain. Pulmonary stress test 07/03/17 showed mixed muscular deconditioning and pulm. HTN contributing to dyspnea. Previously, she had nonexertional substernal/left sided chest pressure/sharp and shortness of breath. Chest pain and shortness of breath does occur with exertion with walking half way around the outside of her house. She does get symptoms with rest also. Denies symptoms with walking into the office today. She reports when she drinks a cold drink that she develops chest pain, which occurs most of the time. No exercising at present due to dyspnea. 3 months ago, was walking 3 miles 3x/week. Previously, she went to her PCP 04/18/17 for shortness of breath with exertion which was worse than normal. She was admitted to [facility] for CHF and given IV Lasix for two days with 10 lb. weight loss. CTA negative for PE. She was discharged 04/20/2017. She reports losing 10 lbs while in the hospital and was feeling well. She states today she has gained 2 lbs and is feeling short of breath again, dry cough and reports some leg swelling. Had Zio Monitor on 05/27/17: Unremarkable holter, Rare PVC's but not correlated with symptoms, Symptoms of chest pain, fluttering and dyspnea correlated with normal sinus rhythm. Had ECHO 02/12/22: LV chamber size is normal,the estimated LVEF is 60-65%, LV relaxation is impaired, the aortic valve is mildly calcified.there is mild thickening of the mitral valve anterior leaflet,there is mild tricuspid regurgitation,mild elevation of estimated RV systolic pressure,there is a trace pericardial effusion,sinus bradycardia. Had ECHO done in 04/25/20 showed LV chamber size is normal. There is normal global systolic function and contractility. The estimated left ventricle ejection fraction is 55-60% (normal). There is mild thickening of mitral valve anterior leaflet. There is trace mitral regurgitation. There is trace tricuspid regurgitation. There is mild pulmonary hypertension. Had Echo on 04/19/17. It showed Mild concentric left ventricular hypertrophy. Elevated left ventricular end diastolic pressure indicated by M-mode interruption of AC closure. There is mild enlargement of left atrium. Had Lexiscan cardiolite stress test (01/31/2022): Adequate Stress with Lexiscan. Negative Lexiscan stress test for ischemia. Normal LV systolic function. Compared to last study on 04/21/20 there are no changes. Had 04/21/20 LEXISCAN CARDIOLITE STRESS TEST: Adequate Stress with Lexiscan. Negative Lexiscan stress test for ischemia. Normal LV systolic function. Artifact noted. Compared to last study on 04/30/17, there are no changes, LVEF >60% Had Lexiscan Cardiolite Stress Test on 04/30/17: Negative lexiscan stress test for ischemia. Normal LV systolic function Adequate stress with lexiscan. Abnormal stress test. Artifact noted. No previous study to compare. LVEF >60%. Had CTA of chest on 04/19/17. No pulmonary embolism. Small pleural effusion with bilateral dependent atelectasis. Pulm stress test in chart 07/03/17. Had Cardiac CTA done in 12/22/17 showed mild coronary artery disease (<25% stenosis in LAD, diagonal, LCx, RCA, LVEF 60%). Had Cardiac cath 08/2015: normal coronaries. Obtained 30 day Zoll MCT monitor 12/09/21: unremarkable, symptoms correlated with NSR. Results from this visit, or from the past: Had 03/19/22: Cr 3.83, BUN 70, K 4.6, Mg 1.9 Had 01/18/22: Cr 1.32, K 3.8, hgb11.2, TSH normal, Mg 1.8, 10/30/2021WBC 4.1 RBC 3.60 HGB 11.3 HCT 34.0 PLT 155BMP-GL 101 BUN 27 CR 1.42 NA 139 K 4.5 CA 8.9 05/04/21: Mg 1.9, LDL 52, hgb 12.0, Cr 1.12, K 4.5, Had 10/23/20: K 3.9, Cr 1.46, hgb 11.2, 05/12/20 BMP GL 134, BUN 26, CR 1.25, NA 140, K 4.1, CHL 106, C02 24.3, CA 9.0 04/11/2020 CBC: WBC 7.1, RBC 2.82, HGB 8.7, HCT 26.6, PLT 200 04/11/2020 BMP: NA 133, K 3.8, CL 97, CO2 26, GL 175, BUN 32, CR 1.90, CA 9.0 04/11/2020 D-Dimer: 1.28 04/11/2020 PT/INR: PT 13.5, INR 1.0 03/15/20: CPK 103 03/15/20 LIPID: TC 150, TG 220, HDL 57, LDL 49 03/15/20 CMP: NA 142, K 3.8, CH 104, CO2 29.7, GL 153, BUN 23, CR 1.27, CA 9.3, AST 26, ALT 22, ALK PHOS 213 BMP 03/16/2019 GL 130 BUN 28 CR 1.74 NA 140 K 4.3 CH 101 CO2 30.7 CA 9.1 08/30/2019 ; Glucose 89,BUN 26,Creati 1.20,Na 143,K 4.5,Cl 106,Co2 27.5,Ca 9.0,AST 23,ALT 18,Alkaline phosphatase 67 LIPID 03/16/2019 CH 165 TR 221 HDL 52 LDL 69 03/16/19: Cr 1.74, K 4.3, TG 221, LDL 69 04/13/18: Cr 1.34, K 4.3 12-18-2017 FREE T4: 1.04, TSH: 2.299 12-18-2017: NA: 140, K: 3.7, CL: 101, CO2: 31.6, GLU: 115, BUN: 17, AST: 27, ALT: 30, CR: 1.28 12/18/17 TC: 141, TR: 130, HDL: 60, LDL: 55 12/02/17: Na 142 ,K 3.6 ,CL 103 ,CO2 32.8, GLU 111 ,BUN 21, CR 1.26,TC 139 ,TG 139 , HDL 61 ,LDL 50 ,AST 23 ,ALT 28, CK 54 10/31/17: Na 139 ,K 4.1 ,CL 102 ,CO2 30.3, GLU 92 , BUN 32, CR 1.48 ,TC 184 ,TG 81,HDL 63 ,LDL 105 ,AST 22 ,ALT 28, 07/02/17 CMP: SOD 140, K 3.7, CL 102, CO2 29.7, GL 100, BUN 18, CR 1.18, AST 43, ALT 44.; sm 05/05/17: Na 142 ,K 3.9 ,CL 100 ,CO2 32 ,GLU 131 ,BUN 22 ,CR 1.07 ,HB 12.8, HT 37.5 04/28/17: SOD 141, K 3.7, CL 102, CO2 29, GL 207, BUN 18, CR 1.12, TC 141, HDL 47, TR 114, LDL 71.2, AST 52, ALT 48. 04/19/17: DDI: 2.11 07/04/16 : NA:143, K:3.8, CL:99, CO2:31, GLU:73, BUN:15, CR:0.9, AST:26, A1C:6.9, TSH:1.97 02/21/16 NA 142, K 4.6, CL 103, CO2 28, GLU 144, BUN 14, CR 1.2 01/11/16: NA 147, K 4.7, CL 105, CO2 27, CR 0.95, BUN 10, GLU 99 01/11/16 : TC 144, TR 114, HDL 55, LDL 66 11/04/15 Creat POC-ISTAT: 1.1 08/30/15 Sod 140, K 4.2, Cl 102, Co2 26.0, Gl 92, BUN 12, Cr0.8 EKG 11/15/20 sinus rhythm, premature ventricular complexes, P; normal, QRS; LBBB, LCO=245 ms. R < 0.25 mV in V1 V2. no Q in l V5 V6. R notch in l aVL V6. ST-T; normal, conclusion; abnormal ECG. electrocardiogram 11-28-2021:Sinus rhythm(slow). P; normal, QRS; low voltage, consider pulmonary disease R/S < 1 in V2 V3 V4, R < 0.15 mV in V2 V3 V4 V5, ST-T; slight high-lateral ST-T changes, consider ischemia, LV overload or aspecific change, small negative T in l aVL, conclusion: possibly abnormal ECG. EKG 04/14/2020: NSR, Low voltage. Poor R progression in chest leads. 01/12/20 EKG: Normal sinus rhythm, IVCD 09/01/19 EKG: Normal sinus rhythm. Nonspecific intraventricular conduction block 04/07/2019 EKG: NSR, Poor R progression in chest leads 10/05/18 EKG: NSR. Low voltage, chest leads. Poor R progression in chest leads. Left posterior hemiblock. IVCD EKG 04/15/18 :Low voltage , Non-specific ST depression. lateral leads. EKG 11/03/17 : abnormal ECG EKG 07/14/17 Low voltage, chest leads. NSR.; sm EKG 04/28/17 : Sinus rhythm (slow). P: normal. QRS: low voltage in precordial leads. ST-T: slight but extensive precordial and high lateral ST-T changes, consider ischemia, LV overload or aspecific change. Negative T in aVL V2. with small negative T in I V4 V5 V6. with flat or low negative T in V3. Possibly abnormal ECG. EKG 12/02/16 : NSR. Low voltage, inverted T wave in aVL. Nonspecific ST depression, lateral leads 09-02-2016 NSR, low voltage EK04/03/16 sinus rhythm. P: normal. QRS: low voltage in precordial leads. ST-T: slight high-lateral and left-precordial ST-T changes, consider ischemia, LV overload or aspecific change. small negative T in I aVL V5 V6. conclusion: possibly abnormal ECG. EK08/30/15 Normal sinus Rhythm. Inferior infarct, age undetermined. ST & T wave abnormality, consider anterior ischemia. Abnormal ECG when compared with ECG of 03-AUG-2014 07:56, inferior infarct is now present. T wave inversion now evident in anterior leads. Zio monitor 05/27/17: Unremarkable holter, Rare PVC's but not correlated with symptoms, Symptoms of chest pain, fluttering and dyspnea correlated with normal sinus rhythm Holter Monitor 09/25/15: Unremarkable Holter 04/21/20 LEXISCAN CARDIOLITE STRESS TEST Adequate Stress with Lexiscan. Negative Lexiscan stress test for ischemia. Normal LV systolic function. Artifact noted. Compared to last study on 04/30/17, there are no changes LVEF >60% Lexiscan Cardiolite Stress Test 04/30/17 : Negative lexiscan stress test for ischemia. Normal LV systolic function Adequate stress with lexiscan. Abnormal stress test. Artifact noted. No previous study to compare. LVEF >60%. Echo 04/25/2020: Study quality: Technically difficult. LV chamber size is normal. There is normal global systolic function and contractility. The estimated left ventricle ejection fraction is 55-60% (normal). There is mild thickening of mitral valve anterior leaflet. There is trace mitral regurgitation. There is trace tricuspid regurgitation. There is mild pulmonary hypertension. Estimated RVSP systolic pressure is 39mmHg. ECHO: 04/19/17 Mild concentric left ventricular hypertrophy. Elevated left ventricular end diastolic pressure indicated by M-mode interruption of AC closure. There is mild enlargement of left atrium. ECHO: 09/11/15 LV wall thickness is normal. There is normal global systolic function and contractility. The estimated LV ejection fraction is 55-60% (normal). Diastolic filling reveals a pseudonormal pattern (Grade 2 diastolic dysfunction) Left atrium chamber is mildly dilated. The estimated RV systolic pressure is normal. ECHO: 09/11/15 LV wall thickness is normal. There is normal global systolic function and contractility. The estimated LV ejection fraction is 55-60% (normal). Diastolic filling reveals a pseudonormal pattern (Grade 2 diastolic dysfunction) Left atrium chamber is mildly dilated. The estimated RV systolic pressure is normal. Cardiac CTA 12/22/17: Mild coronary artery disease. CTA CHEST: 04/19/17 No pulmonary embolism. Small pleural effusion with bilateral dependent atelectasis. CT, Chest, W/ Contrast 11/04/15 : Findings suggesting mild congestive failure. No evidence of pulmonary embolus. Fatty infiltration the liver. Stable right renal lesion. XR, CHEST 04/11/2020: No active cardiopulmonary disease. Chest X ray 10/12/15 : No acute cardiopulmonary disease . Cardiac CTA done in 12/22/17 showed Mild coronary artery disease (<25% stenosis in LAD, diagonal, LCx, RCA, LVEF 60%). Cardiac cath 08/2015: normal coronaries NM, PULMONARY PERF 04/11/2020: Negative pulmonary perfusion scan; no evidence of clinically significant pulmonary emboli. Howard Herbert [place], [place] - [facility] 03/20/2022 16:44:44 04/15/2022 text/html 04/15/2022 CC: chest pain 76 yo white woman with hx of CAD, HF-pEF, IVCD, HTN, DM, ORSA (on CPAP), pulmonary HTN, CKD (Dr. Ling), hypothyroidism, GERD, sciatica, who presents today for follow up chest pain. Chest pain has resolved, except with coughing with recent URI 11/2021. Previously, she reported left central chest pain which was continuous sharp pain with intermittent stabbing and shock, for several hours at time 04/11/20 for 2 occasions, for which she was seen in [place] ED but was not admitted, worse when laying flat. She CTA chest witn no PE per patient report. Some associated dyspnea and nausea. No diaphoresis. Since her last visit, she reports improving gastric issues. She had ERCP with transient stenting per Dr Mccloud. She also has been dx with anemia. Reports that her GERD has improved since she was last here. She had pancreatic stent 01/19/2020. Reports significant reduction in swelling to lower extremities. Reports resolution of exertional dyspnea. Reports palpitations, racing heart. Denies concerns at this time, reporting an overall feeling of well-being outside of her gastric issues. No edema or dizziness, except with migraines. Previously, she was started on Ranexa 1000 mg BID, but she had an episodes of dizziness, fell and broke her right ankle and sprained her left ankle. She returned back to Ranexa 500 mg BID. She was inactive for 2 months after her fall. Reports sciatica, following with PCP. She reports rare episodes of heart burn. She saw her GI Specialist and was restarted on her amitriptyline 07/24/17 for her GERD. Previously, her PCP discontinued her amitriptyline and increased Pantoprazole 40 mg daily for GERD. BP has been running well, with BP < 130/80 at home. Reported resolution of occasional sharp, electrical chest pain for a few minutes associated with headaches, with sharp pain resolved but now with nonexertional left chest pain which is a heaviness for up to 2 min, without dyspnea, nausea, or diaphoresis. No shortness of breath at rest. Reports less dyspnea on exertion. No diaphoresis. No orthopnea. No PND's. Occasional dizziness with occasional vertigo. Reports forceful rapid palpitations for < 1 min. on 3 occasions since 08/2021. No syncope or near syncope. Intermittent leg swelling, bilateral, mild. No side effects from medications. ROSA on CPAP by physiotherapy assistant. She is getting MRI brain due to headaches as per PCP. Previously, she had another sleep apnea test at physiotherapy assistant and changed her CPAP setting with some improvement of her fatigue. She continues to have shortness of breath and chest pain. Pulmonary stress test 07/03/17 showed mixed muscular deconditioning and pulm. HTN contributing to dyspnea. Previously, she had nonexertional substernal/left sided chest pressure/sharp and shortness of breath. Chest pain and shortness of breath does occur with exertion with walking half way around the outside of her house. She does get symptoms with rest also. Denies symptoms with walking into the office today. She reports when she drinks a cold drink that she develops chest pain, which occurs most of the time. No exercising at present due to dyspnea. 3 months ago, was walking 3 miles 3x/week. Previously, she went to her PCP 04/18/17 for shortness of breath with exertion which was worse than normal. She was admitted to [facility] for CHF and given IV Lasix for two days with 10 lb. weight loss. CTA negative for PE. She was discharged 04/20/2017. She reports losing 10 lbs while in the hospital and was feeling well. She states today she has gained 2 lbs and is feeling short of breath again, dry cough and reports some leg swelling. Had Zio Monitor on 05/27/17: Unremarkable holter, Rare PVC's but not correlated with symptoms, Symptoms of chest pain, fluttering and dyspnea correlated with normal sinus rhythm. Had ECHO 02/12/22: LV chamber size is normal,the estimated LVEF is 60-65%, LV relaxation is impaired, the aortic valve is mildly calcified.there is mild thickening of the mitral valve anterior leaflet,there is mild tricuspid regurgitation,mild elevation of estimated RV systolic pressure,there is a trace pericardial effusion,sinus bradycardia. Had ECHO done in 04/25/20 showed LV chamber size is normal. There is normal global systolic function and contractility. The estimated left ventricle ejection fraction is 55-60% (normal). There is mild thickening of mitral valve anterior leaflet. There is trace mitral regurgitation. There is trace tricuspid regurgitation. There is mild pulmonary hypertension. Had Echo on 04/19/17. It showed Mild concentric left ventricular hypertrophy. Elevated left ventricular end diastolic pressure indicated by M-mode interruption of AC closure. There is mild enlargement of left atrium. Had Lexiscan cardiolite stress test (01/31/2022): Adequate Stress with Lexiscan. Negative Lexiscan stress test for ischemia. Normal LV systolic function. Compared to last study on 04/21/20 there are no changes. Had 04/21/20 LEXISCAN CARDIOLITE STRESS TEST: Adequate Stress with Lexiscan. Negative Lexiscan stress test for ischemia. Normal LV systolic function. Artifact noted. Compared to last study on 04/30/17, there are no changes, LVEF >60% Had Lexiscan Cardiolite Stress Test on 04/30/17: Negative lexiscan stress test for ischemia. Normal LV systolic function Adequate stress with lexiscan. Abnormal stress test. Artifact noted. No previous study to compare. LVEF >60%. Had CTA of chest on 04/19/17. No pulmonary embolism. Small pleural effusion with bilateral dependent atelectasis. Pulm stress test in chart 07/03/17. Had Cardiac CTA done in 12/22/17 showed mild coronary artery disease (<25% stenosis in LAD, diagonal, LCx, RCA, LVEF 60%). Had Cardiac cath 08/2015: normal coronaries. Obtained 30 day Zoll MCT monitor 12/09/21: unremarkable, symptoms correlated with NSR. Results from this visit, or from the past:Had 04/11/22: Cr 1.38, K 3.6, Mg 1.9 BMP, blood [id number](03/27/19) CMP-GL 101 BUN 22 CR 1.50 NA 141 K 3.6 CA 9.3Had 03/19/22: Cr 3.83, BUN 70, K 4.6, Mg 1.9 Had 01/18/22: Cr 1.32, K 3.8, hgb11.2, TSH normal, Mg 1.8, 10/30/2021WBC 4.1 RBC 3.60 HGB 11.3 HCT 34.0 PLT 155BMP-GL 101 BUN 27 CR 1.42 NA 139 K 4.5 CA 8.9 05/04/21: Mg 1.9, LDL 52, hgb 12.0, Cr 1.12, K 4.5, Had 10/23/20: K 3.9, Cr 1.46, hgb 11.2, 05/12/20 BMP GL 134, BUN 26, CR 1.25, NA 140, K 4.1, CHL 106, C02 24.3, CA 9.0 04/11/2020 CBC: WBC 7.1, RBC 2.82, HGB 8.7, HCT 26.6, PLT 200 04/11/2020 BMP: NA 133, K 3.8, CL 97, CO2 26, GL 175, BUN 32, CR 1.90, CA 9.0 04/11/2020 D-Dimer: 1.28 04/11/2020 PT/INR: PT 13.5, INR 1.0 03/15/20: CPK 103 03/15/20 LIPID: TC 150, TG 220, HDL 57, LDL 49 03/15/20 CMP: NA 142, K 3.8, CH 104, CO2 29.7, GL 153, BUN 23, CR 1.27, CA 9.3, AST 26, ALT 22, ALK PHOS 213 BMP 03/16/2019 GL 130 BUN 28 CR 1.74 NA 140 K 4.3 CH 101 CO2 30.7 CA 9.1 08/30/2019 ; Glucose 89,BUN 26,Creati 1.20,Na 143,K 4.5,Cl 106,Co2 27.5,Ca 9.0,AST 23,ALT 18,Alkaline phosphatase 67 LIPID 03/16/2019 CH 165 TR 221 HDL 52 LDL 69 03/16/19: Cr 1.74, K 4.3, TG 221, LDL 69 04/13/18: Cr 1.34, K 4.3 12-18-2017 FREE T4: 1.04, TSH: 2.299 12-18-2017: NA: 140, K: 3.7, CL: 101, CO2: 31.6, GLU: 115, BUN: 17, AST: 27, ALT: 30, CR: 1.28 12/18/17 TC: 141, TR: 130, HDL: 60, LDL: 55 12/02/17: Na 142 ,K 3.6 ,CL 103 ,CO2 32.8, GLU 111 ,BUN 21, CR 1.26,TC 139 ,TG 139 , HDL 61 ,LDL 50 ,AST 23 ,ALT 28, CK 54 10/31/17: Na 139 ,K 4.1 ,CL 102 ,CO2 30.3, GLU 92 , BUN 32, CR 1.48 ,TC 184 ,TG 81,HDL 63 ,LDL 105 ,AST 22 ,ALT 28, 07/02/17 CMP: SOD 140, K 3.7, CL 102, CO2 29.7, GL 100, BUN 18, CR 1.18, AST 43, ALT 44.; sm 05/05/17: Na 142 ,K 3.9 ,CL 100 ,CO2 32 ,GLU 131 ,BUN 22 ,CR 1.07 ,HB 12.8, HT 37.5 04/28/17: SOD 141, K 3.7, CL 102, CO2 29, GL 207, BUN 18, CR 1.12, TC 141, HDL 47, TR 114, LDL 71.2, AST 52, ALT 48. 04/19/17: DDI: 2.11 07/04/16 : NA:143, K:3.8, CL:99, CO2:31, GLU:73, BUN:15, CR:0.9, AST:26, A1C:6.9, TSH:1.97 02/21/16 NA 142, K 4.6, CL 103, CO2 28, GLU 144, BUN 14, CR 1.2 01/11/16: NA 147, K 4.7, CL 105, CO2 27, CR 0.95, BUN 10, GLU 99 01/11/16 : TC 144, TR 114, HDL 55, LDL 66 11/04/15 Creat POC-ISTAT: 1.1 08/30/15 Sod 140, K 4.2, Cl 102, Co2 26.0, Gl 92, BUN 12, Cr0.8 US, echocardiogram 02-12-2022:Study quality: Technically difficult. Technical limitations- poor acoustic window. LV chamber size is normal. The estimated left ventricle ejection fraction is 60-65% (normal). LV relaxation is impaired. The aortic valve is mildly calcified. There is mild thickening of the mitral valve anterior leaflet. There is mild triscupid regurgitation. Mild elevation of estimated RV systolic pressure. There is a trace pericardial effusion. Sinus Bradycardia. (01/31/2022)-Lexiscan Stress TestAdequate Stress with Lexiscan. Negative Lexiscan stress test for ischemia. Normal LV systolic function. Compared to last study on 04/21/20 there are no changes. electrocardiogram 11-28-2021:Sinus rhythm(slow). P; normal, QRS; low voltage, consider pulmonary disease R/S < 1 in V2 V3 V4, R < 0.15 mV in V2 V3 V4 V5, ST-T; slight high-lateral ST-T changes, consider ischemia, LV overload or aspecific change, small negative T in l aVL, conclusion: possibly abnormal ECG. EKG 11/15/20 sinus rhythm, premature ventricular complexes, P; normal, QRS; LBBB, AJX=403 ms. R < 0.25 mV in V1 V2. no Q in l V5 V6. R notch in l aVL V6. ST-T; normal, conclusion; abnormal ECG. electrocardiogram 11-28-2021:Sinus rhythm(slow). P; normal, QRS; low voltage, consider pulmonary disease R/S < 1 in V2 V3 V4, R < 0.15 mV in V2 V3 V4 V5, ST-T; slight high-lateral ST-T changes, consider ischemia, LV overload or aspecific change, small negative T in l aVL, conclusion: possibly abnormal ECG. EKG 04/14/2020: NSR, Low voltage. Poor R progression in chest leads. 01/12/20 EKG: Normal sinus rhythm, IVCD 09/01/19 EKG: Normal sinus rhythm. Nonspecific intraventricular conduction block 04/07/2019 EKG: NSR, Poor R progression in chest leads 10/05/18 EKG: NSR. Low voltage, chest leads. Poor R progression in chest leads. Left posterior hemiblock. IVCD EKG 04/15/18 :Low voltage , Non-specific ST depression. lateral leads. EKG 11/03/17 : abnormal ECG EKG 07/14/17 Low voltage, chest leads. NSR.; EKG 04/28/17 : Sinus rhythm (slow). P: normal. QRS: low voltage in precordial leads. ST-T: slight but extensive precordial and high lateral ST-T changes, consider ischemia, LV overload or aspecific change. Negative T in aVL V2. with small negative T in I V4 V5 V6. with flat or low negative T in V3. Possibly abnormal ECG. EKG 12/02/16 : NSR. Low voltage, inverted T wave in aVL. Nonspecific ST depression, lateral leads 09-02-2016 NSR, low voltage EK04/03/16 sinus rhythm. P: normal. QRS: low voltage in precordial leads. ST-T: slight high-lateral and left-precordial ST-T changes, consider ischemia, LV overload or aspecific change. small negative T in I aVL V5 V6. conclusion: possibly abnormal ECG. EK08/30/15 Normal sinus Rhythm. Inferior infarct, age undetermined. ST & T wave abnormality, consider anterior ischemia. Abnormal ECG when compared with ECG of 03-AUG-2014 07:56, inferior infarct is now present. T wave inversion now evident in anterior leads. Zio monitor 05/27/17: Unremarkable holter, Rare PVC's but not correlated with symptoms, Symptoms of chest pain, fluttering and dyspnea correlated with normal sinus rhythm Holter Monitor 09/25/15: Unremarkable Holter 04/21/20 LEXISCAN CARDIOLITE STRESS TEST Adequate Stress with Lexiscan. Negative Lexiscan stress test for ischemia. Normal LV systolic function. Artifact noted. Compared to last study on 04/30/17, there are no changes LVEF >60% Lexiscan Cardiolite Stress Test 04/30/17 : Negative lexiscan stress test for ischemia. Normal LV systolic function Adequate stress with lexiscan. Abnormal stress test. Artifact noted. No previous study to compare. LVEF >60%. Echo 04/25/2020: Study quality: Technically difficult. LV chamber size is normal. There is normal global systolic function and contractility. The estimated left ventricle ejection fraction is 55-60% (normal). There is mild thickening of mitral valve anterior leaflet. There is trace mitral regurgitation. There is trace tricuspid regurgitation. There is mild pulmonary hypertension. Estimated RVSP systolic pressure is 39mmHg. ECHO: 04/19/17 Mild concentric left ventricular hypertrophy. Elevated left ventricular end diastolic pressure indicated by M-mode interruption of AC closure. There is mild enlargement of left atrium. ECHO: 09/11/15 LV wall thickness is normal. There is normal global systolic function and contractility. The estimated LV ejection fraction is 55-60% (normal). Diastolic filling reveals a pseudonormal pattern (Grade 2 diastolic dysfunction) Left atrium chamber is mildly dilated. The estimated RV systolic pressure is normal. ECHO: 09/11/15 LV wall thickness is normal. There is normal global systolic function and contractility. The estimated LV ejection fraction is 55-60% (normal). Diastolic filling reveals a pseudonormal pattern (Grade 2 diastolic dysfunction) Left atrium chamber is mildly dilated. The estimated RV systolic pressure is normal. Cardiac CTA 12/22/17: Mild coronary artery disease. CTA CHEST: 04/19/17 No pulmonary embolism. Small pleural effusion with bilateral dependent atelectasis. CT, Chest, W/ Contrast 11/04/15 : Findings suggesting mild congestive failure. No evidence of pulmonary embolus. Fatty infiltration the liver. Stable right renal lesion. XR, CHEST 04/11/2020: No active cardiopulmonary disease. Chest X ray 10/12/15 : No acute cardiopulmonary disease . Cardiac CTA done in 12/22/17 showed Mild coronary artery disease (<25% stenosis in LAD, diagonal, LCx, RCA, LVEF 60%). Cardiac cath 08/2015: normal coronaries NM, PULMONARY PERF 04/11/2020: Negative pulmonary perfusion scan; no evidence of clinically significant pulmonary emboli. Howard Herbert [place], [place] - [facility] 04/15/2022 16:42:47 05/15/2022 text/html 05/15/2022 CC: chest pain 76 yo white woman with hx of CAD, HF-pEF, IVCD, HTN, DM, ROSA (on CPAP), pulmonary HTN, CKD (Dr. Ling), hypothyroidism, GERD, sciatica, who presents today for follow up chest pain. Chest pain has resolved, except with coughing with recent URI 11/2021. She had COVID 04/17/22. For edema, began HCTZ 12.5 mg qd 04/15/22 and increased to KCl 10 mEq bid, but Dr. Ling stopped HCTZ, losartan, and bumetanide 04/2022 due to increased Cr 1.98 05/06/22 with K low 2.6. Continue off losartan and off HCTZ pending Renal f/u and pending labs. Due to increased edema off all diuretics until 05/15/22, Dr. Ling restarted bumetanide but decreased from 1mg bid to 1 mg qd 05/15/22. Dr. Ling ordered increase from KCl 20 mEq bid to tid 05/15/22, with resumption of bumetanide. Had 05/13/22: K 4.0, Cr 1.15. Obtain BMP, Mg 05/23/22.. Previously, she reported left central chest pain which was continuous sharp pain with intermittent stabbing and shock, for several hours at time 04/11/20 for 2 occasions, for which she was seen in [place] ED but was not admitted, worse when laying flat. She CTA chest witn no PE per patient report. Some associated dyspnea and nausea. No diaphoresis. Since her last visit, she reports improving gastric issues. She had ERCP with transient stenting per Dr Mccloud. She also has been dx with anemia. Reports that her GERD has improved since she was last here. She had pancreatic stent 01/19/2020. Reports significant reduction in swelling to lower extremities. Reports resolution of exertional dyspnea. Reports palpitations, racing heart. Denies concerns at this time, reporting an overall feeling of well-being outside of her gastric issues. No edema or dizziness, except with migraines. Previously, she was started on Ranexa 1000 mg BID, but she had an episodes of dizziness, fell and broke her right ankle and sprained her left ankle. She returned back to Ranexa 500 mg BID. She was inactive for 2 months after her fall. Reports sciatica, following with PCP. She reports rare episodes of heart burn. She saw her GI Specialist and was restarted on her amitriptyline 07/24/17 for her GERD. Previously, her PCP discontinued her amitriptyline and increased Pantoprazole 40 mg daily for GERD. BP has been running well, with BP < 130/80 at home. Reports left chest pain worse with coughing since COVID. Reported resolution of occasional sharp, electrical chest pain for a few minutes associated with headaches, with sharp pain resolved but now with nonexertional left chest pain which is a heaviness for up to 2 min, without dyspnea, nausea, or diaphoresis. No shortness of breath at rest. Reports less dyspnea on exertion. No diaphoresis. No orthopnea. No PND's. Occasional dizziness with occasional vertigo. Reports forceful rapid palpitations for < 1 min. on 3 occasions since 08/2021. No syncope or near syncope. Intermittent leg swelling, bilateral, increased mildly. No side effects from medications. ROSA on CPAP by physiotherapy assistant. She is getting MRI brain due to headaches as per PCP. Previously, she had another sleep apnea test at physiotherapy assistant and changed her CPAP setting with some improvement of her fatigue. She continues to have shortness of breath and chest pain. Pulmonary stress test 07/03/17 showed mixed muscular deconditioning and pulm. HTN contributing to dyspnea. Previously, she had nonexertional substernal/left sided chest pressure/sharp and shortness of breath. Chest pain and shortness of breath does occur with exertion with walking half way around the outside of her house. She does get symptoms with rest also. Denies symptoms with walking into the office today. She reports when she drinks a cold drink that she develops chest pain, which occurs most of the time. No exercising at present due to dyspnea. 3 months ago, was walking 3 miles 3x/week. Previously, she went to her PCP 04/18/17 for shortness of breath with exertion which was worse than normal. She was admitted to [facility] for CHF and given IV Lasix for two days with 10 lb. weight loss. CTA negative for PE. She was discharged 04/20/2017. She reports losing 10 lbs while in the hospital and was feeling well. She states today she has gained 2 lbs and is feeling short of breath again, dry cough and reports some leg swelling. Had Zio Monitor on 05/27/17: Unremarkable holter, Rare PVC's but not correlated with symptoms, Symptoms of chest pain, fluttering and dyspnea correlated with normal sinus rhythm. Had ECHO 02/12/22: LV chamber size is normal,the estimated LVEF is 60-65%, LV relaxation is impaired, the aortic valve is mildly calcified.there is mild thickening of the mitral valve anterior leaflet,there is mild tricuspid regurgitation,mild elevation of estimated RV systolic pressure,there is a trace pericardial effusion,sinus bradycardia. Had ECHO done in 04/25/20 showed LV chamber size is normal. There is normal global systolic function and contractility. The estimated left ventricle ejection fraction is 55-60% (normal). There is mild thickening of mitral valve anterior leaflet. There is trace mitral regurgitation. There is trace tricuspid regurgitation. There is mild pulmonary hypertension. Had Echo on 04/19/17. It showed Mild concentric left ventricular hypertrophy. Elevated left ventricular end diastolic pressure indicated by M-mode interruption of AC closure. There is mild enlargement of left atrium. Had Lexiscan cardiolite stress test (01/31/2022): Adequate Stress with Lexiscan. Negative Lexiscan stress test for ischemia. Normal LV systolic function. Compared to last study on 04/21/20 there are no changes. Had 04/21/20 LEXISCAN CARDIOLITE STRESS TEST: Adequate Stress with Lexiscan. Negative Lexiscan stress test for ischemia. Normal LV systolic function. Artifact noted. Compared to last study on 04/30/17, there are no changes, LVEF >60% Had Lexiscan Cardiolite Stress Test on 04/30/17: Negative lexiscan stress test for ischemia. Normal LV systolic function Adequate stress with lexiscan. Abnormal stress test. Artifact noted. No previous study to compare. LVEF >60%. Had CTA of chest on 04/19/17. No pulmonary embolism. Small pleural effusion with bilateral dependent atelectasis. Pulm stress test in chart 07/03/17. Had Cardiac CTA done in 12/22/17 showed mild coronary artery disease (<25% stenosis in LAD, diagonal, LCx, RCA, LVEF 60%). Had Cardiac cath 08/2015: normal coronaries. Obtained 30 day Zoll MCT monitor 12/09/21: unremarkable, symptoms correlated with NSR. Results from this visit, or from the past:Had 04/11/22: Cr 1.38, K 3.6, Mg 1.9 BMP, blood [id number](03/27/19) CMP-GL 101 BUN 22 CR 1.50 NA 141 K 3.6 CA 9.3Had 03/19/22: Cr 3.83, BUN 70, K 4.6, Mg 1.9 Had 01/18/22: Cr 1.32, K 3.8, hgb11.2, TSH normal, Mg 1.8, 10/30/2021WBC 4.1 RBC 3.60 HGB 11.3 HCT 34.0 PLT 155BMP-GL 101 BUN 27 CR 1.42 NA 139 K 4.5 CA 8.9 05/04/21: Mg 1.9, LDL 52, hgb 12.0, Cr 1.12, K 4.5, Had 10/23/20: K 3.9, Cr 1.46, hgb 11.2, 05/12/20 BMP GL 134, BUN 26, CR 1.25, NA 140, K 4.1, CHL 106, C02 24.3, CA 9.0 04/11/2020 CBC: WBC 7.1, RBC 2.82, HGB 8.7, HCT 26.6, PLT 200 04/11/2020 BMP: NA 133, K 3.8, CL 97, CO2 26, GL 175, BUN 32, CR 1.90, CA 9.0 04/11/2020 D-Dimer: 1.28 04/11/2020 PT/INR: PT 13.5, INR 1.0 03/15/20: CPK 103 03/15/20 LIPID: TC 150, TG 220, HDL 57, LDL 49 12/30/20 CMP: NA 142, K 3.8, CH 104, CO2 29.7, GL 153, BUN 23, CR 1.27, CA 9.3, AST 26, ALT 22, ALK PHOS 213 BMP 03/16/2019 GL 130 BUN 28 CR 1.74 NA 140 K 4.3 CH 101 CO2 30.7 CA 9.1 08/30/2019 ; Glucose 89,BUN 26,Creati 1.20,Na 143,K 4.5,Cl 106,Co2 27.5,Ca 9.0,AST 23,ALT 18,Alkaline phosphatase 67 LIPID 03/16/2019 CH 165 TR 221 HDL 52 LDL 69 03/16/19: Cr 1.74, K 4.3, TG 221, LDL 69 04/13/18: Cr 1.34, K 4.3 12-18-2017 FREE T4: 1.04, TSH: 2.299 12-18-2017: NA: 140, K: 3.7, CL: 101, CO2: 31.6, GLU: 115, BUN: 17, AST: 27, ALT: 30, CR: 1.28 12/18/17 TC: 141, TR: 130, HDL: 60, LDL: 55 12/02/17: Na 142 ,K 3.6 ,CL 103 ,CO2 32.8, GLU 111 ,BUN 21, CR 1.26,TC 139 ,TG 139 , HDL 61 ,LDL 50 ,AST 23 ,ALT 28, CK 54 10/31/17: Na 139 ,K 4.1 ,CL 102 ,CO2 30.3, GLU 92 , BUN 32, CR 1.48 ,TC 184 ,TG 81,HDL 63 ,LDL 105 ,AST 22 ,ALT 28, 07/02/17 CMP: SOD 140, K 3.7, CL 102, CO2 29.7, GL 100, BUN 18, CR 1.18, AST 43, ALT 44.; sm 05/05/17: Na 142 ,K 3.9 ,CL 100 ,CO2 32 ,GLU 131 ,BUN 22 ,CR 1.07 ,HB 12.8, HT 37.5 04/28/17: SOD 141, K 3.7, CL 102, CO2 29, GL 207, BUN 18, CR 1.12, TC 141, HDL 47, TR 114, LDL 71.2, AST 52, ALT 48. 2/3/18: DDI: 2.11 07/04/16 : NA:143, K:3.8, CL:99, CO2:31, GLU:73, BUN:15, CR:0.9, AST:26, A1C:6.9, TSH:1.97 02/21/16 NA 142, K 4.6, CL 103, CO2 28, GLU 144, BUN 14, CR 1.2 01/11/16: NA 147, K 4.7, CL 105, CO2 27, CR 0.95, BUN 10, GLU 99 01/11/16 : TC 144, TR 114, HDL 55, LDL 66 11/04/15 Creat POC-ISTAT: 1.1 08/30/15 Sod 140, K 4.2, Cl 102, Co2 26.0, Gl 92, BUN 12, Cr0.8 US, echocardiogram 02-12-2022:Study quality: Technically difficult. Technical limitations- poor acoustic window. LV chamber size is normal. The estimated left ventricle ejection fraction is 60-65% (normal). LV relaxation is impaired. The aortic valve is mildly calcified. There is mild thickening of the mitral valve anterior leaflet. There is mild triscupid regurgitation. Mild elevation of estimated RV systolic pressure. There is a trace pericardial effusion. Sinus Bradycardia. (01/31/2022)-Lexiscan Stress TestAdequate Stress with Lexiscan. Negative Lexiscan stress test for ischemia. Normal LV systolic function. Compared to last study on 04/21/20 there are no changes. electrocardiogram 11-28-2021:Sinus rhythm(slow). P; normal, QRS; low voltage, consider pulmonary disease R/S < 1 in V2 V3 V4, R < 0.15 mV in V2 V3 V4 V5, ST-T; slight high-lateral ST-T changes, consider ischemia, LV overload or aspecific change, small negative T in l aVL, conclusion: possibly abnormal ECG. EKG 11/15/20 sinus rhythm, premature ventricular complexes, P; normal, QRS; LBBB, ELX=190 ms. R < 0.25 mV in V1 V2. no Q in l V5 V6. R notch in l aVL V6. ST-T; normal, conclusion; abnormal ECG. electrocardiogram 11-28-2021:Sinus rhythm(slow). P; normal, QRS; low voltage, consider pulmonary disease R/S < 1 in V2 V3 V4, R < 0.15 mV in V2 V3 V4 V5, ST-T; slight high-lateral ST-T changes, consider ischemia, LV overload or aspecific change, small negative T in l aVL, conclusion: possibly abnormal ECG. EKG 04/14/2020: NSR, Low voltage. Poor R progression in chest leads. 01/12/20 EKG: Normal sinus rhythm, IVCD 09/01/19 EKG: Normal sinus rhythm. Nonspecific intraventricular conduction block 04/07/2019 EKG: NSR, Poor R progression in chest leads 10/05/18 EKG: NSR. Low voltage, chest leads. Poor R progression in chest leads. Left posterior hemiblock. IVCD EKG 04/15/18 :Low voltage , Non-specific ST depression. lateral leads. EKG 11/03/17 : abnormal ECG EKG 07/14/17 Low voltage, chest leads. NSR.; EKG 04/28/17 : Sinus rhythm (slow). P: normal. QRS: low voltage in precordial leads. ST-T: slight but extensive precordial and high lateral ST-T changes, consider ischemia, LV overload or aspecific change. Negative T in aVL V2. with small negative T in I V4 V5 V6. with flat or low negative T in V3. Possibly abnormal ECG. EKG 12/02/16 : NSR. Low voltage, inverted T wave in aVL. Nonspecific ST depression, lateral leads 09-02-2016 NSR, low voltage EK04/03/16 sinus rhythm. P: normal. QRS: low voltage in precordial leads. ST-T: slight high-lateral and left-precordial ST-T changes, consider ischemia, LV overload or aspecific change. small negative T in I aVL V5 V6. conclusion: possibly abnormal ECG. EK08/30/15 Normal sinus Rhythm. Inferior infarct, age undetermined. ST & T wave abnormality, consider anterior ischemia. Abnormal ECG when compared with ECG of 03-AUG-2014 07:56, inferior infarct is now present. T wave inversion now evident in anterior leads. Zio monitor 05/27/17: Unremarkable holter, Rare PVC's but not correlated with symptoms, Symptoms of chest pain, fluttering and dyspnea correlated with normal sinus rhythm Holter Monitor 09/25/15: Unremarkable Holter 04/21/20 LEXISCAN CARDIOLITE STRESS TEST Adequate Stress with Lexiscan. Negative Lexiscan stress test for ischemia. Normal LV systolic function. Artifact noted. Compared to last study on 04/30/17, there are no changes LVEF >60% Lexiscan Cardiolite Stress Test 04/30/17 : Negative lexiscan stress test for ischemia. Normal LV systolic function Adequate stress with lexiscan. Abnormal stress test. Artifact noted. No previous study to compare. LVEF >60%. Echo 04/25/2020: Study quality: Technically difficult. LV chamber size is normal. There is normal global systolic function and contractility. The estimated left ventricle ejection fraction is 55-60% (normal). There is mild thickening of mitral valve anterior leaflet. There is trace mitral regurgitation. There is trace tricuspid regurgitation. There is mild pulmonary hypertension. Estimated RVSP systolic pressure is 39mmHg. ECHO: 04/19/17 Mild concentric left ventricular hypertrophy. Elevated left ventricular end diastolic pressure indicated by M-mode interruption of AC closure. There is mild enlargement of left atrium. ECHO: 09/11/15 LV wall thickness is normal. There is normal global systolic function and contractility. The estimated LV ejection fraction is 55-60% (normal). Diastolic filling reveals a pseudonormal pattern (Grade 2 diastolic dysfunction) Left atrium chamber is mildly dilated. The estimated RV systolic pressure is normal. ECHO: 09/11/15 LV wall thickness is normal. There is normal global systolic function and contractility. The estimated LV ejection fraction is 55-60% (normal). Diastolic filling reveals a pseudonormal pattern (Grade 2 diastolic dysfunction) Left atrium chamber is mildly dilated. The estimated RV systolic pressure is normal. Cardiac CTA 12/22/17: Mild coronary artery disease. CTA CHEST: 04/19/17 No pulmonary embolism. Small pleural effusion with bilateral dependent atelectasis. CT, Chest, W/ Contrast 11/04/15 : Findings suggesting mild congestive failure. No evidence of pulmonary embolus. Fatty infiltration the liver. Stable right renal lesion. XR, CHEST 04/11/2020: No active cardiopulmonary disease. Chest X ray 10/12/15 : No acute cardiopulmonary disease . Cardiac CTA done in 12/22/17 showed Mild coronary artery disease (<25% stenosis in LAD, diagonal, LCx, RCA, LVEF 60%). Cardiac cath 08/2015: normal coronaries NM, PULMONARY PERF 04/11/2020: Negative pulmonary perfusion scan; no evidence of clinically significant pulmonary emboli. Howard moore [place] - [facility] 05/15/2022 14:06:12 06/07/2022 text/html 06/07/2022 CC: chest pain 77 yo white woman with hx of CAD, HF-pEF, IVCD, HTN, DM, ROSA (on CPAP), pulmonary HTN, CKD (Dr. Ling), hypothyroidism, GERD, sciatica, who presents today for follow up chest pain. She is on antibiotic per PCP for possible URI with chills 06/07/22. Chest pain has resolved, except with coughing with recent URI 11/2021. She had COVID 04/17/22. For edema, began HCTZ 12.5 mg qd 04/15/22 and increased to KCl 10 mEq bid, [address] Ling stopped HCTZ, losartan, and bumetanide 04/2022 due to increased Cr 1.98 05/06/22 with K low 2.6. Bumex resumed per Dr. Ling. Continue off losartan and off HCTZ pending Renal f/u and pending labs. Due to increased edema off all diuretics until 05/15/22, Dr. Ling restarted bumetanide but decreased from 1mg bid to 1 mg qd or bid if needed 05/15/22. Dr. Ling ordered increase from KCl 20 mEq bid to tid 05/15/22, with resumption of bumetanide. Had 05/13/22: K 4.0, Cr 1.15. Previously, she reported left central chest pain which was continuous sharp pain with intermittent stabbing and shock, for several hours at time 04/11/20 for 2 occasions, for which she was seen in [place] ED but was not admitted, worse when laying flat. She CTA chest witn no PE per patient report. Some associated dyspnea and nausea. No diaphoresis. Since her last visit, she reports improving gastric issues. She had ERCP with transient stenting per Dr Mccloud. She also has been dx with anemia. Reports that her GERD has improved since she was last here. She had pancreatic stent 01/19/2020. Reports significant reduction in swelling to lower extremities. Reports resolution of exertional dyspnea. Reports palpitations, racing heart. Denies concerns at this time, reporting an overall feeling of well-being outside of her gastric issues. No edema or dizziness, except with migraines. Previously, she was started on Ranexa 1000 mg BID, but she had an episodes of dizziness, fell and broke her right ankle and sprained her left ankle. She returned back to Ranexa 500 mg BID. She was inactive for 2 months after her fall. Reports sciatica, following with PCP. She reports rare episodes of heart burn. She saw her GI Specialist and was restarted on her amitriptyline 07/24/17 for her GERD. Previously, her PCP discontinued her amitriptyline and increased Pantoprazole 40 mg daily for GERD. BP has been running well, with BP < 130/80 at home. Reports left chest pain worse with coughing since COVID, resolved. Reported resolution of occasional sharp, electrical chest pain for a few minutes associated with headaches, with sharp pain resolved but now with nonexertional left chest pain which is a heaviness for up to 2 min, without dyspnea, nausea, or diaphoresis. No shortness of breath at rest. Reports less dyspnea on exertion. No diaphoresis. No orthopnea. No PND's. Occasional dizziness with occasional vertigo. Reports forceful rapid palpitations for < 1 min. on 3 occasions since 08/2021. No syncope or near syncope. Intermittent leg swelling, bilateral, increased mildly. No side effects from medications. ROSA on CPAP by physiotherapy assistant. She is getting MRI brain due to headaches as per PCP. Previously, she had another sleep apnea test at physiotherapy assistant and changed her CPAP setting with some improvement of her fatigue. She continues to have shortness of breath and chest pain. Pulmonary stress test 07/03/17 showed mixed muscular deconditioning and pulm. HTN contributing to dyspnea. Previously, she had nonexertional substernal/left sided chest pressure/sharp and shortness of breath. Chest pain and shortness of breath does occur with exertion with walking half way around the outside of her house. She does get symptoms with rest also. Denies symptoms with walking into the office today. She reports when she drinks a cold drink that she develops chest pain, which occurs most of the time. No exercising at present due to dyspnea. 3 months ago, was walking 3 miles 3x/week. Previously, she went to her PCP 04/18/17 for shortness of breath with exertion which was worse than normal. She was admitted to [facility] for CHF and given IV Lasix for two days with 10 lb. weight loss. CTA negative for PE. She was discharged 04/20/2017. She reports losing 10 lbs while in the hospital and was feeling well. She states today she has gained 2 lbs and is feeling short of breath again, dry cough and reports some leg swelling. Had Zio Monitor on 05/27/17: Unremarkable holter, Rare PVC's but not correlated with symptoms, Symptoms of chest pain, fluttering and dyspnea correlated with normal sinus rhythm. Had ECHO 02/12/22: LV chamber size is normal,the estimated LVEF is 60-65%, LV relaxation is impaired, the aortic valve is mildly calcified.there is mild thickening of the mitral valve anterior leaflet,there is mild tricuspid regurgitation,mild elevation of estimated RV systolic pressure,there is a trace pericardial effusion,sinus bradycardia. Had ECHO done in 04/25/20 showed LV chamber size is normal. There is normal global systolic function and contractility. The estimated left ventricle ejection fraction is 55-60% (normal). There is mild thickening of mitral valve anterior leaflet. There is trace mitral regurgitation. There is trace tricuspid regurgitation. There is mild pulmonary hypertension. Had Echo on 04/19/17. It showed Mild concentric left ventricular hypertrophy. Elevated left ventricular end diastolic pressure indicated by M-mode interruption of AC closure. There is mild enlargement of left atrium. Had Lexiscan cardiolite stress test (01/31/2022): Adequate Stress with Lexiscan. Negative Lexiscan stress test for ischemia. Normal LV systolic function. Compared to last study on 04/21/20 there are no changes. Had 04/21/20 LEXISCAN CARDIOLITE STRESS TEST: Adequate Stress with Lexiscan. Negative Lexiscan stress test for ischemia. Normal LV systolic function. Artifact noted. Compared to last study on 04/30/17, there are no changes, LVEF >60% Had Lexiscan Cardiolite Stress Test on 04/30/17: Negative lexiscan stress test for ischemia. Normal LV systolic function Adequate stress with lexiscan. Abnormal stress test. Artifact noted. No previous study to compare. LVEF >60%. Had CTA of chest on 04/19/17. No pulmonary embolism. Small pleural effusion with bilateral dependent atelectasis. Pulm stress test in chart 07/03/17. Had Cardiac CTA done in 12/22/17 showed mild coronary artery disease (<25% stenosis in LAD, diagonal, LCx, RCA, LVEF 60%). Had Cardiac cath 08/2015: normal coronaries. Obtained 30 day Zoll MCT monitor 12/09/21: unremarkable, symptoms correlated with NSR. Results from this visit, or from the past: Had 05/23/22: Cr 1.62, BUN 20, K 4.0, wbc 2.8 low, hgb 10.4 low, plt 126 low, LDL 67 BMP, serum or plasma / BMP-GL 146 BUN 53 CR 1.98 NA 137 K 2.6 CA 10.1 CBC-WBC 3.91 RBC 4.13 HGB 12.7 HCT 37.3 PLT 218 TSH-1,237 Had 04/11/22: Cr 1.38, K 3.6, Mg 1.9 BMP, blood [id number](03/27/19) CMP-GL 101 BUN 22 CR 1.50 NA 141 K 3.6 CA 9.3Had 03/19/22: Cr 3.83, BUN 70, K 4.6, Mg 1.9 Had 01/18/22: Cr 1.32, K 3.8, hgb11.2, TSH normal, Mg 1.8, 10/30/2021WBC 4.1 RBC 3.60 HGB 11.3 HCT 34.0 PLT 155BMP-GL 101 BUN 27 CR 1.42 NA 139 K 4.5 CA 8.9 05/04/21: Mg 1.9, LDL 52, hgb 12.0, Cr 1.12, K 4.5, Had 10/23/20: K 3.9, Cr 1.46, hgb 11.2, 05/12/20 BMP GL 134, BUN 26, CR 1.25, NA 140, K 4.1, CHL 106, C02 24.3, CA 9.0 04/11/2020 CBC: WBC 7.1, RBC 2.82, HGB 8.7, HCT 26.6, PLT 200 04/11/2020 BMP: NA 133, K 3.8, CL 97, CO2 26, GL 175, BUN 32, CR 1.90, CA 9.0 04/11/2020 D-Dimer: 1.28 04/11/2020 PT/INR: PT 13.5, INR 1.0 03/15/20: CPK 103 03/15/20 LIPID: TC 150, TG 220, HDL 57, LDL 49 03/15/20 CMP: NA 142, K 3.8, CH 104, CO2 29.7, GL 153, BUN 23, CR 1.27, CA 9.3, AST 26, ALT 22, ALK PHOS 213 BMP 03/16/2019 GL 130 BUN 28 CR 1.74 NA 140 K 4.3 CH 101 CO2 30.7 CA 9.1 08/30/2019 ; Glucose 89,BUN 26,Creati 1.20,Na 143,K 4.5,Cl 106,Co2 27.5,Ca 9.0,AST 23,ALT 18,Alkaline phosphatase 67 LIPID 03/16/2019 CH 165 TR 221 HDL 52 LDL 69 03/16/19: Cr 1.74, K 4.3, TG 221, LDL 69 04/13/18: Cr 1.34, K 4.3 12-18-2017 FREE T4: 1.04, TSH: 2.299 12-18-2017: NA: 140, K: 3.7, CL: 101, CO2: 31.6, GLU: 115, BUN: 17, AST: 27, ALT: 30, CR: 1.28 12/18/17 TC: 141, TR: 130, HDL: 60, LDL: 55 12/02/17: Na 142 ,K 3.6 ,CL 103 ,CO2 32.8, GLU 111 ,BUN 21, CR 1.26,TC 139 ,TG 139 , HDL 61 ,LDL 50 ,AST 23 ,ALT 28, CK 54 10/31/17: Na 139 ,K 4.1 ,CL 102 ,CO2 30.3, GLU 92 , BUN 32, CR 1.48 ,TC 184 ,TG 81,HDL 63 ,LDL 105 ,AST 22 ,ALT 28, 07/02/17 CMP: SOD 140, K 3.7, CL 102, CO2 29.7, GL 100, BUN 18, CR 1.18, AST 43, ALT 44.; sm 05/05/17: Na 142 ,K 3.9 ,CL 100 ,CO2 32 ,GLU 131 ,BUN 22 ,CR 1.07 ,HB 12.8, HT 37.5 04/28/17: SOD 141, K 3.7, CL 102, CO2 29, GL 207, BUN 18, CR 1.12, TC 141, HDL 47, TR 114, LDL 71.2, AST 52, ALT 48. 04/19/17: DDI: 2.11 07/04/16 : NA:143, K:3.8, CL:99, CO2:31, GLU:73, BUN:15, CR:0.9, AST:26, A1C:6.9, TSH:1.97 02/21/16 NA 142, K 4.6, CL 103, CO2 28, GLU 144, BUN 14, CR 1.2 01/11/16: NA 147, K 4.7, CL 105, CO2 27, CR 0.95, BUN 10, GLU 99 01/11/16 : TC 144, TR 114, HDL 55, LDL 66 11/04/15 Creat POC-ISTAT: 1.1 08/30/15 Sod 140, K 4.2, Cl 102, Co2 26.0, Gl 92, BUN 12, Cr0.8 US, echocardiogram 02-12-2022:Study quality: Technically difficult. Technical limitations- poor acoustic window. LV chamber size is normal. The estimated left ventricle ejection fraction is 60-65% (normal). LV relaxation is impaired. The aortic valve is mildly calcified. There is mild thickening of the mitral valve anterior leaflet. There is mild triscupid regurgitation. Mild elevation of estimated RV systolic pressure. There is a trace pericardial effusion. Sinus Bradycardia. (01/31/2022)-Lexiscan Stress TestAdequate Stress with Lexiscan. Negative Lexiscan stress test for ischemia. Normal LV systolic function. Compared to last study on 04/21/20 there are no changes. electrocardiogram 11-28-2021:Sinus rhythm(slow). P; normal, QRS; low voltage, consider pulmonary disease R/S < 1 in V2 V3 V4, R < 0.15 mV in V2 V3 V4 V5, ST-T; slight high-lateral ST-T changes, consider ischemia, LV overload or aspecific change, small negative T in l aVL, conclusion: possibly abnormal ECG. EKG 11/15/20 sinus rhythm, premature ventricular complexes, P; normal, QRS; LBBB, RGQ=930 ms. R < 0.25 mV in V1 V2. no Q in l V5 V6. R notch in l aVL V6. ST-T; normal, conclusion; abnormal ECG. electrocardiogram 11-28-2021:Sinus rhythm(slow). P; normal, QRS; low voltage, consider pulmonary disease R/S < 1 in V2 V3 V4, R < 0.15 mV in V2 V3 V4 V5, ST-T; slight high-lateral ST-T changes, consider ischemia, LV overload or aspecific change, small negative T in l aVL, conclusion: possibly abnormal ECG. EKG 04/14/2020: NSR, Low voltage. Poor R progression in chest leads. 01/12/20 EKG: Normal sinus rhythm, IVCD 09/01/19 EKG: Normal sinus rhythm. Nonspecific intraventricular conduction block 04/07/2019 EKG: NSR, Poor R progression in chest leads 10/05/18 EKG: NSR. Low voltage, chest leads. Poor R progression in chest leads. Left posterior hemiblock. IVCD EKG 04/15/18 :Low voltage , Non-specific ST depression. lateral leads. EKG 11/03/17 : abnormal ECG EKG 07/14/17 Low voltage, chest leads. NSR.; EKG 04/28/17 : Sinus rhythm (slow). P: normal. QRS: low voltage in precordial leads. ST-T: slight but extensive precordial and high lateral ST-T changes, consider ischemia, LV overload or aspecific change. Negative T in aVL V2. with small negative T in I V4 V5 V6. with flat or low negative T in V3. Possibly abnormal ECG. EKG 12/02/16 : NSR. Low voltage, inverted T wave in aVL. Nonspecific ST depression, lateral leads 09-02-2016 NSR, low voltage EK04/03/16 sinus rhythm. P: normal. QRS: low voltage in precordial leads. ST-T: slight high-lateral and left-precordial ST-T changes, consider ischemia, LV overload or aspecific change. small negative T in I aVL V5 V6. conclusion: possibly abnormal ECG. EK08/30/15 Normal sinus Rhythm. Inferior infarct, age undetermined. ST & T wave abnormality, consider anterior ischemia. Abnormal ECG when compared with ECG of 03-AUG-2014 07:56, inferior infarct is now present. T wave inversion now evident in anterior leads. Zio monitor 05/27/17: Unremarkable holter, Rare PVC's but not correlated with symptoms, Symptoms of chest pain, fluttering and dyspnea correlated with normal sinus rhythm Holter Monitor 09/25/15: Unremarkable Holter 04/21/20 LEXISCAN CARDIOLITE STRESS TEST Adequate Stress with Lexiscan. Negative Lexiscan stress test for ischemia. Normal LV systolic function. Artifact noted. Compared to last study on 04/30/17, there are no changes LVEF >60% Lexiscan Cardiolite Stress Test 04/30/17 : Negative lexiscan stress test for ischemia. Normal LV systolic function Adequate stress with lexiscan. Abnormal stress test. Artifact noted. No previous study to compare. LVEF >60%. Echo 04/25/2020: Study quality: Technically difficult. LV chamber size is normal. There is normal global systolic function and contractility. The estimated left ventricle ejection fraction is 55-60% (normal). There is mild thickening of mitral valve anterior leaflet. There is trace mitral regurgitation. There is trace tricuspid regurgitation. There is mild pulmonary hypertension. Estimated RVSP systolic pressure is 39mmHg. ECHO: 04/19/17 Mild concentric left ventricular hypertrophy. Elevated left ventricular end diastolic pressure indicated by M-mode interruption of AC closure. There is mild enlargement of left atrium. ECHO: 09/11/15 LV wall thickness is normal. There is normal global systolic function and contractility. The estimated LV ejection fraction is 55-60% (normal). Diastolic filling reveals a pseudonormal pattern (Grade 2 diastolic dysfunction) Left atrium chamber is mildly dilated. The estimated RV systolic pressure is normal. ECHO: 09/11/15 LV wall thickness is normal. There is normal global systolic function and contractility. The estimated LV ejection fraction is 55-60% (normal). Diastolic filling reveals a pseudonormal pattern (Grade 2 diastolic dysfunction) Left atrium chamber is mildly dilated. The estimated RV systolic pressure is normal. Cardiac CTA 12/22/17: Mild coronary artery disease. CTA CHEST: 04/19/17 No pulmonary embolism. Small pleural effusion with bilateral dependent atelectasis. CT, Chest, W/ Contrast 11/04/15 : Findings suggesting mild congestive failure. No evidence of pulmonary embolus. Fatty infiltration the liver. Stable right renal lesion. XR, CHEST 04/11/2020: No active cardiopulmonary disease. Chest X ray 10/12/15 : No acute cardiopulmonary disease . Cardiac CTA done in 12/22/17 showed Mild coronary artery disease (<25% stenosis in LAD, diagonal, LCx, RCA, LVEF 60%). Cardiac cath 08/2015: normal coronaries NM, PULMONARY PERF 04/11/2020: Negative pulmonary perfusion scan; no evidence of clinically significant pulmonary emboli. Howard Herbert [place], [place] - [facility] 06/07/2022 11:51:44 07/18/2022 text/html 07/18/2022 CC: chest pain 77 yo white woman with hx of CAD, HF-pEF, IVCD, HTN, DM, ROSA (on CPAP), pulmonary HTN, CKD (Dr. Ling), hypothyroidism, GERD, sciatica, who presents today for follow up chest pain. She feels better with increased walking 2 miles daily. She is on antibiotic per PCP for possible URI with chills 06/07/22. Chest pain has resolved, except with coughing with recent URI 11/2021. She had COVID 04/17/22. For edema, began HCTZ 12.5 mg qd 04/15/22 and increased to KCl 10 [address], [address] Ling stopped HCTZ, losartan, and bumetanide 04/2022 due to increased Cr 1.98 05/06/22 with K low 2.6. Bumex resumed per Dr. Ling. Continue off losartan and off HCTZ pending Renal f/u and pending labs. Due to increased edema off all diuretics until 05/15/22, Dr. Ling restarted bumetanide but decreased from 1mg bid to 1 mg qd or bid if needed 05/15/22. Dr. Ling ordered increase from KCl 20 mEq bid to tid 05/15/22, with resumption of bumetanide. Had 05/13/22: K 4.0, Cr 1.15. Previously, she reported left central chest pain which was continuous sharp pain with intermittent stabbing and shock, for several hours at time 04/11/20 for 2 occasions, for which she was seen in [place] ED but was not admitted, worse when laying flat. She CTA chest witn no PE per patient report. Some associated dyspnea and nausea. No diaphoresis. Since her last visit, she reports improving gastric issues. She had ERCP with transient stenting per Dr Mccloud. She also has been dx with anemia. Reports that her GERD has improved since she was last here. She had pancreatic stent 01/19/2020. Reports significant reduction in swelling to lower extremities. Reports resolution of exertional dyspnea. Reports palpitations, racing heart. Denies concerns at this time, reporting an overall feeling of well-being outside of her gastric issues. No edema or dizziness, except with migraines. Previously, she was started on Ranexa 1000 mg BID, but she had an episodes of dizziness, fell and broke her right ankle and sprained her left ankle. She returned back to Ranexa 500 mg BID. She was inactive for 2 months after her fall. Reports sciatica, following with PCP. She reports rare episodes of heart burn. She saw her GI Specialist and was restarted on her amitriptyline 07/24/17 for her GERD. Previously, her PCP discontinued her amitriptyline and increased Pantoprazole 40 mg daily for GERD. BP has been running well, with BP < 130/80 at home. Reports left chest pain worse with coughing since COVID, resolved. Reported resolution of occasional sharp, electrical chest pain for a few minutes associated with headaches, with sharp pain resolved but now with nonexertional left chest pain which is a heaviness for up to 2 min, without dyspnea, nausea, or diaphoresis. No shortness of breath at rest. Reports no dyspnea on exertion. No diaphoresis. No orthopnea. No PND's. Occasional dizziness with occasional vertigo, resolved. Reports forceful rapid palpitations for < 1 min. on 3 occasions since 08/2021. No syncope or near syncope. Intermittent leg swelling, bilateral, decreased. No side effects from medications. ROSA on CPAP by physiotherapy assistant. She is getting MRI brain due to headaches as per PCP. Previously, she had another sleep apnea test at physiotherapy assistant and changed her CPAP setting with some improvement of her fatigue. She continues to have shortness of breath and chest pain. Pulmonary stress test 07/03/17 showed mixed muscular deconditioning and pulm. HTN contributing to dyspnea. Previously, she had nonexertional substernal/left sided chest pressure/sharp and shortness of breath. Chest pain and shortness of breath does occur with exertion with walking half way around the outside of her house. She does get symptoms with rest also. Denies symptoms with walking into the office today. She reports when she drinks a cold drink that she develops chest pain, which occurs most of the time. No exercising at present due to dyspnea. 3 months ago, was walking 3 miles 3x/week. Previously, she went to her PCP 04/18/17 for shortness of breath with exertion which was worse than normal. She was admitted to [facility] for CHF and given IV Lasix for two days with 10 lb. weight loss. CTA negative for PE. She was discharged 04/20/2017. She reports losing 10 lbs while in the hospital and was feeling well. She states today she has gained 2 lbs and is feeling short of breath again, dry cough and reports some leg swelling. Had Zio Monitor on 05/27/17: Unremarkable holter, Rare PVC's but not correlated with symptoms, Symptoms of chest pain, fluttering and dyspnea correlated with normal sinus rhythm. Had ECHO 02/12/22: LV chamber size is normal,the estimated LVEF is 60-65%, LV relaxation is impaired, the aortic valve is mildly calcified.there is mild thickening of the mitral valve anterior leaflet,there is mild tricuspid regurgitation,mild elevation of estimated RV systolic pressure,there is a trace pericardial effusion,sinus bradycardia. Had ECHO done in 04/25/20 showed LV chamber size is normal. There is normal global systolic function and contractility. The estimated left ventricle ejection fraction is 55-60% (normal). There is mild thickening of mitral valve anterior leaflet. There is trace mitral regurgitation. There is trace tricuspid regurgitation. There is mild pulmonary hypertension. Had Echo on 04/19/17. It showed Mild concentric left ventricular hypertrophy. Elevated left ventricular end diastolic pressure indicated by M-mode interruption of AC closure. There is mild enlargement of left atrium. Had Lexiscan cardiolite stress test (01/31/2022): Adequate Stress with Lexiscan. Negative Lexiscan stress test for ischemia. Normal LV systolic function. Compared to last study on 04/21/20 there are no changes. Had 04/21/20 LEXISCAN CARDIOLITE STRESS TEST: Adequate Stress with Lexiscan. Negative Lexiscan stress test for ischemia. Normal LV systolic function. Artifact noted. Compared to last study on 04/30/17, there are no changes, LVEF >60% Had Lexiscan Cardiolite Stress Test on 04/30/17: Negative lexiscan stress test for ischemia. Normal LV systolic function Adequate stress with lexiscan. Abnormal stress test. Artifact noted. No previous study to compare. LVEF >60%. Had CTA of chest on 04/19/17. No pulmonary embolism. Small pleural effusion with bilateral dependent atelectasis. Pulm stress test in chart 07/03/17. Had Cardiac CTA done in 12/22/17 showed mild coronary artery disease (<25% stenosis in LAD, diagonal, LCx, RCA, LVEF 60%). Had Cardiac cath 08/2015: normal coronaries. Obtained 30 day Zoll MCT monitor 12/09/21: unremarkable, symptoms correlated with NSR. Results from this visit, or from the past: (06/26/2022)MAG-1.5CBC -WBC 2.88 RBC 3.36 HGB 10.4 HCT 31.6 PLT 170BMP-GL 136 BUN 15 CR 1.46 NA 136 K 4.0 CA 8.9 Had 05/23/22: Cr 1.62, BUN 20, K 4.0, wbc 2.8 low, hgb 10.4 low, plt 126 low, LDL 67 BMP, serum or plasma / BMP-GL 146 BUN 53 CR 1.98 NA 137 K 2.6 CA 10.1 CBC-WBC 3.91 RBC 4.13 HGB 12.7 HCT 37.3 PLT 218 TSH-1,237 Had 04/11/22: Cr 1.38, K 3.6, Mg 1.9 BMP, blood [id number](03/27/19) CMP-GL 101 BUN 22 CR 1.50 NA 141 K 3.6 CA 9.3Had 03/19/22: Cr 3.83, BUN 70, K 4.6, Mg 1.9 Had 01/18/22: Cr 1.32, K 3.8, hgb11.2, TSH normal, Mg 1.8, 08/16/2022WBC 4.1 RBC 3.60 HGB 11.3 HCT 34.0 PLT 155BMP-GL 101 BUN 27 CR 1.42 NA 139 K 4.5 CA 8.9 05/04/21: Mg 1.9, LDL 52, hgb 12.0, Cr 1.12, K 4.5, Had 10/23/20: K 3.9, Cr 1.46, hgb 11.2, 05/12/20 BMP GL 134, BUN 26, CR 1.25, NA 140, K 4.1, CHL 106, C02 24.3, CA 9.0 04/11/2020 CBC: WBC 7.1, RBC 2.82, HGB 8.7, HCT 26.6, PLT 200 04/11/2020 BMP: NA 133, K 3.8, CL 97, CO2 26, GL 175, BUN 32, CR 1.90, CA 9.0 04/11/2020 D-Dimer: 1.28 04/11/2020 PT/INR: PT 13.5, INR 1.0 03/15/20: CPK 103 03/15/20 LIPID: TC 150, TG 220, HDL 57, LDL 49 03/15/20 CMP: NA 142, K 3.8, CH 104, CO2 29.7, GL 153, BUN 23, CR 1.27, CA 9.3, AST 26, ALT 22, ALK PHOS 213 BMP 03/16/2019 GL 130 BUN 28 CR 1.74 NA 140 K 4.3 CH 101 CO2 30.7 CA 9.1 08/30/2019 ; Glucose 89,BUN 26,Creati 1.20,Na 143,K 4.5,Cl 106,Co2 27.5,Ca 9.0,AST 23,ALT 18,Alkaline phosphatase 67 LIPID 03/16/2019 CH 165 TR 221 HDL 52 LDL 69 03/16/19: Cr 1.74, K 4.3, TG 221, LDL 69 04/13/18: Cr 1.34, K 4.3 12-18-2017 FREE T4: 1.04, TSH: 2.299 12-18-2017: NA: 140, K: 3.7, CL: 101, CO2: 31.6, GLU: 115, BUN: 17, AST: 27, ALT: 30, CR: 1.28 12/18/17 TC: 141, TR: 130, HDL: 60, LDL: 55 12/02/17: Na 142 ,K 3.6 ,CL 103 ,CO2 32.8, GLU 111 ,BUN 21, CR 1.26,TC 139 ,TG 139 , HDL 61 ,LDL 50 ,AST 23 ,ALT 28, CK 54 10/31/17: Na 139 ,K 4.1 ,CL 102 ,CO2 30.3, GLU 92 , BUN 32, CR 1.48 ,TC 184 ,TG 81,HDL 63 ,LDL 105 ,AST 22 ,ALT 28, 07/02/17 CMP: SOD 140, K 3.7, CL 102, CO2 29.7, GL 100, BUN 18, CR 1.18, AST 43, ALT 44.; sm 05/05/17: Na 142 ,K 3.9 ,CL 100 ,CO2 32 ,GLU 131 ,BUN 22 ,CR 1.07 ,HB 12.8, HT 37.5 04/28/17: SOD 141, K 3.7, CL 102, CO2 29, GL 207, BUN 18, CR 1.12, TC 141, HDL 47, TR 114, LDL 71.2, AST 52, ALT 48. 04/19/17: DDI: 2.11 07/04/16 : NA:143, K:3.8, CL:99, CO2:31, GLU:73, BUN:15, CR:0.9, AST:26, A1C:6.9, TSH:1.97 02/21/16 NA 142, K 4.6, CL 103, CO2 28, GLU 144, BUN 14, CR 1.2 01/11/16: NA 147, K 4.7, CL 105, CO2 27, CR 0.95, BUN 10, GLU 99 01/11/16 : TC 144, TR 114, HDL 55, LDL 66 11/04/15 Creat POC-ISTAT: 1.1 08/30/15 Sod 140, K 4.2, Cl 102, Co2 26.0, Gl 92, BUN 12, Cr0.8 US, echocardiogram 02-12-2022:Study quality: Technically difficult. Technical limitations- poor acoustic window. LV chamber size is normal. The estimated left ventricle ejection fraction is 60-65% (normal). LV relaxation is impaired. The aortic valve is mildly calcified. There is mild thickening of the mitral valve anterior leaflet. There is mild triscupid regurgitation. Mild elevation of estimated RV systolic pressure. There is a trace pericardial effusion. Sinus Bradycardia. (01/31/2022)-Lexiscan Stress TestAdequate Stress with Lexiscan. Negative Lexiscan stress test for ischemia. Normal LV systolic function. Compared to last study on 04/21/20 there are no changes. electrocardiogram 11-28-2021:Sinus rhythm(slow). P; normal, QRS; low voltage, consider pulmonary disease R/S < 1 in V2 V3 V4, R < 0.15 mV in V2 V3 V4 V5, ST-T; slight high-lateral ST-T changes, consider ischemia, LV overload or aspecific change, small negative T in l aVL, conclusion: possibly abnormal ECG. EKG 11/15/20 sinus rhythm, premature ventricular complexes, P; normal, QRS; LBBB, XPO=218 ms. R < 0.25 mV in V1 V2. no Q in l V5 V6. R notch in l aVL V6. ST-T; normal, conclusion; abnormal ECG. electrocardiogram 11-28-2021:Sinus rhythm(slow). P; normal, QRS; low voltage, consider pulmonary disease R/S < 1 in V2 V3 V4, R < 0.15 mV in V2 V3 V4 V5, ST-T; slight high-lateral ST-T changes, consider ischemia, LV overload or aspecific change, small negative T in l aVL, conclusion: possibly abnormal ECG. EKG 04/14/2020: NSR, Low voltage. Poor R progression in chest leads. 01/12/20 EKG: Normal sinus rhythm, IVCD 09/01/19 EKG: Normal sinus rhythm. Nonspecific intraventricular conduction block 04/07/2019 EKG: NSR, Poor R progression in chest leads 10/05/18 EKG: NSR. Low voltage, chest leads. Poor R progression in chest leads. Left posterior hemiblock. IVCD EKG 04/15/18 :Low voltage , Non-specific ST depression. lateral leads. EKG 11/03/17 : abnormal ECG EKG 07/14/17 Low voltage, chest leads. NSR.; sm EKG 04/28/17 : Sinus rhythm (slow). P: normal. QRS: low voltage in precordial leads. ST-T: slight but extensive precordial and high lateral ST-T changes, consider ischemia, LV overload or aspecific change. Negative T in aVL V2. with small negative T in I V4 V5 V6. with flat or low negative T in V3. Possibly abnormal ECG. EKG 12/02/16 : NSR. Low voltage, inverted T wave in aVL. Nonspecific ST depression, lateral leads 09-02-2016 NSR, low voltage EK04/03/16 sinus rhythm. P: normal. QRS: low voltage in precordial leads. ST-T: slight high-lateral and left-precordial ST-T changes, consider ischemia, LV overload or aspecific change. small negative T in I aVL V5 V6. conclusion: possibly abnormal ECG. EK08/30/15 Normal sinus Rhythm. Inferior infarct, age undetermined. ST & T wave abnormality, consider anterior ischemia. Abnormal ECG when compared with ECG of 03-AUG-2014 07:56, inferior infarct is now present. T wave inversion now evident in anterior leads. Zio monitor 05/27/17: Unremarkable holter, Rare PVC's but not correlated with symptoms, Symptoms of chest pain, fluttering and dyspnea correlated with normal sinus rhythm Holter Monitor 09/25/15: Unremarkable Holter 04/21/20 LEXISCAN CARDIOLITE STRESS TEST Adequate Stress with Lexiscan. Negative Lexiscan stress test for ischemia. Normal LV systolic function. Artifact noted. Compared to last study on 04/30/17, there are no changes LVEF >60% Lexiscan Cardiolite Stress Test 04/30/17 : Negative lexiscan stress test for ischemia. Normal LV systolic function Adequate stress with lexiscan. Abnormal stress test. Artifact noted. No previous study to compare. LVEF >60%. Echo 04/25/2020: Study quality: Technically difficult. LV chamber size is normal. There is normal global systolic function and contractility. The estimated left ventricle ejection fraction is 55-60% (normal). There is mild thickening of mitral valve anterior leaflet. There is trace mitral regurgitation. There is trace tricuspid regurgitation. There is mild pulmonary hypertension. Estimated RVSP systolic pressure is 39mmHg. ECHO: 04/19/17 Mild concentric left ventricular hypertrophy. Elevated left ventricular end diastolic pressure indicated by M-mode interruption of AC closure. There is mild enlargement of left atrium. ECHO: 09/11/15 LV wall thickness is normal. There is normal global systolic function and contractility. The estimated LV ejection fraction is 55-60% (normal). Diastolic filling reveals a pseudonormal pattern (Grade 2 diastolic dysfunction) Left atrium chamber is mildly dilated. The estimated RV systolic pressure is normal. ECHO: 09/11/15 LV wall thickness is normal. There is normal global systolic function and contractility. The estimated LV ejection fraction is 55-60% (normal). Diastolic filling reveals a pseudonormal pattern (Grade 2 diastolic dysfunction) Left atrium chamber is mildly dilated. The estimated RV systolic pressure is normal. Cardiac CTA 12/22/17: Mild coronary artery disease. CTA CHEST: 04/19/17 No pulmonary embolism. Small pleural effusion with bilateral dependent atelectasis. CT, Chest, W/ Contrast 11/04/15 : Findings suggesting mild congestive failure. No evidence of pulmonary embolus. Fatty infiltration the liver. Stable right renal lesion. XR, CHEST 04/11/2020: No active cardiopulmonary disease. Chest X ray 10/12/15 : No acute cardiopulmonary disease . Cardiac CTA done in 12/22/17 showed Mild coronary artery disease (<25% stenosis in LAD, diagonal, LCx, RCA, LVEF 60%). Cardiac cath 08/2015: normal coronaries NM, PULMONARY PERF 04/11/2020: Negative pulmonary perfusion scan; no evidence of clinically significant pulmonary emboli. Howard Herbert [facility] [place] - [facility] 07/18/2022 16:26:30 OBGyn Episode No OBEpisode recorded.
--- OUTSIDE RECORDS SUMMARY | 2024-12-16 15:19 | XMS_ITS | Encounter Summary ---
Author Organization [facility] Address [address] [place] [id number] Care Team Providers Care Manager Infusion Name Role Phone Odell Mann MD Primary Care Provider [phone] Encounter Details Date Type Department Care Team (Late st Contact Info) Description 11/08/2019 Prep for Procedure [facility] [address] [place] [address] Christy Wang MD [address] [facility] [address] [place] [address] Social History Tobacco Use Types [...] DETECTED NOT DETECTED 11/10/2019 7:05 PM CDT [facility] Comment: A Not Detected (negative) test result [...] providers and patients using the following websites: [email or web address]/ fact-[email or web address] This test has been authorized by the FDA under an Emergency Use Authorization (EUA) for use by authorized laboratories. Due to the current public health emergency, [facility] is receiving a high volume of samples [...] about COVID-19 can be found at the [facility] website: [email or web address]. Test performed at [facility] [address] [place] [address] Director: LINDSEY FISHMAN,DO,MPH NASOPHARYNGEAL SWAB / Unknown 11/09/2019 7:43 AM CDT us W Dagoberto Wang MD MICROBIOLOGY - GENERAL ORDERABLES Final Result [facility] [address] [place] [address], documented in this encounter Visit Diagnoses Diagnosis Pre-op testing- Primary Preoperative examination, unspecified documented in this encounter Additional Health Concerns Infection Onset Date Last Indicated Resolved Time COVID-19 Rule Out 11/09/2019 11/09/2019 11/10/2019 7:05 PM CDT COVID-19 Rule Out 11/23/2019 11/23/2019 11/25/2019 2:26 AM CDT documented as of this encounter Care Teams Manager Infusion Relationship Specialty Start Date End Date Odell Mann MD [address] [address] PCP - General FAMILY PRACTICE 09/06/18 documented as of this encounter
--- OUTSIDE RECORDS SUMMARY | 2024-12-16 15:19 | XMS_ITS | Clinical Summary ---
Author Organization [facility] Address [address] [place] [address] Care Team Providers Care Kettle Fry Cook Operator Name Role Phone Jarad Mann MD Primary Care Provider [phone] Allergies Active Allergy Reactions Criticality Noted Date [...] Encounters Date Type Department Care Team Description 11/24/2024 7:40 AM CDT - 11/24/2024 11:59 PM CDT Hospital Encounter [facility] [address] [place] [address] Jarad Mann MD Discharge Disposition: Home or Self Care (Routine Discharge) 11/24/2024 Travel from Last 3 Months Family History [...] Comments Blood Pressure 149/83 02/04/2024 10:43 AM IMMERSION METAL CLEANER Pulse 58 02/04/2024 10:43 AM IMMERSION METAL CLEANER Temperature 36.2 C (97.1 F) 02/04/2024 10:43 AM IMMERSION METAL CLEANER Respiratory Rate 18 02/04/2024 10:43 AM IMMERSION METAL CLEANER Oxygen Saturation 97% 02/04/2024 10:43 AM IMMERSION METAL CLEANER Inhaled Oxygen Concentration - - Weight 73.1 kg (161 lb 1.6 oz) 02/04/2024 10:43 AM IMMERSION METAL CLEANER Height 157.5 cm (5' 2) 02/04/2024 10:43 AM IMMERSION METAL CLEANER Body Mass Index 29.47 02/04/2024 10:43 AM IMMERSION METAL CLEANER Plan of Treatment Health Maintenance Due Date Last Done Comments ASCVD Statin 1945 Hepatitis C 1963 Annual Medicare Wellness Visit 2012 RSV Immunization or 60+ Years (1 - 1-dose 75+ series) 2022 Zoster Vaccines (3 of 3) 03/03/2024 024, 10/16/2023, 10/16/2023 PHQ-2 (Physician Quechan) 03/17/2024 02/04/2024 ASCVD LDL 11/04/2024 11/05/2023, 0708/2023, 05/23/2022, Additional history exists COVID-19 Vaccine ( season) 2024 12/13/2023, 04/02/2023, 09/24/2021, Additional history exists DTaP, Tdap and Td Vaccines (2 - Td or Tdap) 10/15/2033 10/16/2023 Dexa Scan (General) Completed 04/29/2012 Colorectal Cancer Screening Colonoscopy (10 Years) Discontinued 11/26/2019, 11/12/2019, 11/12/2019, Additional history exists Pneumococcal Vaccine: 50+ Years Completed 07/12/2020, 06/22/2019 Meningococcal B Vaccine Aged Out No l onger eligible based on patient's age to complete this topic Meningococcal Vaccine Aged Out No aria sapna eligible based on patient's age to complete this topic RSV Immunizations Under 20 Months Aged Out No longer eligible based on patient's age to complete this topic Procedures Procedure Name Priority Date/Time Associated Diagnosis Comments MRI BRAIN WO CON Routine 11/24/2024 8:55 AM CDT Disorientation, unspecified LIPID PANEL Routine 11/05/2023 7:57 AM CDT Essential hypertension, malignant Coronary atherosclerosis of [place] coronary artery Chronic diastolic heart failure Mixed hyperlipidemia Portopulmonary hypertension Obstructive sleep apnea (adult) (pediatric) Paroxysmal atrial tachycardia with block COLONOSCOPY Routine 11/12/2019 10:25 AM CDT from Last 3 Months or Most Recently Relevant to Health Maintenance Results * MRI BRAIN WO CON (11/24/2024 8:55 AM CDT) Anatomical Region Laterality Modality Head Magnetic Resonan ce 11/30/2024 2:35 PM CDT Impressions 11/30/2024 2:38 PM CDT IMPRESSION: 1. No acute infarct, mass effect or hemorrhage. 2. Moderate to moderate atrophy and chronic small vessel ischemic changes of the [place]ville and supratentorial white matter. Referred By: JARAD MANN Interpreted By: Ishmael Ramsey MD, 11/30/2024 2:35 PM Narrative 11/30/2024 2:38 PM CDT [facility] [address] [place] [address] EXAMINATION:Brain MRI without contrast 11/24/2024 INDICATION:Disorientation, vertigo, loss of balance TECHNIQUE: Multiplanar multisequence MR imaging of the head was performed without intravenous contrast. COMPARISON: None FINDINGS:No restricted diffusion. No acute hemorrhage, mass effect or midline shift or extra-axial fluid collection. There is mild patchy susceptibility artifact in the basal ganglia compatible with calcification. There is a mild to moderate cerebral atrophy with concordant prominence of the ventricles. Mild to moderate patchy increased T2/FLAIR signal noted within the [place], periventricular white matter and subcortical white matter Expected flow voids are noted within the intracranial internal carotid, vertebral and basilar arteries. Cerebellopontine angles and internal auditory canals are unremarkable. The pituitary gland midline structures are unremarkable. Bone marrow signal is within normal limits. The orbits and globes are unremarkable. Bilateral ocular lens replacement noted. Expected signal voids are seen within paranasal sinuses and mastoid air cells. Procedure Note Ishmael Ramsey MD - 11/30/2024 [facility] [address] [place] [address] EXAMINATION:Brain MRI without contrast 11/24/2024 INDICATION:Disorientation, vertigo, loss of balance TECHNIQUE: Multiplanar multisequence MR imaging of the head was performedwithout intravenous contrast. COMPARISON: None FINDINGS:No restricted diffusion. No acute hemorrhage, mass effect ormidline shift or extra-axial fluid collection. There is mild patchysusceptibility artifact in the basal ganglia compatible withcalcification. There is a mild to moderate cerebral atrophy with concordant prominence ofthe ventricles. Mild to moderate patchy increased T2/FLAIR signal notedwithin the orville, periventricular white matter and subcortical whitematter Expected flow voids are noted within the intracranial internal carotid,vertebral and basilar arteries. Cerebellopontine angles and internal auditory canals are unremarkable.The pituitary gland midline structures are unremarkable. Bone marrowsignal is within normal limits. The orbits and globes are unremarkable.Bilateral ocular lens replacement noted. Expected signal voids are seenwithin paranasal sinuses and mastoid air cells. IMPRESSION: 1. No acute infarct, mass effect or hemorrhage. 2. Moderate to moderate atrophy and chronic small vessel ischemic changesof the orville and supratentorial white matter. Referred By: JARAD MANN Interpreted By: Ishmael Ramsey MD, 11/30/2024 2:35 PM us Jarad Mann MD MRI Final Resu lt * LIPID PANEL (11/05/2023 7:57 AM CDT) CHOLESTEROL 173 <200.0 MG/DL 11/05/2023 8:47 AM CDT [facility] TRIGLYCERIDES 67 <150 MG/DL 11/05/2023 8:47 AM T [facility] HDL 87 >40.0 MG/DL 11/05/2023 8:47 AM T [facility] LDL (CALCULATED) 73 <100 MG/DL 11/05/19 8:47 AM T [facility] NON HDL CHOLESTEROL 86 <130 MG/DL 11/04 8:47 AM T [facility] CHOL/HDL RATIO 2.0 0.0 - 4.5 11/05/2023 8:47 AM T [facility] VLDL CALCULATION 13 5 - 55 MG/DL 11/05/2023 8:47 AM T [facility] LIPID INTERPRETATION 11/05/2023 8:47 AM T [facility] Comment: NIH CONCENSUS REPORT RECOMMENDATIONS: ADULT CHILD LOW RISK: CHOLESTEROL <200 <170 TRIGLYCERIDE <150 --- HDL >=60 --- LDL <100 <110 BORDERLINE: CHOLESTEROL 200-239 170-199 TRIGLYCERIDE 150-199 --- HDL 40-59 --- LDL 100-159 110-129 HIGH RISK: CHOLESTEROL >=240 >=200 TRIGLYCERIDE >=200 --- HDL <40 --- LDL >=160 >=130 11/05/2023 7:57 AM CDT Howard Herbert MD LABORATORY Final Result [facility] [address] [address] [address], * COLONOSCOPY/EGD GENERIC (08/19/2012) 08/19/2012 Narrative 08/19/2012 Ordered by an unspecified provider. Documents Scanned SCANNING Final Result from Last 3 Months or Most Recently Relevant to Health Maintenance Insurance [facility] MEDICARE Care Teams Kettle Fry Cook Operator Relationship Specialty Start Date End Date Jarad Mann MD [address] [address] PCP - General FAMILY PRACTICE 09/06/18
--- OUTSIDE RECORDS SUMMARY | 2024-12-16 15:19 | XMS_ITS | Clinical Summary ---
Author Organization [facility] Address [address] [place] [address] Care Team Providers Care Campaign Marketing Specialist Name Role Phone Odell Mann MD Primary Care Prov ider Howard Herbert MD Unavailable [phone] Derrek Ling MD Unavailable Allergies Active Allergy Reactions Criticality Noted Date [...] mg total) by mouth daily 4 Active metOLazone (ZAROXOLYN) 2.5 mg tablet Take 1 tablet today and then 1 tablet Friday 2 tablet 5 Active Additional Information Patient not taking.Reported on 06/24/2024 metOLazone (ZAROXOLYN) 5 mg tablet Take 0.5 tablets (2.5 mg total) by mouth as needed (as directed) Take on dose today and take the second dose Friday 2 tablet 5 Active Additional Information Patient not taking.Reported on 06/24/2024 potassium chloride ER 20 mEq CR tablet TAKE 1 TABLET BY MOUTH 3 TIMES DAILY 300 tablet 2 5 Active bumetanide (BUMEX) 1 mg tablet TAKE 1 TABLET BY MOUTH TWICE DAILY 200 tablet 2 5 Active atorvastatin (LIPITOR) 40 mg tablet TAKE 2 TABLETS BY MOUTH EVERY NIGHT 200 tablet 2 5 Active magnesium oxide (MAG-OX) 400 mg (241.3 mg elemental magnesium) tablet Take 1 tablet by mouth once daily 90 tablet 5 Active losartan (COZAAR) 25 mg tablet TAKE 1 TABLET BY MOUTH DAILY 100 tablet 2 5 Active isosorbide mononitrate ER (IMDUR) 30 mg 24 hr tablet TAKE 1 TABLET BY MOUTH DAILY 100 tablet 2 5 Active ranolazine ER (RANEXA) 500 mg 12 hr tablet TAKE 1 TABLET BY MOUTH TWICE DAILY 200 tablet 2 5 Active Active Problems Problem Noted Date Diagnosed Date Chest pain 06/04/2024 Chest pain, unspecified type 06/01/2024 Mixed hyperlipidemia 10/15/2023 Arthritis of carpometacarpal (CMC) joint of righ t thumb 09/05/2023 Trigger index finger of left hand 09/05/2023 Hand arthritis 09/05/2023 Coronary artery disease invo lving [place] coronary artery of [place] heart without angina pectoris 06/02/2023 Chronic heart [...] (01/18/2020): Added automatically from request for surgery [id number] CRD (chronic renal disease), stage III 0 [...] Comments GERD (gastroesophageal reflux disease) Diabetes mellitus Hypothyroidism Hypertension Dyslipidemia Sciatica Abdominal pain Nausea Chronic constipation Chronic diarrhea CHF (congestive heart failure) (HCC) Type 2 diabetes mellitus CKD (chronic kidney disease), stage III (HCC) stage 2 Renal insufficiency Arthritis Family History Medical History Relation Name Comments Diabetes Father Jg buchanan Hypertension Father Jg ubchanan Heart attack Mother Bobbi Hypertension Mother Bobbi Relation Name Status Comments Father Jg buchanan Mother Bobbi Social History Tobacco Use Types Packs/Day Years Used Date Smoking Tobacco: Never Cigarettes Smokeless Tobacco: Never Tobacco Cessation:Counseling Given: Not Answered Alcohol Use Standard Drinks/Week Comments Yes 0 (1 standard drink = 0.6 oz pur e alcohol) rarely [facility] Utilities Answer Date Recorded In the past 12 months has th e [employer], gas, oil, or water [employer] threatened to shut off services in your home? No 06/02/2024 Social Connection and Isolation Panel Answer Date Recorded In a typical week, how many times do you talk on the phone with family, friends, or neighbors? More than three times a week 06/02/2024 How often do you get togethe r with friends or relatives? More than three times a week 06/02/2024 How often do you attend chur ch or taoism services? Never 06/02/2024 Do you belong to any clubs o r organizations such as rastafari groups, unions, fraternal or athletic groups, or [...] any time in the past 12 m [facility], were you homeless or living in a [...] on file Legal Sex Female 4:21 PM SOLAR INSTALLER PV Gender Identity Female 12/16/2024 10:18 AM CDT Sexual Orientation Not on file Obstetrics History [...] Pneumococcal vaccine 65+ (2 of 2 - PPSV23, PCV20, or PCV21) 08/17/2019 06/22/2019 Influenza Vaccine (#1) 2024 11/30/2014 Hemoglobin A1C 12/02/2024 06/01/2024, 06/16, 2014, Additional history exists Lipid Panel 06/01/2025 06/01/2024, 10/16, 10/10/2023, Additional history exists Fall Risk Assessment 06/02/2025 06/02/2024 eGFR 06/02/2025 06/02/2024, 05/15, 06/01/2024, Additional history exists Breast Cancer Screening-Mammogram Discontinued 09/25/2022, 10/22/2019, 06/20/2017, Additional history exists Medical Devices Explanted Type Area [employer] Device Identifier Shelf Expiration Date Model / Serial / Lot [employer] 6572 Quiroz Flexi-Stent 7fr 5cm Small Pigtail Flexible .035in Stent - [id number] Implanted:Qty : 1 on 01/17/2020 by Ludwig Crespo MD at [facility] Explanted:Qty : 1 on 01/19/2020 by Ludwig Crespo MD at [facility] Stent N/A: Pancreas [employer] 10/14/2024 [id number] / / [id number] Conmed Fatuma [id number] [place] Viabil 10mm 8.5fr 6cm 200cm Fully Covered Self Expand Pull - [id number] - [id number] Implanted:Qty : 1 on 01/17/2020 by Ludwig Crespo MD at [facility] Explanted:Qty : 1 on 01/19/2020 by Ludwig Crespo MD at [facility] Stent N/A: Bile Duct Conmed Fatuma 08/23/2022 [id number] / [id number] / Procedures Procedure Name Priority Date/Time Associated Diagnosis Comments EGFR Routine 06/02/2024 6:52 AM CDT LIPID PANEL Add-On 06/01/2024 7:11 PM CDT HEMOGLOBIN A1C STAT 06/01/2024 2:44 PM CDT DIAGNOSTIC MAMMOGRAM BILATERAL W KULDIP Routine 06/20/2017 8:48 AM CDT DEXA AXIAL SKELETON BONE DENSITY 1 OR MORE SITES Routine 04/29/2012 12:20 PM SOLAR INSTALLER PV from Last 3 Months or Most Recently Relevant to Health Maintenance Results * (ABNORMAL) eGFR (06/02/2024 6:52 AM CDT) [...] of Race in Diagnosing Kidney Disease, JASN 202). The CKD-EPI equation should not be used for patients with unstable renal function and has not been validated in children and those over 70. Current interpretive data was last reviewed 2021. Blood 06/02/2024 6:52 AM CDT 06/02/2024 7:34 AM CDT us Nelda Farmer NP LAB BLOOD ORDERABLES Final Resu lt [facility] [address] [facility] [place] [address] 676 * Lipid panel (06/01/2024 7:11 PM CDT) [...] NCEP Expert Panel. Circulation 2004;110:227 3. Ulices Herrera et al. IRASEMA Cardiol. 2020 July 15;5(5):540-548. [...] revised on 2017. Chol/HDL ratio 3 NATHANAEL CASE Blood 06/01/2024 7:11 PM CDT 06/01/2024 7:28 PM CDT us Nelda Farmer [employer] INDIAN POLICY SPECIALIST LAB BLOOD ORDERABLES Final Resu lt NATHANAEL CASE [address] [facility] Department [place] [address] * (ABNORMAL) Hemoglobin A1c (06/01/2024 2:44 PM CDT) Hgb A1C 5.7(H) 4.0 - 5.6 % Estimated Average Glucose 117 mg/dL NATHANAEL CASE Comment: The ADA recommends reporting an estimated Average Glucose (eAG) with all Hemoglobin A1c results using the equation derived from a study of 507 normal and diabetic adults. Minority populations were underrepresented and children were not included. (Diabetes Care 31:1881-4874, 2008). The eAG is not equivalent to a fasting glucose. Blood 06/01/2024 2:44 PM CDT 06/01/2024 2:46 PM CDT Colten Calderon MD LAB BLOOD ORDERABLES Final Result NATHANAEL [address] [facility] [place] [address] * Diagnostic Mammogram Bilateral W Kuldip (06/20/2017 [...] by: Dr. Pasquale Ang M.D. nh/:06/20/2017 10:36:27 Traveling Crane Operator: Amelia Gordon)(Sharon), [facility] letter sent: Normal Exam Abnormal History Reading location: [facility] BI-RADS: 2 Benign [EOD] Narrative 06/20/2017 10:37 [...] dated: 2014 mammogram and 04/29/2012 mammogram - [facility]. BREAST TISSUE: There are [...] dated: 2014 mammogram and 04/29/2012 mammogram - [facility]. BREAST TISSUE: There are scattered areas [...] by: Dr. Pasquale Ang M.D. nh/:06/20/2017 10:36:27 Traveling Crane Operator: Amelia Pat RT (R)(M), [facility] letter sent: Normal Exam Abnormal History Reading location: [facility] BI-RADS: 2 Benign [EOD] Nico Donato Andre MD IMG MAMMO PROCEDURES Final Result * Dexa Axial Skeleton Bone Density 1 or 2 Site (04/29/2012 12:20 PM SOLAR INSTALLER PV) Anatomical Region Laterality Modality Body N/A Radiographic Adeline ging 04/29/2012 12:2 0 PM SOLAR INSTALLER PV Impressions 04/29/2012 2:31 PM SOLAR INSTALLER PV Normal bone density. THIS IS AN ELECTRONICALLY VERIFIED REPORT 04/29/2012 2:26 PM: Sierra Warren M.D. Sierra Warren M.D. KL:saravanan 02:26 PM 02:26 PM [EOD] Narrative 04/29/2012 2:31 PM SOLAR INSTALLER PV EXAMINATION: Bone Density Study (DEXA) HISTORY: Post [...] M.D. KL:saravanan 02:26 PM 02:26 PM [EOD] [facility] Donato Andre MD IMG DXA PROCEDURES Final R esult from Last 3 Months or Most Recently Relevant to Health Maintenance Insurance [facility] MEDICARE ADVANTAGE [employer] MEDICARE ADVANTAGE Advance Directives For more information, please contact: [phone] * Full Code (Latest Code Status on File) Date Activated Date Inactivated Comments 06/01/2024 7:09 PM 06/02/2024 8:03 PM * Full Code Date Activated Date Inactivated Comments 01/17/2020 1:24 PM 01/19/2020 6:58 PM Care Teams Campaign Marketing Specialist Relationship Specialty Start Date End Date Odell Mann MD PCP - General 06/14/18 Howard Herbert MD Referring Physician Cardiology 04/15/19 Derrek Ling MD [address] [place] [address] Consulting Physician Nephrology 06/02/24
--- OUTSIDE RECORDS SUMMARY | 2024-12-16 15:19 | XMS_ITS | Encounter Summary ---
Author Organization [facility] Address [address] [place] [address] Care Team Providers Care Career Agent Name Role Phone Odell Mann MD Primary Care Provider [phone] Encounter Details Date Type Department Care Team (Late st Contact Info) Description 11/08/2019 Prep for Procedure [facility] Day [facility] [address] [place] [address] Christy Wang MD [address] [facility] [address] [place] [address] Social History Tobacco Use Types [...] documented as of this encounter Care Teams Career Agent Relationship Specialty Start Date End Date Odell Mann MD [address] [address] PCP - General FAMILY PRACTICE 09/06/18 documented as of this encounter
== END 2024-12-16 15:15 | disposition home or self-care (01) ==
PROVIDERS: PCP Family Medicine Adolescent Medicine; Visit Provider Otolaryngology
DX: I65.23 Occlusion and stenosis of bilateral carotid arteries (principal); R26.89 Other abnormalities of gait and mobility
CPT/HCPCS: 93880

== ENCOUNTER 2024-12-18 08:05 | Emergency (ER) | payer MEDICARE, SELFPAY ==
--- OUTSIDE RECORDS SUMMARY | 2006-06-03 05:06 | XMS_ITS | Continuity of Care Document ---
Author Organization [facility] Address [address] [place] [address] [address] [place] [address] Phone Care Team Providers Care Security Control Center Operator Name Role Phone Mali Fernandez Unavailable Unavailable Procedures Procedure Date Optic Nerve Topography Optic Nerve Topography Office/outpatient Visit, Est Advance Directives Directive Yes / No Effective Date File Name No Information Encounters Encounter Description Practice Location Reason(s) For Visit Diagnoses Date Provider Providers Copied on Encounter [facility], [address] [place] [address] [address], [place], [place], [id number], tel:[phone] [facility] No Information [address]. [address] [facility] , [address], [place], [address], [place]. tel:[phone] Referring Provider: [facility] [address], [place], [place], [facility]. tel:[phone] Office/outpat ient Visit, Est [facility], [address] [place] [address] [address], [place], [place], [id number], tel:[phone] [facility] No Information [address] , [address], [place], [address], . tel:[phone] Family History Family Member Type Diagnosis Age At Onset No Information Payers Payer name Insurance type Covered constitution party ID Authoriza tion(s) No Information Social History Type Description Quantity Date Captured Comments Sex Female Smoking Status No Information Chief Complaint And Reason For Visit No Information Reason For Referral Reason For Referral No Information History Of Present Illness Encounter Date Complaint History Of Prese nt Illness No Information Functional Status Date Functional Assessmen t No Information Instructions Date Instruction Additional Infor mation No Information Assessments Type Assessment Date No Information Patient Care Teams Name Effective Dates (start - stop) Status Members No Information
--- OUTSIDE RECORDS SUMMARY | 2006-06-03 05:06 | XMS_ITS | Continuity of Care Document ---
Author Organization [facility] Address [address] [place] [address] [address] [place] [address] Phone Care Team Providers Care Satellite Project Site Monitor Name Role Phone Mali Fernandez Unavailable Unavailable Procedures Procedure Date Optic Nerve Topography Optic Nerve Topography Office/outpatient Visit, Est Advance Directives Directive Yes / No Effective Date File Name No Information Encounters Encounter Description Practice Location Reason(s) For Visit Diagnoses Date Provider Providers Copied on Encounter [facility], [address] [place] [address] [address], [place], [place], [id number], tel:[phone] [facility] No Information [address]. [address] [facility] , [address], [place], [address], [place]. tel:[phone] Referring Provider: [facility] [address], [place], [place], [facility]. tel:[phone] Office/outpat ient Visit, Est [facility], [address] [place] [address] [address], [place], [place], [id number], tel:[phone] [facility] No Information [address] , [address], [place], [address], . tel:[phone] Family History Family Member Type Diagnosis Age At Onset No Information Payers Payer name Insurance type Covered republican ID Authoriza tion(s) No Information Social History [...]
--- OUTSIDE RECORDS SUMMARY | 2024-12-18 08:08 | XMS_ITS | Clinical Summary ---
Author Organization [facility] Address [address] [place] [address] Care Team Providers Care Refined Syrup Operator Name Role Phone Odell Mann MD Primary Care Provider + Source Comments [facility],non-owned Affiliates and Associated Physician Practices is amultiple site organization consisting of ambulatory clinics and hospital sitesin [place], [place], [place] and [place]. This disclosure is being madepursuant to the Care Everywhere program and may not contain all information available regarding this patient. 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
--- OUTSIDE RECORDS SUMMARY | 2024-12-18 08:08 | XMS_ITS | Encounter Summary ---
Author Organization [facility] Address [address] [place] [address] Care Team Providers Care Discharge Planner Name Role Phone Odell Mann MD Primary Care Provider [phone]- [phone] Encounter Details Date Type Department Care Team (Late st Contact Info) Description 11/08/2019 Prep for Procedure [facility] Day Services [address] [place] [address] Christy Wang MD [address] [facility] [address] [place] [address] Social History Tobacco Use Types [...] DETECTED NOT DETECTED 11/10/2019 7:05 PM CDT [employer] [facility] Comment: A Not Detected (negative) test result [...] providers and patients using the following websites: https://www.[employer].Book&Table/home/Covid-19/HCP/NAAT/fact-sheet2 https://www.[employer].Book&Table/home/Covid-19/Patients/NAAT/ fact-sheet2 This test has been authorized by the FDA under an Emergency Use Authorization (EUA) for use by authorized laboratories. Due to the current public health emergency, [employer] is receiving a high volume of samples [...] about COVID-19 can be found at the [employer] website: www.[employer].Book&Table/Covid19. Test performed at [employer] [facility] [place] [address] [place] [address] Director: LINDSEY FISHMAN,DO,MPH NASOPHARYNGEAL SWAB / Unknown 11/09/2019 7:43 AM CDT us W Dagoberto Wang MD MICROBIOLOGY - GENERAL ORDERABLES Final Result [facility] [address] [place] [address], documented in this encounter Visit Diagnoses Diagnosis Pre-op testing- Primary Preoperative examination, unspecified documented in this encounter Additional Health Concerns Infection Onset Date Last Indicated Resolved Time COVID-19 Rule Out 11/09/2019 11/09/2019 11/10/2019 7:05 PM CDT COVID-19 Rule Out 11/23/2019 11/23/2019 11/25/2019 2:26 AM CDT documented as of this encounter Care Teams Discharge Planner Relationship Specialty Start Date End Date Odell Mann MD [address] [address] PCP - General FAMILY PRACTICE 09/06/18 documented as of this encounter
--- OUTSIDE RECORDS SUMMARY | 2024-12-18 08:08 | XMS_ITS | Clinical Summary ---
Author Organization [facility] [address] [facility] Address [address] [place] [address] Care Team Providers Care Hardware Press Operator Name Role Phone Odell Mann MD Primary Care Provider [phone]- [phone] Allergies Active Allergy Reactions Criticality Noted Date [...] Abstract 10/29/2024 9:15 AM CDT Office Visit [facility] [place] [facility] - [place] [address] [place] [address] Ruben Nguyen MD Chronic anemia (Primary Dx) 10/21/2024 Orders Only [facility] [place] [facility] - [address] [place] [address] Ruben Nguyen MD 10/20/2024 External Device Data [...] CDT Oxygen Saturation 97% 04/29/2024 11:[address] Inhaled Oxygen Concentration - - Weight 71.7 kg (158 lb) 10/29/2024 9:10 AM CDT Height 157.5 cm (5' 2) 02/26/2019 8:[address] Body Mass Index 28.9 02/26/2019 8:[address] Plan of Treatment Upcoming Encounters Date Type Department Care Team (Late st Contact Info) Description 11/02/2025 10:00 AM CDT Office Visit [facility] [place] [facility] - [address] [facility] [address] [place] [address] Ruben Nguyen MD [address] [facility] [address] [place] [address] Health Maintenance Due Date Last [...] from Last 3 Months Insurance Care Teams Hardware Press Operator Relationship Specialty Start Date End Date Odell Mann MD PCP - General Family Practice 12/24/18
--- OUTSIDE RECORDS SUMMARY | 2024-12-18 08:08 | XMS_ITS | Clinical Summary ---
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 Never 06/02/2024 Do you belong to any clubs o r organizations such as taoist groups, unions, fraternal or athletic groups, or [...] any time in the past [address] [facility] [place], were you homeless or living in a [...] on file Legal Sex Female 4:21 PM MANAGER VEHICLE Gender Identity Female 12/16/2024 10:18 AM CDT [...] history exists Medical Devices Explanted Type Area City Route Driver Device Identifier Shelf Expiration Date Model / Serial / Lot [employer] 6572 Quiroz Flexi-Stent 7fr 5cm Small Pigtail Flexible .035in Stent - [id number] Implanted:Qty : 1 on 01/17/2020 by Ludwig Crespo MD at [facility] [place] [facility] Explanted:Qty : 1 on 01/19/2020 by Ludwig Crespo MD at [facility] [place] [facility] Stent N/A: Pancreas [employer] 10/14/2024 [id number] / / [id number] Conmed Fatuma [id number] [place] Viabil 10mm 8.5fr 6cm 200cm Fully Covered Self Expand Pull - [id number] - [id number] Implanted:Qty : 1 on 01/17/2020 by Ludwig Crespo MD at [facility] [place] [facility] Explanted:Qty : 1 on 01/19/2020 by Ludwig Crespo MD at [facility] [place] [facility] Stent N/A: Bile Duct [employer]med Fatuma 08/23/2022 [id number] / [id number] / Procedures Procedure Name Priority Date/Time Associated Diagnosis Comments EGFR Routine 06/02/2024 6:52 AM CDT LIPID PANEL Add-On 06/01/2024 7:11 PM CDT HEMOGLOBIN A1C STAT 06/01/2024 2:44 PM CDT DIAGNOSTIC MAMMOGRAM BILATERAL W KULDIP Routine 06/20/2017 8:48 AM CDT DEXA AXIAL SKELETON BONE DENSITY 1 OR MORE SITES Routine 04/29/2012 12:20 PM MANAGER VEHICLE from Last 3 Months or Most Recently [...] NP LAB BLOOD ORDERABLES Final Resu lt [id number] [address] [facility] [place] [address] 916 * Lipid panel (06/01/2024 7:11 PM CDT) [...] 06/01/2024 7:28 PM CDT us Nelda Farmer SOFTWARE TECHNICAL LEAD LAB BLOOD ORDERABLES Final Resu lt NATHANAEL CASE [address] [facility] Department [place] [address] * (ABNORMAL) Hemoglobin A1c (06/01/2024 2:44 PM CDT) Hgb A1C 5.7(H) 4.0 - 5.6 % Estimated Average Glucose 117 mg/dL NATHANAEL CASE Comment: The ADA recommends reporting an estimated Average Glucose (eAG) with all Hemoglobin A1c results using the equation derived from a study of 507 normal and diabetic adults. Minority populations were underrepresented and children were not included. (Diabetes Care 31:8614-4665, 2008). The eAG is not equivalent to a fasting glucose. Blood 06/01/2024 2:44 PM CDT 06/01/2024 2:46 PM CDT Colten Calderon MD LAB BLOOD ORDERABLES Final Result NATHANAEL [address] [facility] [place] [address] * Diagnostic Mammogram Bilateral W [...] Dr. Pasquale Ang M.D. nh/:06/20/2017 10:36:27 Manager Clinical Services: Amelia Gordon)(Sharon), [facility] letter sent: Normal Exam Abnormal History Reading location: [facility] BI-RADS: 2 Benign [EOD] Narrative 06/20/2017 [...] dated: 2014 mammogram and 04/29/2012 mammogram - [facility]. BREAST TISSUE: There are scattered [...] 2014 mammogram and 04/29/2012 mammogram - [facility]. BREAST TISSUE: There are scattered areas [...] Dr. Pasquale Ang M.D. nh/:06/20/2017 10:36:27 Manager Clinical Services: Amelia Pat RT (R)(M), [facility] letter sent: Normal Exam Abnormal History Reading location: [facility] BI-RADS: 2 Benign [EOD] Nico Donato Andre MD IMG MAMMO PROCEDURES Final Result * Dexa Axial Skeleton Bone Density 1 or 2 Site (04/29/2012 12:20 PM MANAGER VEHICLE) Anatomical Region Laterality Modality Body N/A Radiographic Adeline ging 04/29/2012 12:2 0 PM MANAGER VEHICLE Impressions 04/29/2012 2:31 PM MANAGER VEHICLE Normal bone density. THIS IS AN ELECTRONICALLY VERIFIED REPORT 04/29/2012 2:26 PM: Sierra Warren M.D. Sierra Warren M.D. KL:saravanan 02:26 PM 02:26 PM [EOD] Narrative 04/29/2012 2:31 PM MANAGER VEHICLE EXAMINATION: Bone Density Study (DEXA) HISTORY: Post [...] M.D. KL:saravanan 02:26 PM 02:26 PM [EOD] [facility] Donato Andre MD IMG DXA PROCEDURES Final R esult from Last 3 Months or Most Recently Relevant to Health Maintenance Insurance [facility] MEDICARE [facility] Address: [address] [address] [place] [address] [employer] MEDICARE ADVANTAGE Advance Directives For more information, please contact: [phone] * Full Code (Latest Code Status on File) Date Activated Date Inactivated Comments 06/01/2024 7:09 PM 06/02/2024 8:03 PM * Full Code Date Activated Date Inactivated Comments 01/17/2020 1:24 PM 01/19/2020 6:58 PM Care Teams Straightening Press Operator Helper Relationship Specialty Start Date End Date Odell Mann MD PCP - General 06/14/18 Howard Herbert MD Referring Physician Cardiology 04/15/19 Derrek Ling MD [address] [facility] [place] [address] Consulting Physician Nephrology 06/02/24
--- OUTSIDE RECORDS SUMMARY | 2024-12-18 08:08 | XMS_ITS | Encounter Summary ---
Author Organization [facility] Address [address] [place] [address] Care Team Providers Care Sander Operator Name Role Phone Odell Mann MD Primary Care Provider [phone] Encounter Details Date Type Department Care Team (Late st Contact Info) Description 11/19/2019 Prep for Procedure [facility] One Day Services [address] [place], [place] [address] Christy Wang MD [address] [facility] [address] [place] [address] Social History Tobacco Use Types Packs/Day Years [...] documented as of this encounter Care Teams Sander Operator Relationship Specialty Start Date End Date Odell Mann MD [address] [address] PCP - General FAMILY PRACTICE 09/06/18 documented as of this encounter
--- OUTSIDE RECORDS SUMMARY | 2024-12-18 08:08 | XMS_ITS | Encounter Summary ---
Author Organization [facility] Address [address] [place] [address] Care Team Providers Care Greenskeeper Laborer Name Role Phone Odell Mann MD Primary Care Provider [phone] Encounter Details Date Type Department Care Team (Late st Contact Info) Description 11/08/2019 Prep for Procedure [facility] One Day Services [address] [place] [address] Christy Wang MD [address] [facility] [address] [place] [address] Social History Tobacco Use Types [...] documented as of this encounter Care Teams Greenskeeper Laborer Relationship Specialty Start Date End Date Odell Mann MD [address] [address] PCP - General FAMILY PRACTICE 09/06/18 documented as of this encounter
--- OUTSIDE RECORDS SUMMARY | 2024-12-18 08:08 | XMS_ITS | Encounter Summary ---
Author Organization [facility] Facility Care Team Providers Care Lecturer In Computer Science Name Role Phone Odell Mann MD Primary Care Prov ider Howard Herbert MD Unavailable [phone] Derrek Ling MD Unavailable Encounter Details Date Type Department Care Team (Latest Contact Info) Description 01/09/2018 Orders Only [facility] Provider, MD Julio Cesar [address] [place] [address] Social History Tobacco Use Types Packs/Day Years Used Date Smoking Tobacco: Never Assessed Comments Unknown Sex and Gender Information Value Date Recorded Sex Assigned at Not on file Legal Sex Female 4:21 PM STABLE HELPER Gender Identity Female 12/16/2024 10:18 AM CDT [...] documented as of this encounter Care Teams Lecturer In Computer Science Relationship Specialty Start Date End Date Odell Mann MD PCP - General 06/14/18 Howard Herbert MD Referring Physician Cardiology 04/15/19 Derrek Ling MD [address] [facility] [address] [place] [address] Consulting Physician Nephrology 06/02/24 documented as of this encounter
--- OUTSIDE RECORDS SUMMARY | 2024-12-18 08:08 | XMS_ITS | Encounter Summary ---
Author Organization [facility] Facility Care Team Providers Care Kennel Manager Name Role Phone Odell Mann MD Primary Care Prov ider Howard Herbert MD Unavailable [phone] Derrek Ling MD Unavailable [phone] Encounter Details Date Type Department Care Team (Latest Contact Info) Description 01/25/2016 Orders Only [facility] CLINCONV ProviderJulio Cesar MD [address] [place] [address] Social History Tobacco Use Types Packs/Day Years Used Date Smoking Tobacco: Never Assessed Comments Unknown Sex and Gender Information Value Date Recorded Sex Assigned at Not on file Legal Sex Female 4:21 PM SPECIAL EVENTS ASSISTANT Gender Identity Female 12/16/2024 10:18 AM CDT Sexual Orientation Not on file documented as of this encounter Plan of Treatment Not on file documented as of this encounter Procedures Procedure Name Priority Date/Time Associated Diagnosis Comments PROCEDURE - RESULT 01/25/2016 12 :00 AM SPECIAL EVENTS ASSISTANT documented in this encounter Results * PROCEDURE - RESULT (01/25/2016 12:00 AM SPECIAL EVENTS ASSISTANT) Narrative 01/25/2016 12:00 AM SPECIAL EVENTS ASSISTANT Ordered by an unspecified provider. us Historical Provider Final Res ult documented in this encounter Visit Diagnoses Not on filedocumented in this encounter Additional Health Concerns Infection Onset Date Last Indicated Resolved Time COVID: Suspected 06/01/2024 06/01/2024 06/01/2024 5:27 PM CDT documented as of this encounter Care Teams Kennel Manager Relationship Specialty Start Date End Date Odell Mann MD PCP - General 06/14/18 Howard Herbert MD Referring Physician Cardiology 04/15/19 Derrek Ling MD [address] [facility] [address] [place] [address] Consulting Physician Nephrology 06/02/24 documented as of this encounter
--- OUTSIDE RECORDS SUMMARY | 2024-12-18 08:08 | XMS_ITS | Patient Health Record ---
Author Organization [facility] Address [address] [address] [place] [address] Care Team Providers Care Extrusion Utility Worker Name Role Phone Mackenzie YOO, Odell Primary Care Provider Delphine abhishek [facility] MANAGER, CARROL Unavailable Reason For Referral No Information Plan Of Treatment Pending Test Test Name Order Date Endoscopic Retrograde Cholangiopancreato graphy (ERCP) 12/30/2019 Insurance Providers Payer Name Payer Address Payer Phone Subscriber Number Group Number Insured Name Patient Relationship to Insured Coverage Start Date Coverage End Date AARP-Medic are Complete [address] [address] [place] [id number] Anuja Salas Self - patient is the insured
--- OUTSIDE RECORDS SUMMARY | 2024-12-18 08:08 | XMS_ITS | Encounter Summary ---
Author Organization [facility] Facility Care Team Providers Care Flow Trader Name Role Phone Odell Mann MD Primary Care Prov ider Howard Herbert MD Unavailable [phone] Derrek Ling MD Unavailable [phone] Encounter Details Date Type Department Care Team (Latest Contact Info) Description 02/27/2016 Orders Only [facility] CLINCON[facility] ProviderJulio Cesar MD [address] [place] [address] Social History Tobacco Use Types Packs/Day Years Used Date Smoking Tobacco: Never Assessed Comments Unknown Sex and Gender Information Value Date Recorded Sex Assigned at Not on file Legal Sex Female 4:21 PM TECHNICAL SUPPORT ASSISTANT Gender Identity Female 12/16/2024 10:18 AM CDT Sexual Orientation Not on file documented as of this encounter Plan of Treatment Not on file documented as of this encounter Procedures Procedure Name Priority Date/Time Associated Diagnosis Comments PROCEDURE - RESULT 02/19/2016 12 :00 AM TECHNICAL SUPPORT ASSISTANT documented in this encounter Results * PROCEDURE - RESULT (02/19/2016 12:00 AM TECHNICAL SUPPORT ASSISTANT) Narrative 02/19/2016 12:00 AM TECHNICAL SUPPORT ASSISTANT Ordered by an unspecified provider. Historical Provider Final Res ult documented in this encounter Visit Diagnoses Not on filedocumented in this encounter Additional Health Concerns Infection Onset Date Last Indicated Resolved Time COVID: Suspected 06/01/2024 06/01/2024 06/01/2024 5:27 PM CDT documented as of this encounter Care Teams Flow Trader Relationship Specialty Start Date End Date Odell Mann MD PCP - General 06/14/18 Howard Herbert MD Referring Physician Cardiology 04/15/19 Derrek Ling MD [address] [facility] [place] [address] Consulting Physician Nephrology 06/02/24 documented as of this encounter
--- OUTSIDE RECORDS SUMMARY | 2024-12-18 08:08 | XMS_ITS | Encounter Summary ---
Author Organization [facility] Facility Care Team Providers Care Observer Gravity Prospecting Name Role Phone Odell Mann MD Primary Care Prov ider Howard Herbert MD Unavailable [phone] Derrek Ling MD Unavailable [phone] Encounter Details Date Type Department Care Team (Latest Contact Info) Description 01/20/2018 Orders Only [facility] CLINCONV ProviderJulio Cesar MD [address] [place] [address] Social History Tobacco Use Types Packs/Day Years Used Date Smoking Tobacco: Never Assessed Comments Unknown Sex and Gender Information Value Date Recorded Sex Assigned at Not on file Legal Sex Female 4:21 PM BULK RECEIVER Gender Identity Female 12/16/2024 10:18 AM CDT Sexual Orientation Not on file documented as of this encounter Plan of Treatment Not on file documented as of this encounter Procedures Procedure Name Priority Date/Time Associated Diagnosis Comments SCAN - LABS 02/02/2018 12:00 AM BULK RECEIVER documented in this encounter Results * SCAN - LABS (02/02/2018 12:00 AM BULK RECEIVER) Narrative 02/02/2018 12:00 AM BULK RECEIVER Ordered by an unspecified provider. us Historical Provider Final Res ult documented in this encounter Visit Diagnoses Not on filedocumented in this encounter Additional Health Concerns Infection Onset Date Last Indicated Resolved Time COVID: Suspected 06/01/2024 06/01/2024 06/01/2024 5:27 PM CDT documented as of this encounter Care Teams Observer Gravity Prospecting Relationship Specialty Start Date End Date Odell Mann MD PCP - General 06/14/18 Howard Herbert MD Referring Physician Cardiology 04/15/19 Derrek Ling MD [address] [place] [address] Consulting Physician Nephrology 06/02/24 documented as of this encounter
--- OUTSIDE RECORDS SUMMARY | 2024-12-18 08:08 | XMS_ITS | Encounter Summary ---
Author Organization [facility] Address [address] [facility] [place] [address] Care Team Providers Care Military Administrative Technician Name Role Phone Odell Mann MD Primary Care Provider + Encounter Details Date Type Department Care Team (Late st Contact Info) Description 08/31/[address] [facility] - DermPath Lab [address] [facility], [place] [address] Dwaine Prajapati MD [address] [place] [address] Social History Tobacco Use Types [...] on file Legal Sex Female 6:18 AM SENIOR QUALITY ANALYST Gender Identity Not on file Sexual Orientation Not on file documented as of this encounter Plan of Treatment Not on file documented as of this encounter Procedures Procedure Name Priority Date/Time Associated Diagnosis Comments DERMATOPATHOLOGY Routine 08/30/2024 12:0 0 AM CDT documented in this encounter Results * DERMATOPATHOLOGY (08/30/2024 12:00 AM CDT) Case Report Dermatopathology Report Case: [id number] Authorizing Provider: Dwaine Prajapati MD Collected: 08/30/2024 12:00 AM Ordering Location: [facility] - Received: 08/31/2024 09:11 AM [...] characteristic determined by the Dermatopathology Laboratory at [facility], directed by Dr. Fernandez Hernandez. These tests need not be, and therefore are not, approved by the [place] Food and Drug Administration. The tests are used for clinical purposes. Billing Codes Specimen Charges Stain Charges 22586 1 4:59 PM CDT DERMATOPATHOLOGY LABORATORY Embedded Images 4:59 PM CDT DERMATOPATHOLOGY LABORATORY Pathology/Cytolog y TISSUE SPECIMEN FROM SKIN / Unknown 08/30/2024 08/31/2024 9:11 AM CDT us Dwaine Prajapati MD LAB - PATHOLOGY/CYTOLOGY ORDERAB LES Final Result DERMATOPATHOLOGY LABORATORY [facility] - Department of Dermatology [facility] Medicine [address] [place] [address], [address] [phone] documented in this encounter Visit Diagnoses Not on filedocumented in this encounter Care Teams Military Administrative Technician Relationship Specialty Start Date End Date Odell Mann MD [address] [address] PCP - General Family Medicine 01/03/22 documented as of this encounter
--- OUTSIDE RECORDS SUMMARY | 2024-12-18 08:08 | XMS_ITS | Clinical Summary ---
Author Organization [facility] Address [address] [place] [address] Care Team Providers Care Trash Collector Supervisor Name Role Phone Jarad Mann MD Primary Care Provider [phone] Allergies Active Allergy Reactions Criticality Noted Date [...] - 11/24/2024 11:59 PM CDT Hospital Encounter [facility] [address] [place] [address] Jarad Mann MD Discharge Disposition: Home or [...] Comments Blood Pressure 149/83 02/04/2024 10:43 AM LINUX NETWORK SYSTEMS ADMINISTRATOR Pulse 58 02/04/2024 10:43 AM LINUX NETWORK SYSTEMS ADMINISTRATOR Temperature 36.2 C (97.1 F) 02/04/2024 10:43 AM LINUX NETWORK SYSTEMS ADMINISTRATOR Respiratory Rate 18 02/04/2024 10:43 AM LINUX NETWORK SYSTEMS ADMINISTRATOR Oxygen Saturation 97% 02/04/2024 10:43 AM LINUX NETWORK SYSTEMS ADMINISTRATOR Inhaled Oxygen Concentration - - Weight 73.1 kg (161 lb 1.6 oz) 02/04/2024 10:43 AM LINUX NETWORK SYSTEMS ADMINISTRATOR Height 157.5 cm (5' 2) 02/04/2024 10:43 AM LINUX NETWORK SYSTEMS ADMINISTRATOR Body Mass Index 29.47 02/04/2024 10:43 AM LINUX NETWORK SYSTEMS ADMINISTRATOR Plan of Treatment Health Maintenance Due Date Last Done Comments ASCVD Statin 1945 Hepatitis C 1963 Annual Medicare Wellness Visit 2012 RSV Immunization or 60+ Years (1 - 1-dose 75+ series) 2022 Zoster Vaccines (3 of 3) 03/03/2024 024, 10/16/2023, 10/16/2023 PHQ-2 (Physician [place]) 03/17/2024 02/04/2024 ASCVD LDL 11/04/2024 11/05/2023, 0708/2023, [...] CDT Essential hypertension, malignant Coronary atherosclerosis of minto coronary artery Chronic diastolic heart failure Mixed [...] 2:35 PM Narrative 11/30/2024 2:38 PM CDT [facility] [address] [place] [address] EXAMINATION:Brain MRI without contrast 11/24/2024 INDICATION:Disorientation, vertigo, [...] Procedure Note Ishmael Ramsey MD - 11/30/2024 [facility] [address] [place] [address] EXAMINATION:Brain MRI without contrast 11/24/2024 INDICATION:Disorientation, vertigo, [...] 173 <200.0 MG/DL 11/05/2023 8:47 AM CDT [facility] TRIGLYCERIDES 67 <150 MG/DL 11/05/2023 8:47 AM T [facility] HDL 87 >40.0 MG/DL 11/05/2023 8:47 AM T [facility] LDL (CALCULATED) 73 <100 MG/DL 11/05/19 8:47 AM T [facility] NON HDL CHOLESTEROL 86 <130 MG/DL 11/04 8:47 AM T [facility] CHOL/HDL RATIO 2.0 0.0 - 4.5 11/05/2023 8:47 AM T [facility] VLDL CALCULATION 13 5 - 55 MG/DL 11/05/2023 8:47 AM T [facility] LIPID INTERPRETATION 11/05/2023 8:47 AM T [facility] Comment: NIH CONCENSUS REPORT RECOMMENDATIONS: ADULT CHILD LOW RISK: CHOLESTEROL <200 <170 TRIGLYCERIDE <150 --- HDL >=60 --- LDL <100 <110 BORDERLINE: CHOLESTEROL 200-239 170-199 TRIGLYCERIDE 150-199 --- HDL 40-59 --- LDL 100-159 110-129 HIGH RISK: CHOLESTEROL >=240 >=200 TRIGLYCERIDE >=200 --- HDL <40 --- LDL >=160 >=130 11/05/2023 7:57 AM CDT Howard Herbert MD LABORATORY Final Result [facility] [address] [place] [address], * COLONOSCOPY/EGD GENERIC (08/19/2012) 08/19/2012 Narrative 08/19/2012 Ordered by an unspecified provider. Documents Scanned SCANNING Final Result from Last 3 Months or Most Recently Relevant to Health Maintenance Insurance [facility] MEDICARE Care Teams Trash Collector Supervisor Relationship Specialty Start Date End Date Jarad Mann MD [address] [address] PCP - General FAMILY PRACTICE 09/06/18
--- OUTSIDE RECORDS SUMMARY | 2024-12-18 08:08 | XMS_ITS | Encounter Summary ---
Author Organization [facility] Facility Care Team Providers Care Customer Service Advocate Name Role Phone Odell Mann MD Primary Care Prov ider Howard Herbert MD Unavailable [phone] Derrek Ling MD Unavailable [phone] Encounter Details Date Type Department Care Team (Latest Contact Info) Description 08/30/2015 Orders Only [facility] CLINCONV Provider, MD Julio Cesar [address] [place] [address] Social History Tobacco Use Types Packs/Day Years Used Date Smoking Tobacco: Never Assessed Comments Unknown Sex and Gender Information Value Date Recorded Sex Assigned at Not on file Legal Sex Female 4:21 PM FIELD ARTILLERY CREWMEMBER Gender Identity Female 12/16/2024 10:18 AM CDT [...] AM CDT Ordered by an unspecified provider. [facility] Provider Final Res ult * CARDIOLOGY REPORT (08/31/2015 12:00 AM CDT) Anatomical Region Laterality Modality Other Narrative 08/31/2015 12:00 AM CDT Ordered by an unspecified provider. [facility] Provider CV CARDIAC SERVICES PROCE DURES Final Result * CARDIOLOGY REPORT (08/31/2015 12:00 AM CDT) Anatomical Region Laterality Modality Other Narrative 08/31/2015 12:00 AM CDT Ordered by an unspecified provider. [facility] Provider CV CARDIAC SERVICES PROCE DURES Final Result * CARDIOLOGY REPORT (08/31/2015 12:00 AM CDT) Anatomical Region Laterality Modality Other Narrative 08/31/2015 12:00 AM CDT Ordered by an unspecified provider. [facility] Provider CV CARDIAC SERVICES PROCE DURES Final Result documented in this encounter Visit Diagnoses Not on filedocumented in this encounter Additional Health Concerns Infection Onset Date Last Indicated Resolved Time COVID: Suspected 06/01/2024 06/01/2024 06/01/2024 5:27 PM CDT documented as of this encounter Care Teams Customer Service Advocate Relationship Specialty Start Date End Date Odell Mann MD PCP - General 06/14/18 Howard Herbert MD Referring Physician Cardiology 04/15/19 Derrek Ling MD [address] [address] Consulting Physician Nephrology 06/02/24 documented as of this encounter
[2024-12-18 08:14] VITALS: BP 156/82; PULSE 90; RESP 16; TEMP 36.4; O2SAT 100
--- OUTSIDE RECORDS SUMMARY | 2024-12-18 08:46 | XMS_ITS | Encounter Summary ---
Author Organization [facility] Address [address] [facility] [place] [address] Care Team Providers Care Center Lead Consultant Name Role Phone Odell Mann MD Primary Care Provider + Encounter Details Date Type Department Care Team (Late st Contact Info) Description 08/31/2024 Lab Requisition [facility] - DermPath Lab [address] [facility] [place] [address] Dwaine Prajapati MD [address] [place] [address] Social History Tobacco Use Types [...] on file Legal Sex Female 6:18 AM UNIT ASSEMBLER Gender Identity Not on file Sexual Orientation Not on file documented as of this encounter Plan of Treatment Not on file documented as of this encounter Procedures Procedure Name Priority Date/Time Associated Diagnosis Comments DERMATOPATHOLOGY Routine 08/30/2024 12:0 0 AM CDT documented in this encounter Results * DERMATOPATHOLOGY (08/30/2024 12:00 AM CDT) Case Report Dermatopathology Report Case: [id number] Authorizing Provider: Dwaine Prajapati MD Collected: 08/30/2024 12:00 AM Ordering Location: [facility] - Received: 08/31/2024 09:11 [...] characteristic determined by the Dermatopathology Laboratory at [facility], directed by Dr. Fernandez Hernandez. These tests need not be, and therefore are not, approved by the [place] Food and Drug Administration. The tests are used for clinical purposes. Billing Codes Specimen Charges Stain Charges 23278 1 4:59 PM CDT DERMATOPATHOLOGY LABORATORY Embedded Images 4:59 PM CDT DERMATOPATHOLOGY LABORATORY Pathology/Cytolog y TISSUE SPECIMEN FROM SKIN / Unknown 08/30/2024 08/31/2024 9:11 AM CDT us Dwaine Prajapati MD LAB - PATHOLOGY/CYTOLOGY ORDERAB LES Final Result DERMATOPATHOLOGY LABORATORY [facility] - Department of Dermatology [facility] Medicine [address] [place] [address], [address] [phone] documented in this encounter Visit Diagnoses Not on filedocumented in this encounter Care Teams Center Lead Consultant Relationship Specialty Start Date End Date Odell Mann MD [address] [address] PCP - General Family Medicine 01/03/22 documented as of this encounter
--- OUTSIDE RECORDS SUMMARY | 2024-12-18 08:46 | XMS_ITS | Encounter Summary ---
Author Organization [facility] Facility Care Team Providers Care Hay Chopper Name Role Phone Odell Mann MD Primary Care Prov ider Howard Herbert MD Unavailable [phone] Derrek Ling MD Unavailable [phone] Encounter Details Date Type Department Care Team (Latest Contact Info) Description 08/30/2015 Orders Only [facility] CLINCONV Provider, MD Julio Cesar [address] [place] [address] Social History Tobacco Use Types Packs/Day Years Used Date Smoking Tobacco: Never Assessed Comments Unknown Sex and Gender Information Value Date Recorded Sex Assigned at Not on file Legal Sex Female 4:21 PM BONDING AGENT Gender Identity Female 12/16/2024 10:18 AM CDT [...] AM CDT Ordered by an unspecified provider. [facility] Provider Final Res ult * CARDIOLOGY REPORT (08/31/2015 12:00 AM CDT) Anatomical Region Laterality Modality Other Narrative 08/31/2015 12:00 AM CDT Ordered by an unspecified provider. [facility] Provider CV CARDIAC SERVICES PROCE DURES Final Result * CARDIOLOGY REPORT (08/31/2015 12:00 AM CDT) Anatomical Region Laterality Modality Other Narrative 08/31/2015 12:00 AM CDT Ordered by an unspecified provider. [facility] Provider CV CARDIAC SERVICES PROCE DURES Final Result * CARDIOLOGY REPORT (08/31/2015 12:00 AM CDT) Anatomical Region Laterality Modality Other Narrative 08/31/2015 12:00 AM CDT Ordered by an unspecified provider. [facility] Provider CV CARDIAC SERVICES PROCE DURES Final Result documented in this encounter Visit Diagnoses Not on filedocumented in this encounter Additional Health Concerns Infection Onset Date Last Indicated Resolved Time COVID: Suspected 06/01/2024 06/01/2024 06/01/2024 5:27 PM CDT documented as of this encounter Care Teams Hay Chopper Relationship Specialty Start Date End Date Odell Mann MD PCP - General 06/14/18 Howard Herbert MD Referring Physician Cardiology 04/15/19 Derrek Ling MD [address] [place] [address] Consulting Physician Nephrology 06/02/24 documented as of this encounter
--- OUTSIDE RECORDS SUMMARY | 2024-12-18 08:47 | XMS_ITS | Clinical Summary ---
Author Organization [facility] Address [address] [place] [address] Care Team Providers Care Molding Machine Setter Name Role Phone Jarad Mann MD Primary Care Provider [phone] Allergies Active Allergy Reactions Criticality Noted Date [...] - 11/24/2024 11:59 PM CDT Hospital Encounter [facility] [address] [place] [address] Jarad Mann MD Discharge Disposition: Home or [...] Comments Blood Pressure 149/83 02/04/2024 10:43 AM THERMAL INTELLIGENCE ANALYST Pulse 58 02/04/2024 10:43 AM THERMAL INTELLIGENCE ANALYST Temperature 36.2 C (97.1 F) 02/04/2024 10:43 AM THERMAL INTELLIGENCE ANALYST Respiratory Rate 18 02/04/2024 10:43 AM THERMAL INTELLIGENCE ANALYST Oxygen Saturation 97% 02/04/2024 10:43 AM THERMAL INTELLIGENCE ANALYST Inhaled Oxygen Concentration - - Weight 73.1 kg (161 lb 1.6 oz) 02/04/2024 10:43 AM THERMAL INTELLIGENCE ANALYST Height 157.5 cm (5' 2) 02/04/2024 10:43 AM THERMAL INTELLIGENCE ANALYST Body Mass Index 29.47 02/04/2024 10:43 AM THERMAL INTELLIGENCE ANALYST Plan of Treatment Health Maintenance Due Date Last Done Comments ASCVD Statin 1945 Hepatitis C 1963 Annual Medicare Wellness Visit 2012 RSV Immunization or 60+ Years (1 - 1-dose 75+ series) 2022 Zoster Vaccines (3 of 3) 03/03/2024 024, 10/16/2023, 10/16/2023 PHQ-2 (Physician [place]) 03/17/2024 02/04/2024 ASCVD LDL 11/04/2024 11/05/2023, 0708/2023, [...] CDT Essential hypertension, malignant Coronary atherosclerosis of [place] coronary artery Chronic diastolic heart failure Mixed [...] 2:38 PM CDT [facility] [address] [place] [address] EXAMINATION:Brain MRI without contrast 11/24/2024 INDICATION:Disorientation, vertigo, [...] MD - 11/30/2024 [facility] [address] [place] [address] EXAMINATION:Brain MRI without contrast 11/24/2024 INDICATION:Disorientation, vertigo, [...] 173 <200.0 MG/DL 11/05/2023 8:[address] [facility] TRIGLYCERIDES 67 <150 MG/DL 11/05/2023 8:[address] [facility] HDL 87 >40.0 MG/DL 11/05/2023 8:[address] [facility] LDL (CALCULATED) 73 <100 MG/DL 11/05/19 8:[address] [facility] NON HDL CHOLESTEROL 86 <130 MG/DL 11/04 8:[address] [facility] CHOL/HDL RATIO 2.0 0.0 - 4.5 11/05/2023 8:[address] [facility] VLDL CALCULATION 13 5 - 55 MG/DL 11/05/2023 8:[address] [facility] LIPID INTERPRETATION 11/05/2023 8:[address] [facility] Comment: NIH CONCENSUS REPORT RECOMMENDATIONS: ADULT CHILD LOW RISK: CHOLESTEROL <200 <170 TRIGLYCERIDE <150 --- HDL >=60 --- LDL <100 <110 BORDERLINE: CHOLESTEROL 200-239 170-199 TRIGLYCERIDE 150-199 --- HDL 40-59 --- LDL 100-159 110-129 HIGH RISK: CHOLESTEROL >=240 >=200 TRIGLYCERIDE >=200 --- HDL <40 --- LDL >=160 >=130 11/05/2023 7:57 AM CDT Howard Herbert MD LABORATORY Final Result [facility] [address] [place] [address], * COLONOSCOPY/EGD GENERIC (08/19/2012) 08/19/2012 Narrative 08/19/2012 Ordered by an unspecified provider. Documents Scanned SCANNING Final Result from Last 3 Months or Most Recently Relevant to Health Maintenance Insurance [facility] MEDICARE Care Teams Molding Machine Setter Relationship Specialty Start Date End Date Jarad Mann MD [address] [address] PCP - General FAMILY PRACTICE 09/06/18
--- OUTSIDE RECORDS SUMMARY | 2024-12-18 08:47 | XMS_ITS | Encounter Summary ---
Author Organization [facility] Facility Care Team Providers Care Institution Librarian Name Role Phone Odell Mann MD Primary Care Prov ider Howard Herbert MD Unavailable [phone] Derrek Ling MD Unavailable [phone] Encounter Details Date Type Department Care Team (Latest Contact Info) Description 02/27/2016 Orders Only [facility] CLINCONV ProviderJulio Cesar MD [address] [place] [address] Social History Tobacco Use Types Packs/Day Years Used Date Smoking Tobacco: Never Assessed Comments Unknown Sex and Gender Information Value Date Recorded Sex Assigned at Not on file Legal Sex Female 4:21 PM BARLEY STEEPER Gender Identity Female 12/16/2024 10:18 AM CDT Sexual Orientation Not on file documented as of this encounter Plan of Treatment Not on file documented as of this encounter Procedures Procedure Name Priority Date/Time Associated Diagnosis Comments PROCEDURE - RESULT 02/19/2016 12 :00 AM BARLEY STEEPER documented in this encounter Results * PROCEDURE - RESULT (02/19/2016 12:00 AM BARLEY STEEPER) Narrative 02/19/2016 12:00 AM BARLEY STEEPER Ordered by an unspecified provider. Historical Provider Final Res ult documented in this encounter Visit Diagnoses Not on filedocumented in this encounter Additional Health Concerns Infection Onset Date Last Indicated Resolved Time COVID: Suspected 06/01/2024 06/01/2024 06/01/2024 5:27 PM CDT documented as of this encounter Care Teams Institution Librarian Relationship Specialty Start Date End Date Odell Mann MD PCP - General 06/14/18 Howard Herbert MD Referring Physician Cardiology 04/15/19 Derrek Ling MD [address] [place] [address] Consulting Physician Nephrology 06/02/24 documented as of this encounter
--- OUTSIDE RECORDS SUMMARY | 2024-12-18 08:47 | XMS_ITS | Encounter Summary ---
Author Organization [facility] Address [address] [place] [address] Care Team Providers Care Steam Fitter Name Role Phone Odell Mann MD Primary Care Provider [phone] Encounter Details Date Type Department Care Team (Late st Contact Info) Description 11/08/2019 Prep for Procedure [facility] Day [facility] [address] [place] [address] Christy Wang MD [address] [facility] [address] [place] [address] Social History Tobacco Use Types [...] documented as of this encounter Care Teams Steam Fitter Relationship Specialty Start Date End Date Odell Mann MD [address] [address] PCP - General FAMILY PRACTICE 09/06/18 documented as of this encounter
--- OUTSIDE RECORDS SUMMARY | 2024-12-18 08:47 | XMS_ITS | Encounter Summary ---
Author Organization [facility] Facility Care Team Providers Care Central Office Repairer Name Role Phone Odell Mann MD Primary Care Prov ider Howard Herbert MD Unavailable [phone] Derrek Ling MD Unavailable [phone] Encounter Details Date Type Department Care Team (Latest Contact Info) Description 01/09/2018 Orders Only [facility] CLINCONV Provider, MD Julio Cesar [address] [place] [address] Social History Tobacco Use Types Packs/Day Years Used Date Smoking Tobacco: Never Assessed Comments Unknown Sex and Gender Information Value Date Recorded Sex Assigned at Not on file Legal Sex Female 4:21 PM FUNDING COORDINATOR Gender Identity Female 12/16/2024 10:18 AM CDT [...] documented as of this encounter Care Teams Central Office Repairer Relationship Specialty Start Date End Date Odell Mann MD PCP - General 06/14/18 Howard Herbert MD Referring Physician Cardiology 04/15/19 Derrek Ling MD [address] [place] [address] Consulting Physician Nephrology 06/02/24 documented as of this encounter
--- OUTSIDE RECORDS SUMMARY | 2024-12-18 08:47 | XMS_ITS | Clinical Summary ---
Author Organization [facility] Address [address] [place] [address] Care Team Providers Care Cable Ferryboat Operator Name Role Phone Odell Mann MD Primary Care Provider + Source Comments [facility],non-owned Affiliates and Associated Physician Practices is amultiple site organization consisting of ambulatory clinics and hospital sitesin [place], [place], [place] and [place]. This disclosure is being madepursuant to the Care Everywhere program and may not contain all information available regarding this patient. Last updated 17.[facility] Allergies No known active allergies Medications * [...] mouth once daily Active Cholecalciferol 1.25 MG (71083 UT) Take 50,000 Units by mouth once [...] on file Legal Sex Female 6:18 AM NEUROLOGY HOSPITALIST Gender Identity Not on file Sexual Orientation [...] patient's age to complete this topic Insurance [facility] [place] MEDIC[place] ADV [facility] [place] ADV [facility] [place] MEDIC[place] ADV Care Teams Cable Ferryboat Operator Relationship Specialty Start Date End Date Odell Mann MD [address] [address] PCP - General Family Medicine 01/03/22
--- OUTSIDE RECORDS SUMMARY | 2024-12-18 08:47 | XMS_ITS | Clinical Summary ---
Author Organization [facility] Address [address] [place] [address] Care Team Providers Care Warehouse Shipping Clerk Name Role Phone Odell Mann MD Primary Care Prov ider Howard Herbert MD Unavailable [phone] Derrek Ling MD Unavailable Allergies Active [...] arthritis 09/05/2023 Coronary artery disease invo lving [place] coronary artery of [place] heart without angina pectoris 06/02/2023 Chronic heart [...] (01/18/2020): Added automatically from request for surgery [id number] CRD (chronic renal disease), stage III 0 [...] = 0.6 oz pur e alcohol) rarely [facility] Utilities Answer Date Recorded In the past 12 months has th e [employer], gas, oil, or water [employer] threatened to shut off services in your [...] often do you attend chur ch or evangelical services? Never 06/02/2024 Do you belong to any clubs o r organizations such as muslim groups, unions, fraternal or athletic groups, or [...] any time in the past 12 m [facility], were you homeless or living in a long term (including now)? No 06/02/2024 Personal Safety Answer Date Recorded Have you ever been in or are you currently in a harmful physical or emotional relationship or is someone making you feel afraid or unsafe? Denies 06/01/2024 Comments No Sex and Gender Information Value Date Recorded Sex Assigned at Not on file Legal Sex Female 4:21 PM DRUG ABUSE SOCIAL WORKER Gender Identity Female 12/16/2024 10:18 AM CDT [...] history exists Medical Devices Explanted Type Area Sports Marketer Device Identifier Shelf Expiration Date Model / Serial / Lot [employer] 6572 Quiroz Flexi-Stent 7fr 5cm Small Pigtail Flexible .035in Stent - [id number] Implanted:Qty : 1 on 01/17/2020 by Ludwig Crespo MD at [facility] Explanted:Qty : 1 on 01/19/2020 by Ludwig Crespo MD at [facility] Stent N/A: Pancreas [employer] 10/14/2024 [id number] / / [id number] Conmed Fatuma [id number] Goldsmith Viabil 10mm 8.5fr 6cm 200cm Fully Covered Self Expand Pull - [id number] - [id number] Implanted:Qty : 1 on 01/17/2020 by Ludwig Crespo MD at [facility] Explanted:Qty : 1 on 01/19/2020 by Ludwig Crespo MD at [facility] Stent N/A: Bile Duct Conmed Fatuma 08/23/2022 [id number] / [id number] / Procedures Procedure Name Priority Date/Time Associated Diagnosis Comments EGFR Routine 06/02/2024 6:52 AM CDT LIPID PANEL Add-On 06/01/2024 7:11 PM CDT HEMOGLOBIN A1C STAT 06/01/2024 2:44 PM CDT DIAGNOSTIC MAMMOGRAM BILATERAL W KULDIP Routine 06/20/2017 8:48 AM CDT DEXA AXIAL SKELETON BONE DENSITY 1 OR MORE SITES Routine 04/29/2012 12:20 PM DRUG ABUSE SOCIAL WORKER from Last 3 Months or Most Recently [...] NP LAB BLOOD ORDERABLES Final Resu lt SHOU[facility] [address] [facility] [place] [address] 282 * Lipid panel (06/01/2024 7:11 PM CDT) [...] 06/01/2024 7:28 PM CDT us Nelda Farmer ENERGY PROJECT MANAGER LAB BLOOD ORDERABLES Final Resu lt NATHANAEL CASE [address] [facility] [place] [address] * (ABNORMAL) Hemoglobin A1c (06/01/2024 2:44 PM CDT) Hgb A1C 5.7(H) 4.0 - 5.6 % Estimated Average Glucose 117 mg/dL NATHANAEL CASE Comment: The ADA recommends reporting an estimated Average Glucose (eAG) with all Hemoglobin A1c results using the equation derived from a study of 507 normal and diabetic adults. Minority populations were underrepresented and children were not included. (Diabetes Care 31:2707-7486, 2008). The eAG is not equivalent to a fasting glucose. Blood 06/01/2024 2:44 PM CDT 06/01/2024 2:46 PM CDT Colten Calderon MD LAB BLOOD ORDERABLES Final Result NATHANAEL [address] [facility] [place] [address] * Diagnostic Mammogram Bilateral W [...] by: Dr. Pasquale Ang M.D. nh/:06/20/2017 10:36:27 Ocular Care Technologist: Amelia Gordon)(Sharon), [facility] letter sent: Normal Exam Abnormal History Reading location: [facility] BI-RADS: 2 Benign [EOD] Narrative 06/20/2017 [...] dated: 2014 mammogram and 04/29/2012 mammogram - [facility]. BREAST TISSUE: There are scattered areas [...] by: Dr. Pasquale Ang M.D. nh/:06/20/2017 10:36:27 Ocular Care Technologist: Amelia Pat RT (R)(M), [facility] letter sent: Normal Exam Abnormal History Reading location: [facility] BI-RADS: 2 Benign [EOD] Nico Donato Andre MD IMG MAMMO PROCEDURES Final Result * Dexa Axial Skeleton Bone Density 1 or 2 Site (04/29/2012 12:20 PM DRUG ABUSE SOCIAL WORKER) Anatomical Region Laterality Modality Body N/A Radiographic Adeline ging 04/29/2012 12:2 0 PM DRUG ABUSE SOCIAL WORKER Impressions 04/29/2012 2:31 PM DRUG ABUSE SOCIAL WORKER Normal bone density. THIS IS AN ELECTRONICALLY VERIFIED REPORT 04/29/2012 2:26 PM: Sierra Warren M.D. Sierra Warren M.D. KL:saravanan 02:26 PM 02:26 PM [EOD] Narrative 04/29/2012 2:31 PM DRUG ABUSE SOCIAL WORKER EXAMINATION: Bone Density Study (DEXA) HISTORY: Post [...] M.D. KL:saravanan 02:26 PM 02:26 PM [EOD] [facility] Donato Andre MD IMG DXA PROCEDURES Final R esult from Last 3 Months or Most Recently Relevant to Health Maintenance Insurance [facility] MEDICARE ADVANTAGE U[employer] MEDICARE ADVANTAGE Advance Directives For more information, please contact: [phone] * Full Code (Latest Code Status on File) Date Activated Date Inactivated Comments 06/01/2024 7:09 PM 06/02/2024 8:03 PM * Full Code Date Activated Date Inactivated Comments 01/17/2020 1:24 PM 01/19/2020 6:58 PM Care Teams Warehouse Shipping Clerk Relationship Specialty Start Date End Date Odell Mann MD PCP - General 06/14/18 Howard Herbert MD Referring Physician Cardiology 04/15/19 Derrek Ling MD [address] [place] [address] Consulting Physician Nephrology 06/02/24
--- OUTSIDE RECORDS SUMMARY | 2024-12-18 08:47 | XMS_ITS | Clinical Summary ---
Author Organization [employer] [address] [facility] Address [address] [place] [address] Care Team Providers Care Staff Technologist Name Role Phone Odell Mann MD Primary Care Provider [phone] Allergies Active Allergy Reactions Criticality Noted Date [...] Abstract 10/29/2024 9:15 AM CDT Office Visit [facility] - [address] [place] [address] Ruben Nguyen MD Chronic anemia (Primary Dx) 10/21/2024 Orders Only [facility] - [place] [address] [place] [address] Ruben Nguyen MD 10/20/2024 External Device Data [...] CDT Oxygen Saturation 97% 04/29/2024 11:04 AM FEED ELEVATOR WORKER Inhaled Oxygen Concentration - - Weight 71.7 kg (158 lb) 10/29/2024 9:10 AM CDT Height 157.5 cm (5' 2) 02/26/2019 8:22 AM FEED ELEVATOR WORKER Body Mass Index 28.9 02/26/2019 8:22 AM FEED ELEVATOR WORKER Plan of Treatment Upcoming Encounters Date Type Department Care Team (Late st Contact Info) Description 11/02/2025 10:00 AM CDT Office Visit [facility] - [place] [address] [facility] [address] [place] [address] Ruben Nguyen MD [address] [facility] [address] [place] [address] Health Maintenance Due Date Last [...] from Last 3 Months Insurance Care Teams Staff Technologist Relationship Specialty Start Date End Date Odell Mann MD PCP - General Family Practice 12/24/18
--- OUTSIDE RECORDS SUMMARY | 2024-12-18 08:47 | XMS_ITS | Encounter Summary ---
Author Organization [facility] Facility Care Team Providers Care Optician Apprentice Name Role Phone Odell Mann MD Primary Care Prov ider Howard Herbert MD Unavailable [phone] Derrek Ling MD Unavailable [phone] Encounter Details Date Type Department Care Team (Latest Contact Info) Description 01/20/2018 Orders Only [facility] CLINCONV ProviderJulio Cesar MD [address] [place] [address] Social History Tobacco Use Types Packs/Day Years Used Date Smoking Tobacco: Never Assessed Comments Unknown Sex and Gender Information Value Date Recorded Sex Assigned at Not on file Legal Sex Female 4:21 PM CROSSTIE INSPECTOR Gender Identity Female 12/16/2024 10:18 AM CDT Sexual Orientation Not on file documented as of this encounter Plan of Treatment Not on file documented as of this encounter Procedures Procedure Name Priority Date/Time Associated Diagnosis Comments SCAN - LABS 02/02/2018 12:00 AM CROSSTIE INSPECTOR documented in this encounter Results * SCAN - LABS (02/02/2018 12:00 AM CROSSTIE INSPECTOR) Narrative 02/02/2018 12:00 AM CROSSTIE INSPECTOR Ordered by an unspecified provider. us Historical Provider Final Res ult documented in this encounter Visit Diagnoses Not on filedocumented in this encounter Additional Health Concerns Infection Onset Date Last Indicated Resolved Time COVID: Suspected 06/01/2024 06/01/2024 06/01/2024 5:27 PM CDT documented as of this encounter Care Teams Optician Apprentice Relationship Specialty Start Date End Date Odell Mann MD PCP - General 06/14/18 Howard Herbert MD Referring Physician Cardiology 04/15/19 Derrek Ling MD [address] [place] [address] Consulting Physician Nephrology 06/02/24 documented as of this encounter
--- OUTSIDE RECORDS SUMMARY | 2024-12-18 08:47 | XMS_ITS | Encounter Summary ---
Author Organization [facility] Facility Care Team Providers Care Brazing Furnace Feeder Name Role Phone Odell Mann MD Primary Care Prov ider Howard Herbert MD Unavailable [phone] Derrek Ling MD Unavailable [phone] Encounter Details Date Type Department Care Team (Latest Contact Info) Description 01/25/2016 Orders Only [facility] CLINCONV ProviderJulio Cesar MD [address] [place] [address] Social History Tobacco Use Types Packs/Day Years Used Date Smoking Tobacco: Never Assessed Comments Unknown Sex and Gender Information Value Date Recorded Sex Assigned at Not on file Legal Sex Female 4:21 PM RIG SUPERVISOR Gender Identity Female 12/16/2024 10:18 AM CDT Sexual Orientation Not on file documented as of this encounter Plan of Treatment Not on file documented as of this encounter Procedures Procedure Name Priority Date/Time Associated Diagnosis Comments PROCEDURE - RESULT 01/25/2016 12 :00 AM RIG SUPERVISOR documented in this encounter Results * PROCEDURE - RESULT (01/25/2016 12:00 AM RIG SUPERVISOR) Narrative 01/25/2016 12:00 AM RIG SUPERVISOR Ordered by an unspecified provider. us Historical Provider Final Res ult documented in this encounter Visit Diagnoses Not on filedocumented in this encounter Additional Health Concerns Infection Onset Date Last Indicated Resolved Time COVID: Suspected 06/01/2024 06/01/2024 06/01/2024 5:27 PM CDT documented as of this encounter Care Teams Brazing Furnace Feeder Relationship Specialty Start Date End Date Odell Mann MD PCP - General 06/14/18 Howard Herbert MD Referring Physician Cardiology 04/15/19 Derrek Ling MD [address] [facility] [address] [place] [address] Consulting Physician Nephrology 06/02/24 documented as of this encounter
--- OUTSIDE RECORDS SUMMARY | 2024-12-18 08:47 | XMS_ITS | Encounter Summary ---
Author Organization [facility] Address [address] [place] [address] Care Team Providers Care Ship Engines Operating Engineer Name Role Phone Odell Mann MD Primary Care Provider [phone] Encounter Details Date Type Department Care Team (Late st Contact Info) Description 11/08/2019 Prep for Procedure [facility] [address] [place] [address] Christy Wang [facility] [address] [facility] [address] [place] [address] Social History Tobacco Use Types [...] DETECTED NOT DETECTED 11/10/2019 7:05 PM CDT [facility] Comment: A Not Detected (negative) test result [...] providers and patients using the following websites: https://www.[employer].Berst/home/Covid-19/HCP/NAAT/fact-sheet2 https://www.[employer].Berst/home/Covid-19/Patients/NAAT/ fact-sheet2 This test has been authorized by the FDA under an Emergency Use Authorization (EUA) for use by authorized laboratories. Due to the current public health emergency, [facility] is receiving a high volume of samples [...] about COVID-19 can be found at the [employer] website: www.[employer].Berst/Covid19. Test performed at [facility] [place] [address] [place] [address] Director: LINDSEY FISHMAN,DO,MPH NASOPHARYNGEAL SWAB / Unknown 11/09/2019 7:43 AM CDT us W Dagoberto Wang MD MICROBIOLOGY - GENERAL ORDERABLES Final Result [facility] [address] [place] [address], documented in this encounter Visit Diagnoses Diagnosis Pre-op testing- Primary Preoperative examination, unspecified documented in this encounter Additional Health Concerns Infection Onset Date Last Indicated Resolved Time COVID-19 Rule Out 11/09/2019 11/09/2019 11/10/2019 7:05 PM CDT COVID-19 Rule Out 11/23/2019 11/23/2019 11/25/2019 2:26 AM CDT documented as of this encounter Care Teams Ship Engines Operating Engineer Relationship Specialty Start Date End Date Odell Mann MD [address] [address] PCP - General FAMILY PRACTICE 09/06/18 documented as of this encounter
[2024-12-18] MEDS: MECLIZINE HCL 25 MG TABLET 50 MG PO (08:51)
[2024-12-18] MEDS: dexAMETHasone SOD PHOS INJ 10 MG/ML 1 ML VIAL IM (08:54)
[2024-12-18] MEDS: ONDANSETRON INJ 4 MG/2 ML VIAL IV PUSH (08:56)
[2024-12-18 09:12] LABS: Hematocrit 39.4 % (37.0-47.0); Hemoglobin 13.3 g/dL (12.0-15.0); Immature Granulocyte Percent A 0.4 % (0-0.5); Lymphocytes Absolute Auto 1.91 K/mm3 (0.9-3.2); Mean Corpuscular HGB Conc 33.8 g/dl (32-36); Mean Corpuscular Hemoglobin 31.0 pg (26-34); Mean Corpuscular Volume 91.8 fl (80-100); Nucleated Red Blood Cells Absolute Auto 0.000 K/mm3 (0.0-0.012); Nucleated Red Blood Cells Perc 0.0 % (0.0-0.2); Platelet Count Result 162 k/mm3 (150-375); Red Blood Count 4.29 M/mm3 (4.2-5.4); White Blood Count 4.6 K/mm3 (4.5-10.0)
[2024-12-18 09:36] LABS: Alanine Aminotransferase 39 U/L (6-35); Albumin Level 4.2 g/dL (3.5-5.1); Alkaline Phosphatase 146 U/L (38-126); Anion Gap 8 mmol/L (4-12); Aspartate Amino Transferase 41 U/L (14-36); Bilirubin,Total 1.0 mg/dL (0.2-1.3); Blood Urea Nitrogen 14 mg/dL (7-17); Calcium 9.5 mg/dL (8.4-10.2); Carbon Dioxide 29 mmol/L (22-30); Chloride 103 mmol/L (98-107); Estimated CRCL calculation 25 ml/min; Estimated Glomerular Filt Rate 38; Glucose 129 mg/dL (65-110); Potassium 4.4 mmol/L (3.4-5.0); Sodium 140 mmol/L (137-145); Total Protein 7.6 g/dL (6.3-8.2)
--- NOTE | 2024-12-18 10:48 | ED_ITS ---
HPI - Dizziness General Chief Complaint: Dizziness Stated Complaint: vertigo x1 month Time Seen by Provider: 12/18/24 08:18 Source: patient Mode of arrival: ambulatory Limitations: no limitations History of Present Illness HPI Narrative: This is a 79-year-old female, with history of vertigo who presents emergency room complaining of worsening dizziness. She states she has been evaluated by neurology and ENT with a grossly unremarkable evaluation, including MRI. She states her symptoms are previously controlled meclizine though are now worsened. She denies weakness, numbness, change/loss of vision or hearing. She has no other complaints at this time. Related Data Home Medications ?Medication ?Instructions ?Recorded ?Confirmed ?Last Taken ?Type isosorbide mononitrate 30 mg 30 mg PO DAILY 03/19/21 0 12/01/24 11/28/22 History tablet,extended release 24 hr ranolazine 500 mg tablet,extended 500 mg PO Q12H 03/1912/01/24 11/28/22 History release,12 hr aspirin 81 mg tablet,delayed 81 mg PO DAILY 05/30/22 0 12/01/24 11/28/22 History release losartan 25 mg tablet 25 mg PO DAILY 10/31/2211/1511/28/22 History vitamin B complex (B 1 tablet PO DAILY 10/31/22 0 12/01/24 11/28/22 History Complex-Vitamin B12 tablet) fluticasone propionate 110 2 puff inhalation Q12H PRN 06/24/23 12/01/24 Unknown History mcg/actuation HFA aerosol inhaler (Flovent HFA) Allergies Allergy/AdvReac Type Severity Reaction Status Date / Time metformin AdvReac Mild diarrhea Verified 12/18/24 08:14 propranolol AdvReac Mild Unknown Verified 12/18/24 08:14 metoclopramide AdvReac Unknown UNknown Verified 12/18/24 08:14 NSAIDS (Non-Steroidal AdvReac Unknown Other Verified 12/18/24 08:14 Anti-Inflamma Review of Systems 2 Review of Systems: All systems reviewed & are unremarkable except as noted in HPI and below PMFSH Past Medical History Medical History IBS (irritable bowel syndrome) Early satiety Abdominal bloating Loose stools Abdominal pain (HFpEF) heart failure with preserved ejection fraction Type 2 diabetes mellitus with diabetic chronic kidney disease CKD (chronic kidney disease) Squamous cell carcinoma Kidney tumor (benign) Arthritis GERD (gastroesophageal reflux disease) Gastric ulcer Sleep apnea Pneumonia HTN (hypertension) Surgical History Surgical History History of ERCP History of hysterectomy with bilateral oophorectomy 1992 H/O squamous cell carcinoma excision Hx of fusion of cervical spine Hx of repair of rotator cuff bilateral shoulders History of kidney surgery removal of benign tumor Hx of cholecystectomy 2002 Hx of appendectomy Family History Family History Sibling Hypertension Father Family history of chronic obstructive pulmonary disease Mother Acute myocardial infarction Other Diabetes mellitus Social History Social History Smoking status: Never smoker Alcohol intake: never Substance use: never Substance use type: does not use Lack of Transportation: No Lack of Food: Never True Current Housing: I Have Housing Concerned About Future Housing: No Difficulty Paying Gas/Electric Bills: No Difficulty Paying for Meds: No Currently Unemployed: No Education: Trade/Vocational Certificate Living arrangements: with family Occupation/Education: retired Gender identity (if verbalized by the patient): Female Sexual Orientation (if Verbalized by the Patient): Straight or Heterosexual Spiritual care concerns: No Agree to blood products: Yes Exam 2 Narrative: GENERAL: Well-developed, well-nourished, and in no acute distress. HEAD: Normocephalic, atraumatic. EYES: PERRLA and EOMI. ENT: Nares clear, no rhinorrhea or epistaxis. Mucous membranes moist. Oropharynx without tonsillar hypertrophy exudate or other lesions. Bilateral TMs pearly holden. The left TM is bulging slightly with clear fluid in the middle ear NECK: Supple. No adenopathy or masses. No carotid bruits or JVD CHEST: Clear to auscultation. No respiratory distress. No wheezes rales or rhonchi HEART: Regular rate and rhythm. No murmur heard. Normal peripheral pulses. ABDOMEN: Soft, nontender, nondistended, normal active bowel sounds. EXTREMITIES: Normal range of motion. No edema. SKIN: Warm, dry, no rash. NEURO: Alert and oriented x3. Moving all 4 limbs spontaneously. HINTS exam elicits nystagmus with head impulse towards the left. Strength 5/5 in all extremities, sensation intact bilaterally, no noted ataxia PSYCH: Normal mood and affect. Course Course Emergency Course: 11:00 - Chart review shows the patient had an unremarkable MRI of the brain done on November 24, 2024. She has had a carotid ultrasound that demonstrates less than 50% carotid stenosis bilaterally. The patient's exam is consistent with a peripheral cause for her vertigo. CBC unremarkable. Chemistries demonstrate baseline creatinine elevation of 1.35 and AST/ALT elevation of 41/39 respectively without other acute findings. She was given meclizine, Decadron and Zofran some improvement. I suspect probable eustachian tube dysfunction with noted fluid in the middle ear and left TM bulge. Will give Compazine and discharge with the same with recommendation for ENT follow-up. Vital Signs Vital signs: Vital Signs Temperature 97.6 F 12/18/24 08:14 Pulse Rate 90 12/18/24 08:14 Respiratory Rate 16 12/18/24 08:14 Blood Pressure 156/82 H 12/18/24 08:14 Pulse Oximetry 100 12/18/24 08:14 Oxygen Delivery Room Air 12/18/24 08:14 Temperature 97.6 F 12/18/24 08:14 Pulse Rate 61 12/18/24 12:00 Respiratory Rate 13 12/18/24 12:00 Blood Pressure 113/55 L 12/18/24 12:00 Pulse Oximetry 100 12/18/24 12:00 Oxygen Delivery Room Air 12/18/24 08:14 MDM - Dizziness MDM Narrative Medical decision making narrative: Plan: Labs, symptomatic control, reassess Differential Diagnosis Differential diagnosis: Likely benign paroxysmal positional vertigo and other (Meniere's disease, upper respiratory congestion, other) Lab Data 12/18/24 08:59 12/18/24 08:59 Labs: Lab Results 12/18/24 Range/Units 08:59 WBC 4.6 (4.5-10.0) K/mm3 RBC 4.29 (4.2-5.4) M/mm3 Hgb 13.3 (12.0-15.0) g/dL Hct 39.4 (37.0-47.0) % MCV 91.8 (80-100) fl MCH 31.0 (26-34) pg MCHC 33.8 (32-36) g/dl RDW 13.5 (11.5-14.5) % Plt Count 162 (150-375) k/mm3 MPV 10.3 (7.4-10.4) fl Immature Gran % (Auto) 0.4 (0-0.5) % Neut % (Auto) 47.8 (45.5-73.1) % Lymph % (Auto) 41.9 (18.3-44.2) % Kimble % (Auto) 7.9 (2.6-8.5) % Eos % (Auto) 1.8 (0-4.4) % Baso % (Auto) 0.2 (0.2-1.2) % Lymph # (Auto) 1.91 (0.9-3.2) K/mm3 Kimble # (Auto) 0.4 (0.1-0.6) K/mm3 Eos # (Auto) 0.1 (0-0.3) K/mm3 Baso # (Auto) 0.0 (0.0-0.1) K/mm3 Abs Immat Gran (auto) 0.02 (0.00-0.031) K/mm3 Absolute Neuts (auto) 2.2 (1.3-6.7) K/mm3 Absolute Nucleated RBC 0.000 (0.0-0.012) K/mm3 Nucleated RBC % 0.0 (0.0-0.2) % Sodium 140 (137-145) mmol/L Potassium 4.4 (3.4-5.0) mmol/L Chloride 103 (98-107) mmol/L Carbon Dioxide 29 (22-30) mmol/L Anion Gap 8 (4-12) mmol/L BUN 14 (7-17) mg/dL Creatinine 1.35 H (0.7-1.0) mg/dL Estim Creat Clear Calc 25 ml/min Estimated GFR 38 L (59 - ) Glucose 129 H (65-110) mg/dL Calcium 9.5 (8.4-10.2) mg/dL Total Bilirubin 1.0 (0.2-1.3) mg/dL AST 41 H (14-36) U/L ALT 39 H (6-35) U/L Alkaline Phosphatase 146 H (38-126) U/L Total Protein 7.6 (6.3-8.2) g/dL Albumin 4.2 (3.5-5.1) g/dL Discharge Plan Discharge Clinical Impression: Vertigo, Congestion of left ear Patient Disposition: Home Condition: Stable Instructions: Antibiotic Form, Meniere Disease (ED), Benign Paroxysmal Positional Vertigo (ED) Additional Instructions: You were seen in the emergency department. Your labs with a normal limits. Considering your recent workup, I suspect her symptoms are related to Meniere's disease, though may also be related to persistent congestion in left ear. I recommend increasing her meclizine 250 mg and adding Compazine. If you develop weakness/numbness, change/loss of vision/hearing, or if you have other emergent concerns for life, limb, or eyesight, return to the emergency department. Patient Language: Turkish Prescriptions: New prochlorperazine maleate [Compazine] 10 mg tablet 10 mg PO Q8H PRN (Reason: vertigo) Qty: 20 0RF No Action aspirin 81 mg tablet,delayed release (DR/EC) 81 mg PO DAILY Flovent HFA 110 mcg/actuation HFA aerosol inhaler 2 puff inhalation Q12H PRN methylprednisolone [Medrol (Genaro)] 4 mg tablets,dose pack See Rx Instructions PO .COMPLEX Qty: 21 0RF Rx Instructions: Take the entire day's dose as a single dose in the am. Example, day one, take all 6 tablets in the morning. Day 2, all 5 tablets in the am. losartan 25 mg tablet 25 mg PO DAILY vitamin B complex [B Complex-Vitamin B12] Tablet 1 tablet PO DAILY isosorbide mononitrate 30 mg tablet extended release 24 hr 30 mg PO DAILY ranolazine 500 mg tablet extended release 12 hr 500 mg PO Q12H bumetanide 1 mg tablet 1 mg PO DAILY Qty: 90 2RF potassium chloride 10 mEq tablet,ER particles/crystals See Rx Instructions .ROUTE .COMPLEX Qty: 100 2RF Dose Instruction: TAKE 1 TABLET BY MOUTH DAILY Rx Instructions: TAKE 1 TABLET BY MOUTH DAILY atorvastatin 20 mg tablet See Rx Instructions .ROUTE .COMPLEX Qty: 100 3RF Dose Instruction: TAKE 1 TABLET BY MOUTH DAILY Rx Instructions: TAKE 1 TABLET BY MOUTH DAILY ferrous gluconate 324 mg (37.5 mg iron) tablet 324 mg PO DAILY Qty: 30 5RF magnesium oxide 400 mg (241.3 mg magnesium) tablet 400 mg PO DAILY Qty: 90 3RF lansoprazole 30 mg capsule,delayed release(DR/EC) See Rx Instructions .ROUTE .COMPLEX Qty: 200 3RF Dose Instruction: TAKE 1 CAPSULE BY MOUTH TWICE DAILY Rx Instructions: TAKE 1 CAPSULE BY MOUTH TWICE DAILY levothyroxine 25 mcg tablet See Rx Instructions .ROUTE .COMPLEX Qty: 100 3RF Dose Instruction: TAKE 1 TABLET BY MOUTH DAILY Rx Instructions: TAKE 1 TABLET BY MOUTH DAILY trazodone 100 mg tablet See Rx Instructions .ROUTE .COMPLEX Qty: 135 3RF Dose Instruction: TAKE 1 & 1/2 (ONE & ONE-HALF) TABLETS BY MOUTH AT BEDTIME Rx Instructions: TAKE 1 & 1/2 (ONE & ONE-HALF) TABLETS BY MOUTH AT BEDTIME metoprolol succinate 50 mg tablet extended release 24 hr See Rx Instructions .ROUTE .COMPLEX Qty: 100 3RF Dose Instruction: TAKE 1 TABLET BY MOUTH DAILY Rx Instructions: TAKE 1 TABLET BY MOUTH DAILY ropinirole 0.5 mg tablet 0.5 mg PO QHS Qty: 100 2RF diazepam 2 mg tablet 4 mg PO BID Qty: 360 1RF hyoscyamine sulfate 0.125 mg tablet 0.125 mg PO QID PRN (Reason: abdominal pain) 30 Days Qty: 120 5RF Jardiance 25 mg tablet See Rx Instructions .ROUTE .COMPLEX Qty: 100 2RF Dose Instruction: TAKE 1 TABLET BY MOUTH ONCE DAILY Rx Instructions: TAKE 1 TABLET BY MOUTH ONCE DAILY acyclovir 400 mg tablet 400 mg PO BID Qty: 14 0RF Rx Instructions: For fever blisters meclizine 25 mg tablet 25 mg PO QID PRN (Reason: dizziness) Qty: 30 1RF Follow-up/Referrals: Ralph Vega MD [Physician, Ear, Nose, Throat] - 2 Weeks Odell Mann MD [Primary Care Provider, Family Practice] - 2 Weeks Time of Disposition: 11:00
[2024-12-18] MEDS: PROCHLORPERAZINE EDISYLATE 10 MG/2 ML VIAL IV PUSH (11:02)
[2024-12-18 11:08] VITALS: BP 158/65; PULSE 80; RESP 20; O2SAT 100
[2024-12-18 12:00] VITALS: BP 113/55; PULSE 61; RESP 13; O2SAT 100
== END 2024-12-18 12:27 | disposition home or self-care (01) ==
PROVIDERS: Emergency Provider Preventive Medicine Aerospace Medicine; PCP Family Medicine Adolescent Medicine
DX: R42 Dizziness and giddiness (principal); H83.8X2 Other specified diseases of left inner ear
CPT/HCPCS: 36415; 80053; 85025; 96372; 96374; 96375; 99284; A9270; J0780; J1100; J2405

== ENCOUNTER 2025-01-31 10:16 | Outpatient (CLI) | payer MEDICARE, SELFPAY ==
[2025-01-31 10:43] LABS: Hematocrit 36.9 % (37.0-47.0); Hemoglobin 12.5 g/dL (12.0-15.0); Immature Granulocyte Percent A 0.0 % (0-0.5); Lymphocytes Absolute Auto 1.93 K/mm3 (0.9-3.2); Mean Corpuscular HGB Conc 33.9 g/dl (32-36); Mean Corpuscular Hemoglobin 32.1 pg (26-34); Mean Corpuscular Volume 94.9 fl (80-100); Nucleated Red Blood Cells Absolute Auto 0.000 K/mm3 (0.0-0.012); Nucleated Red Blood Cells Perc 0.0 % (0.0-0.2); Platelet Count Result 179 k/mm3 (150-375); Red Blood Count 3.89 M/mm3 (4.2-5.4); White Blood Count 4.8 K/mm3 (4.5-10.0)
[2025-01-31 11:04] LABS: Alanine Aminotransferase 25 U/L (6-35); Albumin Level 4.3 g/dL (3.5-5.1); Alkaline Phosphatase 92 U/L (38-126); Anion Gap 10 mmol/L (4-12); Aspartate Amino Transferase 37 U/L (14-36); Bilirubin,Total 0.9 mg/dL (0.2-1.3); Blood Urea Nitrogen 26 mg/dL (7-17); Calcium 9.4 mg/dL (8.4-10.2); Carbon Dioxide 28 mmol/L (22-30); Chloride 101 mmol/L (98-107); Estimated Glomerular Filt Rate 31; Glucose 137 mg/dL (65-110); Magnesium 2.4 mg/dL (1.6-2.3); Potassium 4.4 mmol/L (3.4-5.0); Sodium 139 mmol/L (137-145); Total Protein 7.5 g/dL (6.3-8.2)
[2025-01-31 11:28] LABS: Hemoglobin A1C 5.7 % (<5.7)
[2025-01-31 11:57] LABS: Thyroid Stimulating Hormone 0.792 uIU/mL (0.465-4.680)
--- OUTSIDE RECORDS SUMMARY | 2025-01-31 19:15 | XMS_ITS | Clinical Summary ---
Author Organization [facility] [employer] Address [address] [place] [address] Care Team Providers Care Drapery Operator Name Role Phone Odell Mann MD Primary Care Provider + Source Comments [facility] [employer],non-owned Affiliates and Associated Physician Practices is amultiple site organization consisting of ambulatory clinics and hospital sitesin [place], [place], [place] and [place]. This disclosure is being madepursuant to the Care Everywhere program and may not contain all information available regarding this patient. 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
--- OUTSIDE RECORDS SUMMARY | 2025-01-31 19:15 | XMS_ITS | Encounter Summary ---
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 Gender Identity Not on file Sexual Orientation Not on file documented as of this encounter Plan of Treatment Not on file documented as of this encounter Procedures Procedure Name Priority Date/Time Associated Diagnosis Comments DERMATOPATHOLOGY Routine 08/30/2024 12:0 0 AM CDT documented in this encounter Results * DERMATOPATHOLOGY (08/30/2024 12:00 AM CDT) Case Report Dermatopathology Report Case: [id number] Authorizing Provider: Dwaine Prajapati MD Collected: 08/30/2024 12:00 AM Ordering Location: [facility] - Received: 08/31/2024 09:11 [...] characteristic determined by the Dermatopathology Laboratory at [facility], directed by Dr. Fernandez Hernandez. These tests need not be, and therefore are not, approved by the [place] Food and Drug Administration. The tests are used for clinical purposes. Billing Codes Specimen Charges Stain Charges 09651 1 4:59 PM CDT DERMATOPATHOLOGY LABORATORY Embedded Images 4:59 PM CDT DERMATOPATHOLOGY LABORATORY Pathology/Cytolog y TISSUE SPECIMEN FROM SKIN / Unknown 08/30/2024 08/31/2024 9:11 AM CDT us Dwaine Prajapati MD LAB - PATHOLOGY/CYTOLOGY ORDERAB LES Final Result DERMATOPATHOLOGY LABORATORY [facility] - Department of Dermatology [facility] [address] [place] [address], [address] [phone] documented in this encounter Visit Diagnoses Not on filedocumented in this encounter Care Teams Training Coordinator Relationship Specialty Start Date End Date Odell Mann MD [address] [address] PCP - General Family Medicine 01/03/22 documented as of this encounter
== END 2025-01-31 10:17 | disposition home or self-care (01) ==
LOC: ANHLAB 10:17
PROVIDERS: PCP Family Medicine; Visit Provider Family Medicine
DX: E11.22 Type 2 diabetes mellitus with diabetic chronic kidney disease (principal); N18.31 Chronic kidney disease, stage 3a; E03.9 Hypothyroidism, unspecified; I50.30 Unspecified diastolic (congestive) heart failure
CPT/HCPCS: 36415; 80053; 83036; 83735; 84443; 85025

== ENCOUNTER → 2025-02-07 13:46 | Outpatient (CLI) | payer MEDICARE, SELFPAY ==
--- NOTE | ~2025-02-07 | XR_ITS ---
EXAMINATION: XR ribs RT 2V, 02/07/2025 13:45 RIGGING WORKER HISTORY: R07.89 - Other chest pain COMPARISON: No comparisons available. Findings: No acute fracture or malalignment. No significant degenerative changes. Soft tissues unremarkable. Impression: No acute fracture or malalignment. Reviewed, dictated and finalized at location P. ING WORKER Impression: No acute fracture or malalignment.
== END ==
LOC: EXPCRAD 13:47
PROVIDERS: PCP Family Medicine; Visit Provider Family Medicine
DX: R07.89 Other chest pain (principal)
CPT/HCPCS: 71100

== ENCOUNTER 2025-02-08 11:08 | Outpatient (CLI) | payer MEDICARE, SELFPAY ==
[2025-02-08 12:26] LABS: Alanine Aminotransferase 28 U/L (6-35); Albumin Level 4.2 g/dL (3.5-5.1); Alkaline Phosphatase 89 U/L (38-126); Aspartate Amino Transferase 37 U/L (14-36); Bilirubin,Total 0.7 mg/dL (0.2-1.3); Lipase 104 U/L (23-300); Total Protein 7.3 g/dL (6.3-8.2)
--- OUTSIDE RECORDS SUMMARY | 2025-02-08 12:55 | XMS_ITS | Encounter Summary ---
Author Organization [facility] Facility Care Team Providers Care Clinical Athletic Instructor Name Role Phone Odell Mann MD Primary Care Prov ider Howard Herbert MD Unavailable [phone] Derrek Ling MD Unavailable Encounter Details Date Type Department Care Team (Latest Contact Info) Description 01/09/2018 Orders Only MMG CLINCONV Provider, MD Julio Ceasr [address] [place] [address] Social History Tobacco Use Types Packs/Day Years Used Date Smoking Tobacco: Never Assessed Comments Unknown Sex and Gender Information Value Date Recorded Sex Assigned at Not on file Legal Sex Female 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
--- OUTSIDE RECORDS SUMMARY | 2025-02-08 12:55 | XMS_ITS | Encounter Summary ---
Author Organization [facility] Facility Care Team Providers Care Client Services Analyst Name Role Phone Odell Mann MD Primary Care Prov ider Howard Herbert MD Unavailable [phone] Derrek Ling MD Unavailable [phone] Encounter Details Date Type Department Care Team (Latest Contact Info) Description 01/20/2018 Orders Only MMG CLINCONV Provider, MD Julio Cesar [address] [place] [address] Social History Tobacco Use Types Packs/Day Years Used Date Smoking Tobacco: Never Assessed Comments Unknown Sex and Gender Information Value Date Recorded Sex Assigned at Not on file Legal 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 us Historical Provider Final Res ult documented in this encounter Visit Diagnoses Not on filedocumented in this encounter Additional Health Concerns Infection Onset Date Last Indicated Resolved Time COVID: Suspected 06/01/2024 06/01/2024 06/01/2024 5:27 PM CDT documented as of this encounter Care Teams Client Services Analyst Relationship Specialty Start Date End Date Odell Mann MD PCP - General 06/14/18 Howard Herbert MD Referring Physician Cardiology 04/15/19 Derrek Ling MD [address] [facility] [address] [address] Consulting Physician Nephrology 06/02/24 documented as of this encounter
--- OUTSIDE RECORDS SUMMARY | 2025-02-08 12:55 | XMS_ITS | Encounter Summary ---
Author Organization [facility] Facility Care Team Providers Care Field Training Agent Name Role Phone Odell Mann MD Primary Care Prov ider Howard Herbert MD Unavailable [phone] Derrek Ling MD Unavailable [phone] Encounter Details Date Type Department Care Team (Latest Contact Info) Description 02/27/2016 Orders Only [facility] CLINCONV Provider, MD Julio Cesar [address] [place] [address] Social History Tobacco Use Types Packs/Day Years Used Date Smoking Tobacco: Never Assessed Comments Unknown Sex and Gender Information Value Date Recorded Sex Assigned at Not on file Legal Sex Female 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 us Historical Provider Final Res ult documented in this encounter Visit Diagnoses Not on filedocumented in this encounter Additional Health Concerns Infection Onset Date Last Indicated Resolved Time COVID: Suspected 06/01/2024 06/01/2024 06/01/2024 5:27 PM CDT documented as of this encounter Care Teams Field Training Agent Relationship Specialty Start Date End Date Odell Mann MD PCP - General 06/14/18 Howard Herbert MD Referring Physician Cardiology 04/15/19 Derrek Ling MD [address] [facility] [address] [address] Consulting Physician Nephrology 06/02/24 documented as of this encounter
--- OUTSIDE RECORDS SUMMARY | 2025-02-08 12:55 | XMS_ITS | Encounter Summary ---
Author Organization [facility] Facility Care Team Providers Care Confectionery Cooker Name Role Phone Odell Mann MD Primary Care Prov ider Howard Herbert MD Unavailable [phone] Derrek Ling MD Unavailable [phone] Encounter Details Date Type Department Care Team (Latest Contact Info) Description 08/30/2015 Orders Only [facility] CLINCONV Provider, MD Julio Cesar [address] [place] [address] Social History Tobacco Use Types Packs/Day Years Used Date Smoking Tobacco: Never Assessed Comments Unknown Sex and Gender Information Value Date Recorded Sex Assigned at Not on file Legal Sex Female 4:21 PM SOCIAL SCIENCE MANAGER Gender Identity Female 12/16/2024 10:18 AM CDT [...] AM CDT Ordered by an unspecified provider. [facility] Provider Final Res ult * CARDIOLOGY REPORT (08/31/2015 12:00 AM CDT) Anatomical Region Laterality Modality Other Narrative 08/31/2015 12:00 AM CDT Ordered by an unspecified provider. [facility] Provider CV CARDIAC SERVICES PROCE DURES Final Result * CARDIOLOGY REPORT (08/31/2015 12:00 AM CDT) Anatomical Region Laterality Modality Other Narrative 08/31/2015 12:00 AM CDT Ordered by an unspecified provider. [facility] Provider CV CARDIAC SERVICES PROCE DURES Final Result * CARDIOLOGY REPORT (08/31/2015 12:00 AM CDT) Anatomical Region Laterality Modality Other Narrative 08/31/2015 12:00 AM CDT Ordered by an unspecified provider. [facility] Provider CV CARDIAC SERVICES PROCE DURES Final Result documented in this encounter Visit Diagnoses Not on filedocumented in this encounter Additional Health Concerns Infection Onset Date Last Indicated Resolved Time COVID: Suspected 06/01/2024 06/01/2024 06/01/2024 5:27 PM CDT documented as of this encounter Care Teams Confectionery Cooker Relationship Specialty Start Date End Date Odell Mann MD PCP - General 06/14/18 Howard Herbert MD Referring Physician Cardiology 04/15/19 Derrek Ling MD [address] [facility] [place] [address] Consulting Physician Nephrology 06/02/24 documented as of this encounter
--- OUTSIDE RECORDS SUMMARY | 2025-02-08 12:55 | XMS_ITS | Encounter Summary ---
Author Organization [facility] Facility Care Team Providers Care Visual Coordinator Name Role Phone Odell Mann MD Primary Care Prov ider Howard Herbert MD Unavailable [phone] Derrek Ling MD Unavailable [phone] Encounter Details Date Type Department Care Team (Latest Contact Info) Description 01/25/2016 Orders Only [facility] CLINCONV ProviderJulio Cesar MD [address] [place] [address] Social History Tobacco Use Types Packs/Day Years Used Date Smoking Tobacco: Never Assessed Comments Unknown Sex and Gender Information Value Date Recorded Sex Assigned at Not on file Legal Sex Female 4:21 PM QUARRY SUPERVISOR DIMENSION STONE Gender Identity Female 12/16/2024 10:18 AM CDT Sexual Orientation Not on file documented as of this encounter Plan of Treatment Not on file documented as of this encounter Procedures Procedure Name Priority Date/Time Associated Diagnosis Comments PROCEDURE - RESULT 01/25/2016 12 :00 AM QUARRY SUPERVISOR DIMENSION STONE documented in this encounter Results * PROCEDURE - RESULT (01/25/2016 12:00 AM QUARRY SUPERVISOR DIMENSION STONE) Narrative 01/25/2016 12:00 AM QUARRY SUPERVISOR DIMENSION STONE Ordered by an unspecified provider. us Historical Provider Final Res ult documented in this encounter Visit Diagnoses Not on filedocumented in this encounter Additional Health Concerns Infection Onset Date Last Indicated Resolved Time COVID: Suspected 06/01/2024 06/01/2024 06/01/2024 5:27 PM CDT documented as of this encounter Care Teams Visual Coordinator Relationship Specialty Start Date End Date Odell Mann MD PCP - General 06/14/18 Howard Herbert MD Referring Physician Cardiology 04/15/19 Derrek Ling MD [address] [facility] [address] [place] [address] Consulting Physician Nephrology 06/02/24 documented as of this encounter
--- OUTSIDE RECORDS SUMMARY | 2025-02-08 12:55 | XMS_ITS | Encounter Summary ---
Author Organization [facility] Address [address] [facility] [place] [address] Care Team Providers Care Bookkeeping Teacher Name Role Phone Odell Mann MD Primary Care Provider + Encounter Details Date Type Department Care Team (Late st Contact Info) Description 08/31/2024 Lab Requisition [facility] - DermPath Lab [address] 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 Gender Identity Not on file Sexual Orientation Not on file documented as of this encounter Plan of Treatment Not on file documented as of this encounter Procedures Procedure Name Priority Date/Time Associated Diagnosis Comments DERMATOPATHOLOGY Routine 08/30/2024 12:0 0 AM CDT documented in this encounter Results * DERMATOPATHOLOGY (08/30/2024 12:00 AM CDT) Case Report Dermatopathology Report Case: [id number] Authorizing Provider: Dwaine Prajapati MD Collected: 08/30/2024 12:00 AM Ordering Location: [facility] - Received: 08/31/2024 09:11 [...] characteristic determined by the Dermatopathology Laboratory at [facility], directed by Dr. Fernandez Hernandez. These tests need not be, and therefore are not, approved by the [place] Food and Drug Administration. The tests are used for clinical purposes. Billing Codes Specimen Charges Stain Charges 72105 1 4:59 PM CDT DERMATOPATHOLOGY LABORATORY Embedded Images 4:59 PM CDT DERMATOPATHOLOGY LABORATORY Pathology/Cytolog y TISSUE SPECIMEN FROM SKIN / Unknown 08/30/2024 08/31/2024 9:11 AM CDT us Dwaine Prajapati MD LAB - PATHOLOGY/CYTOLOGY ORDERAB LES Final Result DERMATOPATHOLOGY LABORATORY [facility] - Department of Dermatology [facility] [address] [place] [address], [address] [phone] documented in this encounter Visit Diagnoses Not on filedocumented in this encounter Care Teams Bookkeeping Teacher Relationship Specialty Start Date End Date Odell Mann MD [address] [address] PCP - General Family Medicine 01/03/22 documented as of this encounter
--- OUTSIDE RECORDS SUMMARY | 2025-02-08 12:55 | XMS_ITS | Clinical Summary ---
Author Organization [facility] [address] [facility] Address [address] [place] [address] Care Team Providers Care Field Artillery Targeting Technician Name Role Phone Odell Mann MD Primary Care Provider [phone] Allergies Active Allergy Reactions Criticality Noted Date [...] Encounters Date Type Department Care Team Description 01/12/2025 External Device Data [facility] ABSTRACTION Provider, Abstract 01/12/2025 External Device Data [facility] ABSTRACTION Provider, Abstract 01/04/2025 External Device Data [facility] ABSTRACTION Provider, Abstract 11/16/2024 External Device Data [facility] ABSTRACTION Provider, [...] CDT Oxygen Saturation 97% 04/29/2024 11:04 AM WELL LOGGING CAPTAIN Inhaled Oxygen Concentration - - Weight 71.7 kg (158 lb) 10/29/2024 9:10 AM CDT Height 157.5 cm (5' 2) 02/26/2019 8:22 AM WELL LOGGING CAPTAIN Body Mass Index 28.9 02/26/2019 8:22 AM WELL LOGGING CAPTAIN Plan of Treatment Upcoming Encounters Date Type Department Care Team (Late st Contact Info) Description 11/02/2025 10:00 AM CDT Office Visit [facility] - [place] [address] [facility] [address] [place] [address] Ruben Nguyen MD [address] [facility] [address] [place] [address] Health Maintenance Due Date Last [...] Sig/CT Colonography Q 5 years Discontinued Insurance [facility] [id number] [place] [id number] Care Teams Field Artillery Targeting Technician Relationship Specialty Start Date End Date Odell Mann MD PCP - General Family Practice 12/24/18
--- OUTSIDE RECORDS SUMMARY | 2025-02-08 12:55 | XMS_ITS | Clinical Summary ---
Author Organization [facility] Address [address] [place] [address] Care Team Providers Care Soapstoner Name Role Phone Odell Mann MD Primary Care Provider + Source Comments [facility],non-owned Affiliates and Associated Physician Practices is amultiple site organization consisting of ambulatory clinics and hospital sitesin [place], [place], [place] and [place]. This disclosure is being madepursuant to the Care Everywhere program and may not contain all information available regarding this patient. 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
--- OUTSIDE RECORDS SUMMARY | 2025-02-08 12:55 | XMS_ITS | Clinical Summary ---
Author Organization [facility] Address [address] [place] [address] Care Team Providers Care Oracle Drm Consultant Name Role Phone Odell Mann MD Primary Care Prov ider Howard Herbert MD Unavailable [phone] Derrek Ling MD Unavailable [phone] Allergies Active Allergy Reactions Criticality Noted [...] Active Additional Information Patient not taking.Reported on 01/06/2025 metOLazone (ZAROXOLYN) 5 mg tablet Take 0.5 tablets (2.5 mg total) by mouth as needed (as directed) Take on dose today and take the second dose Friday 2 tablet 5 Active Additional Information Patient not taking.Reported on 01/06/2025 potassium chloride ER 20 mEq CR tablet TAKE 1 TABLET BY MOUTH 3 TIMES DAILY 300 tablet 2 5 Active bumetanide (BUMEX) 1 mg tablet TAKE 1 TABLET BY MOUTH TWICE DAILY 200 tablet 2 5 Active atorvastatin (LIPITOR) 40 mg tablet TAKE 2 TABLETS BY MOUTH EVERY NIGHT 200 tablet 2 5 Active losartan (COZAAR) 25 mg tablet TAKE 1 TABLET BY MOUTH DAILY 100 tablet 2 5 Active isosorbide mononitrate ER (IMDUR) 30 mg 24 hr tablet TAKE 1 TABLET BY MOUTH DAILY 100 tablet 2 5 Active ranolazine ER (RANEXA) 500 mg 12 hr tablet TAKE 1 TABLET BY MOUTH TWICE DAILY 200 tablet 2 5 Active magnesium oxide (MAG-OX) 400 mg (241.3 mg elemental magnesium) tablet Take 1 tablet by mouth once daily 90 tablet 5 Active Active Problems Problem Noted Date Diagnosed Date Chest pain 06/04/2024 Chest pain, unspecified type 06/01/2024 Mixed hyperlipidemia 10/15/2023 Arthritis of carpometacarpal (CMC) joint of righ t thumb 09/05/2023 Trigger index finger of left hand 09/05/2023 Hand arthritis 09/05/2023 Coronary artery disease invo lving hopland coronary artery of hopland heart without angina pectoris 06/02/2023 Chronic heart [...] (01/18/2020): Added automatically from request for surgery [id number] CRD (chronic renal disease), stage III 0 [...] Encounters Date Type Department Care Team Description 01/10/2025 Documentation [facility] Cardiology [address] [place] [address] Christine Shields NP 01/07/2025 Telephone [facility] Nephrology at [address] [place] [address] Derrek Ling MD 01/07/2025 Orders Only [facility] Nephrology at [address] [place] [phone] Provider, MD Julio Cesar 01/06/2025 12:30 PM CDT Office Visit [facility] Cardiology [address] [place] [address] Christine Shields NP Mixed hyperlipidemia (Primary Dx); Chronic heart failure with preserved ejection fraction from Last 3 Months Immunizations Immunization Administration [...] oz pur e alcohol) rarely [facility] Utilities Answer Date Recorded In the past 12 months has [employer]), gas, oil, or water [employer] threatened to shut off services in your [...] often do you attend chur ch or sikhism services? Never 06/02/2024 Do you belong to any clubs o r organizations such as rastafarian groups, unions, fraternal or athletic groups, or [...] any time in the past 12 m [facility], were you homeless or living in a chcf (including now)? No 06/02/2024 Personal Safety Answer Date Recorded Have you ever been in or are you currently in a harmful physical or emotional relationship or is someone making you feel afraid or unsafe? 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 Gender Identity Female 12/16/2024 10:18 AM CDT Sexual Orientation Not on file Last Filed Vital Signs Vital Sign Reading Time Taken Comments Blood Pressure 126/78 01/06/2025 12:54 PM CDT Pulse 60 01/06/2025 12:54 PM CDT Temperature 36.6 C (97.9 F) 06/02/2024 12:28 PM CDT Respiratory Rate 18 06/02/2024 12:28 PM CDT Oxygen Saturation 94% 01/06/2025 12:54 PM CDT Inhaled Oxygen Concentration - - Weight 67.6 kg (149 lb) 01/06/2025 12:54 PM CDT Height 157.5 cm (5' 2) 01/06/2025 12:54 PM CDT Body Mass Index 27.25 01/06/2025 12:54 PM CDT Plan of Treatment Health Maintenance Due Date Last Done Comments Albumin Creatinine Ratio, Urine 1945 Depression Screening 1945 Hepatitis C Screening 1945 Dilated Eye Exam 1945 Foot Exam 1947 Hepatitis B Screening 1965 Well Visit 65+ 2012 Osteoporosis Screening-Bone Density Scan 04/29/2014 04/29/2012 Zoster Vaccine (2 of 3) 03/03/2024 01/07/2024, 10/15 Influenza Vaccine (#1) 2024 , 01/01/2022, 12/29/2020, Additional history exists Hemoglobin A1C 12/02/2024 06/01/2024, 04/2 , 2014, Additional history exists Fall Risk Assessment 06/02/2025 06/02/2024 Lipid Panel 01/07/2026 01/07/2025, 05/15, 11/05/2023, Additional history exists eGFR 01/07/2026 01/07/2025, 05/15, 06/02/2024, Additional history exists DTaP/Tdap/Td Vaccine (2 - Td or Tdap) 10/15/2033 10/16/2023 Pneumococcal vaccine 65+ Completed 07/12/2020, 09/2019 Breast Cancer Screening-Mammogram Discontinued 09/25/2022, 10/22/2019, 06/20/2017, Additional history exists Medical Devices Explanted Type Area In House Counsel Device Identifier Shelf Expiration Date Model / Serial / Lot [employer] 6572 Quiroz Flexi-Stent 7fr 5cm Small Pigtail Flexible .035in Stent - [id number] Implanted:Qty : 1 on 01/17/2020 by Ludwig Crespo MD at [facility] Explanted:Qty : 1 on 01/19/2020 by Ludwig Crespo MD at [facility] Stent N/A: Pancreas [employer] 10/14/2024 [id number] / / [id number] Conmed Fatuma [id number] [place] Viabil 10mm 8.5fr 6cm 200cm Fully Covered Self Expand Pull - [id number] - [id number] Implanted:Qty : 1 on 01/17/2020 by Ludwig Crespo MD at [facility] Explanted:Qty : 1 on 01/19/2020 by Ludwig Crespo MD at [facility] Stent N/A: Bile Duct [employer] Fatuma 08/23/2022 [id number] / [id number] / Procedures Procedure Name Priority Date/Time Associated Diagnosis Comments BMP - BASIC METABOLIC PANEL (7) Routine 01/07/2025 1:26 PM CDT CBC - COMPLETE BLOOD COUNT, NO DIFFERENTIAL - [facility] Routine 01/07/2025 1:24 PM CDT MICROALBUMIN / CREATININE RATIO, RANDOM URINE Routine 01/07/2025 1:22 PM CDT COMPREHENSIVE METABOLIC PANEL Routine 01/07/2025 Chronic heart failure with preserved ejection fraction CBC WITH AUTO DIFFERENTIAL Routine 01/07/2025 Chronic heart failure with preserved ejection fraction MAGNESIUM Routine 01/07/2025 Coronary artery disease involving hopland coronary artery of hopland heart without angina pectoris LIPID PANEL Routine 01/07/2025 Mixed hyperlipidemia HEMOGLOBIN A1C STAT 06/01/2024 2:44 PM CDT DIAGNOSTIC MAMMOGRAM BILATERAL W KULDIP Routine 06/20/2017 8:48 AM CDT DEXA AXIAL SKELETON BONE DENSITY 1 OR MORE SITES Routine 04/29/2012 12:20 PM AVAYA ENGINEER from Last 3 Months or Most Recently Relevant to Health Maintenance Results * BMP - Basic Metabolic Panel (7) (01/07/2025 1:26 PM CDT) Result [facility] Historical Provider MD LAB BLOOD ORDERABLES Melia l Result Performing Organization Address [facility] de Phone Number EXTERNAL LAB * CBC - Complete Blood Count, No Differential - [facility] (01/07/2025 1:24 PM CDT) Result [facility] Historical Provider MD LAB BLOOD ORDERABLES Melia l Result Performing Organization Address [facility] de Phone Number EXTERNAL LAB * Microalbumin / Creatinine Ratio, Random Urine (01/07/2025 1:22 PM CDT) Result [facility] Historical Provider MD LAB BLOOD ORDERABLES Melia l Result Performing Organization Address [facility] de Phone Number EXTERNAL LAB * (ABNORMAL) CBC with auto differential (01/07/2025) SCRIBED WBC 4.47 3.8 - 9.9 K/cumm EXTERNAL LAB SCRIBED Hemoglobin 11.7(A) 11.9 - 15.5 g/dL EXTERNAL LAB SCRIBED Hematocrit 34.5(A) 38.9 - 50.3 % EXTERNAL LAB SCRIBED Platelets 167 150 - 400 K/cumm EXTERNAL LAB SCRIBED MPV 10 9.1 - 12.3 fL EXTERNAL LAB SCRIBED RBC 3.62(A) 3.90 - 5.20 M/cumm EXTERNAL LAB SCRIBED MCV 95.3 81.3 - 96.4 fL EXTERNAL LAB SCRIBED MCH 32.3 27.1 - 33.3 pg EXTERNAL LAB SCRIBED MCHC 33.9 32.3 - 35.7 g/dL EXTERNAL LAB SCRIBED RDW 13.9 % EXTERNAL LAB Blood 01/07/2025 Result [facility] Christine Shields BOTTOM SPRAYER LAB BLOOD ORDERABLES Final Resul t Performing Organization Address [facility]/ZIP Co de Phone Number EXTERNAL LAB * Magnesium (01/07/2025) SCRIBED Magnesium 2.3 1.8 - 2.4 mg/dl EXTERNAL LAB Blood 01/07/2025 Christine Shields BOTTOM SPRAYER LAB BLOOD ORDERABLES Final Resul t Performing Organization Address [facility] Co de Phone Number EXTERNAL LAB * (ABNORMAL) Lipid panel (01/07/2025) SCRIBED Cholesterol, Total 152 30 - 199 mg/dL EXTERNAL LAB SCRIBED Triglycerides 202(A) <=149 mg/dL EXTERNAL LAB SCRIBED HDL 53 >=40 mg/dL EXTERNAL LAB SCRIBED LDL 59 <=129 mg/dL EXTERNAL LAB Scribed Non-HDL Cholesterol 99 NONE mg/dL EXTERNAL LAB SCRIBED Total Cholesterol/HDL Ratio 152 NONE EXTERNAL LAB Blood 01/07/2025 Christine Shields BOTTOM SPRAYER LAB BLOOD ORDERABLES Final Resul t Performing Organization Address [facility] de Phone Number EXTERNAL LAB * (ABNORMAL) Comprehensive metabolic panel (01/07/2025) SCRIBED Sodium 140 135 - 145 mmol/L EXTERNAL LAB SCRIBED Potassium 4.6 3.3 - 5.2 mmol/L EXTERNAL LAB SCRIBED Chloride 102 97 - 110 mmol/L EXTERNAL LAB SCRIBED Carbon Dioxide 32 22 - 32 mmol/L EXTERNAL LAB SCRIBED Anion Gap 5.9 2 - 15 mmol/L EXTERNAL LAB SCRIBED Urea Nitrogen (BUN) 22 6 - 25 mg/dL EXTERNAL LAB SCRIBED Creatinine 1.73(A) 0.60 - 1.10 mg/dL EXTERNAL LAB SCRIBED Glucose 127 70 - 199 mg/dL EXTERNAL LAB SCRIBED Calcium 9.2 8.5 - 10.3 mg/dL EXTERNAL LAB SCRIBED Bilirubin 0.5 0.1 - 1.2 mg/dL EXTERNAL LAB SCRIBED Plasma Protein 7.3 6.5 - 8.5 g/dL EXTERNAL LAB SCRIBED Albumin 3.5 3.5 - 5.0 g/dL EXTERNAL LAB SCRIBED Alkaline Phosphatase 127 40 - 130 Units/L EXTERNAL LAB SCRIBED Alanine Transaminase (ALT) 25 7 - 45 Units/L EXTERNAL LAB SCRIBED Aspartate Transaminase (AST) 27 10 - 45 Units/L EXTERNAL LAB SCRIBED eGFR 30 >60 mL/min/1.7 3 m2 EXTERNAL LAB Blood 01/07/2025 Christine Shields NP LAB BLOOD ORDERABLES Final Resul t EXTERNAL LAB * (ABNORMAL) Hemoglobin A1c (06/01/2024 2:44 PM CDT) Hgb A1C 5.7(H) 4.0 - 5.6 % Estimated Average Glucose 117 mg/dL NATHANAEL Comment: The ADA recommends reporting an estimated Average Glucose (eAG) with all Hemoglobin A1c results using the equation derived from a study of 507 normal and diabetic adults. Minority populations were underrepresented and children were not included. (Diabetes Care 31:9741-6194, 2007). The eAG is not equivalent to a fasting glucose. Blood 06/01/2024 2:44 PM CDT 06/01/2024 2:46 PM CDT Colten Calderon MD LAB BLOOD ORDERABLES Final Result Performing Organization Address [facility] Co de Phone Number [facility] [address] [place] [address] * Diagnostic Mammogram Bilateral W Kuldip (06/20/2017 [...] Electronically signed by: Dr. Pasquale Ang M.D. ak/:06/20/2017 10:36:27 Vac Press Operator: Amelia Pat RT Heidi)(Sharon), [facility] letter sent: Normal Exam Abnormal History Reading location: [facility] BI-RADS: 2 Benign [EOD] Narrative 06/20/2017 10:37 [...] dated: 2014 mammogram and 04/29/2012 mammogram - [facility]. BREAST TISSUE: There are scattered areas of [...] dated: 2014 mammogram and 04/29/2012 mammogram - [facility]. BREAST TISSUE: There are scattered areas of [...] by: Dr. Pasquale Ang M.D. nh/:06/20/2017 10:36:27 Vac Press Operator: Amelia Pat RT (R)(M), [facility] letter sent: Normal Exam Abnormal History Reading location: [facility] BI-RADS: 2 Benign [EOD] Nico Donato Andre MD IMG MAMMO PROCEDURES Final Result * Dexa Axial Skeleton Bone Density 1 or 2 Site (04/29/2012 12:20 PM AVAYA ENGINEER) Anatomical Region Laterality Modality Body N/A Radiographic Adeline ging 04/29/2012 12:2 0 PM AVAYA ENGINEER Impressions 04/29/2012 2:31 PM AVAYA ENGINEER Normal bone density. THIS IS AN ELECTRONICALLY VERIFIED REPORT 04/29/2012 2:26 PM: Sierra Warren M.D. Sierra Warren M.D. KL:saravanan 02:26 PM 02:26 PM [EOD] Narrative 04/29/2012 2:31 PM AVAYA ENGINEER EXAMINATION: Bone Density Study (DEXA) HISTORY: Post [...] PM 02:26 PM [EOD] Nico Andre MD IM DXA PROCEDURES Final R esult from Last 3 Months or Most Recently Relevant to Health Maintenance Insurance [facility] MEDICARE ADVANTAGE UHC MEDICARE ADVANTAGE [facility] MEDICARE Address: [address] [address] Advance Directives For more information, please contact: [phone] * Full Code (Latest Code Status on File) Date Activated Date Inactivated Comments 06/01/2024 7:09 PM 06/02/2024 8:03 PM * Full Code Date Activated Date Inactivated Comments 01/17/2020 1:24 PM 01/19/2020 6:58 PM Care Teams Oracle Drm Consultant Relationship Specialty Start Date End Date Odell Mann MD PCP - General 06/14/18 Howard Herbert MD Referring Physician Cardiology 04/15/19 Derrek Ling MD [address] [place] [address] Consulting Physician Nephrology 06/02/24
== END 2025-02-08 11:09 | disposition home or self-care (01) ==
PROVIDERS: PCP Family Medicine; Visit Provider Nurse Practitioner Family
DX: R10.9 Unspecified abdominal pain (principal); R11.2 Nausea with vomiting, unspecified; R79.89 Other specified abnormal findings of blood chemistry
CPT/HCPCS: 36415; 80076; 83690

== ENCOUNTER 2025-02-17 09:31 | Outpatient (CLI) | payer MEDICARE, SELFPAY ==
--- NOTE | ~2025-02-17 | CT_ITS ---
EXAMINATION: CT abdomen pelvis w con DATE: 02/17/2025 10:02 INDICATION: Nausea and vomiting. Right upper quadrant abdominal pain. TECHNIQUE: Computed tomography (CT) of the abdomen and pelvis was performed with 100 mL Omnipaque-350 intravenous contrast. Automated exposure control and iterative reconstruction technique were employed. The dose-length product was 263.14 mGy-cm. COMPARISON: None FINDINGS: Mild dependent atelectasis in both lower lobes. Heart size is normal. No pericardial or pleural effusion. Cholecystectomy clips in the gallbladder fossa. Small amount of pneumobilia along the normal caliber common bile duct and right hepatic duct. Additional small amount of gas within the main pancreatic duct. Findings likely related to prior sphincterotomy. Mild fatty atrophy of the pancreas. Spleen, bilateral adrenal glands are normal. There is likely age- related mild bilateral renal cortical atrophy with more focal cortical scarring with likely surgical clips at the level of the right kidney suggesting prior partial nephrectomy. Moderate to large amount of stool scattered throughout the colon which could be seen with constipation. No dilated small bowel to suggest obstruction. Bladder is normal. The uterus is not identified and has likely been surgically resected. No free intraperitoneal gas or fluid. No pathologically enlarged abdominal or pelvic lymphadenopathy. Mild to moderate lumbar and lower thoracic spondylosis. IMPRESSION: 1. Small amount of pneumobilia and additional small amount of gas within the main pancreatic duct likely related to prior cholecystectomy and sphincterotomy. 2. Moderate to large amount of colonic stool. Correlate clinically for constipation. No other acute intra-abdominal/pelvic process. Reviewed, dictated and finalized at location A. RECORDING MIXER IMPRESSION: 1. Small amount of pneumobilia and additional small amount of gas within the ma in pancreatic duct likely related to prior cholecystectomy and sphincterotomy. 2. Moderate to large amount of colonic stool. Correlate clinically for constipa tion. No other acute intra-abdominal/pelvic process.
[2025-02-17 09:54] LABS: Estimated Glomerular Filt Rate 40
--- OUTSIDE RECORDS SUMMARY | 2025-02-17 10:18 | XMS_ITS | Clinical Summary ---
Author Organization [facility] [address] [facility] Address [address] [place] [address] Care Team Providers Care Raw Stock Dyeing Machine Tender Name Role Phone Odell Mann MD Primary Care Provider [phone] Allergies Active Allergy Reactions Criticality Noted Date [...] CDT Oxygen Saturation 97% 04/29/2024 11:04 AM MECHANICAL HANDYMAN Inhaled Oxygen Concentration - - Weight 71.7 kg (158 lb) 10/29/2024 9:10 AM CDT Height 157.5 cm (5' 2) 02/26/2019 8:22 AM MECHANICAL HANDYMAN Body Mass Index 28.9 02/26/2019 8:22 AM MECHANICAL HANDYMAN Plan of Treatment Upcoming Encounters Date Type Department Care Team (Late st Contact Info) Description 11/02/2025 10:00 AM CDT Office Visit [facility] Oncology and Hematology - [place] [address] [facility] [address] [place] [address] Ruben Nguyen MD [address] [employer] [address] [place] [address] Health Maintenance Due Date Last [...] Sig/CT Colonography Q 5 years Discontinued Insurance [facility] [id number] Care Teams Raw Stock Dyeing Machine Tender Relationship Specialty Start Date End Date Odell Mann MD PCP - General Family Practice 12/24/18
--- OUTSIDE RECORDS SUMMARY | 2025-02-17 10:18 | XMS_ITS | Encounter Summary ---
Author Organization 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 Gender Identity Not on file Sexual Orientation Not on file documented as of this encounter Plan of Treatment Not on file documented as of this encounter Procedures Procedure Name Priority Date/Time Associated Diagnosis Comments DERMATOPATHOLOGY Routine 08/30/2024 12:0 0 AM CDT documented in this encounter Results * DERMATOPATHOLOGY (08/30/2024 12:00 AM CDT) Case Report Dermatopathology Report Case: [id number] Authorizing Provider: Dwaine Prajapati MD Collected: 08/30/2024 12:00 AM Ordering Location: [facility] - Received: 08/31/2024 09:11 [...] characteristic determined by the Dermatopathology Laboratory at [facility], directed by Dr. Fernandez Hernandez. These tests need not be, and therefore are not, approved by the [place] Food and Drug Administration. The tests are used for clinical purposes. Billing Codes Specimen Charges Stain Charges 27401 1 4:59 PM CDT DERMATOPATHOLOGY LABORATORY Embedded Images 4:59 PM CDT DERMATOPATHOLOGY LABORATORY Pathology/Cytolog y TISSUE SPECIMEN FROM SKIN / Unknown 08/30/2024 08/31/2024 9:11 AM CDT us Dwaine Prajapati MD LAB - PATHOLOGY/CYTOLOGY ORDERAB LES Final Result DERMATOPATHOLOGY LABORATORY [facility] - Department of Dermatology [facility] Medicine [address] [place] [address], [address] [phone] documented in this encounter Visit Diagnoses Not on filedocumented in this encounter Care Teams Receptionist Clerk Relationship Specialty Start Date End Date Odell Mann MD [address] [address] PCP - General Family Medicine 01/03/22 documented as of this encounter
--- OUTSIDE RECORDS SUMMARY | 2025-02-17 10:18 | XMS_ITS | Clinical Summary ---
Author Organization [facility] at the [facility] Office Center Address [address] [place] [address] Care Team Providers Care Squad Boss Name Role Phone Odell Mann MD Primary Care Prov ider Howard Herbert MD Unavailable [phone] Derrek Ling MD Unavailable [phone] Allergies Active Allergy Reactions Criticality Noted [...] (01/18/2020): Added automatically from request for surgery [id number] CRD (chronic renal disease), stage III 0 [...] Type Department Care Team Description 01/10/2025 Documentation [facility] Cardiology [address] [place] [address] Christine Shields NP 01/07/2025 Telephone [facility] Nephrology at [address] [place] [address] Derrek Ling MD 01/07/2025 Orders Only [facility] Nephrology at [address] [place] [address] Provider, MD Julio Cesar 01/06/2025 12:30 PM CDT Office Visit [facility] Cardiology [address] [place] [address] Christine Shields NP Mixed hyperlipidemia [...] = 0.6 oz pur e alcohol) rarely [facility] Utilities Answer Date Recorded In the past 12 months has [employer], gas, oil, or water [employer] threatened to shut off services in your [...] often do you attend chur ch or sabianism services? Never 06/02/2024 Do you belong to any clubs o r organizations such as mandaen groups, unions, fraternal or athletic groups, or [...] time in the past 12 m [facility], were you homeless or living in [...] on file Legal Sex Female 4:21 PM PRINT DESIGNER Gender Identity Female 12/16/2024 10:18 AM CDT [...] history exists Medical Devices Explanted Type Area Wastewater Engineer Device Identifier Shelf Expiration Date Model / Serial / Lot [employer] 6572 Quiroz Flexi-Stent 7fr 5cm Small Pigtail Flexible .035in Stent - [id number] Implanted:Qty : 1 on 01/17/2020 by Ludwig Crespo MD at [facility] Explanted:Qty : 1 on 01/19/2020 by Ludwig Crespo MD at [facility] Stent N/A: Pancreas [employer] 10/14/2024 6572 / / [id number] Conmed Fatuma [id number] Fessenden Viabil 10mm 8.5fr 6cm 200cm Fully Covered Self Expand Pull - [id number] - [id number] Implanted:Qty : 1 on 01/17/2020 by Ludwig Crespo MD at [facility] Explanted:Qty : 1 on 01/19/2020 by Ludwig Crespo MD at [facility] Stent N/A: Bile Duct [employer] Fatuma 08/23/2022 [id number] / [id number] / Procedures Procedure Name Priority Date/Time Associated Diagnosis Comments BMP - BASIC METABOLIC PANEL (7) Routine 01/07/2025 1:26 PM CDT CBC - COMPLETE BLOOD COUNT, NO DIFFERENTIAL - [facility] Routine 01/07/2025 1:24 PM CDT MICROALBUMIN / CREATININE RATIO, RANDOM URINE Routine 01/07/2025 1:22 PM CDT COMPREHENSIVE METABOLIC PANEL Routine 01/07/2025 Chronic heart failure with preserved ejection fraction CBC WITH AUTO DIFFERENTIAL Routine 01/07/2025 Chronic heart failure with preserved ejection fraction MAGNESIUM Routine 01/07/2025 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 LIPID PANEL Routine 01/07/2025 Mixed hyperlipidemia HEMOGLOBIN A1C STAT 06/01/2024 2:44 PM CDT DIAGNOSTIC MAMMOGRAM BILATERAL W KULDIP Routine 06/20/2017 8:48 AM CDT DEXA AXIAL SKELETON BONE DENSITY 1 OR MORE SITES Routine 04/29/2012 12:20 PM PRINT DESIGNER from Last 3 Months or Most Recently Relevant to Health Maintenance Results * BMP - Basic Metabolic Panel (7) (01/07/2025 1:26 PM CDT) Result [facility] Historical Provider MD LAB BLOOD ORDERABLES Melia l Result Performing Organization Address [facility] de Phone Number EXTERNAL LAB * CBC - Complete Blood Count, No Differential - [facility] (01/07/2025 1:24 PM CDT) Result [facility] Historical Provider MD LAB BLOOD ORDERABLES Melia l Result Performing Organization Address [facility] de Phone Number EXTERNAL LAB * Microalbumin / Creatinine Ratio, Random Urine (01/07/2025 1:22 PM CDT) Result [facility] Historical Provider MD LAB BLOOD ORDERABLES Melia l Result Performing Organization Address [facility] de Phone Number EXTERNAL LAB * (ABNORMAL) [...] 13.9 % EXTERNAL LAB Blood 01/07/2025 Result [facility] Christine Shields MATH AND PHYSICS INSTRUCTOR LAB BLOOD ORDERABLES Final Resul t Performing Organization Address [facility]/ZIP Co de Phone Number EXTERNAL LAB * Magnesium (01/07/2025) SCRIBED Magnesium 2.3 1.8 - 2.4 mg/dl EXTERNAL LAB Blood 01/07/2025 Christine Shields MATH AND PHYSICS INSTRUCTOR LAB BLOOD ORDERABLES Final Resul t Performing Organization Address [facility] Co de Phone Number EXTERNAL LAB * (ABNORMAL) Lipid panel (01/07/2025) SCRIBED Cholesterol, Total 152 30 - 199 mg/dL EXTERNAL LAB SCRIBED Triglycerides 202(A) <=149 mg/dL EXTERNAL LAB SCRIBED HDL 53 >=40 mg/dL EXTERNAL LAB SCRIBED LDL 59 <=129 mg/dL EXTERNAL LAB Scribed Non-HDL Cholesterol 99 NONE mg/dL EXTERNAL LAB SCRIBED Total Cholesterol/HDL Ratio 152 NONE EXTERNAL LAB Blood 01/07/2025 Christine Shields MATH AND PHYSICS INSTRUCTOR LAB BLOOD ORDERABLES Final Resul t Performing Organization Address [facility] de Phone Number EXTERNAL LAB * (ABNORMAL) [...] and children were not included. (Diabetes Care 31:[id number], 2007). The eAG is not equivalent to a fasting glucose. Blood 06/01/2024 2:44 PM CDT 06/01/2024 2:46 PM CDT Colten Calderon MD LAB BLOOD ORDERABLES Final Result Performing Organization Address [facility] Co de Phone Number [facility] [address] [facility] [place] [address] * Diagnostic Mammogram Bilateral W Kuldip (06/20/2017 [...] Electronically signed by: Dr. Pasquale Ang M.D. de/:06/20/2017 10:36:27 Mohs Surgeon/General Dermatologist: Amelia Pat RT Heidi)(Sharon), [facility] letter sent: Normal Exam Abnormal [...] dated: 2014 mammogram and 04/29/2012 mammogram - [facility]. BREAST TISSUE: There are scattered areas [...] dated: 2014 mammogram and 04/29/2012 mammogram - [facility]. BREAST TISSUE: There are scattered areas [...] by: Dr. Pasquale Ang M.D. nh/:06/20/2017 10:36:27 Mohs Surgeon/General Dermatologist: Amelia Pta RT (R)(M), [facility] letter sent: Normal Exam Abnormal History Reading location: [facility] BI-RADS: 2 Benign [EOD] Nico Donato Andre MD IMG MAMMO PROCEDURES Final Result * Dexa Axial Skeleton Bone Density 1 or 2 Site (04/29/2012 12:20 PM PRINT DESIGNER) Anatomical Region Laterality Modality Body N/A Radiographic Adeline ging 04/29/2012 12:2 0 PM PRINT DESIGNER Impressions 04/29/2012 2:31 PM PRINT DESIGNER Normal bone density. THIS IS AN ELECTRONICALLY VERIFIED REPORT 04/29/2012 2:26 PM: Sierra Warren M.D. Sierra Warren M.D. KL:saravanan 02:26 PM 02:26 PM [EOD] Narrative 04/29/2012 2:31 PM PRINT DESIGNER EXAMINATION: Bone Density Study (DEXA) HISTORY: Post [...] Most Recently Relevant to Health Maintenance Insurance [facility] MEDICARE ADVANTAGE [employer] MEDICARE ADVANTAGE Advance Directives For more information, please contact: [phone] * Full Code (Latest Code Status on File) Date Activated Date Inactivated Comments 06/01/2024 7:09 PM 06/02/2024 8:03 PM * Full Code Date Activated Date Inactivated Comments 01/17/2020 1:24 PM 01/19/2020 6:58 PM Care Teams Squad Boss Relationship Specialty Start Date End Date Odell Mann MD PCP - General 06/14/18 Howard Herbert MD Referring Physician Cardiology 04/15/19 Derrek Ling MD [address] [place] [address] Consulting Physician Nephrology 06/02/24
--- OUTSIDE RECORDS SUMMARY | 2025-02-17 10:18 | XMS_ITS | Encounter Summary ---
Author Organization [facility] Facility Care Team Providers Care Medical Office Coordinator Name Role Phone Odell Mann MD Primary Care Prov ider Howard Herbert MD Unavailable [phone] Derrek Ling MD Unavailable [phone] Encounter Details Date Type Department Care Team (Latest Contact Info) Description 08/30/2015 Orders Only [facility]INCONV Provider, MD Julio Cesar [address] [place] [address] Social History Tobacco Use Types Packs/Day Years Used Date Smoking Tobacco: Never Assessed Comments Unknown Sex and Gender Information Value Date Recorded Sex Assigned at Not on file Legal Sex Female 4:21 PM NUCLEAR PLANT TECHNICAL ADVISOR Gender Identity Female 12/16/2024 10:18 AM CDT [...] AM CDT Ordered by an unspecified provider. [facility] Provider Final Res ult * CARDIOLOGY REPORT (08/31/2015 12:00 AM CDT) Anatomical Region Laterality Modality Other Narrative 08/31/2015 12:00 AM CDT Ordered by an unspecified provider. [facility] Provider CV CARDIAC SERVICES PROCE DURES Final Result * CARDIOLOGY REPORT (08/31/2015 12:00 AM CDT) Anatomical Region Laterality Modality Other Narrative 08/31/2015 12:00 AM CDT Ordered by an unspecified provider. [facility] Provider CV CARDIAC SERVICES PROCE DURES Final Result * CARDIOLOGY REPORT (08/31/2015 12:00 AM CDT) Anatomical Region Laterality Modality Other Narrative 08/31/2015 12:00 AM CDT Ordered by an unspecified provider. [facility] Provider CV CARDIAC SERVICES PROCE DURES Final Result documented in this encounter Visit Diagnoses Not on filedocumented in this encounter Additional Health Concerns Infection Onset Date Last Indicated Resolved Time COVID: Suspected 06/01/2024 06/01/2024 06/01/2024 5:27 PM CDT documented as of this encounter Care Teams Medical Office Coordinator Relationship Specialty Start Date End Date Odell Mann MD PCP - General 06/14/18 Howard Herbert MD Referring Physician Cardiology 04/15/19 Derrek Ling MD [address] [address] Consulting Physician Nephrology 06/02/24 documented as of this encounter
--- OUTSIDE RECORDS SUMMARY | 2025-02-17 10:18 | XMS_ITS | Encounter Summary ---
Author Organization [facility] Facility Care Team Providers Care Rabbit Dresser Name Role Phone Odell Mann MD Primary Care Prov ider Howard Herbert MD Unavailable [phone] Derrek Ling MD Unavailable [phone] Encounter Details Date Type Department Care Team (Latest Contact Info) Description 01/20/2018 Orders Only [facility] CLINCONV ProviderJulio Cesar MD [address] [place] [address] Social History Tobacco Use Types Packs/Day Years Used Date Smoking Tobacco: Never Assessed Comments Unknown Sex and Gender Information Value Date Recorded Sex Assigned at Not on file Legal Sex Female 4:21 PM PHOTOGRAPHY COORDINATOR Gender Identity Female 12/16/2024 10:18 AM CDT Sexual Orientation Not on file documented as of this encounter Plan of Treatment Not on file documented as of this encounter Procedures Procedure Name Priority Date/Time Associated Diagnosis Comments SCAN - LABS 02/02/2018 12:00 AM PHOTOGRAPHY COORDINATOR documented in this encounter Results * SCAN - LABS (02/02/2018 12:00 AM PHOTOGRAPHY COORDINATOR) Narrative 02/02/2018 12:00 AM PHOTOGRAPHY COORDINATOR Ordered by an unspecified provider. us Historical Provider Final Res ult documented in this encounter Visit Diagnoses Not on filedocumented in this encounter Additional Health Concerns Infection Onset Date Last Indicated Resolved Time COVID: Suspected 06/01/2024 06/01/2024 06/01/2024 5:27 PM CDT documented as of this encounter Care Teams Rabbit Dresser Relationship Specialty Start Date End Date Odell Mann MD PCP - General 06/14/18 Howard Herbert MD Referring Physician Cardiology 04/15/19 Derrek Ling MD [address] [place] [address] Consulting Physician Nephrology 06/02/24 documented as of this encounter
--- OUTSIDE RECORDS SUMMARY | 2025-02-17 10:18 | XMS_ITS | Clinical Summary ---
Author Organization [facility] [employer] Address [address] [place] [address] Care Team Providers Care Consumer Marketing Specialist Name Role Phone Odell Mann MD Primary Care Provider + Source Comments [facility] [employer],non-owned Affiliates and Associated Physician Practices is amultiple site organization consisting of ambulatory clinics and hospital sitesin [place], [place], [place] and [place]. This disclosure is being madepursuant to the Care Everywhere program and may not contain all information available regarding this patient. Last updated 17.[facility] [employer] Allergies No known active allergies Medications * [...] mouth once daily Active Cholecalciferol 1.25 MG (15852 UT) Take 50,000 Units by mouth once [...] on file Legal Sex Female 6:18 AM PRODUCT TESTER Gender Identity Not on file Sexual [...] patient's age to complete this topic Insurance [facility] MANAGED MEDICARE ADV [facility] MANAGED MEDICARE ADV [facility] MANAGED MEDICARE ADV Care Teams Consumer Marketing Specialist Relationship Specialty Start Date End Date Odell Mann MD [address] [address] PCP - General Family Medicine 01/03/22
--- OUTSIDE RECORDS SUMMARY | 2025-02-17 10:18 | XMS_ITS | Encounter Summary ---
Author Organization [facility] Facility Care Team Providers Care Specialty Transformer Assembler Name Role Phone Odell Mann MD Primary Care Prov ider Howard Herbert MD Unavailable [phone] Derrek Ling MD Unavailable [phone] Encounter Details Date Type Department Care Team (Latest Contact Info) Description 02/27/2016 Orders Only [facility] CLINCONV ProviderJulio Cesar MD [address] [place] [address] Social History Tobacco Use Types Packs/Day Years Used Date Smoking Tobacco: Never Assessed Comments Unknown Sex and Gender Information Value Date Recorded Sex Assigned at Not on file Legal Sex Female 4:21 PM GAME OPERATOR Gender Identity Female 12/16/2024 10:18 AM CDT Sexual Orientation Not on file documented as of this encounter Plan of Treatment Not on file documented as of this encounter Procedures Procedure Name Priority Date/Time Associated Diagnosis Comments PROCEDURE - RESULT 02/19/2016 12 :00 AM GAME OPERATOR documented in this encounter Results * PROCEDURE - RESULT (02/19/2016 12:00 AM GAME OPERATOR) Narrative 02/19/2016 12:00 AM GAME OPERATOR Ordered by an unspecified provider. Historical Provider Final Res ult documented in this encounter Visit Diagnoses Not on filedocumented in this encounter Additional Health Concerns Infection Onset Date Last Indicated Resolved Time COVID: Suspected 06/01/2024 06/01/2024 06/01/2024 5:27 PM CDT documented as of this encounter Care Teams Specialty Transformer Assembler Relationship Specialty Start Date End Date Odell Mann MD PCP - General 06/14/18 Howard Herbert MD Referring Physician Cardiology 04/15/19 Derrek Ling MD [address] [place] [address] Consulting Physician Nephrology 06/02/24 documented as of this encounter
--- OUTSIDE RECORDS SUMMARY | 2025-02-17 10:18 | XMS_ITS | Encounter Summary ---
Author Organization [facility] Facility Care Team Providers Care Model Maker Apprentice Name Role Phone Odell Mann MD Primary Care Prov ider Howard Herbert MD Unavailable [phone] Derrek Ling MD Unavailable [phone] Encounter Details Date Type Department Care Team (Latest Contact Info) Description 01/25/2016 Orders Only [facility] CLINCONV ProviderJulio Cesar MD [address] [place] [address] Social History Tobacco Use Types Packs/Day Years Used Date Smoking Tobacco: Never Assessed Comments Unknown Sex and Gender Information Value Date Recorded Sex Assigned at Not on file Legal Sex Female 4:21 PM HEEL BUILDER MACHINE Gender Identity Female 12/16/2024 10:18 AM CDT Sexual Orientation Not on file documented as of this encounter Plan of Treatment Not on file documented as of this encounter Procedures Procedure Name Priority Date/Time Associated Diagnosis Comments PROCEDURE - RESULT 01/25/2016 12 :00 AM HEEL BUILDER MACHINE documented in this encounter Results * PROCEDURE - RESULT (01/25/2016 12:00 AM HEEL BUILDER MACHINE) Narrative 01/25/2016 12:00 AM HEEL BUILDER MACHINE Ordered by an unspecified provider. us Historical Provider Final Res ult documented in this encounter Visit Diagnoses Not on filedocumented in this encounter Additional Health Concerns Infection Onset Date Last Indicated Resolved Time COVID: Suspected 06/01/2024 06/01/2024 06/01/2024 5:27 PM CDT documented as of this encounter Care Teams Model Maker Apprentice Relationship Specialty Start Date End Date Odell Mann MD PCP - General 06/14/18 Howard Herbert MD Referring Physician Cardiology 04/15/19 Derrek Ling MD [address] [place] [address] Consulting Physician Nephrology 06/02/24 documented as of this encounter
--- OUTSIDE RECORDS SUMMARY | 2025-02-17 10:18 | XMS_ITS | Encounter Summary ---
Author Organization [facility] Facility Care Team Providers Care Field Producer Name Role Phone Odell Mann MD Primary Care Prov ider Howard Herbert MD Unavailable [phone] Derrek Ling MD Unavailable [phone] Encounter Details Date Type Department Care Team (Latest Contact Info) Description 01/09/2018 Orders Only [facility] CLINCONV Provider, MD Julio Cesar [address] [place] [address] Social History Tobacco Use Types Packs/Day Years Used Date Smoking Tobacco: Never Assessed Comments Unknown Sex and Gender Information Value Date Recorded Sex Assigned at Not on file Legal Sex Female 4:21 PM METAL ROOFING MECHANIC Gender Identity Female 12/16/2024 10:18 AM CDT [...] as of this encounter Care Teams Field Producer Relationship Specialty Start Date End Date Odell Mann MD PCP - General 06/14/18 Howard Herbert MD Referring Physician Cardiology 04/15/19 Derrek Ling MD [address] [place] [address] Consulting Physician Nephrology 06/02/24 documented as of this encounter
== END 2025-02-17 09:32 | disposition home or self-care (01) ==
PROVIDERS: PCP Family Medicine; Visit Provider Family Medicine
DX: R11.2 Nausea with vomiting, unspecified (principal); R10.9 Unspecified abdominal pain
CPT/HCPCS: 74177; Q9967